=== PATIENT | male | born 1955 | race Caucasian/White ===

== ENCOUNTER 2020-07-29 17:15 | Outpatient (REF) | payer OTHER, SELFPAY | END 2020-07-29 17:16 | disposition home or self-care (01) | LOC: HO.LAB 17:15 | PROVIDERS: PCP Internal Medicine; Visit Provider Internal Medicine | DX: Z20.828 Contact with and (suspected) exposure to other viral communicable diseases (principal) | CPT/HCPCS: C9803; U0003 ==

== ENCOUNTER 2020-11-12 12:52 | Outpatient (REF) | payer OTHER, SELFPAY ==
[2020-11-12 14:09] LABS: Alanine Aminotransferase 12 U/L (0-40); Aspartate Amino Transferase 18 U/L (5-37); Cholesterol 175 mg/dL; HDL Cholesterol 42 mg/dL; LDL Cholesterol Calculated 106 mg/dl; Triglycerides 135 mg/dL
[2020-11-12 14:29] LABS: Free T4 (Free Thyroxine) 0.87 ng/dL (0.71-1.85)
== END 2020-11-12 12:53 | disposition home or self-care (01) ==
LOC: HO.HMGCLDS 12:52
PROVIDERS: PCP Internal Medicine; Visit Provider Internal Medicine
DX: E78.5 Hyperlipidemia, unspecified (principal); E03.9 Hypothyroidism, unspecified
CPT/HCPCS: 36415; 80061; 84439; 84450; 84460

== ENCOUNTER 2022-06-26 12:46 | Emergency (ER) | payer OTHER, SELFPAY ==
[2022-06-26] VITALS (8 sets, daily range): BP systolic 85–127; BP diastolic 45–72; PULSE 74–107; RESP 16–21; TEMP 36.1–36.9; O2SAT 97–100; BMI 22.3
--- NOTE | ~2022-06-26 | CT_ITS ---
EXAMINATION: CT ABDOMEN AND PELVIS WITHOUT CONTRAST CLINICAL INFORMATION: Hematuria, status post renal transplant. COMPARISON: None TECHNIQUE: Multidetector volumetric imaging was performed from the superior aspect of the liver through the pubic symphysis. Sagittal and coronal reformatted images were obtained on the technologist's workstation. This CT examination was performed using dose optimization techniques as appropriate, variously including the following: *Automated exposure control *Adjustment of mA and/or kV according to patient size (this includes techniques or standardized protocols for targeted exams where dose is matched to indication/reason for exam; i.e. extremities or head) *Use of iterative reconstruction technique DLP: 387 mGy-cm FINDINGS: LUNG BASES: There is low-attenuation lobulated 2.0 x 1.4 cm mass abating right-sided pleura, seen on image 4 series 8 LIVER, GALLBLADDER, AND BILIARY TREE: The liver is normal in size, shape, and attenuation. No focal hepatic lesion or biliary ductal dilatation is present. Gallbladder is over distended with the lumen measured 11.3 x 5.2 x 3.9 cm most likely gallbladder hydrops. CBD is not dilated. No evidence of cholelithiasis. PANCREAS: Unremarkable. SPLEEN: Unremarkable. ADRENAL GLANDS: Unremarkable. KIDNEYS AND URETERS: Negative. Kidneys are atrophic, with a small renal transplant in the right lower quadrant is unremarkable. BLADDER: Urinary bladder is circumferentially thickened with high attenuation material at the dependent portion of the bladder, most likely small stones.. GASTROINTESTINAL TRACT: There is small hiatal hernia. There is no diverticulitis, diverticulosis, colitis. Appendix is unremarkable. ABDOMINAL WALL: No significant hernia is appreciated. LYMPH NODES: Normal. VASCULAR: Unremarkable. PELVIC VISCERA: Prostate is heterogeneous and enlarged OSSEOUS STRUCTURES: There are degenerative changes at the level of L4-L5 with narrowing of the disc and marginal spurring. CT/CT abdomen pelvis wo IV con IMPRESSION: 1. Distended gallbladder, most likely gallbladder hydrops. Correlate with right upper quadrant ultrasound 2. Atrophic [place] kidneys with unremarkable transplanted kidney in the right lower quadrant. 3. Circumferentially thickened urinary bladder with small stones. 4. Prostatic hypertrophy. 5. Small hiatal hernia. 6. Right-sided pleural-based mass, correlate with CT scan of the chest. 7. Degenerative changes at the level of L4-L5. Fleischner guidelines were followed.
[2022-06-26 13:23] LABS: Appearance Urine Turbid; Color Urine RED; Glucose Urine UA Negative (Negative); Nitrite Urine Positive (Negative); PH 8.5 (5.0-9.0); UMIC TRIGGER UACC YES; Urine Blood Large (3+) (Negative); Urine Ketones 15 mg/dL (Negative); Urine Protein 300 (3+) mg/dL (Neg-Trace)
[2022-06-26 13:24] LABS: Leukocyte Esterase Urine Large (3+) (Negative)
[2022-06-26 13:34] LABS: Bacteria Urine 2+ (None Seen); Hyaline Casts Urine 0-2 /LPF (0-2); RBC Urine >20 /HPF (0-2); Squamous Epithelial Cell Urine 0-2 /HPF (0-2); UACC Culture Trigger YES
[2022-06-26 14:27] LABS: MANUAL DIFF FLAG NO
[2022-06-26 14:28] LABS: Basophils Absolute Auto 0.1 X10*3/uL (0.0-0.2); Basophils Percent Auto 0.7 % (0-2); Eosinophils Absolute Auto 0.3 X10*3/uL (0.0-0.4); Eosinophils Percent Auto 3.6 % (0-4); Hematocrit 36.3 % (42.0-52.0); Hemoglobin 11.4 g/dl (14.0-18.0); Imm Gran Abs Auto 0.11 X10*3/uL (0.00-0.03); Imm Gran Pct Auto 1.3 % (0.0-0.4); Lymphocytes Absolute Auto 1.1 X10*3/uL (1.2-4.9); Lymphocytes Percent Auto 12.6 % (20-40); Mean Corpuscular HGB Conc 31.4 g/dl (31.0-36.0); Mean Corpuscular Volume 89.2 fL (80.0-98.0); Mean Platelet Volume 9.4 fL (9.4-12.4); Monocytes Absolute Auto 0.6 X10*3/uL (0.1-1.2); Monocytes Percent Auto 7.2 % (2-11); Neutrophils Absolute Auto 6.4 x10*3/uL (2.0-8.3); Neutrophils Percent Auto 74.6 % (45-73); Platelet Count 207 X10*3/uL (160-400); Red Blood Count 4.07 X10*6/uL (4.60-5.80); Red Cell Distribution Width 15.9 % (11.0-16.0); White Blood Count 8.6 X10*3/uL (4.8-10.8)
[2022-06-26 14:33] LABS: Blood Urea Nitrogen 54 mg/dL (9-16); Calcium 9.4 mg/dL (8.4-10.2); Creatinine Clr Calc Pharmacy 13.5; Estimated Glomerular Filt Rate 15; Glucose Random 88 mg/dL (60-115)
[2022-06-26 14:41] LABS: Anion Gap 22 (12-20); Carbon Dioxide 13 mmol/L (22-29); Chloride 105 mmol/L (96-108); Potassium 5.5 mmol/L (3.3-5.1); Sodium 134 mmol/L (135-145)
--- NOTE | 2022-06-26 14:50 | PC.NURSE ---
pt's sister juanpablo lundberg ([phone]) [place] [facility] [place] on pt status
--- NOTE | 2022-06-26 15:11 | ED_ITS ---
HPI - Male Genitourinary General Chief complaint: Urogenital-Male Stated complaint: blood in urine Source: patient Mode of arrival: ambulatory Limitations: no limitations History of Present Illness HPI Narrative: 67-year-old male end-stage renal disease with a renal transplant came in with hematuria. No abdominal pain, no flank pain. Patient has been evaluated for BPH on Flomax. Patient declined any fever or chills, no nausea, no vomiting. Related Data Home Medications Medication Instructions Recorded Confirmed tamsulosin 0.4 mg capsule 0.4 mg PO BEDTIME 08/12/20 11/14/20 terazosin 2 mg capsule 2 mg PO DAILY 11/14/20 11/14/20 Previous Rx's Medication Instructions Recorded atomoxetine 80 mg capsule 80 mg PO QAM #30 caps 02/05/22 bupropion HCl 300 mg 24 hr tablet, 300 mg PO DAILY #30 tabs 02/05/22 extended release lamotrigine 200 mg tablet 200 mg PO DAILY #30 tabs 02/05/22 lisinopril 2.5 mg tablet 2.5 mg PO DAILY #90 tabs 04/14/22 allopurinol 100 mg tablet 100 mg PO DAILY #90 tabs 06/25/22 aspirin 81 mg tablet,delayed 81 mg PO DAILY #90 tabs 06/25/22 release cholecalciferol (vitamin D3) 50 50 mcg PO DAILY #90 caps 06/25/22 mcg (2,000 unit) capsule levothyroxine 75 mcg tablet 75 mcg PO QAM #90 tabs 06/25/22 omeprazole 20 mg capsule,delayed 20 mg PO DAILY #90 caps 06/25/22 release Allergies Allergy/AdvReac Type Severity Reaction Status Date / Time No Known Allergies Allergy Unverified 06/26/22 12:45 Review of Systems Review of Systems: All other systems are reviewed and are negative Constitutional: Reports as per HPI and Reports no additional constitutional complaints Eyes: Reports as per HPI and Reports no additional eye complaints Reports system reviewed and no additional complaints, except as documented Cardiovascular: Reports as per HPI and Reports no additional cardiovascular complaints Respiratory: Reports as per HPI and Reports no additional respiratory complaints Gastrointestinal: Reports as per HPI and Reports no additional gastrointestinal complaints Genitourinary: Reports no additional female genitourinary complaints Musculoskeletal: Reports no additional musculoskeletal complaints Skin/Breast: Reports system reviewed and no additional complaints, except as docu Psychiatric: Reports no additional psychiatric complaints Endocrine: Reports no additional endocrine complaints Hematologic/Lymphatic: Reports no additional hematologic/lymphatic complaints Allergic/Immunologic: Reports no additional allergic/immunologic complaints Reports system reviewed and no additional complaints, except as documented and Reports Abnormal speech present [facility] Past Medical History Medical History Acquired hypothyroidism Chronic kidney disease Dyslipidemia Essential hypertension Secondary hyperparathyroidism Surgical History History of arteriovenous shunt History of colonoscopy History of renal transplant Family History Family History Father Medical history non-contributory Mother Medical history non-contributory Sister No problems noted. Social History Social History Smoked in Last 30 Days: No Use of substances other than those prescribed or required for medical reasons: No Advance Directives: No Advance Directives Information Provided: Yes Physical Exam Vital Signs: Vital Signs: Last Vital Signs Temp 98.0 F 06/26/22 16:13 Pulse 90 06/26/22 16:13 Resp 16 06/26/22 16:13 BP 89/64 L 06/26/22 16:13 Pulse Ox 98 06/26/22 16:13 O2 Del Method 06/26/22 16:13 BMI result Body Mass Index 22.3 Vital signs have been reviewed as appeared to be correct. Blood pressure normal. Heart rate normal. Respiration rate normal. Temperature normal. Oxygen saturation normal. Appearance: Alert. Oriented X3. No acute distress. Head: Normal external exam. Normocephalic. Atraumatic. No Cap[place] signs noted. No raccoon eyes noted Eyes: PERRLA. EOMI. Conjunctiva and sclera normal. Eyelids normal. ENT: TM's Normal. Pharynx normal. Uvula midline. Moist mucous membranes. No trismus noted. No drooling noted. No muffled voice noted. Neck: Normal inspection. Neck supple. FROM. No adenopathy. Thyroid Normal. No meningeal signs. No neck mass noted. CVS: Normal heart rate and rhythm. Heart sound normal. No murmurs noted. Pulses normal throughout. Respiratory: No respiratory distress. Painless inspiration. Breath sounds normal. No wheezes/rales/rhonchi noted. Chest nontender. No accessory muscle usage noted or decreased air movement noted. Abdomen: Soft and nontender. Bowel sounds normal in all 4 quadrants. No distention noted. No organomegaly noted. No visible injury noted. Back: No CVA tenderness. Full range of motion noted. Skin: Skin warm and dry. Normal skin color. Normal skin turgor. No rashes/lesions/lacerations noted. Extremities: No lower extremity edema. Extremities exhibit normal range of motion. Extremities nontender. Neuro: Oriented X 3. Cranial nerve exam: II-XII are grossly intact No motor deficit. No sensory deficit. Reflexes normal. Course Course Course Narrative: 67-year-old male with end-stage renal disease and renal transplant came in with hematuria, CT of the abdomen pelvis is pending signed out to Dr. Sarah, patient should be transferred depending on the finding of the CT patient had the surgery done at [facility] should be discussed with the transplant surgeon. MDM - Male Genitourinary Lab Data Result diagrams: 06/26/22 14:22 06/26/22 14:02 Labs: Lab Results 06/26/22 06/26/22 06/26/22 Range/Units 13:12 14:02 14:22 WBC (4.8-10.8) X10*3/uL RBC (4.60-5.80) X10*6/uL Hgb (14.0-18.0) g/dl Hct (42.0-52.0) % MCV (80.0-98.0) fL MCH (27.0-33.0) pg MCHC (31.0-36.0) g/dl RDW (11.0-16.0) % Plt Count (160-400) X10*3/uL MPV (9.4-12.4) fL Immature Gran % (Auto) (0.0-0.4) % Neut % (Auto) (45-73) % Lymph % (Auto) (20-40) % Mclennan % (Auto) (2-11) % Eos % (Auto) (0-4) % Baso % (Auto) (0-2) % Lymph # (Auto) (1.2-4.9) X10*3/uL Mclennan # (Auto) (0.1-1.2) X10*3/uL Eos # (Auto) (0.0-0.4) X10*3/uL Baso # (Auto) (0.0-0.2) X10*3/uL Abs Immat Gran (auto) (0.00-0.03) X10*3/uL Absolute Neuts (auto) (2.0-8.3) x10*3/uL Absolute Nucleated RBC (0.0-0.012) X10*3/uL Nucleated RBC % (auto) (0.0-0.2) /100WBC PT 12.0 (10.0-13.1) SEC INR 1.0 (0.9-1.1) Sodium 134 L (135-145) mmol/L Potassium 5.5 H (3.3-5.1) mmol/L Chloride 105 (96-108) mmol/L Carbon Dioxide 13 L (22-29) mmol/L Anion Gap 22 H (12-20) BUN 54 H (9-16) mg/dL Creatinine 4.13 H* (0.5-1.4) mg/dL Estim Creat Clear Calc 13.5 Estimated GFR 15 Random Glucose 88 (60-115) mg/dL Calcium 9.4 (8.4-10.2) mg/dL Urine Color RED Urine Appearance Turbid Urine pH 8.5 (5.0-9.0) Ur Specific [place] 1.010 (1.005-1.025) Urine Protein 300 (3+) H (Neg-Trace) mg/dL Urine Glucose (UA) Negative (Negative) mg/dL Urine Ketones 15 (Negative) mg/dL Urine Blood Large (3+) H (Negative) Urine Nitrite Positive H (Negative) Ur Leukocyte Esterase Large (3+) H (Negative) Urine RBC >20 H (0-2) /HPF Urine WBC 6-10 H (0-5) /HPF Ur Squamous Epith Cells 0-2 (0-2) /HPF Urine Bacteria 2+ (None Seen) Hyaline Casts 0-2 (0-2) /LPF 06/26/ Range/Units 14:22 WBC 8.6 (4.8-10.8) X10*3/uL RBC 4.07 L (4.60-5.80) X10*6/uL Hgb 11.4 L (14.0-18.0) g/dl Hct 36.3 L (42.0-52.0) % MCV 89.2 (80.0-98.0) fL MCH 28.0 (27.0-33.0) pg MCHC 31.4 (31.0-36.0) g/dl RDW 15.9 (11.0-16.0) % Plt Count 207 (160-400) X10*3/uL MPV 9.4 (9.4-12.4) fL Immature Gran % (Auto) 1.3 H (0.0-0.4) % Neut % (Auto) 74.6 H (45-73) % Lymph % (Auto) 12.6 L (20-40) % Mclennan % (Auto) 7.2 (2-11) % Eos % (Auto) 3.6 (0-4) % Baso % (Auto) 0.7 (0-2) % Lymph # (Auto) 1.1 L (1.2-4.9) X10*3/uL Mclennan # (Auto) 0.6 (0.1-1.2) X10*3/uL Eos # (Auto) 0.3 (0.0-0.4) X10*3/uL Baso # (Auto) 0.1 (0.0-0.2) X10*3/uL Abs Immat Gran (auto) 0.11 H (0.00-0.03) X10*3/uL Absolute Neuts (auto) 6.4 (2.0-8.3) x10*3/uL Absolute Nucleated RBC 0.000 (0.0-0.012) X10*3/uL Nucleated RBC % (auto) 0.0 (0.0-0.2) /100WBC PT (10.0-13.1) SEC INR (0.9-1.1) Sodium (135-145) mmol/L Potassium (3.3-5.1) mmol/L Chloride (96-108) mmol/L Carbon Dioxide (22-29) mmol/L Anion Gap (12-20) BUN (9-16) mg/dL Creatinine (0.5-1.4) mg/dL Estim Creat Clear Calc Estimated GFR Random Glucose (60-115) mg/dL Calcium (8.4-10.2) mg/dL Urine Color Urine Appearance Urine pH (5.0-9.0) Ur Specific [place] (1.005-1.025) Urine Protein (Neg-Trace) mg/dL Urine Glucose (UA) (Negative) mg/dL Urine Ketones (Negative) mg/dL Urine Blood (Negative) Urine Nitrite (Negative) Ur Leukocyte Esterase (Negative) Urine RBC (0-2) /HPF Urine WBC (0-5) /HPF Ur Squamous Epith Cells (0-2) /HPF Urine Bacteria (None Seen) Hyaline Casts (0-2) /LPF Discharge Plan Discharge Clinical Impression: Painless hematuria Patient Disposition: Still a Patient Prescriptions: No Action atomoxetine 80 mg capsule 80 mg PO QAM Qty: 30 0RF Rx Instructions: No further refills will be given, patient will be seeing a new psychiatrist bupropion HCl 300 mg tablet extended release 24 hr 300 mg PO DAILY Qty: 30 0RF Rx Instructions: Refill on sent for 1 month supply, no for future refills will be sent, patient to be seen by new psychiatrist lamotrigine 200 mg tablet 200 mg PO DAILY Qty: 30 0RF Rx Instructions: Temporary prescription will be sent for 1 month, patient will be seeing a new psychiatrist lisinopril 2.5 mg tablet 2.5 mg PO DAILY Qty: 90 0RF allopurinol 100 mg tablet 100 mg PO DAILY Qty: 90 0RF aspirin 81 mg tablet,delayed release (DR/EC) 81 mg PO DAILY Qty: 90 0RF cholecalciferol (vitamin D3) 50 mcg (2,000 unit) capsule 50 mcg PO DAILY Qty: 90 0RF levothyroxine 75 mcg tablet 75 mcg PO QAM Qty: 90 0RF omeprazole 20 mg capsule,delayed release(DR/EC) 20 mg PO DAILY Qty: 90 0RF terazosin 2 mg capsule 2 mg PO DAILY tamsulosin 0.4 mg capsule 0.4 mg PO BEDTIME
--- NOTE | 2022-06-26 16:15 | PC.NURSE ---
THIS PCT ASSUMED CARE OF PT AT 1500 ,VS TAKEN ,PT IS RESTING ,CALL SCHNEIDER WITHIN REACH .
[2022-06-26] MEDS: 0.9 % Sodium Chloride 1,000 ML 500 ML IV (17:00)
--- NOTE | 2022-06-26 17:07 | PC.NURSE ---
Pts BP 89/64. MD aware and ordered fluids with BP improvement to 106/58. Pt aware of plan of care.
[2022-06-27] VITALS: BP 116/59; PULSE 99; RESP 20; TEMP 36.9; O2SAT 97
--- NOTE | 2022-06-27 00:07 | PC.NURSE ---
[facility]'s transfer center called at [phone] spoke with Iman gave patient demographics. Speaking with at this time.
[2022-06-27 00:55] LABS: COVID-19 Test Positive (Negative)
--- NOTE | 2022-06-27 01:26 | PC.NURSE ---
RN to RN report provided [place] PROSPER Keith [place] [facility] [place] [facility] [place] Pt aware of plan of care.
--- NOTE | 2022-06-27 01:28 | PC.NURSE ---
At 0101 accepted patient to [place] [phone]. At 0104 Karmen called for a stat Bls transfer per . ETA 20mins.
== END 2022-06-27 02:39 | disposition still patient (30) ==
PROVIDERS: Emergency Provider Emergency Medicine; PCP Internal Medicine
DX: U07.1 COVID-19 (principal); N17.9 Acute kidney failure, unspecified; I12.0 Hypertensive chronic kidney disease with stage 5 chronic kidney disease or end stage renal disease; R31.9 Hematuria, unspecified; N18.6 End stage renal disease; N39.0 Urinary tract infection, site not specified; B96.4 Proteus (mirabilis) (morganii) as the cause of diseases classified elsewhere; E78.5 Hyperlipidemia, unspecified; Z94.0 Kidney transplant status; Z79.82 Long term (current) use of aspirin; Z79.899 Other long term (current) drug therapy
CPT/HCPCS: 36415; 74176; 80048; 81001; 85025; 85610; 87086; 87088; 87186; 87635; 96360; 96361; 96366; 99285

== ENCOUNTER 2022-08-12 12:30 | Inpatient (IN) | payer OTHER, SELFPAY ==
[2022-08-12] VITALS (7 sets, daily range): BP systolic 110–150; BP diastolic 42–106; PULSE 83–117; RESP 17–32; TEMP 36.8–39.4; O2SAT 94–99; BMI 25.0
--- NOTE | ~2022-08-12 | CT_ITS ---
EXAMINATION: CT CHEST, ABDOMEN AND PELVIS WITHOUT IV CONTRAST. CLINICAL INFORMATION: Fever, SOB COMPARISON: Chest x-ray 08/12/2022. CT abdomen pelvis 06/26/2022 TECHNIQUE: 5 mm thin axial and reformatted 3 mm thick sagittal and coronal images of chest, abdomen and pelvis were obtained without contrast. DLP 664 FINDINGS: Chest: LUNGS: The lungs are well-expanded and with patchy groundglass attenuation in the in the lingula and dependent right basilar segment lower lobe suggestive of infiltrates. There is a round nodule in the right CP angle measuring 1.2 cm. there are no additional nodules seen Mediastinum: The heart size and great vessels are normal caliber. There is mild coronary artery calcifications. No pericardial effusion seen. No abnormal size mediastinal or hilar lymph nodes seen. Central trachea and the bronchi appears widely patent. Thyroid lobes are symmetrical and normal. Pleura: There is no pleural effusion, thickening or calcification. Axilla: Small shotty lymph nodes are seen axilla. The chest wall is unremarkable. Osseous structures: No aggressive lytic or sclerotic process seen. There are degenerative disc changes and ventral spondylosis mid and lower dorsal spine. Abdomen and pelvis: Liver, ducts and gallbladder. The liver is normal size, contour and density. No focal lesion or intrahepatic ductal dilatation seen. The gallbladder is distended with isodense bile to liver. Spleen: Unremarkable. Pancreas: Unremarkable. Adrenal glands: Unremarkable. Kidneys and ureters: Both kidneys are small and atrophic without radiopaque calculi or hydronephrosis. In right transplant kidney is visualized and pelvis and appears unremarkable. Lymphovascular structures: The abdominal aorta appears normal caliber. Noted lymph nodes or mass seen. GI tract: There is scattered moderate stool seen throughout the colon without distention. The small bowel loops are normal caliber. There is a left upper quadrant gastrostomy tube appendix is not seen. There is no free air or free fluid. Abdominal wall: No evidence of hernia. Pelvis: The urinary bladder is distended extending to the umbilicus. Mild posterior wall calcification or hyperdense gravel is suspected. There is moderate to significantly enlarged prostate gland with hyperdense central gland nodule. There is no free fluid. No abnormal pelvic or inguinal lymph nodes seen. Osseous structures: There is vacuum disc phenomena and degenerative disc changes L4-L5 disc level. No aggressive lytic or sclerotic process seen. CT/CT abdomen pelvis wo IV con IMPRESSION: Lingular and right lower lobe groundglass opacity suggestive of developing infiltrates. There is a 1.2 cm nodule right CP angle question inflammatory or infectious. Question of right lower lobe mass was raised on previous CT abdomen and pelvis exam 06/26/2022. Recommend follow-up in 6 weeks to 3 months or PET/CT follow-up after resolution of pneumonia. Atrophic bilateral kidneys with normal appearing renal transplant in the pelvis. Significantly enlarged bladder secondary to bladder outlet obstruction from an enlarged prostate gland. There is small posterior wall calcification or radiopaque gravel along the posterior bladder wall. Dependent small radiopaque stones were suspected on the previous CT as well. Distended gallbladder with isodense bowel to liver.
--- NOTE | ~2022-08-12 | XR_ITS ---
EXAMINATION: XR CHEST CLINICAL INFORMATION: Shortness of breath COMPARISON: Chest x-ray 12/18/2006 TECHNIQUE: Frontal view of the chest was obtained. FINDINGS: The lungs are hypoexpanded but clear. The heart size and pulmonary vascularity is normal. No gross bony abnormality seen. XR/XR chest 1V IMPRESSION: Hypoexpanded lungs without acute process.
--- NOTE | ~2022-08-12 | CT_ITS ---
EXAMINATION: CT HEAD WITHOUT CONTRAST CLINICAL INFORMATION: Acute mental status change COMPARISON: Head CT 12/29/2013. No more recent available studies TECHNIQUE: Imaging was performed from the skull base to vertex without intravenous administration of contrast. This CT examination was performed using dose optimization techniques as appropriate, variously including the following: *Automated exposure control *Adjustment of mA and/or kV according to patient size (this includes techniques or standardized protocols for targeted exams where dose is matched to indication/reason for exam; i.e. extremities or head) *Use of iterative reconstruction technique Total exam dose length product: 664 mGy-cm FINDINGS: Exam quality degraded by motion artifact. Mixed attenuation left lateral convexity subdural hematoma measuring up to 1.2 cm in thickness. Some small areas of hypodensity hemorrhage within the collection. Hyperdense acute smaller right frontal convexity subdural hematoma measuring approximately 4 mm in thickness. Mild 3-4 mm rightward midline shift. Partial sulcal effacement. Basal cisterns are patent. No additional intracranial hemorrhage or mass. No ventriculomegaly. No gross loss of dickens-white matter differentiation. No territorial encephalomalacia identified. No significant volume loss. There is no abnormal attenuation within the brain parenchyma. Right left lateral parietal ignacio holes. No calvarial fracture. The mastoid air cells and visualized portions of the paranasal sinuses appear normally aerated allowing for motion artifact.. CT/CT head/brain wo IV con IMPRESSION: 1. Mixed attenuation left lateral convexity subdural hematoma measuring up to 1.2 cm in thickness consistent with acute to subacute hemorrhage. 2. Small right frontal convexity subdural hematoma measuring 4 mm in thickness, high density suggesting more recent/acute hemorrhage. 3. Mild 3-4 mm rightward midline shift. This critical result was discussed with Dr. Steele at 5:41 PM on 08/12/2022 and it was ascertained that the content and urgency of the report was understood at the time of direct communication.
--- NOTE | 2022-08-12 12:53 | ECG_ITS ---
Test Reason : SOB Blood Pressure : / mmHG Vent. Rate : 114 BPM Atrial Rate : 114 BPM P-R Int : 152 ms QRS Dur : 074 ms QT Int : 314 ms P-R-T Axes : 000 132 -09 degrees QTc Int : 432 ms Poor data quality Suspect limb lead reversal, interpretation assumes no reversal Sinus tachycardia Right axis deviation Low voltage QRS ST & T wave abnormality, consider anterior ischemia Abnormal ECG When compared with ECG of 29-DEC-2013 16:10, Poor data quality in current ECG precludes serial comparison Referred By: Patricia Steele Electronically Signed By:MARIAH CHAVEZ MD
--- NOTE | 2022-08-12 13:12 | ED.GENADULT ---
HPI - General Adult General Chief complaint: General Medical Stated complaint: From SNF, hot to the touch per EMS Time Seen by Provider: 08/12/22 12:53 Source: EMS Mode of arrival: EMS History of Present Illness HPI narrative: 67-year-old male arrives via EMS from long-term care facility with baseline neurologic deficits but staff is saying that he is more tremulous than normal and ?is feels like he may have a fever?. They are also concerned that he may be having seizures. Related Data Home Medications Medication Instructions Recorded Confirmed tamsulosin 0.4 mg capsule 0.4 mg PO BEDTIME 08/12/20 11/14/20 terazosin 2 mg capsule 2 mg PO DAILY 11/14/20 11/14/20 Previous Rx's Medication Instructions Recorded atomoxetine 80 mg capsule 80 mg PO QAM #30 caps 02/05/22 bupropion HCl 300 mg 24 hr tablet, 300 mg PO DAILY #30 tabs 02/05/22 extended release lamotrigine 200 mg tablet 200 mg PO DAILY #30 tabs 02/05/22 lisinopril 2.5 mg tablet 2.5 mg PO DAILY #90 tabs 04/14/22 allopurinol 100 mg tablet 100 mg PO DAILY #90 tabs 06/25/22 aspirin 81 mg tablet,delayed 81 mg PO DAILY #90 tabs 06/25/22 release cholecalciferol (vitamin D3) 50 50 mcg PO DAILY #90 caps 06/25/22 mcg (2,000 unit) capsule levothyroxine 75 mcg tablet 75 mcg PO QAM #90 tabs 06/25/22 omeprazole 20 mg capsule,delayed 20 mg PO DAILY #90 caps 06/25/22 release Allergies Allergy/AdvReac Type Severity Reaction Status Date / Time No Known Allergies Allergy Unverified 06/26/22 12:45 Review of Systems Review of Systems: Yes Unobtainable due to mental condition PMFSH Past Medical History Source: nursing notes reviewed Medical History Acquired hypothyroidism Chronic kidney disease Dyslipidemia Essential hypertension Secondary hyperparathyroidism Surgical History History of arteriovenous shunt History of colonoscopy History of renal transplant Family History Family History Father Medical history non-contributory Mother Medical history non-contributory Sister No problems noted. Social History Social History Advance Directives: No Advance Directives Information Provided: Yes Physical Exam ED Vital Signs: Vital Signs - 24 hr 08/12/22 12:49 08/12/22 14:25 08/12/22 16:40 Temperature 103 F H 98.2 F Pulse Rate 117 H 102 H 83 Respiratory Rate 24 H 24 H 18 Blood Pressure 132/106 H 142/88 H 150/66 H Pulse Oximetry 99 95 Oxygen Delivery Method Room Air Room Air BMI result Body Mass Index 25.0 VITAL SIGNS: Reviewed. GENERAL: Chronically ill, in no acute distress. HEAD: Normocephalic/atraumatic EYES: PERRLA, EOMI, nystagmus EARS: Ext canals without abnormality OROPHARYNX: no oral lesions noted, posterior pharynx clear NECK: Supple, no adenopathy LUNGS: Normal breath sounds. No adventitious sounds or accessory muscle use. SpO2<99> CARDIOVASCULAR: Tachycardic rate and rhythm without noted murmurs, no JVD or lower extremity edema. ABDOMEN: Soft, non-tender, feeding tube in place, non-distended with bowel sounds. MUSCULOSKELETAL: No tenderness, deformities, or effusions noted on gross inspection. EXTREMITIES: No cyanosis, clubbing or edema. SKIN: Inspection of the skin reveals no rashes, tactile fever NEUROLOGIC: Alert strength and sensation to light touch were grossly intact x 4 but with dyskinetic movement but no seizure-like activity noted. Course Reevaluation(s) Reevaluation #1: Hypoglycemia will be treated with D50. The hyperkalemia is noted, however this appears to be chronically stable when prior labs here at [facility] are reviewed as well as discussion in the [facility] documentation. Time: 14:12 Reevaluation #2: Patient received another D50 with good response. Time: 15:27 Medications Administered Generic Name Dose Route Start Last Admin Trade Name Freq PRN Reason Stop Dose Admin Dextrose 25 gm 08/12/22 14:02 08/12/22 15:33 Dextrose 50 % 25 Gm/50 Ml Syringe IVPUSH 25 gm Q15M PRN Administration per Hypoglycemia Standing Ord. Discontinued Medications Generic Name Dose Route Start Last Admin Trade Name Freq PRN Reason Stop Dose Admin Acetaminophen 650 mg 12/29/22 13:56 08/12/22 14:15 Acetaminophen Supp 650 Mg Supp.Rect OH 08/12/22 13:57 650 mg ONCE ONE Administration Piperacillin Sod/Tazobactam 50 mls @ 100 mls/hr 08/12/22 12:53 08/12/22 15:12 Sod 3.375 gm/ Sodium Chloride IV 08/12/22 13:22 Infused ONCE ONE Infusion Sodium Chloride 1,000 mls @ 999 mls/hr 08/12/22 14:00 08/12/22 15:12 Ns IV 08/12/22 15:00 Infused .Q1H1M WHITNEY Infusion Midazolam HCl 1 mg 08/12/22 16:38 08/12/22 16:45 Midazolam Hcl/Pf 2 Mg/2 Ml Vial IVPUSH 08/12/22 16:39 1 mg ONCE ONE Administration Midazolam HCl 1 mg 08/12/22 16:59 08/12/22 17:02 Midazolam Hcl/Pf 2 Mg/2 Ml Vial IVPUSH 08/12/22 17:00 1 mg ONCE ONE Administration Medical Decision Making Medical Decision Making MDM Narrative: 67-year-old male who is a full code, multiple medical comorbidities with a recent extensive stay at [facility] for increased encephalopathy of unknown etiology, patient was treated for acute and chronic subdural hematomas at that time. Comes in febrile suspicious for likely underlying infection, labs/lactic acid/blood cultures/seizure medication levels/antibiotics as well as IV fluids were all ordered. Due to difficulty with further assessment we also ordered CT of the head/chest as well as abdomen pelvis. After patient received antibiotics, IV fluids, antipyretics he is had good response in heart rate, respiratory rate as well as temperature. There is no leukocytosis and anemia is chronically stable, patient has noted elevated potassium as well as sodium but feel that this is secondary to suspected underlying hypovolemia and possible malnutrition. In comparison to chemistry studies on 06/26 the creatinine is significantly improved and the potassium is only mildly worsened but again I feel that this is secondary to dehydration/malnutrition. Patient was also noted to be hypo glycemic and received a total of 2 amps of D50. He has not had any seizure-like activity here as he is difficult to understand but is responsive and tracks when you speak to him. Viral testing is negative. 1715: CT scans, urinalysis/urine toxicology are all pending. In addition, anti seizure medication levels are also pending. I signed out to Dr. Harris Differential Diagnosis Differential Diagnoses: The differential diagnosis associated with the presentation includes Infection, metabolic derangement, change in subdural hematoma status. Admission/Observation Consideration of admission/observation: Escalation of care including admission/observation considered Lab Data MDM Lab Attestation statement: I reviewed the patient's lab results. Please see discussion above Result Diagrams: 08/12/22 13:11 08/12/22 13:11 Labs: Lab Results 08/12/22 08/12/22 08/12/22 Range/Units 13:11 13:11 13:11 WBC 5.7 (4.8-10.8) X10*3/uL RBC 4.10 L (4.60-5.80) X10*6/uL Hgb 10.8 L (14.0-18.0) g/dl Hct 35.8 L (42.0-52.0) % MCV 87.3 (80.0-98.0) fL MCH 26.3 L (27.0-33.0) pg MCHC 30.2 L (31.0-36.0) g/dl RDW 17.8 H (11.0-16.0) % Plt Count 346 D (160-400) X10*3/uL MPV 9.5 (9.4-12.4) fL Immature Gran % (Auto) 0.4 (0.0-0.4) % Neut % (Auto) 60.0 (45-73) % Lymph % (Auto) 28.4 (20-40) % [place] % (Auto) 8.0 (2-11) % Eos % (Auto) 2.1 (0-4) % Baso % (Auto) 1.1 (0-2) % Lymph # (Auto) 1.6 (1.2-4.9) X10*3/uL [place] # (Auto) 0.5 (0.1-1.2) X10*3/uL Eos # (Auto) 0.1 (0.0-0.4) X10*3/uL Baso # (Auto) 0.1 (0.0-0.2) X10*3/uL Abs Immat Gran (auto) 0.02 (0.00-0.03) X10*3/uL Absolute Neuts (auto) 3.4 (2.0-8.3) x10*3/uL Absolute Nucleated RBC 0.000 (0.0-0.012) X10*3/uL Nucleated RBC % (auto) 0.0 (0.0-0.2) /100WBC PT 13.0 (10.0-13.1) SEC INR 1.1 (0.9-1.1) Sodium (135-145) mmol/L Potassium (3.3-5.1) mmol/L Chloride (96-108) mmol/L Carbon Dioxide (22-29) mmol/L Anion Gap (12-20) BUN (9-16) mg/dL Creatinine (0.5-1.4) mg/dL Estim Creat Clear Calc Estimated GFR POC Glucose (60-115) mg/dL Random Glucose (60-115) mg/dL Lactic Acid 2.9 H* (0.5-2.0) mmol/L Lactic Acid F/U @ 2Hr (0.5-2.0) mmol/L Calcium (8.4-10.2) mg/dL Magnesium (1.6-2.6) mg/dL Total Bilirubin (0.0-1.0) mg/dL AST (5-37) U/L ALT (0-40) U/L Alkaline Phosphatase (39-117) U/L Troponin I High Sens (<3.5-35.0) ng/L Total Protein (6.5-8.0) g/dL Albumin (3.5-5.0) g/dL COVID-19 (JOE) (Negative) COVID-19 Clin Com Influenza Type A (DODIE) (Negative) Influenza Type B (DODIE) (Negative) Influenza A & B Note 08/12/22 08/12/22 08/12/22 Range/Units 13:11 13:11 13:11 WBC (4.8-10.8) X10*3/uL RBC (4.60-5.80) X10*6/uL Hgb (14.0-18.0) g/dl Hct (42.0-52.0) % MCV (80.0-98.0) fL MCH (27.0-33.0) pg MCHC (31.0-36.0) g/dl RDW (11.0-16.0) % Plt Count (160-400) X10*3/uL MPV (9.4-12.4) fL Immature Gran % (Auto) (0.0-0.4) % Neut % (Auto) (45-73) % Lymph % (Auto) (20-40) % [place] % (Auto) (2-11) % Eos % (Auto) (0-4) % Baso % (Auto) (0-2) % Lymph # (Auto) (1.2-4.9) X10*3/uL [place] # (Auto) (0.1-1.2) X10*3/uL Eos # (Auto) (0.0-0.4) X10*3/uL Baso # (Auto) (0.0-0.2) X10*3/uL Abs Immat Gran (auto) (0.00-0.03) X10*3/uL Absolute Neuts (auto) (2.0-8.3) x10*3/uL Absolute Nucleated RBC (0.0-0.012) X10*3/uL Nucleated RBC % (auto) (0.0-0.2) /100WBC PT (10.0-13.1) SEC INR (0.9-1.1) Sodium 148 H (135-145) mmol/L Potassium 6.3 H* (3.3-5.1) mmol/L Chloride 113 H (96-108) mmol/L Carbon Dioxide 21 L (22-29) mmol/L Anion Gap 20 (12-20) BUN 59 H (9-16) mg/dL Creatinine 1.98 H (0.5-1.4) mg/dL Estim Creat Clear Calc 34.3 Estimated GFR 34 POC Glucose (60-115) mg/dL Random Glucose 55 L* (60-115) mg/dL Lactic Acid (0.5-2.0) mmol/L Lactic Acid F/U @ 2Hr (0.5-2.0) mmol/L Calcium 10.2 D (8.4-10.2) mg/dL Magnesium 2.1 (1.6-2.6) mg/dL Total Bilirubin 0.5 (0.0-1.0) mg/dL AST 32 (5-37) U/L ALT 21 (0-40) U/L Alkaline Phosphatase 189 H (39-117) U/L Troponin I High Sens 41.3 H (<3.5-35.0) ng/L Total Protein 8.0 (6.5-8.0) g/dL Albumin 4.5 (3.5-5.0) g/dL COVID-19 (JOE) (Negative) COVID-19 Clin Com Influenza Type A (DODIE) Negative (Negative) Influenza Type B (DODIE) Negative (Negative) Influenza A & B Note See Note 08/12/22 08/12/22 08/12/22 Range/Units 13:11 14:09 15:27 WBC (4.8-10.8) X10*3/uL RBC (4.60-5.80) X10*6/uL Hgb (14.0-18.0) g/dl Hct (42.0-52.0) % MCV (80.0-98.0) fL MCH (27.0-33.0) pg MCHC (31.0-36.0) g/dl RDW (11.0-16.0) % Plt Count (160-400) X10*3/uL MPV (9.4-12.4) fL Immature Gran % (Auto) (0.0-0.4) % Neut % (Auto) (45-73) % Lymph % (Auto) (20-40) % [place] % (Auto) (2-11) % Eos % (Auto) (0-4) % Baso % (Auto) (0-2) % Lymph # (Auto) (1.2-4.9) X10*3/uL [place] # (Auto) (0.1-1.2) X10*3/uL Eos # (Auto) (0.0-0.4) X10*3/uL Baso # (Auto) (0.0-0.2) X10*3/uL Abs Immat Gran (auto) (0.00-0.03) X10*3/uL Absolute Neuts (auto) (2.0-8.3) x10*3/uL Absolute Nucleated RBC (0.0-0.012) X10*3/uL Nucleated RBC % (auto) (0.0-0.2) /100WBC PT (10.0-13.1) SEC INR (0.9-1.1) Sodium Cancelled (135-145) mmol/L Potassium Cancelled (3.3-5.1) mmol/L Chloride Cancelled (96-108) mmol/L Carbon Dioxide Cancelled (22-29) mmol/L Anion Gap Cancelled (12-20) BUN Cancelled (9-16) mg/dL Creatinine Cancelled (0.5-1.4) mg/dL Estim Creat Clear Calc Cancelled Estimated GFR Cancelled POC Glucose 49 L* (60-115) mg/dL Random Glucose Cancelled (60-115) mg/dL Lactic Acid (0.5-2.0) mmol/L Lactic Acid F/U @ 2Hr (0.5-2.0) mmol/L Calcium Cancelled (8.4-10.2) mg/dL Magnesium Cancelled (1.6-2.6) mg/dL Total Bilirubin Cancelled (0.0-1.0) mg/dL AST Cancelled (5-37) U/L ALT Cancelled (0-40) U/L Alkaline Phosphatase Cancelled (39-117) U/L Troponin I High Sens (<3.5-35.0) ng/L Total Protein Cancelled (6.5-8.0) g/dL Albumin Cancelled (3.5-5.0) g/dL COVID-19 (JOE) Negative (Negative) COVID-19 Clin Com See Note Influenza Type A (DODIE) (Negative) Influenza Type B (DODIE) (Negative) Influenza A & B Note 08/12/22 08/12/22 Range/Units 15:36 16:04 WBC (4.8-10.8) X10*3/uL RBC (4.60-5.80) X10*6/uL Hgb (14.0-18.0) g/dl Hct (42.0-52.0) % MCV (80.0-98.0) fL MCH (27.0-33.0) pg MCHC (31.0-36.0) g/dl RDW (11.0-16.0) % Plt Count (160-400) X10*3/uL MPV (9.4-12.4) fL Immature Gran % (Auto) (0.0-0.4) % Neut % (Auto) (45-73) % Lymph % (Auto) (20-40) % [place] % (Auto) (2-11) % Eos % (Auto) (0-4) % Baso % (Auto) (0-2) % Lymph # (Auto) (1.2-4.9) X10*3/uL [place] # (Auto) (0.1-1.2) X10*3/uL Eos # (Auto) (0.0-0.4) X10*3/uL Baso # (Auto) (0.0-0.2) X10*3/uL Abs Immat Gran (auto) (0.00-0.03) X10*3/uL Absolute Neuts (auto) (2.0-8.3) x10*3/uL Absolute Nucleated RBC (0.0-0.012) X10*3/uL Nucleated RBC % (auto) (0.0-0.2) /100WBC PT (10.0-13.1) SEC INR (0.9-1.1) Sodium (135-145) mmol/L Potassium (3.3-5.1) mmol/L Chloride (96-108) mmol/L Carbon Dioxide (22-29) mmol/L Anion Gap (12-20) BUN (9-16) mg/dL Creatinine (0.5-1.4) mg/dL Estim Creat Clear Calc Estimated GFR POC Glucose 85 (60-115) mg/dL Random Glucose (60-115) mg/dL Lactic Acid (0.5-2.0) mmol/L Lactic Acid F/U @ 2Hr 0.7 (0.5-2.0) mmol/L Calcium (8.4-10.2) mg/dL Magnesium (1.6-2.6) mg/dL Total Bilirubin (0.0-1.0) mg/dL AST (5-37) U/L ALT (0-40) U/L Alkaline Phosphatase (39-117) U/L Troponin I High Sens (<3.5-35.0) ng/L Total Protein (6.5-8.0) g/dL Albumin (3.5-5.0) g/dL COVID-19 (JOE) (Negative) COVID-19 Clin Com Influenza Type A (DODIE) (Negative) Influenza Type B (DODIE) (Negative) Influenza A & B Note Independent Interpretation I performed an independent interpretation of an: EKG Interpretation: Sinus tachycardia, HR-114, no STEMI, ST T-wave abnormalities are consistent with prior EKG from 2013, OH/QRS/QTC is within normal limits. There is significant background artifact. Radiology Impression Radiologist Impression: My interpretation is in agreement with radiology's impression of imaging studies. External Record Review External record reviewed: Inpatient record, Outpatient record and Prior outpatient labs I reviewed collateral information obtained from [facility] discharge note with the following information: Patient was transferred on 07/15 for identification of encephalopathy and noted subacute/chronic subdural hematomas which required bur holes. In addition, patient was noted to have hyponatremia and at renal consultation they recommended an adjusted shows of Tacrolimus for known renal transplant. In addition neurosurgery was comfortable with discharge on 08/03 and patient had a follow-up appointment with them for 08/17/2022. Neurosurgery recommended at that time to continue tranexamic acid through the PEG tube as well as continuing Keppra. Patient was also noted to have rectal thickening which was evaluated by Gastroenterology with the flexible sigmoidoscopy on 07/28 which was negative for demonstrating a rectal mass. Patient's hyponatremia was further evaluated by Nephrology and felt to be secondary to ongoing intracranial process but had been annotated as improving. ( to be secondary to quetiapine, intracranial process, low solute intake) renal recommended to continue dose of Tacrolimus of 3 mg in the morning and 2 mg in the p.m. Critical Care Time Critical Care Time Critical Care Time: Yes Total Critical Care Time: 75 Attestation: I personally attest to this time spent taking care of the patient. Discharge Plan Discharge Clinical Impression: Mental status alteration, Hypoglycemia, Dehydration, Malnutrition Patient Disposition: Still a Patient Prescriptions: No Action atomoxetine 80 mg capsule 80 mg PO QAM Qty: 30 0RF Rx Instructions: No further refills will be given, patient will be seeing a new psychiatrist bupropion HCl 300 mg tablet extended release 24 hr 300 mg PO DAILY Qty: 30 0RF Rx Instructions: Refill on sent for 1 month supply, no for future refills will be sent, patient to be seen by new psychiatrist lamotrigine 200 mg tablet 200 mg PO DAILY Qty: 30 0RF Rx Instructions: Temporary prescription will be sent for 1 month, patient will be seeing a new psychiatrist lisinopril 2.5 mg tablet 2.5 mg PO DAILY Qty: 90 0RF allopurinol 100 mg tablet 100 mg PO DAILY Qty: 90 0RF aspirin 81 mg tablet,delayed release (DR/EC) 81 mg PO DAILY Qty: 90 0RF cholecalciferol (vitamin D3) 50 mcg (2,000 unit) capsule 50 mcg PO DAILY Qty: 90 0RF levothyroxine 75 mcg tablet 75 mcg PO QAM Qty: 90 0RF omeprazole 20 mg capsule,delayed release(DR/EC) 20 mg PO DAILY Qty: 90 0RF terazosin 2 mg capsule 2 mg PO DAILY tamsulosin 0.4 mg capsule 0.4 mg PO BEDTIME
[2022-08-12 13:16] LABS: MANUAL DIFF FLAG NO
[2022-08-12 13:23] LABS: Basophils Absolute Auto 0.1 X10*3/uL (0.0-0.2); Basophils Percent Auto 1.1 % (0-2); Eosinophils Absolute Auto 0.1 X10*3/uL (0.0-0.4); Eosinophils Percent Auto 2.1 % (0-4); Hematocrit 35.8 % (42.0-52.0); Hemoglobin 10.8 g/dl (14.0-18.0); Imm Gran Abs Auto 0.02 X10*3/uL (0.00-0.03); Imm Gran Pct Auto 0.4 % (0.0-0.4); Lymphocytes Absolute Auto 1.6 X10*3/uL (1.2-4.9); Lymphocytes Percent Auto 28.4 % (20-40); Mean Corpuscular HGB Conc 30.2 g/dl (31.0-36.0); Mean Corpuscular Hemoglobin 26.3 pg (27.0-33.0); Mean Corpuscular Volume 87.3 fL (80.0-98.0); Mean Platelet Volume 9.5 fL (9.4-12.4); Monocytes Absolute Auto 0.5 X10*3/uL (0.1-1.2); Neutrophils Absolute Auto 3.4 x10*3/uL (2.0-8.3); Platelet Count 346 X10*3/uL (160-400); Red Cell Distribution Width 17.8 % (11.0-16.0); White Blood Count 5.7 X10*3/uL (4.8-10.8)
[2022-08-12 13:32] LABS: INTERNATIONAL NORM RATIO 1.1 (0.9-1.1)
[2022-08-12 13:38] LABS: Lactic Acid 2.9 mmol/L (0.5-2.0)
[2022-08-12 13:40] LABS: COVID-19 Test Negative (Negative)
--- OUTSIDE RECORDS SUMMARY | 2022-08-12 13:42 | XMS_ITS | Continuity of Care Document ---
:1955 Author Organization [facility] Address [address] [place] [address]- Care Team Providers Name Role Phone Todd LAWS, Katja Zhang Primary Care Phys[place] [facility] [place]): [place] - 06/23/[address] [address] Attending Physician: Not on Staff, Attending MD Admitting Physician: Not on Staff, Admitting MD Referring Physician: Not on Staff, Referring MD Allergies, Adverse Reactions, Alerts No Known Allergies Immunizations Given and Recorded Vaccine Date Status Refusal Reason SARS-CoV-2 (COVID-19) Ad26 vaccine 07/02/21 Recorded SARS-CoV-2 (COVID-19) Ad26 vaccine 11/10/20 Recorded tetanus/diphtheria/pertussis, acel(Tdap)1 11/14/13 Record ed Not Given Vaccine Date Status Refusal Reason influenza virus vaccine, inactivated 05/22/22 Not Given Patient Refuses 1Location History: Katja Brooks MD office Medications allopurinol 100 mg oral tablet 100 mg, 1, tablet, By Mouth, 2 times a day, # 60 tablet, Refills 5, Tot. Refills 5, Maintenance, 07/12/17 7:57:23, Route to Pharmacy Electronically, NCPDP_ID- [id number], [facility] Start Date: 07/12/17 Stop Date: 01/08/18 Status: Orderedaspirin 81 mg oral delayed release tablet 81 mg, 1, tablet, By Mouth, Daily, # 30 tablet, Refills 0, Maintenance, 04/22/22 16:57:00 EDT, Partial fill upon patient request if the prescription is for a schedule II opioid drug. Start Date: 04/22/22 Status: Orderedatomoxetine 80 mg oral capsule 1 capsule = 80 mg, By Mouth, Daily in AM, # 30 capsule, 0 Refills, Maintenance, 04/22/22 16:56:00 EDT, Capsule, Partial fill upon patient request if the prescription is for a schedule II opioid drug. Start Date: 04/22/22 Status: OrderedbuPROPion 150 mg/24 hours (XL) oral tablet, extended release 1 tablet = 150 mg, By Mouth, Daily, # 30 tablet, 5 Refills, Maintenance, 07/12/17 7:58:21, ER Tablet, 1 tablet By Mouth Daily,x30 days Start Date: 07/12/17 Stop Date: 01/08/18 Status: Ordereddocusate-senna 50 mg-8.6 mg oral capsule 2 capsule, By Mouth, 2 times a day, PRN Constipation, # 30 capsule, 0 Refills, Acute 07/09/22 13:51:00 EST, 06/08/22 13:51:00 EDT, Capsule, Partial fill upon patient request if the prescription is for a schedule II opioid drug. Start Date: 06/08/22 Stop Date: 07/09/22 Status: OrderedEnvarsus XR 1 mg oral tablet, extended release 2 tablet = 2 mg, By Mouth, Daily in AM, # 60 tablet, 3 Refills, Maintenance, 05/24/22 12:41:00 EDT, [facility], Partial fill upon patient request if the prescription is for a schedule II opioid drug., 160, cm, 05/24/22 11:42:00 EDT, Heig... Start Date: 05/24/22 Stop Date: 09/21/22 Status: Orderedlamotrigine 200 mg oral tablet 1 tablet = 200 mg, By Mouth, 2 times a day, # 60 tablet, 0 Refills, Maintenance, 06/24/17 14:49:02, Tablet Start Date: 06/24/17 Status: Orderedlevothyroxine 0.112 mg oral tablet 1 tablet = 112 mcg, By Mouth, Daily, # 30 tablet, 0 Refills, Maintenance, 05/24/22 12:47:00 EDT, Tablet, [facility] 3, Partial fill upon patient request if the prescription is for a schedule II opioid drug., 160, cm, 05/24/22 11:42:00 EDT,... Start Date: 05/24/22 Status: Orderedloratadine 10 mg oral tablet 10 mg, 1, tablet, By Mouth, Daily, # 30 tablet, Refills 5, Tot. Refills 5, Maintenance, 07/12/17 7:58:44, Route to Pharmacy Electronically, NCPDP_ID- [id number], [facility] Start Date: 07/12/17 Stop Date: 01/08/18 Status: Orderedpantoprazole 20 mg oral delayed release tablet 20 mg, 1, tablet, By Mouth, Daily, # 30 tablet, Refills 5, Tot. Refills 5, Maintenance, 04/25/17 15:43:11, Route to Pharmacy Electronically, NCPDP_ID- [id number], [facility] Start Date: 04/25/17 Stop Date: 10/22/17 Status: Orderedtamsulosin 0.4 mg oral capsule 0.4 mg, 1, capsule, By Mouth, Daily, # 30 capsule, Refills 0, Maintenance, 06/05/22 0:47:00 EDT, Partial fill upon patient request if the prescription is for a schedule II opioid drug. Start Date: 06/05/22 Status: OrderedVitamin D3 2000 intl units oral capsule 1 capsule = 50 mcg, By Mouth, Daily, # 60 capsule, 0 Refills, Maintenance, 06/05/22 0:47:00 EDT, Capsule, Partial fill upon patient request if the prescription is for a schedule II opioid drug. Start Date: 06/05/22 Status: Ordered Problem List Condition Confirmation Course Effective Dates Status Health Stat us Informant ESRD - End stage Confirmed Active renal disease -donor Confirmed 03/26/17 Active kidney transplant1 Renal failure Confirmed Active 1campath induction Social History Social History Type Response Smoking Status Never smoker entered on: 09/05/15 Sex Patient Care team information Care Team PersonnelName: Joan Mendiola RN Position: S RN Member Role: Primary Care Nurse Name: Perla Lepe RN Position: S RN Member Role: Primary Care Nurse Name: Nia Ellison RN Position: S RN Member Role: Primary Care Nurse Name: Peter Stafford MD Position: [facility] Renal MD Member Role: Lifetime Consulting Physician Address: Address: [address] [place] [address], [facility] [address] [facility] [address] Name: Katja Brooks MD Position: Reference Physician Member Role: PCP Address: Address: [address] [place] [address]- [place] Name: Brittany Miles RN Position: [facility] RN Member Role: Primary Care Nurse Name: Aurelia Mena Position: [facility] RN Member Role: Primary Care Nurse Name: Yuriy Murphy RN Position: [facility] RN Member Role: Primary Care Nurse Name: Edilma Restrepo Position: [facility] RN Member Role: Primary Care Nurse Name: Omayra Riley Position: [facility] ED RN W/OE and Tasks Member Role: Primary Care Nurse Name: Karan Roberto RN Position: [facility] RN Member Role: Primary Care Nurse Name: Carlee Killian RN Position: [facility] RN Member Role: Primary Care Nurse Name: Viv Britton RN Position: [facility] RN Member Role: Primary Care Nurse Name: Irasema Velazquez RN Position: [facility] RN Member Role: Primary Care Nurse Name: Alek Corona MD Position: [facility] Renal MD Member Role: Lifetime Consulting Physician Address: Address: [address] [place] [address] [address] [facility] [place], [place] [address]- [place] Name: Iman Payne RN Position: [facility] RN Member Role: Primary Care Nurse Name: Tori Harris RN Position: [facility] RN Member Role: Primary Care Nurse Name: Franchesca Kelly RN Position: [facility] RN Member Role: Primary Care Nurse Name: Concha Nobles RN Position: [facility] RN Member Role: Primary Care Nurse Name: Reynaldo Agee MD Position: [facility] Renal MD Member Role: Lifetime Consulting Physician Address: Address: [address] [facility] [place] [address]- [place] Name: Genevieve Khan RN Position: [facility] RN Member Role: Primary Care Nurse Name: Franci Henry RN Position: [facility] Hospital Packaging Design Engineer Member Role: Primary Care Nurse Care Team Related PersonsName: LUIS EDUARDOLoraOWEN Name: ESAU HARRISON Address: [address] [address]
--- OUTSIDE RECORDS SUMMARY | 2022-08-12 13:42 | XMS_ITS | Continuity of Care Document ---
:1955 Author Organization [facility] Address [address] [place] [address]- Care Team Providers Name Role Phone Todd LAWS, Katja Zhang Primary Care Physician Encounter [facility] Date(s): 04/22/22 - 04/29/[address] [address] Encounter Diagnosis Back pain (Final) - 04/22/22 VIC (acute kidney injury) (Final) - 04/22/22 History of renal transplant (Final) - 04/22/22 Discharge Disposition: A-D/C Home Attending Physician: Jacob Lvoe MD Admitting Physician: Bela Bruno MD Referring Physician: Not on Staff, Referring MD Allergies, Adverse Reactions, Alerts No Known Allergies Immunizations Given and Recorded Vaccine Date Status Refusal Reason SARS-CoV-2 (COVID-19) Ad26 vaccine 07/02/21 Recorded SARS-CoV-2 (COVID-19) Ad26 vaccine 11/10/20 Recorded tetanus/diphtheria/pertussis, acel(Tdap)1 11/14/13 Record ed 1Location History: Katja Brooks MD office Medications allopurinol 100 mg oral tablet 100 mg, 1, tablet, By Mouth, 2 times a day, # 60 tablet, Refills 5, Tot. Refills 5, Maintenance, 07/12/17 7:57:23, Route to Pharmacy Electronically, NCPDP_ID- [id number], [facility] Start Date: 07/12/17 Stop [...] Start Date: 07/12/17 Stop Date: 01/08/18 Status: Orderedcheck INR in 2-3 days on 09/06/2017 check INR in 2-3 days on 09/06/2017, See Instructions, # 1 application, Refills 0, Tot. Refills 0, Maintenance, please check INR on 09/06/2017 and then daily until 09/10/2017 and send results to Dr Katja Brooks, PCP, 09/04/17 9:35:55, Compound Start Date: 09/04/17 Status: Ordereddocusate sodium 100 mg oral tablet 1 tablet = 100 mg, By Mouth, 2 times a day, PRN for constipation, # 14 tablet, 0 Refills, Maintenance, 03/29/17 11:53:59, Tablet Start Date: 03/29/17 Stop Date: 04/05/17 Status: Orderedlamotrigine 200 mg oral tablet 1 tablet = 200 mg, By Mouth, 2 times a day, # 60 tablet, 0 Refills, Maintenance, 06/24/17 14:49:02, Tablet Start Date: 06/24/17 Status: Orderedlevothyroxine 75 mcg (0.075 mg) oral capsule 1 capsule = 75 mcg, By Mouth, Daily, # 30 capsule, 0 Refills, Maintenance, 04/22/22 16:56:00 EDT, Capsule, Partial fill upon patient request if the prescription is for a schedule II opioid drug. Start Date: 04/22/22 Status: Orderedloratadine 10 mg oral tablet 10 mg, 1, tablet, By Mouth, Daily, # 30 tablet, Refills 5, Tot. Refills 5, Maintenance, 07/12/17 7:58:44, Route to Pharmacy Electronically, NCPDP_ID- [id number], [facility] Start Date: 07/12/17 Stop Date: 01/08/18 Status: Orderedpantoprazole 20 mg oral delayed release tablet 20 mg, 1, tablet, By Mouth, Daily, # 30 tablet, Refills 5, Tot. Refills 5, Maintenance, 04/25/17 15:43:11, Route to Pharmacy Electronically, NCPDP_ID- [id number], [facility] Start Date: 04/25/17 Stop Date: 10/22/17 Status: Orderedtacrolimus 1 mg oral capsule = 3 mg, By Mouth, Daily at supper, # 30 tablet, 0 Refills, Maintenance, 09/05/17 16:01:18 EST, Capsule Start Date: 09/05/17 Status: Orderedtamsulosin 0.4 mg oral capsule 0.4 mg, 1, capsule, By Mouth, Daily, # 30 capsule, Refills 0, Maintenance, 04/22/22 16:56:00 EDT, Partial fill upon patient request if the prescription is for a schedule II opioid drug. Start Date: 04/22/22 Status: Ordered Problem List Condition Effective Dates Status Health Status Informant ESRD - End stage renal Active disease(Confirmed) -donor kidney 03/26/17 Active transplant(Confirmed)1 Renal failure(Confirmed) Active 1campath induction Results Radiology Reports Exam Date Time Procedure Performing Provider Status 04/22/22 11:34 AM Chest 2 Views Frontal and Lat Eddi Mcdonald; Auth (Verified) Notes:(Chest 2 Views Frontal and Lat) Reason For Exam: back pain, ?PNA on CT;Other:RESULT: Chest 2 Views Frontal and Lat Chest 2 Views Frontal and Lat HX OF PRESENT ILLNESS: Left sided flank pain; Reason: back pain, ?PNA on CT; Clinical Question(s): Pneumonia / Pneumonia COMPARISON: 05/03/2017. CT abdomen, pelvis, thoracic spine, and lumbar spine from 04/22/2022. FINDINGS: LINES AND TUBES: None. LUNGS AND PLEURA: Lung volumes with bibasilar atelectasis. Patchy opacity in the left midlung better seen on prior CT. No pleural effusion. No pneumothorax, although lung apices partially obscured by patient's chin. HEART, MEDIASTINUM AND JORDAN: Heart is normal in size. Normal mediastinal and hilar contour. BONES AND SOFT TISSUES: No acute abnormality. IMPRESSION: Patchy opacity in the left lung better seen on prior CT. WSN: [id number] Ordering Physician: Concha Carrasquillo Dictated By: Emanuel Treviño MD Dictated Date/Time: 04/22/22 11:41 a Reviewed By: Emanuel Treviño MD Signed By: Emanuel Treviño MD Signed Date/Time: 04/22/22 11:41 am Transcribed By: JOE Transcribed Date/Time: 04/22/22 11:40 am Vital Signs Most recent to oldest 1 2 3 [Reference Range]: Height 158 cm 158 cm (04/29/22 12:50 PM) (04/23/22 6:47 AM) Weight 72.2 kg 69.4 kg (04/25/22 10:00 PM) (04/23/22 6:47 AM) Oxygen Saturation [94-100 %] 99 % 99 % 100 % (04/29/22 12:50 PM) (04/29/22 6:00 AM) (04/28/22 7: 00 PM) Pulse Rate [55-90 bpm] 75 bpm 77 bpm 75 bpm (04/29/22 12:50 PM) (04/29/22 6:00 AM) (04/28/22 7: 00 PM) Body Mass Index [18.5-24.99] 27.8 *H* (04/23/22 6:47 AM) Blood Pressure [90-138/55-84 108/63 mm Hg 114/66 mm Hg 104 /63 mm Hg mm Hg] (04/29/22 12:50 PM) (04/29/22 6:00 AM) (04/28/22 7: 00 PM) Respiratory Rate [16-30 18 br/min 18 br/min 18 br/mi n br/min] (04/29/22 12:50 PM) (04/29/22 6:00 AM) (04/28/22 7: 00 PM) Temperature [96.8-100.4 DegF] 98.6 DegF 98.7 DegF 98 .0 DegF (04/29/22 12:50 PM) (04/29/22 6:00 AM) (04/28/22 7: 00 PM) Mode of Delivery (Oxygen) Room air Room air Room a ir (04/29/22 12:50 PM) (04/29/22 6:00 AM) (04/28/22 7: 00 PM) Blood pressure sites Arm, right Arm, right Arm, right (04/28/22 7:00 PM) (04/28/22 3:00 PM) (04/28/22 7:0 0 AM) Temperature Route Oral Axillary Axillary (04/29/22 12:50 PM) (04/29/22 6:00 AM) (04/28/22 7: 00 PM) Dry Weight 69.4 kg (04/23/22 6:47 AM) Weight Obtained Via Bed scale (04/23/22 6:47 AM) Social History Social History Type Response Smoking Status Never smoker entered on: 09/05/15 Sex Note BHSPowerscribe , CIS S: TRANSCRIBE Emanuel Treviño MD: VERIFY Event Display: Result: Authored Date: Chest 2 Views Frontal and Lat HX OF PRESENT ILLNESS: Left sided flank pain; Reason: back pain, ?PNA on CT; Clinical Question(s): Pneumonia / Pneumonia COMPARISON: 05/03/2017. CT abdomen, pelvis, thoracic spine, and lumbar spine from 04/22/2022. FINDINGS: LINES AND TUBES: None. LUNGS AND PLEURA: Lung volumes with bibasilar atelectasis. Patchy opacity in the left midlung better seen on prior CT. No pleural effusion. No pneumothorax, although lung apices partially obscured by patient's chin. HEART, MEDIASTINUM AND JORDAN: Heart is normal in size. Normal mediastinal and hilar contour. BONES AND SOFT TISSUES: No acute abnormality. IMPRESSION: Patchy opacity in the left lung better seen on prior CT. WSN: [id number] Ordering Physician: Concha Carrasquillo Dictated By: Emanuel Treviño MD Dictated Date/Time: 04/22/22 11:41 a Reviewed By: Emanuel Treviño MD Signed By: Emanuel Treviño MD Signed Date/Time: 04/22/22 11:41 am Transcribed By: JOE Transcribed Date/Time: 04/22/22 11:40 am Care Team PersonnelName: Todd LAWS , Katja Zhang Address: [facility] [address]-
--- OUTSIDE RECORDS SUMMARY | 2022-08-12 13:42 | XMS_ITS | Continuity of Care Document ---
:1955 Author Organization [facility] Address [address] [place] [address]- Care Team Providers Name Role Phone Todd LAWS, Katja Zhang Primary Care Physician Encounter [facility] Date(s): 05/14/20 - 06/13/20 [facility] [address] [place] [address]- [facility] Attending Physician: Ema Plascencia Admitting Physician: AdmtrEma Referring Physician: Admtr, Ar8 Allergies, Adverse Reactions, Alerts Substance Reaction Severity Status NKA Active Immunizations Given and Recorded Vaccine Date Status Refusal Reason tetanus/diphtheria/pertussis, acel(Tdap)1 11/14/13 Record ed 1Location History: Katja Brooks MD office Medications allopurinol 100 mg oral tablet 100 mg, 1, tablet, By Mouth, 2 times a day, # 60 tablet, Refills 5, Tot. Refills 5, Maintenance, 07/12/17 7:57:23, Route to Pharmacy Electronically, NCPDP_ID- [id number], [facility] Start Date: 07/12/17 Stop Date: 01/08/18 Status: OrderedbuPROPion 150 mg/24 hours (XL) oral [...] 06/24/17 14:49:02, Tablet Start Date: 06/24/17 Status: Orderedloratadine 10 mg oral tablet 10 mg, 1, tablet, By Mouth, Daily, # 30 tablet, Refills 5, Tot. Refills 5, Maintenance, 07/12/17 7:58:44, Route to Pharmacy Electronically, NCPDP_ID- [id number], [facility] Start Date: 07/12/17 Stop Date: 01/08/18 Status: Orderedpantoprazole 20 mg oral delayed release tablet 20 mg, 1, tablet, By Mouth, Daily, # 30 tablet, Refills 5, Tot. Refills 5, Maintenance, 04/25/17 15:43:11, Route to Pharmacy Electronically, NCPDP_ID- [id number], [facility] Start Date: 04/25/17 Stop Date: 10/22/17 Status: Orderedtacrolimus 1 mg oral capsule = 2 mg, By Mouth, Daily, # 30 tablet, 0 Refills, Maintenance, 09/05/17 16:01:05, Capsule Start Date: 09/05/17 Status: Orderedtacrolimus 1 mg oral capsule = 2 mg, By Mouth, Daily at supper, # 30 tablet, 0 Refills, Maintenance, 09/05/17 16:01:18, Capsule Start Date: 09/05/17 Status: Ordered Problem List Condition Effective Dates Status Health Status Informant ESRD - End stage renal Active disease(Confirmed) -donor kidney 03/26/17 Active transplant(Confirmed)1 Renal failure(Confirmed) Active 1campath induction Vital Signs Most recent to oldest [Reference Range]: 1 2 Height 158.80 cm 158.80 cm (1/13/14 3:30 PM) (12/07/11 10:00 AM) Weight 68.5 kg 82.100 kg (08/27/13 3:30 PM) (12/07/11 10:00 AM) Body Mass Index [18.50-24.99] 27.16 32.56 *H* *>HHI* (08/27/13 3:30 PM) (12/07/11 10:00 AM) Sensory deficits None None (08/27/13 3:30 PM) (12/07/11 10:00 AM) Social History Social History Type Response Smoking Status Never smoker entered on: 09/05/15 Sex
--- OUTSIDE RECORDS SUMMARY | 2022-08-12 13:42 | XMS_ITS | Continuity of Care Document ---
:1955 Author Organization [facility] Address [address], [address], [address] [place] [id number]- Care Team Providers Name Role Phone Todd LAWS, Katja Zhang Primary Care Physician Encounter [facility] Date(s): 05/11/22 - 06/10/22 [facility] [address], [address], [address] [place] [id number] Allergies, Adverse Reactions, Alerts No Known Allergies [...] 07/12/17 7:57:23, Route to Pharmacy Electronically, NCPDP_ID- [id number], [facility] Start Date: 07/12/17 Stop [...] tablet, 3 Refills, Maintenance, 05/24/22 12:41:00 EDT, [facility], Partial fill upon patient request if [...] 0 Refills, Maintenance, 05/24/22 12:47:00 EDT, Tablet, [facility], Partial fill upon patient request if the prescription is for a schedule II opioid drug., 160, cm, 05/24/22 11:42:00 EDT,... Start Date: 05/24/22 Status: Orderedloratadine 10 mg oral tablet 10 mg, 1, tablet, By Mouth, Daily, # 30 tablet, Refills 5, Tot. Refills 5, Maintenance, 07/12/17 7:58:44, Route to Pharmacy Electronically, NCPDP_ID- [id number], [facility] Start Date: 07/12/17 Stop Date: 01/08/18 Status: Orderedpantoprazole 20 mg oral delayed release tablet 20 mg, 1, tablet, By Mouth, Daily, # 30 tablet, Refills 5, Tot. Refills 5, Maintenance, 04/25/17 15:43:11, Route to Pharmacy Electronically, NCPDP_ID- [id number], [facility] Start Date: 04/25/17 Stop [...] on: 09/05/15 Sex Patient Care team information PersonnelName: Todd LAWS , Katja Zhang Address: Address: [address] [place] [address]
--- OUTSIDE RECORDS SUMMARY | 2022-08-12 13:42 | XMS_ITS | Continuity of Care Document ---
:1955 Author Organization [facility] Address [address] [place] [address]- Care Team Providers Name Role Phone Todd LAWS, Katja Zhang Primary Care Physician [phone] [place] [facility] [place](s): 06/27/22 - 08/03/[address] [address] Discharge Disposition: A-Transfer SNF Attending Physician: David Johnston MD Admitting Physician: Thomas Laird MD Referring Physician: Thomas Laird MD Allergies, Adverse Reactions, Alerts No Known Allergies Immunizations Given and Recorded Vaccine Date Status Refusal Reason influenza virus vaccine, inactivated 09/21/21 Recorded influenza virus vaccine, inactivated 05/24/19 Recorded SARS-CoV-2 (COVID-19) Ad26 vaccine 07/02/21 Recorded SARS-CoV-2 (COVID-19) Ad26 vaccine 11/10/20 Recorded tetanus/diphtheria/pertussis, acel(Tdap)1 11/14/13 Record ed Not Given Vaccine Date Status Refusal Reason influenza virus vaccine, inactivated 05/22/22 Not Given Patient Refuses 1Location History: Katja Brooks MD office Medications allopurinol 100 mg oral tablet 100 mg, 1, tablet, By Mouth, Daily, # 30 tablet, Refills 0, Maintenance, 06/28/22 17:02:00 EST, Partial fill upon patient request if the prescription is for a schedule II opioid drug. Start Date: 06/28/22 Status: Orderedamantadine 50 mg/5 mL oral syrup 10 mL = 100 mg, By Mouth, 2 times a day, 0 Refills, Maintenance, 08/03/22 11:58:00 EST, Syrup, Partial fill upon patient request if the prescription is for a schedule II opioid drug. Start Date: 08/03/22 Status: Orderedatomoxetine 100 mg oral capsule 1 capsule = 100 mg, By Mouth, Daily in AM, # 30 capsule, 0 Refills, Maintenance, 06/28/22 17:02:00 EST, Capsule, Partial fill upon patient request if the prescription is for a schedule II opioid drug. Start Date: 06/28/22 Status: OrderedBuPROPion IR 75 mg oral tablet 1 tablet = 75 mg, By Mouth, Daily, 0 Refills, Maintenance, 08/03/22 11:56:00 EST, Tablet, Partial fill upon patient request if the prescription is for a schedule II opioid drug. Start Date: 08/03/22 Stop Date: 09/02/22 Status: OrderedBuPROPion IR 75 mg oral tablet 0.5 tablet = 37.5 mg, By Mouth, Daily at bedtime, 0 Refills, Maintenance, 08/03/22 11:57:00 EST, Tablet, Partial fill upon patient request if the prescription is for a schedule II opioid drug. Start Date: 08/03/22 Status: Orderedcyanocobalamin 1000 mcg oral tablet 1,000 mcg, 1, tablet, Nasogastric Tube, Daily, Refills 0, Maintenance, 08/03/22 11:58:00 EST, Partial fill upon patient request if the prescription is for a schedule II opioid drug. Start Date: 08/03/22 Status: OrderedKeppra 500 mg oral tablet 1 tablet = 500 mg, By Mouth, 2 times a day, 0 Refills, Maintenance, 08/03/22 11:59:00 EST, Tablet, Partial fill upon patient request if the prescription is for a schedule II opioid drug. Start Date: 08/03/22 Status: Orderedlamotrigine 100 mg oral tablet 200 mg, 2, tablet, By Mouth, 2 times a day, Refills 0, Maintenance, 08/03/22 11:57:00 EST, Partial fill upon patient request if the prescription is for a schedule II opioid drug. Start Date: 08/03/22 Status: Orderedlansoprazole 15 mg oral tablet, disintegrating = 15 mg, By Mouth, Daily, 0 Refills, Maintenance, 08/03/22 11:58:00 EST, DIS Tablet, Partial fill upon patient request if the prescription is for a schedule II opioid drug. Start Date: 08/03/22 Status: Orderedlevothyroxine 75 mcg (0.075 mg) oral tablet 1 tablet = 75 mcg, By Mouth, Daily, # 30 tablet, 0 Refills, Maintenance, 06/28/22 17:02:00 EST, Tablet, Partial fill upon patient request if the prescription is for a schedule II opioid drug. Start Date: 06/28/22 Status: Orderedloratadine 10 mg oral tablet 10 mg, 1, tablet, By Mouth, Daily, # 30 tablet, Refills 5, Tot. Refills 5, Maintenance, 07/12/17 7:58:44, Route to Pharmacy Electronically, NCPDP_ID- [id number], [facility] Start Date: 07/12/17 Stop Date: 01/08/18 Status: Orderedtacrolimus 1 mg oral capsule 2 capsule = 2 mg, By Mouth, Daily at bedtime, 0 Refills, Maintenance, 08/03/22 11:58:00 EST, Capsule, Partial fill upon patient request if the prescription is for a schedule II opioid drug. Start Date: 08/03/22 Status: Orderedtacrolimus 1 mg oral capsule 3 capsule = 3 mg, By Mouth, Daily, 0 Refills, Maintenance, 08/03/22 11:58:00 EST, Capsule, Partial fill upon patient request if the prescription is for a schedule II opioid drug. Start Date: 08/03/22 Status: Orderedtamsulosin 0.4 mg oral capsule 0.4 mg, 1, capsule, By Mouth, Daily, # 30 capsule, Refills 0, Maintenance, 06/05/22 0:47:00 EDT, Partial fill upon patient request if the prescription is for a schedule II opioid drug. Start Date: 06/05/22 Status: Orderedtranexamic acid 650 mg oral tablet 1 tablet = 650 mg, By Mouth, Daily, 0 Refills, Maintenance, 08/03/22 11:58:00 EST, Tablet, Partial fill upon patient request if the prescription is for a schedule II opioid drug. Start Date: 08/03/22 Status: OrderedtraZODone 50 mg oral tablet 50 mg, 1, tablet, By Mouth, Daily at bedtime, Refills 0, Maintenance, 08/03/22 11:58:00 EST, Partialfill upon patient request if the prescription is for a schedule II opioid drug. Start Date: 08/03/22 Status: OrderedTylenol 160 mg / 5 mL Liquid 480 mg, Suspension, G Tube, 08/03/22 10:00:00 EST Start Date: 08/03/22 Stop Date: 08/03/22 Status: CompletedVitamin D3 2000 intl units oral capsule 1 [...] transplant1 Renal failure Confirmed Active 1campath induction Procedures Procedure Date Related Diagnosis Body Site Status Sigmoidoscopy, flexible; diagnostic, 07/28/22 Completed including collection of specimen(s) by brushing or washing, when performed (separate procedure) Esophagogastroduodenoscopy C ompleted Percutaneous endoscopic insertion of Completed gastrostomy tube Results Orders for Microbiology Reports Name Date Blood Culture 07/12/22 Blood Culture #2 07/12/22 Urine Culture (URINE CULTURE) 07/08/22 Microbiology Reports TEST:Blood Culture STATUS:Auth (Verified) BODY SITE: SOURCE:Blood COLLECTED DATE/TIME:07/12/22 5:43 PMBlood Culture SPECIMEN DESCRIPTION : BLOOD NO SITE SPECIAL REQUESTS : NONE CULTURE : NO GROWTH 5 DAYS. REPORT STATUS : FINAL 07/17/2022TEST:Blood Culture, Second Order STATUS:Auth (Verified) BODY SITE: SOURCE:Blood COLLECTED DATE/TIME:07/12/22 5:43 PMBlood Culture, Second Order SPECIMEN DESCRIPTION : BLOOD NO SITE SPECIAL REQUESTS : NONE CULTURE : NO GROWTH 5 DAYS. REPORT STATUS : FINAL 07/17/2022TEST:Urine Culture STATUS:Auth (Verified) BODY SITE: SOURCE:URINE COLLECTED DATE/TIME:07/08/22 8:15 AMUrine Culture SPECIMEN DESCRIPTION : URINE SPECIAL REQUESTS : NONE CULTURE : NO GROWTH REPORT STATUS : FINAL 2Radiology Reports (Most Recent Ten) Exam Date Time Procedure Performing Provider Status 08/02/22 10:[address] Head/Brain W/O Contrast Zoila Higuera; Auth (Verified) Notes:(CT Head/Brain W/O Contrast) Reason For Exam: TIARESULT: CT Head/Brain W/O Contrast Examination: Noncontrast head CT performed on 08/02/2022. History: TIA. Hematoma. Technique and findings: Contiguous 5 mm axial images were obtained from the skull base to the vertex without intravenous contrast. A dose modulated weight-based protocol was used. Comparison is made to a prior study dated 07/17/2022. The current study is limited due to motion artifact. The visualized sinuses are free from disease. There is diffuse prominence of the ventricular system and subarachnoid spaces, consistent with age-appropriate volume loss. The previously demonstrated postsurgical extra-axial air bilaterally has largely resolved. However, there is a residual left subdural fluid collection which is mixed attenuation with hypodense and hyperdense areas. In largest dimension, this measures 1.2 cm (image 21 series 301). Additionally, there is a thin hyperdense right subdural hemorrhage now measuring 0.3 cm (image 19), likely acute. No midline shift is seen. Bilateral dariusz holes are noted. IMPRESSION: Limited examination. Interval near complete resolution of the pneumocephalus. Persistent left subdural hemorrhage which is mixed attenuation with hyperdense areas suggesting areas of rebleeding. Tiny right subdural hemorrhage which is hyperdense and likely acute. WSN: [id number] Ordering Physician: David Johnston Dictated By: Sofi Apple MD Dictated Date/Time: 08/02/22 10:18 a Reviewed By: Sofi Apple MD Signed By: Sofi Apple MD Signed Date/Time: 08/02/22 10:18 am Transcribed By: JOE Transcribed Date/Time: 08/02/22 10:15 am Exam Date Time Procedure Performing Provider Status 07/17/22 6:[address] Head/Brain W/O Contrast Stupak , Micheal; Auth (Verified) Notes:(CT Head/Brain W/O Contrast) Reason For Exam: Subdural hematoma;Other: RESULT: CT Head/Brain W/O Contrast CT Head/Brain W/O Contrast Reason: Other:; Subdural hematoma; Clinical Question(s): Hematoma. TECHNIQUE: Noncontrast head CT using axial technique and reconstructed in axial and coronal planes. Weight-based protocol using automatic tube modulation was used to optimize exposure parameters. CTDIvol Head: 48.30 mGy, DLP Head: 773 mGy*cm. COMPARISON: CT head 06/04/2022, 07/02/2022, 07/03/2022, 07/14/2022, 07/15/2022,07/16/2022 MRI 07/06/2022 FINDINGS: BRAIN and EXTRA-AXIAL SPACES: Interval removal of bilateral subdural drains Bilateral hemispheric subdural hematomas with intermediate density are not significantly changed measuring up to 10 mm on the left (previously 10 mm) and 9 mm on the right (previously 9 mm). () Mild sulcal effacement of the anterior aspect of the frontal lobes bilaterally is not significantly changed. Moderate-large volume pneumocephalus within bifrontal subdural spaces again noted, not significantlychanged from 07/16/2022. Pneumocephalus in the right occipital region has resolved. A 6 mm right parafalcine subdural hematoma is again noted near the vertex, not significantly changedfrom prior. No midline shift on the axial images adjusted for obliquity. No hydrocephalus or intraventricular blood products. The basilar cisterns are preserved. No subarachnoid or intraparenchymal hemorrhage. Mendoza-white matter differentiation is well preserved. No acute infarct. Atherosclerotic vascular calcification of the carotid arteries but negative hyperdense vessel sign. No white matter lesions. CALVARIUM, SKULL BASE AND SOFT TISSUES: Bilateral dariusz holes are again noted. The paranasal sinuses and mastoid air cells are clear. Visualized orbits and globes are intact. Postsurgical changes of the scalp bilaterally with overlying skin buck is unchanged. IMPRESSION: 1. Interval removal of bilateral subdural drains. Otherwise no significant interval change from 07/16/2022. 2. Similar right hemispheric subdural hematoma measuring 9 mm. 3. Similar left hemispheric subdural hematoma measuring 10 mm. 4. Parafalcine 5 mm subdural hematoma is unchanged. 5. Similar volume of pneumocephalus. WSN: [id number] Ordering Physician: Carlos A Santana Dictated By: Rivera Leung MD Dictated Date/Time: 07/17/22 11:08 a Reviewed By: Rivera Leung MD Signed By: Rivera Leung MD Signed Date/Time: 07/17/22 11:08 am Transcribed By: CSB Transcribed Date/Time: 07/17/22 10:53 am Exam Date Time Procedure Performing Provider Status 07/16/22 8:[address] Head/Brain W/O Contrast Jacqueline Ashford; Aranza (Verified) Notes:(CT Head/Brain W/O Contrast) Reason For Exam: Subdural hematomaRESULT: CT Head/Brain W/O Contrast CT Head/Brain W/O Contrast Reason: Other:; Subdural hematoma; Order Comment:. TECHNIQUE: Noncontrast head CT using axial technique and reconstructed in axial and coronal planes. Weight-based protocol using automatic tube modulation was used to optimize exposure parameters. CTDIvol Head: 45.90 mGy, DLP Head: 772 mGy*cm. COMPARISON: CT head 06/04/2022, 07/02/2022, 07/03/2022, 07/14/2022, 07/15/2022, MRI 07/06/2022 FINDINGS: BRAIN and EXTRA-AXIAL SPACES: Bilateral subdural drains terminating at the vertex adjacent to the falx. Bilateral hemispheric subdural hematomas with intermediate density are again noted (coronal 20), measuring up to 10 mm on the left (previously 12 mm) and 9 mm on the right (previously 4 mm). Sulcal effacement in the left cerebral hemisphere has improved. Large pneumocephalus within bifrontal subdural spaces again noted, slightly improved from prior. Pneumocephalus in the right occipital region has decreased. A 5 mm right parafalcine subdural hematoma is again noted near the vertex, not significantly changedfrom prior. No midline shift on the axial images adjusted for obliquity. Mass effect on the lateral ventricles has improved. No hydrocephalus or intraventricular blood products. The basilar cisterns are preserved. No subarachnoid or intraparenchymal hemorrhage. Mendoza-white matter differentiation is well preserved. No acute infarct. Atherosclerotic vascular calcification of the carotid arteries but negative hyperdense vessel sign. No white matter lesions. CALVARIUM, SKULL BASE AND SOFT TISSUES: Bilateral dariusz holes are again noted. The paranasal sinuses and mastoid air cells are clear. Visualized orbits and globes are intact. Postsurgical changes of the scalp bilaterally with overlying skin buck is unchanged. IMPRESSION: 1. Right hemispheric subdural hematoma measuring 9 mm has slightly increased in size. 2. Left hemispheric subdural hematoma measuring 11 mm has decreased in size. 3. Parafalcine 5 mm subdural hematoma is stable. 4. Overall mass effect and midline shift have improved with decreased volume of pneumocephalus. I have personally reviewed the images and I agree with this report. WSN: [id number] Ordering Physician: Carlos A Santana Dictated By: Arnulfo Barry MD Dictated Date/Time: 07/16/22 10:16 a Reviewed By: Rivera Leung MD Signed By: Rivera Leung MD Signed Date/Time: 07/16/22 10:21 am Transcribed By: JOE Transcribed Date/Time: 07/16/22 9:36 am Exam Date Time Procedure Performing Provider Status 07/15/22 11:13 PM Chest Portable Concha Jules; Auth (Verified) Notes:(Chest Portable) Reason For Exam: Tube PlacementRESULT: Chest Portable Chest Portable Reason: Tube Placement COMPARISON: 06/04/2022. FINDINGS: LINES AND TUBES: Enteric tube terminates in the left upper quadrant, likely in the stomach. The sidehole is just above the level of the GE junction. LUNGS AND PLEURA: Patient is slightly rotated to the right. No confluent airspace opacity or evidence of pulmonary edema. No pleural effusion. No pneumothorax. HEART, MEDIASTINUM AND MELVIN: Heart is normal in size. Limited evaluation of the hilar regions due to patient rotation. BONES AND SOFT TISSUES: No acute abnormality. IMPRESSION: Endotracheal tube should be advanced by at least 5 cm for proper positioning. A critical result message (Panacea) has been communicated via the [employer] system on 07/15/2022 11:29 PM, Message ID [id number]. WSN: [id number] Ordering Physician: Susan Macias Dictated By: Trinity Garcia MD Dictated Date/Time: 07/15/22 11:29 p Reviewed By: Trinity Garcia MD Signed By: Trinity Garcia MD Signed Date/Time: 07/15/22 11:29 pm Transcribed By: JOE Transcribed Date/Time: 07/15/22 11:28 pm Exam Date Time Procedure Performing Provider Status 07/15/22 6:[address] Head/Brain W/O Contrast Colon , Tati; Auth (Verified) Notes:(CT Head/Brain W/O Contrast) Reason For Exam: Subdural hematoma;Other: RESULT: CT Head/Brain W/O Contrast CT Head/Brain W/O Contrast INDICATION: Reason: Other:; Subdural hematoma; Clinical Question(s): Hematoma; Special Instructions:to be performed before 1900 on 07 15 per neurosurgery; Order Comment: TECHNIQUE: Noncontrast head CT using axial technique and reconstructed in axial and coronal planes. Iterative reconstruction techniques are used to optimize dose and image quality. CTDIvol Head: 46.80 mGy, DLP Head: 774 mGy*cm. COMPARISON: 07/14/2022. FINDINGS: Boat Canvas Installer view findings, lines and tubes: Bilateral subdural drainage catheters in place. BRAIN AND EXTRA-AXIAL SPACES: Status post evacuation of bilateral subdural hematomas with expected pneumocephalus. There is residual low density collection on both sides and trace amount of layering hyperdense collection. The thickness of pneumocephalus on the left measures up to 2.1 cm and on the right measures 1.7 cm with significant mass effect on the adjacent sulci. There is also trace amount of pneumocephalus along the anterior falx and right posterior parietal region. There has been minimal interval increase in size of hyperdense subdural hematoma along the posterior falx with thickness measuring 5 mm, previously 4 mm. There is new rightward midline shift measuring 5 mm. No parenchymal hemorrhage. Mendoza-white matter differentiation is well preserved. No acute infarct. No white matter lesions. CALVARIUM, SKULL BASE, AND SOFT TISSUES: Status post bifrontal dariusz holes. The paranasal sinuses and mastoid air cells are clear. Visualized orbits and globes are intact. IMPRESSION: 1. Status post evacuation of bilateral subdural hematomas with drainage catheters in place. There issmall amount of residual hyperdense collection layering posteriorly. 2. Pneumocephalus measuring 2.1 cm on the left and 1.7 cm on the right with significant mass effect on the adjacent sulci and new rightward midline shift measuring 5 mm. 3. Minimal interval increase in thickness of the parafalcine subdural hematoma, now measuring 5 mm versus previously 4 mm. A critical result message (Panacea) has been communicated via the [employer] system on 07/15/2022 7:41 PM, Message ID [id number]. WSN: [id number] Ordering Physician: Carlos A Santana Dictated By: Trinity Garcia MD Dictated Date/Time: 07/15/22 7:41 pm Reviewed By: Trinity Garcia MD Signed By: Trinity Garcia MD Signed Date/Time: 07/15/22 7:41 pm Transcribed By: JOE Transcribed Date/Time: 07/15/22 7:34 pm Exam Date Time Procedure Performing Provider Status 07/14/22 9:[address] Head/Brain W/O Contrast [facility] (Verified) Notes:(CT Head/Brain W/O Contrast) Reason For Exam: Other:RESULT: CT Head/Brain W/O Contrast CT Head/Brain W/O Contrast INDICATION: Reason: Other:; Clinical Question(s): Hematoma; Order Comment: TECHNIQUE: Noncontrast head CT using axial technique and reconstructed in axial and coronal planes. Iterative reconstruction techniques are used to optimize dose and image quality. COMPARISON: None. FINDINGS: Boat Canvas Installer view findings, lines and tubes: None. BRAIN AND EXTRA-AXIAL SPACES: There is been significant progression of the bilateral subdural hematomas within I measure at 15 mm on the right compared to 9 mm on previous exam and 13 mm on the left compared to 10 mm on the previous examination. The lateral ventricles appear small in size consistent with significant mass effect. Ibelieve there is some mild effacement of the suprasellar cistern. No significant mass effect noted in the posterior fossa. Posterior fossa extra-axial collection referred to on previous MRI scan not well seen. CALVARIUM, SKULL BASE, AND SOFT TISSUES: No fractures or suspicious bony lesions. The paranasal sinuses and mastoid air cells are clear. Visualized orbits and globes are intact. The extracranial soft tissues are unremarkable. IMPRESSION: Significant increase in bilateral subdural hematomas compared to previous studies with increased mass effect on the lateral ventricles. Likely mild effacement of the suprasellar cistern. No significant mass effect identified within the posterior fossa. A critical result message (Red) has been communicated via the [employer] system on 07/14/2022 10:34 PM, Message ID [id number]. WSN: [id number] Ordering Physician: Carlos A Escobar Dictated By: Barber Cooper MD Dictated Date/Time: 07/14/22 10:34 p Reviewed By: Barber Cooper MD Signed By: Barber Cooper MD Signed Date/Time: 07/14/22 10:34 pm Transcribed By: JOE Transcribed Date/Time: 07/14/22 10:29 pm Exam Date Time Procedure Performing Provider Status 07/07/22 12:28 AM MRI Brain W/O Contrast Jigna Keene; Auth (V erified) Notes:(MRI Brain W/O Contrast) Reason For Exam: Seizure DisorderRESULT: MRI Brain W/O Contrast MRI Brain W/O Contrast INDICATION: Reason: Seizure Disorder; Clinical Question(s): Tumor Primary; Order Comment: Please seeReference Text for complete list of contraindications Tumor Primary TECHNIQUE: MRI of the brain was performed without contrast utilizing sagittal T1, axial T1, axial T2, coronal T2, coronal FLAIR, axial SWAN, and axial DWI sequences. The tomography technologist reported that the patient was confused and disoriented and moving too much during the study. Postcontrast T1 and axial FLAIR images were not obtained. COMPARISON: CT scan of the head 07/03/2022 FINDINGS: Multiple images are degraded by patient motion which diminishes detail, and interpretationwas made in light of this technical confine. BRAIN and EXTRA-AXIAL SPACES: The axial DWI sequences degraded by motion, but no confluent region ofrestricted diffusion is noted. The axial SWI sequence is nondiagnostic. Bilateral subdural collections overlying the cerebral convexities are again noted. These are relatively hyperintense to CSF on the T1-weighted images. Intermixed regions of T1 bright signal are compatible with subacute blood products. Subacute subdural hemorrhage is also noted along the lateral margins of the posterior cranial fossa bilaterally. Subacute subdural hemorrhage is also noted over the left posterior occipital lobe. Mass effect on the cerebral convexities is similar to the prior CT study. The ventricles are normal in size. EXTRACRANIAL SOFT TISSUES: Degraded by motion. BONES: Degraded by motion. IMPRESSION: Motion degraded MRI examination of the brain. 1. Bilateral subdural hematomas are present over the cerebral convexities with flattening of the underlying cerebral hemispheres. These may represent subacute on chronic or late subacute/early chronic subdural hematomas. 2. Subacute subdural hemorrhage along the lateral margins of the posterior cranial fossa bilaterallyand adjacent to the left occipital lobe. WSN: [id number] Ordering Physician: David Johnston Dictated By: Иван Boothe MD Dictated Date/Time: 07/07/22 8:08 am Reviewed By: Иван Boothe MD Signed By: Иван Boothe MD Signed Date/Time: 07/07/22 8:08 am Transcribed By: JOE Transcribed Date/Time: 07/07/22 7:55 am Exam Date Time Procedure Performing Provider Status 07/04/22 12:55 PM US Duplex [employer] Josette Moreno (Verified) Notes:(US Duplex [employer]) Reason For Exam: Other:RESULT: US Duplex [employer] [employer] US Duplex [employer] [facility]C [employer] REASON: IVC, question filling defect on CT. COMPARISON: MRI abdomen with and without contrast dated 06/30/2022. FINDINGS: The examination had to be terminated prematurely secondary to patient cooperation, limiting evaluation of the IVC. No definite filling defects seen within the visualized IVC corresponding to the findings seen on therecent MRI. Please note, the entire IVC could not be assessed. IMPRESSION: The examination had to be terminated prematurely secondary to patient cooperation, limiting evaluation of the IVC. No definite filling defects seen within the visualized segments of the IVC. Repeat examination may be obtained as clinically warranted. WSN: [id number] Ordering Physician: David Johnston Dictated By: Telma Andrew MD Dictated Date/Time: 07/04/22 1:58 pm Reviewed By: Telma Andrew MD Signed By: Telma Andrew MD Signed Date/Time: 07/04/22 1:58 pm Transcribed By: JOE Transcribed Date/Time: 07/04/22 1:40 pm Exam Date Time Procedure Performing Provider Status 07/03/22 9:[address] Head/Brain W/O Contrast [facility] (Verified) Notes:(CT Head/Brain W/O Contrast) Reason For Exam: Mental status change, slurred speech, word finding difficulty;Other:RESULT: CT Head/Brain W/O Contrast CT Head/Brain W/O Contrast INDICATION: Reason: Other:; Mental status change, slurred speech, word finding difficulty; Clinical Question(s): Other:; worsening head bleed; Order Comment: TECHNIQUE: Noncontrast head CT using axial technique and reconstructed in axial and coronal planes. Iterative reconstruction techniques are used to optimize dose and image quality. CTDIvol Head: 42.48 mGy, DLP Head: 680 mGy*cm. COMPARISON: None. FINDINGS: Boat Canvas Installer view findings, lines and tubes: None. BRAIN AND EXTRA-AXIAL SPACES: Redemonstration of small bilateral frontal subdural hematomas. Right frontal subdural measures up to 0.9 cm in thickness. Left frontal subdural measures up to 1.2 cm in thickness. The right frontal subdural is slightly denser than the left likely indicating it is more recent in age. This is unchanged. No change in size compared to yesterday. Both subdural hematomas demonstrate heterogeneous intermediate density indicating subacute status. There is also a trace left superior tentorial subdural hematoma which currently measures between 0.2and 0.3 cm in thickness on coronal image 43, unchanged. No new focus of intracranial blood. Mild offsetting mass effect without midline shift. Mendoza-white matter differentiation is well preserved. No acute infarct. Negative insular ribbon and hyperdense vessel signs. Ventricles, sulci, and basilar cisterns are normal. No white matter lesions. No subarachnoid hemorrhage. No subdural or epidural collection. CALVARIUM, SKULL BASE, AND SOFT TISSUES: No fractures or suspicious bony lesions. The paranasal sinuses and mastoid air cells are clear. Visualized orbits and globes are intact. The extracranial soft tissues are unremarkable. IMPRESSION: Stable bifrontal subdural hematomas. Stable trace left superior tentorial subdural hematoma. No new focus of intracranial blood. No significant mass effect, midline shift or herniation. Left frontal subdural collection was previously reported as a hygroma however the density of this collection is greater than that of CSF and it is more consistent with a late subacute or chronic subdural hematoma rather than a hygroma. WSN: [id number] Ordering Physician: Johana Nettles Dictated By: Emanuel Larson MD Dictated Date/Time: 07/03/22 10:53 p Reviewed By: Emanuel Larson MD Signed By: Emanuel Larson MD Signed Date/Time: 07/03/22 10:53 pm Transcribed By: JOE Transcribed Date/Time: 07/03/22 10:41 pm Exam Date Time Procedure Performing Provider Status 07/02/22 5:[address] Head/Brain W/O Contrast Susanne Wood; Auth (Verified) Notes:(CT Head/Brain W/O Contrast) Reason For Exam: DementiaRESULT: CT Head/Brain W/O Contrast PROCEDURE: CT Head/Brain W/O Contrast CLINICAL INDICATION: 67 years old Male with Reason: Dementia; Clinical Question(s): Infarction; Order Comment:. COMPARISON: Unenhanced head CT exams of April 28, 2022, 05/18/2022 and 06/04/2022. TECHNIQUE: Unenhanced head CT performed with 5 mm contiguous axial images. Coronal reformations alsoperformed. 1.2 mm axial reconstructions using bone algorithm are also provided. Age-based protocol was used to optimize exposure parameters. CTDIvol Head: 48.30 mGy, DLP Head: 773 mGy*cm. FINDINGS: Brain:No areas of abnormal parenchymal attenuation or space occupying lesions. Extraaxial spaces: Mild cortical cerebral and cerebellar atrophy. No evidence of hydrocephalus. Interval increase in the volume of CSF around the subdural spaces in the frontal regions anterolaterally bilaterally, on the LEFT with CSF attenuation, measuring 1 cm probably unchanged since June 04, 2022 but new since May 18, 2022, on the RIGHT the attenuation at 24 Hounsfield units consistent witha small hemorrhagic component measuring up to 0.7 cm increased since June 04, 2022 and new since May 18, 2022, and now also extending lateral to the RIGHT parietal lobe. No associated midline shift. In addition, there is minimal thin subdural hematoma posteriorly in the falx cerebri extending into the posterior aspect of the LEFT cerebellar tentorium measuring at the most 0.3 cm. Mild degree ofif intracranial arterial calcifications. Visualized orbits: Unremarkable. Paranasal sinuses and mastoids: Paranasal sinuses are clear as visualized except for new fluid with an air-fluid level in the LEFT frontal sinus.. Mastoid air cells are clear bilaterally. Calvarium: No evidence of fracture. IMPRESSION: 1. New very faint posterior left-sided subdural hematoma extending into the LEFT cerebellar tentorium, measuring 0.3 cm. 2. Symmetric anterolateral frontal subdural collections bilaterally, on the RIGHT hemorrhagic and extending into the lateral RIGHT parietal region, probably increased since June 04, 2022, on the LEFT only a hygroma, new since June 04, 2022. No significant brain effacement or midline shift. 3. Mild cortical cerebral and cerebellar atrophy. 4. New acute LEFT maxillary sinusitis. Thank you for allowing me to participate in the care of this patient. A critical result message (Document Only) has been communicated via the [employer] system on 07/02/2022 5:40 PM, Message ID [id number]. WSN: [id number] Ordering Physician: David Johnston Dictated By: Macario Adame MD Dictated Date/Time: 07/02/22 5:40 pm Reviewed By: Macario Adame MD Signed By: Macario Adame MD Signed Date/Time: 07/02/22 5:40 pm Transcribed By: JOE Transcribed Date/Time: 07/02/22 5:25 pm Vital Signs Most recent to oldest 1 2 3 [Reference Range]: Height 157 cm 157 cm 157 cm (08/03/22 2:25 PM) (08/01/22 7:26 PM) (08/01/22 7:48 AM) Weight 53.2 kg 53.2 kg 57.2 kg (08/03/22 10:56 AM) (08/03/22 10:55 AM) ( 2 6:37 PM) Oxygen Saturation [94-100 100 % 100 % 91 % %] (08/03/22 2:25 PM) (08/03/22 7:00 AM) *L* (08/02/22 8:00 P M) Pulse Rate [55-90 bpm] 61 bpm 64 bpm 55 bpm (08/03/22 2:25 PM) (08/03/22 7:00 AM) (08/02/22 8:00 PM) Body Mass Index 24.02 kg/m2 22.39 kg/m2 22.39 kg/m2 [18.5-24.99 kg/m2] (07/28/22 11:04 AM) (07/15/22 12:44 PM) (06/27 2:29 AM) Blood Pressure 111/52 mm Hg 97/59 mm Hg 113/83 mm Hg [90-138/55-84 mm Hg] (08/03/22 2:25 PM) (08/03/22 7:00 AM) (07/15 05/06 8:00 PM) Respiratory Rate [16-30 19 br/min 16 br/min 18 br/mi n br/min] (08/03/22 2:25 PM) (08/03/22 10:35 AM) (08/03/22 7:00 AM) Temperature [96.8-100.4 97.3 DegF 98.6 DegF 97.9 Deg F DegF] (08/03/22 7:00 AM) (08/02/22 8:00 PM) (08/02/22 7:00 AM) Liters per Minute 3 L/min 3 L/min 15 L/min (07/20/22 4:32 PM) (07/20/22 4:31 PM) (07/18/22 3:0 0 PM) Mode of Delivery (Oxygen) Room air Room air Room a ir (08/03/22 2:25 PM) (08/03/22 7:00 AM) (08/02/22 8:00 PM) Blood pressure sites Arm, right Leg, right Arm, right (08/03/22 2:25 PM) (08/03/22 7:00 AM) (08/02/22 8:00 PM) Temperature Route Oral Oral Oral (08/03/22 7:00 AM) (08/02/22 8:00 PM) (08/02/22 7:00 AM) Dry Weight 55.2 kg 55.2 kg (07/15/22 12:44 PM) (06/27/22 2:29 AM) Weight Obtained Via Bed scale Bed scale Bed scale (08/03/22 10:56 AM) (08/03/22 10:55 AM) ( 2 6:37 PM) Dry Weight Obtained Via Bed scale (06/27/22 2:29 AM) Social History Social History Type Response Smoking Status Never smoker entered on: 09/05/15 Sex Flexible sigmoidoscopy study Event Display: GG Sigmoidoscopy Please click on pdf link to open report Admission evaluation note Carlos A Santana DO: MODIFY, MODIFY, SIGN, VERIFY, PERFORM Carlos A Santana DO: PERFORM Herminia Hale MD: SIGN, MODIFY Herminia Hale MD: MODIFY Event Display: Admission Note Authored Date: Patient: BLAINE HARRISON Age: 67 years Sex: Male : 1955 Associated Diagnoses: None Author: Carlos A Santana DO History of Present Illness: Blaine is a 67-year-old male with history of end-stage renal disease status post renal transplant, HTN, IgA nephropathy, hypothyroidism, dyslipidemia who was seen by neurosurgery 07/04 for bilateral subacute SDH. He was GCS 14 at that time and management included repeat CT head which was stable and planned for follow up on 08/17. In the interim, patient reportedly had a slow decline in mental status. Per chart review, patient seemed to wax and wane somewhat but today was difficult to wake, not following commands. Repeat CT with worsening bilateral SDH. Unable to obtain ROS or further history due to AMS. He is now POD #0 from b/l dariusz holes and SDH evacuations with Dr. Peacock. Intraoperatively, patient became hypotensive after induction of anesthesia with 100 mcg of fentanyl and 50 mg of propofol. Patient recovered with vasopressors and remained normotensive for the duration of the operation, but remained on a pheynlephrine gtt between 0.6 and 1.0. Patient was extubated in the OR without incidentand brought to the STICU on 0.6 mcg/kg/min of phenylephrine. He received 1300 cc of LR during the case. Per neurosurgery patient will have q1h neuro checks and will have CT head without contrast this evening before [address] tomorrow morning (07/16). Past Medical History: hypothyroidism end-stage renal disease status post renal transplant 5 years ago on tacrolimus IgA Nephropathy hyperlipidemia hypertension Past Surgical History: Renal transplant Allergies: NKDA Family History: Significant for HTN Social History: No EtOH or tobacco use Review of systems: Unable to assess as patient is intubated Health Status Problem list All Problems Hypertensive Nephrosclerosis / Confirmed Gout / Confirmed Psoriatic Arthropathy / Confirmed Vasectomy / Confirmed Depression / Confirmed -donor kidney transplant / SNOMED CT 4659367479 / Confirmed campath induction ESRD - End stage renal disease / SNOMED CT 6449122494 / Confirmed Renal failure / ICD-9-CM 586 / Confirmed Current medications (Selected) Inpatient Medications Ordered 0.9% NaCL 1,000 mL: 1,000 mL, Infusion, IV Infusion, 1,000 mL, 75 mL/hr, Infuse over 13.3 hr, Continue until D/C'd Unless duration specified, Routine, 07/15/22 8:26:00 EST, 1.54, m2 Acetaminophen Tablet: 650 mg, Tablet, By Mouth, Every 4 hours, PRN for Pain , Mild, Temperature Greater than 100.5, Routine, 06/27/22 3:33:00 EST BuPROpion SR Tablet: 100 mg, SR Tablet, By Mouth, Daily, Routine, 07/06/22 9:00:00 EST Dextrose 50% Inj Syringe (25Gm): 12.5 Gm, Injection, IV Push Slowly, Every 20 minutes, PRN for BloodGlucose, 50 to 70 and patient is NOT AWAKE or NPO; Repeat Glucose POC in 20 minutes, Routine, 07/01/22 14:01:00 EST Dextrose 50% Inj Syringe (25Gm): 25 Gm, Injection, IV Push Slowly, Every 15 minutes, PRN for Blood Glucose, LESS than 50 and patient is NOT AWAKE or NPO - call MD if episode NOT resolved within 20 minutes, Routine, 07/01/22 14:01:00 EST Docusate/Senna Tablet: 1 tablet, Tablet, By Mouth, 2 times a day, Routine, 07/07/22 21:00:00 EST Glucagon Inj: 1 mg, Injection, Intramuscular, Once, For severe hypoglycemic event and patient is tooaltered to take glucose by mouth and does not have IV access., PRN for Other, Routine, 07/01/22 14:01:00 EST Glucose Gel: 15 Gm, Gel, By Mouth, Every 20 minutes, PRN for Blood Glucose, 50 to 70 and patient ALERT, Routine, 07/01/22 14:01:00 EST Glucose Gel: 30 Gm, Gel, By Mouth, Every 20 minutes, PRN for Blood Glucose, LESS THAN 50 and patientALERT, Routine, 07/01/22 14:01:00 EST Lidocaine 5% Patch: 1 each, Patch, Topically, Apply to Back, Every 24 hours, Apply to affected area.Remove after 12 hours., PRN for Pain , Moderate, Routine, 06/29/22 4:44:00 EST Melatonin Tablet: 6 mg, Tablet, By Mouth, Daily at bedtime, Routine, 07/04/22 21:00:00 EST MiraLax Powder: 17 Gm, Powder, By Mouth, Daily for 14 days, Dissolve in 8 ounces of water., PRN for Constipation, Routine, 07/07/22 15:33:00 EST, Stop date 07/21/22 15:32:00 EST Multivit Therapeutic/Minerals Tablet: 1 tablet, Tablet, By Mouth, Daily, Routine, 07/13/22 9:00:00 EST NaCL 0.9% Flush: 3 mL, Injection, IV Push, Every 8 hours, PRN for Line/Tube Patency, Routine, 06/27/22 3:33:00 EST NaCL 0.9% Flush: 3 mL, Injection, IV Push, Every 8 hours, Routine, 06/27/22 4:00:00 EST Remove Lidocaine Patch: 1 each, Patch, Topically, Apply to Back, Every 24 hours, Remove all Licodaine 5% patches 12 hours after application., PRN for Pain , Moderate, Routine, 06/29/22 4:44:00 EST Robitussin DM Liquid: 10 mL, Syrup, By Mouth, Every 4 hours, PRN for Cough, Routine, 06/27/22 3:33:00 EST SEROquel 25 mg oral tablet: 12.5 mg, Tablet, By Mouth, 2 times a day, Routine, 07/05/22 21:00:00 EST SEROquel 25 mg oral tablet: 25 mg, Tablet, By Mouth, 2 times a day, PRN for Agitation, Routine, 07/05/22 15:52:00 EST Simethicone Tablet: 80 mg, Chew Tablet, Chew, 3 times a day, PRN for Gas, Routine, 06/27/22 3:33:00 EST Thiamine IVPB: 500 mg, IVPB, Injection, Daily for 3 days, Routine, 07/13/22 13:00:00 EST, Stop date 07/16/22 12:59:00 EST Thiamine Inj: 250 mg, IV Push, Injection, Daily for 3 days, Routine, 07/17/22 9:00:00 EST, Stop date07/20/22 8:59:00 EST Tranexamic Acid Inj: 1 Gm, Injection, IVPB, Daily, in 100 mL NaCL, infuse over 10 min, Routine, 07/15/22 1:15:00 EST allopurinol 100 mg oral tablet: 100 mg, Tablet, By Mouth, 2 times a day, Routine, 06/27/22 9:00:00 EST cyanocobalamin 1000 mcg oral tablet: 1,000 mcg, Tablet, By Mouth, Daily, Routine, 07/13/22 13:00:00 EST lamotrigine 100 mg oral tablet: 200 mg, Tablet, By Mouth, 2 times a day, Routine, 06/27/22 9:00:00 EST levothyroxine 0.112 mg oral tablet: 112 mcg, Tablet, By Mouth, Daily, Routine, 06/28/22 7:00:00 EST loratadine 10 mg oral tablet: 10 mg, Tablet, By Mouth, Daily, Routine, 06/27/22 9:00:00 EST pantoprazole 20 mg oral delayed release tablet: 20 mg, EC Tablet, By Mouth, Daily, Indicated for: Continuation from Home, Routine, 06/27/22 9:00:00 EST tacrolimus 1 mg oral tablet, extended release: 1 mg, XR Tablet, By Mouth, Daily in AM, Order for Envarsus XR (Tacrolimus) Tablet, do not confuse with Astrograf (Tacrolimus) ER Capsule, Routine, 06/30/22 7:00:00 EST tamsulosin 0.4 mg oral capsule: 0.4 mg, Capsule, By Mouth, Daily, Routine, 06/27/22 9:00:00 EST Prescriptions Prescribed Envarsus XR 1 mg oral tablet, extended release: 2 tablet = 2 mg, By Mouth, Daily in AM, # 60 tablet,3 Refills, Maintenance, 05/24/22 12:41:00 EDT, [facility], Partial fill upon patient request if the prescription is for a schedule II opioid drug., 160, cm, 05/24/22 11:42:00 EDT, .. loratadine 10 mg oral tablet: 10 mg, 1, tablet, By Mouth, Daily, # 30 tablet, Refills 5, Tot. Refills 5, Maintenance, 07/12/17 7:58:44, Route to Pharmacy Electronically, [id number]_[id number], [facility] pantoprazole 20 mg oral delayed release tablet: 20 mg, 1, tablet, By Mouth, Daily, # 30 tablet, Refills 5, Tot. Refills 5, Maintenance, 04/25/17 15:43:11, Route to Pharmacy Electronically, NCPDP_[id number], [facility] Documented Medications Documented Vitamin D3 2000 intl units oral capsule: 1 capsule = 50 mcg, By Mouth, Daily, # 60 capsule, 0 Refills, Maintenance, 06/05/22 0:47:00 EDT, Capsule, Partial fill upon patient request if the prescription is for a schedule II opioid drug. allopurinol 100 mg oral tablet: 100 mg, 1, tablet, By Mouth, Daily, # 30 tablet, Refills 0, Maintenance, 06/28/22 17:02:00 EST, Partial fill upon patient request if the prescription is for a schedule II opioid drug. aspirin 81 mg oral delayed release tablet: 81 mg, 1, tablet, By Mouth, Daily, # 30 tablet, Refills 0, Maintenance, 04/22/22 16:57:00 EDT, Partial fill upon patient request if the prescription is for a schedule II opioid drug. atomoxetine 100 mg oral capsule: 1 capsule = 100 mg, By Mouth, Daily in AM, # 30 capsule, 0 Refills,Maintenance, 06/28/22 17:02:00 EST, Capsule, Partial fill upon patient request if the prescription is for a schedule II opioid drug. buPROPion 100 mg/12 hours (SR) oral tablet, extended release: 1 tablet = 100 mg, By Mouth, Daily, 0 Refills, Maintenance, 06/28/22 17:02:00 EST, Partial fill upon patient request if the prescription isfor a schedule II opioid drug. buPROPion 300 mg/24 hours (XL) oral tablet, extended release: 1 tablet = 300 mg, By Mouth, Daily, with 100 mg to equal 400 mg, 0 Refills, Maintenance, 06/28/22 17:02:00 EST, Partial fill upon patient request if the prescription is for a schedule II opioid drug. lamotrigine 200 mg oral tablet: 1 tablet = 200 mg, By Mouth, Daily, 0 Refills, Maintenance, 06/28/2217:02:00 EST, Partial fill upon patient request if the prescription is for a schedule II opioid drug. levothyroxine 75 mcg (0.075 mg) oral tablet: 1 tablet = 75 mcg, By Mouth, Daily, # 30 tablet, 0 Refills, Maintenance, 06/28/22 17:02:00 EST, Tablet, Partial fill upon patient request if the prescription is for a schedule II opioid drug. tamsulosin 0.4 mg oral capsule: 0.4 mg, 1, capsule, By Mouth, Daily, # 30 capsule, Refills 0, Maintenance, 06/05/22 0:47:00 EDT, Partial fill upon patient request if the prescription is for a schedule II opioid drug. Results Review Recent Labs: BLOOD BANK Blood Type A Positive () 07/15/2022 08:16 Antibody Screen Negative () 07/15/2022 08:16 BLOOD COUNT & DIFF WBC 7.4 k/mm3 () 07/15/2022 09:12 RBC 3.82 m/mm3 (Low) 07/15/2022 09:12 Hgb 10.3 Gm/dL (Low) 07/15/2022 09:12 Hct 32.5 % (Low) 07/15/2022 09:12 MCV 85.1 femtoliters () 07/15/2022 09:12 MCH 27.0 pg () 07/15/2022 09:12 MCHC 31.7 g/dL (Low) 07/15/2022 09:12 Platelet Count 212 k/mm3 () 07/15/2022 09:12 RDW-SD 49.5 femtoliters (High) 07/15/2022 09:12 MPV 9.0 femtoliters (Low) 07/15/2022 09:12 Nucleated RBC (Automated) 0.0 #/100 WBC'S () 07/15/2022 09:12 Abs. NRBC 0.0 k/mm3 () 07/15/2022 09:12 Abs. Neut 5.6 k/mm3 () 07/15/2022 09:12 Abs. Lymph 0.8 k/mm3 () 07/15/2022 09:12 Abs. [place] 0.5 k/mm3 () 07/15/2022 09:12 Abs. Eo 0.4 k/mm3 () 07/15/2022 09:12 Abs. Baso 0.1 k/mm3 () 07/15/2022 09:12 Neut % 75.1 % () 07/15/2022 09:12 Lymph % 11.2 % (Low) 07/15/2022 09:12 [place] % 6.6 % () 07/15/2022 09:12 Eos % 5.5 % () 07/15/2022 09:12 Baso % 0.7 % () 07/15/2022 09:12 Imm Gran 0.9 % () 07/15/2022 09:12 Abs. Imm Gran 0.1 k/mm3 () 07/15/2022 09:12 CHEM GENERAL Sodium 128 mmol/L (Low) 07/15/2022 09:12 Potassium 4.9 mmol/L () 07/15/2022 09:12 Chloride 93 mmol/L (Low) 07/15/2022 09:12 Bicarbonate Level 23 mmol/L () 07/15/2022 09:12 Anion Gap 12 () 07/15/2022 09:12 Glucose Level 97 mg/dL () 07/14/2022 00:25 Glucose, POC 89 mg/dL () 07/15/2022 11:52 BUN 20 mg/dL () 07/15/2022 09:12 Creatinine-Blood 1.8 mg/dL (High) 07/15/2022 09:12 Estimated GFR Creatinine 41 ML/MIN/1.73 M2 () 07/15/2022 09:12 Calcium 8.9 mg/dL () 07/14/2022 00:25 Magnesium 1.8 mg/dL () 07/14/2022 00:25 Protein, Total 6.1 Gm/dL (Low) 07/14/2022 00:25 Albumin 3.6 Gm/dL () 07/14/2022 00:25 AG Ratio 1.4 () 07/14/2022 00:25 Alkaline Phosphatase 142 units/L (High) 07/14/2022 00:25 AST (SGOT) 19 units/L () 07/14/2022 00:25 ALT (SGPT) 7 units/L () 07/14/2022 00:25 Bilirubin, Total 0.2 mg/dL () 07/14/2022 00:25 Vitamin B12 Level 942 pg/mL () 07/14/2022 00:25 Folic Acid Level 6.2 ng/mL () 07/14/2022 00:25 COAG INR 1.0 () 07/15/2022 09:12 Protime (PT) 10.4 seconds () 07/15/2022 09:12 APTT 29.2 seconds () 07/15/2022 09:12 HEME OTHER Hold Lavender Top SPECIMEN DISCARDED AFTER 24 HOURS. () 07/14/2022 06:20 SEROLOGY INF DISEASE Syphilis Interpretation Indicative of the absence of infection with Treponemal pallidum. Test () 07/14/2022 00:25 Syphilis Screen by LIBRADO NEGATIVE (N) 07/14/2022 00:25 RPR Titer Result NOT INDICATED () 07/14/2022 00:25 TP-PA Result NOT INDICATED () 07/14/2022 00:25 TOXICOLOGY/TDM Tacrolimus Level 4.2 ng/mL (Low) 07/15/2022 05:24 VIROLOGY COVID-19 by RT-PCR NEGATIVE () 07/15/2022 09:55 Vital Signs Weight 07/15/2022 12:44 EST Weight 55.2 kg Temperature 07/15/2022 12:44 EST Temperature 97 DegF 07/15/2022 11:00 EST Temperature 98.5 DegF 07/15/2022 7:00 EST Temperature 98.5 DegF 07/15/2022 5:00 EST Temperature 97.7 DegF 07/15/2022 0:00 EST Temperature 97.9 DegF 07/14/2022 20:22 EST Temperature 98.0 DegF Labs WBC 07/15/2022 9:12 EST WBC 7.4 k/mm3 07/15/2022 5:24 EST WBC 6.6 k/mm3 Hct 07/15/2022 9:12 EST Hct 32.5 % L 07/15/2022 5:24 EST Hct 30.8 % L Platelet Count 07/15/2022 9:12 EST Platelet Count 212 k/mm3 07/15/2022 5:24 EST Platelet Count 213 k/mm3 Sodium 07/15/2022 9:12 EST Sodium 128 mmol/L L 07/15/2022 5:24 EST Sodium 129 mmol/L L Potassium 07/15/2022 9:12 EST Potassium 4.9 mmol/L 07/15/2022 5:24 EST Potassium 4.9 mmol/L Chloride 07/15/2022 9:12 EST Chloride 93 mmol/L L 07/15/2022 5:24 EST Chloride 94 mmol/L L Bicarbonate Level 07/15/2022 9:12 EST Bicarbonate Level 23 mmol/L 07/15/2022 5:24 EST Bicarbonate Level 23 mmol/L BUN 07/15/2022 9:12 EST BUN 20 mg/dL 07/15/2022 5:24 EST BUN 20 mg/dL Creatinine-Blood 07/15/2022 9:12 EST Creatinine-Blood 1.8 mg/dL H 07/15/2022 5:24 EST Creatinine-Blood 1.8 mg/dL H Glucose level 07/14/2022 0:25 EST Glucose Level 97 mg/dL New Results 07/14/2022 0:25 EST Calcium 8.9 mg/dL 07/11/2022 10:38 EST Calcium 9.1 mg/dL 07/07/2022 2:58 EST Calcium 9.1 mg/dL 07/06/2022 0:31 EST Calcium 8.8 mg/dL 07/04/2022 1:26 EST Calcium 8.7 mg/dL 07/03/2022 1:18 EST Calcium 8.5 mg/dL L 07/02/2022 4:21 EST Calcium 8.5 mg/dL L 07/01/2022 7:14 EST Calcium 8.5 mg/dL L 06/28/2022 5:04 EST Calcium 8.8 mg/dL 06/08/2022 9:19 EDT Calcium 7.3 mg/dL L 06/07/2022 1:14 EDT Calcium 8.6 mg/dL 06/06/2022 8:46 EDT Calcium 8.9 mg/dL 06/04/2022 15:25 EDT Calcium 9.8 mg/dL 05/19/2022 3:28 EDT Calcium 9.4 mg/dL 05/18/2022 18:45 EDT Calcium 10.1 mg/dL 05/11/2022 19:08 EDT Calcium 9.2 mg/dL 04/29/2022 5:38 EDT Calcium 8.4 mg/dL L 04/28/2022 8:29 EDT Calcium 8.1 mg/dL L 04/27/2022 5:55 EDT Calcium 7.7 mg/dL L 04/26/2022 5:43 EDT Calcium 8.7 mg/dL 04/24/2022 6:00 EDT Calcium 9.0 mg/dL 04/23/2022 7:17 EDT Calcium 9.5 mg/dL 04/22/2022 1:22 EDT Calcium 10.8 mg/dL H Magnesium 07/14/2022 0:25 EST Magnesium 1.8 mg/dL Lactate 06/04/2022 17:02 EDT Lactate 1.3 mmol/L 06/04/2022 15:25 EDT Lactate 1.2 mmol/L Physical Examination Vitals: Temperature 97 (12:58) Systolic Blood Pressure 124 (12:58) Diastolic Blood Pressure 52 (12:58) Pulse 105 (12:58) SpO2 100 (12:58) Respiratory Rate 30 (12:58) Drips- Vasopressin Phenylephrine at 0.6 mcg/kg/min normal saline @ 75 ml/hr Tubes, Lines, & Drains- Drains: 2 LRARY drains from dariusz holes in the skull draining serosang output 2 PIV's on left wrist/arm Right arm AV fistula with positive thrill/bruit Right radial arterial line Physical Examination- Constitutional: patient lying supine in bed, is not oriented at this time, not speaking or answeringquestions Neuro: GCS 10 (E4V2M4), unable to answer questions but is moving spontaneously HEENT: Head normocephalic, pinpoint pupils b/l. dressings CDI CV: S1&S2. No murmurs, rubs, or gallups. Regular rate & rhythm. +2 pulses all extremities. Pulm: Lung sounds CTA bilaterally. GI: Abdomen soft, non-tender, non-distended, bowel sounds x4 quadrants : no harrington in place, WNL's Integ/MSK: b/l dariusz holes on skulls with LARRY drains b/l. Right arm with AV fistula, positive thrill/bruit Intake and Output Results This visit (24 hour periods starting at 07:00 EST) 07/15/22 * 07/14/22 07/13/22 Total Summary Intake mL 120 1,010 1,662.5 Output mL 130 -- -- Fluid Balance -10 1,010 1,662.5 Intake (6) Dextrose 5% in Water, Acyclovir mL -- 500 500 Lactated Ringers Injection 1,000 mL mL -- -- 432.5 Oral Fluids mL 120 320 460 Oral Nutritional Supplements mL -- 80 170 Sodium Chloride 0.9%, Thiamine mL -- 100 100 Tranexamic Acid mL -- 10 -- Total 120 1,010 1,662.5 Output (1) Urine Voided mL 130 -- -- Total 130 -- -- Counts (5) Diaper Count -- 4 5 Oral Fluids mL 120 320 460 Oral Nutritional Supplements mL -- 80 170 Urine Count 1 4 5 Urine Voided mL 130 -- -- * This column has not completed the indicated time period. Impression and Plan Blaine is a 67-year-old male with history of end-stage renal disease status post renal transplant, HTN, IgA nephropathy, hypothyroidism, dyslipidemia who was seen by neurosurgery 07/04 for bilateral subacute SDH. He was GCS 14 at that time and management included repeat CT head which was stable and planned for follow up on 08/17. In the interim, patient reportedly had a slow decline in mental status. Per chart review, patient seemed to wax and wane somewhat but today was difficult to wake, not following commands. Repeat CT with worsening bilateral SDH. Unable to obtain ROS or further history due to AMS. He is now POD #0 from b/l dariusz holes and SDH evacuations with Dr. Peacock. Intraoperatively, patient became hypotensive after induction of anesthesia with 100 mcg of fentanyl and 50 mg of propofol. Patient recovered with vasopressors and remained normotensive for the duration of the operation, but remained on a pheynlephrine gtt between 0.6 and 1.0. Patient was extubated in the OR without incident and brought to the STICU on 0.6 mcg/kg/min of phenylephrine. He received 1300 cc of LR during the case. Per neurosurgery patient will have q1h neuro checks and will have CT head without contrast this evening before [address] tomorrow morning (07/16). Neuro s/p dariusz holes b/l for SDH's LARRY drains b/l Plan - Pain regimen: PO tylenol 650 PRN, Dilaudid 0.2 mg q4hrs - Keppra 500 bid x7d - Continue lamotrigine, Seroquel, melatonin, bupropion - HOB >30 degrees - q1h neuro checks -CT head WO contrast scheduled for tonight and tomorrow AM CV Hx of HTN. HLD Baseline BP in 110's Plan - Continuous cardiac monitoring with arterial line - Goal MAP > 65. - Fluid boluses as needed - Monitor BP/HR Pulm No pulmonary hx Extubated without issue in OR, currently on 3L O2 via face mask Plan - ABG PRN for respiratory distress - Wean O2 as tolerated - Daily chest x-rays - CPT as needed - Incentive spirometry, acapella FEN/GI Currently NPO post-op Progress diet as tolerated Plan - Diet: _ - NG tube to low wall suction - Monitor drain outputs and characteristics - Continue TPN & lipids - Monitor and record bowel movements - Bowel regimen: docusate, senna, milk of mag PRN - PPI: Pantoprazole 20 m qd - Monitor daily Ins/Outs - Replete lytes per ICU Ca/Phos/Potassium protocol Renal Hx of kidney transplant and ESRD, CKD III on tacrolimus for IgA nephropathy/transplant Currently no harrington in place Baseline Cr: 1.6-1.8 Currently hyponatremic at 128 Plan - Continue NS at 75 cc/hr - Daily renal labs - Monitor urine output - monitor daily tacrolimus level - maintain accurate I/O's MSK/Integ 2 dariusz holes in skulls b/l Drains: 2 LARRY's from dariusz holes - Monitor drains, record output and character - Notify provider if sudden increase in output Heme H/H stable, will obtain post op labs Plan - Will obtain STAT CBC and transfuse for Hgb < 7.0 per ICU protocol - Daily CBC - Monitor H/H trends Endocrine Hypothyroidism - continue levothyroxine Glucose POC's WNL's - ICU insulin protocol not requiring insulin drip vs insulin sliding scale. ID Ancef 1 gram q8hrs x 3 doses for surgical prophylaxis - Monitor fever curve - Trend WBC's Social HCP: ESAU HARRISON Relation to Pt: Spouse Cell Prophylaxis HOB > 30 degrees GI: Pantoprazole 20 m qd DVT: Holding chemical DVT prophylaxis per neurosurgery, SCD's b/l in place Code Status: Full Primary Team: Neurosurgery Consultants: Disposition: Continue SICU Critical Care due to every hour neuro checks Please page [phone] or call [phone] SICU Team with any questions Patient seen and plan of care discussed with attending, Dr. Dalila LAWS, Herminia Calderon: PERFORM Event Display: Admission Note Authored Date: I have seen and evaluated this patient. I have discussed the case with the SICU team on the date of service documented above. The clinical course, labs, and radiological studies were reviewed by me andthe findings on exam confirmed. I agree with the findings as well as the assessment and plan as delineated above with the following clarifications, modifications and additions: System Diagnoses and Plans: Neuro - Pain control: PO tylenol 650 PRN, Dilaudid 0.2 mg q4hrs - Sedation: Continue lamotrigine, Seroquel, melatonin, bupropion - s/p dariusz hole for SDH, CT head WO contrast scheduled for tonight and tomorrow AM. Keppra 500 BID x7d Cardiovascular - Continuous cardiac monitoring with arterial line, MAP >65 Pulmonary - Pulmonary toilet, maintain sat >92% FEN/ GI - NPO, speech eval pending - TPN for nutrition Renal - harrington catheter for strict I/O, replace electrolytes as needed - Continue tacrolimus, hx KTX - NS @75cc/h ID - Ancef 1 gram q8hrs x 3 doses for surgical prophylaxis Heme - hemodynamically stable, continue to monitor - DVT ppx: holding chemical dvt ppx per neurosurgery. SCDs Endo - BGL goal 140-180 MSK - LARRY drains per Neurosurgery Dispo- Continue ICU level of care At the time of service, this patient is critically ill due to the acute impairment of 1 or more vital organ systems such that there is a high probability of imminent or life-threatening deterioration in the patient???s condition. Critical Care Time: 45 min (This represents the total time I personally spent evaluating, managing and providing care exclusiveof time spent for separately billable procedures.) --- Herminia Hale MD Division of Trauma, Acute Care Surgery, and Surgical Critical CareAli , Nimisha: PERFORM Event Display: Admission Note Authored Date: Patient: ??BLAINE HARRISON ? Age:??67 Years?Sex:??Male?:??1955?? History of Present Illness Patient is a 67-year-old male with past medical history of hypothyroidism, ESRD status post kidney transplantation 5 years ago, dyslipidemia, hypertension came to [facility] as a direct admission from [facility] after he went there with complaints of hematuria. Patient was seen and examined at bedside, patient stated that he started noticing hematuria for 3 days at first it was a little so he did not be any bleeding but then it increased in amount and his urine was dark red in color so he went to [facility], I reviewed the records sent by [facility] which are in the physical chart of the patient, they did basic lab work which showedH&H of 11.4/38.7, it showed normal sodium but potassium of 5.5 and BUN/creatinine of 54/4.13 which is increased from patient's baseline which was normal 2 weeks ago as per the documentation. Patient's UA came back positive for RBC, 6-10 WBC but nitrite and leukocyte esterase were positive so patient was labeled as being having urinary tract infection. Patient's COVID test was also positive but upon inquiring he told me that he recently had COVID 2 weeks ago and for that he went to [facility] and was admitted for a few days and from there he was sent to rehab, he stated that he just went home from rehab 3 to 4 days ago when he started having hematuria. As we do not have the COVID result test from before we will keep patient on precautions for now as per protocol. There was some documentation about patient having EKG changes due to hyperkalemia but it was not obvious to me in that telemetry strips, will repeat EKG also patient's potassium was not excessively high. ?? Patient had blood pressure of 89/64 in [facility].?? It was treated with fluid challenge of 1 L and patient responded well, patient's vital signs were very stable on transfer to [facility]. ?? Patient also had a CT abdomen pelvis done , Images are sent by [facility] which are in patient's chart. Impression included: Right-sided pleural-based mass which should be further evaluated by CT chest L4-L5 degenerative changes Thickened urinary bladder with stones Distended gallbladder most likely gallbladder hydrops, needs to be evaluated by ultrasound abdomen. ?? Patient stated that he is feeling much better and does not have any issues at the moment, no abdominal pain, no burning on micturition, he is concerned about hematuria. ?? Review of Systems All systems were reviewed and found to be negative except for those mentioned in HPI. Objective Vital Signs?? Temperature: 97.3 DegF (06/27/22 09:04:00) Temperature Route: Oral (06/27/22 09:04:00) Pulse Rate: 88 bpm (06/27/22 09:04:00) Respiratory Rate: 18 br/min (06/27/22 09:04:00) Systolic Blood Pressure: 120 mm Hg (06/27/22 09:04:00) Diastolic Blood Pressure: 63 mm Hg (06/27/22 09:04:00) Blood pressure sites: Arm, right (06/27/22 09:04:00) Mean Arterial Pressure: 82 mm Hg (06/27/22 09:04:00) Pulse Pressure: 57 mm Hg (06/27/22 09:04:00) Oxygen Saturation: 100 % (06/27/22 09:04:00) Mode of Delivery (Oxygen): Room air (06/27/22 09:04:00) Early Warning Score: 3 (06/27/22 09:05:53) ? Intake/Output? 06/27 02:16 06/27 07:00 06/26 07:00 06/25 07:00 06/24 07:00 ?? 06/27 10:07 06/27 10:07 06/27 06:59 06/26 06:59 06/25 06:59 Intake ? 90 ?0 ? 90 ?0 ?0 Output ?250 ?0 ?250 ?0 ?0 Net Total ? -160 ?0 ? -160 ?0 ?0 ? Physical Exam General: Lying comfortably in bed, no evident distress HEENT: Normocephalic, atraumatic Eyes: Not icteric, EOMI, PERRLA Cardiac: S1 + S2 + 0, no murmurs heard Respiratory: CTA, No wheezes, Rales or crackles heard Abdomen: soft, nondistended, nontender Extremities: No edema or cyanosis present Musculoskeletal: No swelling or deformity noted Neurological: AO X 3 , cranial nerves grossly normal?? Psychiatric: Mood and affect normal, speech normal ?? Assessment/Plan Diagnoses Hematuria ??(R31.9) ?? Patient is a 67-year-old male with past medical history of hypothyroidism, ESRD status post kidney transplantation 5 years ago, dyslipidemia, hypertension came to [facility] as a direct admission from [facility] after he went there with complaints of hematuria. ?? Hematuria: Urinary tract infection: Records from [place] shows patient has a urinary tract infection Aspirin stopped due to hematuria Will continue ceftriaxone Urine culture was pending were there We will get UA and urine culture here as well Renal consult in ?? Kidney transplant recipient: Acute kidney injury BUN over creatinine is 54/4.1 We will repeat labs here Renal consult requested We will continue tacrolimus, level pending Continue allopurinol ?? Hypothyroidism: Continue levothyroxine 1 1 2 mcg daily ?? History of allergies: Continue loratadine daily ?? GERD: Continue 20 mg of PPI daily ?? BPH: Continue tamsulosin ?? Depression/anxiety: Patient takes 400 mg of bupropion daily as per patient Will continue Was taking atomoxetine 80 mg, was a stopped, will see psychiatrist after discharge ?? Vitamin D deficiency Continue cholecalciferol as outpatient ?? DVT prophylaxis: No chemical prophylaxis due to hematuria Continue pneumatic compression boots ?? Full code ?? Diet: Renal ?? Disposition: To be decided ?Order Date/Time ??Order Action ??Order Name ??Order Detail ??06/27/2022 09:41 ??Order ??Heparin 5000 units/mL Inj (1 mL) ??5,000 units, 1 mL, Subcutaneous Injection, 3 times a day ??06/27/2022 09:40 ??Order ??Full Resuscitation ??Full Resuscitation, 06/27/22 9:40:00 EST ??06/27/2022 09:26 ??Order ??BuPROPion 100 mg SR Tablet ??100 mg, By Mouth, Daily ??06/27/2022 09:24 ??Cancel ??BuPROpion ??100 mg, By Mouth, Daily ??06/27/2022 09:08 ??Order ??Tacrolimus XR 1 mg Tab ??2 mg, By Mouth, Daily in AM ??06/27/2022 09:08 ??Cancel ??Tacrolimus 1 mg Capsule ??2 mg, By Mouth, Daily in AM ??06/27/2022 09:08 ??Order ??BuPROpion ??100 mg, By Mouth, Daily ??06/27/2022 09:07 ??Order ??BuPROPion XL 300 mg Tablet ??300 mg, By Mouth, Daily ??06/27/2022 09:07 ??Discontinue ??BuPROpion ??400 mg, By Mouth, Daily ??06/27/2022 08:39 ??Order ??COVID-19 (Novel Coronavirus), Rapid PCR ??Stat, Collected, 06/27/22 7:55:00 EST ??06/27/2022 08:01 ??Order ??ECG 12 Lead ??ORA, Reason: Electrolyte Imbalance E87.8, 06/27/22 8:01:00 EST ??06/27/2022 07:42 ??Order ??Tacrolimus Level ??Stat, 06/27/22 7:42:00 EST ??06/27/2022 07:42 ??Order ??Urinalysis w/hold for Urine Culture ??Stat, Urine Clean Catch, 06/27/22 7:42:00 EST ??06/27/2022 07:41 ??Order ??Tacrolimus 1 mg Capsule ??2 mg, By Mouth, Daily in AM ??06/27/2022 07:41 ??Order ??Tamsulosin 0.4 mg Capsule ??0.4 mg, capsule, By Mouth, Daily ??06/27/2022 07:41 ??Order ??Pantoprazole 20 mg EC Tablet ??20 mg, tablet, By Mouth, Daily ??06/27/2022 07:40 ??Order ??Loratadine 10 mg Tablet ??10 mg, tablet, By Mouth, Daily ??06/27/2022 07:40 ??Order ??Levothyroxine 112 mcg Tablet ??112 mcg, tablet, By Mouth, Daily ??06/27/2022 07:40 ??Order ??LamoTRIGINE 100 mg Tablet ??200 mg, tablet, By Mouth, 2 times a day ??06/27/2022 07:40 ??Order ??BuPROpion ??400 mg, By Mouth, Daily ??06/27/2022 07:39 ??Order ??Allopurinol 100 mg Tablet ??100 mg, tablet, By Mouth, 2 times a day ??06/27/2022 07:39 ??Order ??Consult Renal (RTANE) ??Consult for: Acute Consultation, Reason: transplant patieny with uti/ hematuria, 06/27/22 7:39:00 EST ??06/27/2022 07:37 ??Order ??Attending MD ??Lali LAWS, [facility], 06/27/22 7:37:00 EST ? Histories Past medical history: ESRD status post transplantation Hypertension IgA nephropathy Hypothyroidism Dyslipidemia Hypertension ?? Surgical history: transplant recipient ?? Family history: No family history of CAD ?? Social history: Unremarkable ?? Allergies: NKDA Medications Allopurinol: 100 mg = 1 tablet, By Mouth, 2 times a day Aspirin: 81 mg = 1 tablet, By Mouth, Daily Atomoxetine: 80 mg = 1 capsule, By Mouth, Daily in AM BuPROpion: 150 mg = 1 tablet, By Mouth, Daily Cholecalciferol: 50 mcg = 1 capsule, By Mouth, Daily Docusate-Senna: 2 capsule, By Mouth, 2 times a day, PRN (Constipation) Lamotrigine: 200 mg = 1 tablet, By Mouth, 2 times a day Levothyroxine: 112 mcg = 1 tablet, By Mouth, Daily Loratadine: 10 mg = 1 tablet, By Mouth, Daily Pantoprazole: 20 mg = 1 tablet, By Mouth, Daily Tacrolimus: 2 mg = 2 tablet, By Mouth, Daily in AM Tamsulosin: 0.4 mg = 1 capsule, By Mouth, Daily Results Recent Labs CHEM GENERAL Sodium 135 mmol/L ()?? 06/27/2022 05:58 Potassium 5.4 mmol/L (High)?? 06/27/2022 05:58 Chloride 104 mmol/L ()?? 06/27/2022 05:58 Bicarbonate Level 19 mmol/L (Low)?? 06/27/2022 05:58 Anion Gap 12 ()?? 06/27/2022 05:58 Magnesium 2.2 mg/dL ()?? 06/27/2022 05:58 ?? VIROLOGY COVID-19 by RT-PCR POSITIVE (Abnormal)?? 06/27/2022 07:55 ? Nimisha Escalera MD: PERFORM Event Display: Admission Note Authored Date: Patient CT scan report from [facility] shows gallbladder hydrops, will get ultrasound of rightupper quadrant to evaluate that CT chest to evaluate pleural mass ? Also MRI of abdomen and pelvis to evaluate the renal mass. EKG study Event Display: EKG Authored Date: Event Display: ECG 12-Lead Authored Date: Please click on pdf link to open report Event Display: ECG 12-Lead Authored Date: Ventricular Rate: 88 BPM Atrial Rate: 88 BPM P-R Interval: 156 ms QRS Duration: 92 ms Q-T Interval: 358 ms QTC Calculation(Bazett): 433 ms P Manchester: 75 degrees R Manchester: 14 degrees T Manchester: 43 degrees Normal sinus rhythm Normal ECG When compared with ECG of 04-JUN-2022 15:25, T wave inversion no longer evident in Lateral leads QT has shortened Confirmed by CRISTI LANDEROS MD ([id number]) on 07/06/2022 6:27:18 PM [place]: CRISTI LANDEROS MD Note Lorena Mejia RN: PERFORM Event Display: Discharge/Transfer Note Hospital Authored Date: [id number] Nursing Discharge Note Entered On: 08/03/2022 16:25 EST Performed On: 08/03/2022 16:24 EST by Lorena Mejia RN Nursing Discharge Note 2 Discharge Time : 08/03/2022 16:05 EST Discharge Level of Care at Discharge : intermediate facility Discharge Nursing Homes/Rehab Facilities : [facility] Patient Left Unit Via : Ambulance Patient Accompanied Off Unit with : Ambulance/Chair Van Personnel Handover Given to Transport Personnel : Yes DC Instructions Provided & Signed by Pt : Yes Patient Understands D/C Instructions : Yes Patient Instructions Discharge Signed : Yes Did Pt have Specialty Bed or Wound Vac : No Lorena Mejia RN - 08/03/2022 16:24 David Almonte MD: PERFORM, MODIFY, MODIFY Event Display: Discharge/Transfer Note Hospital Authored Date: Patient: ??BLAINE HARRISON ? Age:??67 Years?Sex:??Male?:??1955?? Patient Information Discharge Location: A Primary Care Physician: Katja Brooks MD Admit Date/Time: 06/27/22 02:16 Discharge Disposition Discharge Disposition: Halfway Facility/Rehab Discharge Diagnosis Subdural hematoma COVID-19 (U07.1) Cognitive impairment (R41.89) Failure to thrive in adult (R62.7) Hematuria (R31.9) Impaired mobility and ADLs (Z74.09) Oropharyngeal dysphagia (R13.12) Other specified health status (Z78.9) Swallowing difficulty (R13.10) ?? _ Discharge Medications Allopurinol (allopurinol 100 mg oral tablet)?100?Milligram?1?tablet?By Mouth?Daily Amantadine (amantadine 50 mg/5 mL oral syrup)?10?Milliliter?100?Milligram?By Mouth?2 times a day Atomoxetine (atomoxetine 100 mg oral capsule)?1?capsule?100?Milligram?By Mouth?Daily in AM BuPROpion (BuPROPion IR 75 mg oral tablet)?1?tab(s)?75?Milligram?By Mouth?Daily?for 30?Days BuPROpion (BuPROPion IR 75 mg oral tablet)?0.5?tab(s)?37.5?Milligram?By Mouth?Daily at bedtime Cholecalciferol (Vitamin D3 2000 intl units oral capsule)?1?capsule?50?Microgram?By Mouth?Daily Cyanocobalamin (cyanocobalamin 1000 mcg oral tablet)?1,000?Microgram?1?tablet?Nasogastric Tube?Daily Lamotrigine (lamotrigine 100 mg oral tablet)?200?Milligram?2?tablet?By Mouth?2 times a day Lansoprazole (lansoprazole 15 mg oral tablet, disintegrating)?15?Milligram?By Mouth?Daily levETIRAcetam (Keppra 500 mg oral tablet)?1?tab(s)?500?Milligram?By Mouth?2 times a day Levothyroxine (levothyroxine 75 mcg (0.075 mg) oral tablet)?1?tab(s)?75?Microgram?By Mouth?Daily Loratadine (loratadine 10 mg oral tablet)?10?Milligram?1?tablet?By Mouth?Daily?for 30?Days Tacrolimus (tacrolimus 1 mg oral capsule)?2?capsule?2?Milligram?By Mouth?Daily at bedtime Tacrolimus (tacrolimus 1 mg oral capsule)?3?capsule?3?Milligram?By Mouth?Daily Tamsulosin (tamsulosin 0.4 mg oral capsule)?0.4?Milligram?1?capsule?By Mouth?Daily Tranexamic Acid (tranexamic acid 650 mg oral tablet)?1?tab(s)?650?Milligram?By Mouth?Daily Trazodone (traZODone 50 mg oral tablet)?50?Milligram?1?tablet?By Mouth?Daily at bedtime ? Medications Started Tranexamic acid, keppra, amantidine Medications Discontinued aspirin, lisinopril on hold Doses Changed decreased the dose of the buporpion, changed tacrolimus dose to 3 mg in am and 2 mg in pm Future Appointments Tuesday 9:30 AM EST ?? Where: [facility] [address] [place] [address]- Tuesday 10:30 AM EST ?? Where: [facility] [address] [place] [address] Drive [address] [place] [address]- Hospital Course ?? Blaine is a 67-year-old gentleman with a past medical history of hypothyroidism, end-stage renal disease status post renal transplant 5 years ago on tacrolimus, hyperlipidemia and hypertension who presented as a admission from [facility] after presenting there with hematuria.?? Patient reportedly has had multiple falls in the recent months and lost 15 kg and has had multiple trips back and forth to the hospital and 2 rehabs.?? Over the course of this hospitalization however he has had worsening encephalopathy of unknown origin and was additionally identified to have subacute/chronic subdural hematomas, had bilateral parietal dariusz holes for evacuation of subdural hematomas on 07/15 and was admitted to SICU, transferred to back to medicine service on 07/23/2022. ?? Patient was also found to have hyponatremia. ??Renal??has been closely following the patient.?? And adjusted the tacrolimus dose.?? Sodium level continue to improve. ?? Physical therapy consulted who recommended rehab. ??Case management following for discharge plan. ?? Discussed with neurosurgery??as well as??renal on the day of discharge on 08/03/2022.?? Okay to be discharged??from??neurosurgery as well as renal standpoint. ?? On the day of discharge:??I called the patient's /healthcare proxy Ms. Ayers??and discussed about??his current condition??and discharge and follow-up plan who agreed. ?? He was treated for: ? Bilateral subacute/chronic subdural hematomas s/p drainage:??Stable. Acute postoperative pain: improved Pneumocephalus (improved) Continue home Lamotrigine 200mg BID, Seroquel 12.5mg BID, Melatonin, and Bupropion 100mg daily. NSG Consult, appreciate recommendations ?? SBP Goal 100-140 ?? Wound Care: Cranial dressing removed on 07/18, after which patient is able to shower. Incisions jeremi patted dry and left open to air. Do not soak incisions underneath water for?? 4 weeks. Avoid prolonged??hat use and they can trap in moisture and increase risk of infection. PM&R following. ??Changed??Seroquel to trazodone as per PMR recommendation. ??PT OT consulted. ??Recommended rehab. ??Case management consulted for discharge plan. ?? Neurosurgery follow-up on??. ??Removed??buck, Incisions well healing. no surrounding erythema, edema, drainage.? Noncontrast head CT was repeated on date 08/02/2022.?? Neurosurgery followed up the patient and reviewed??head CT: No focal deficits. ??Subdural hematoma noncompressive.?? Neurosurgery??recommended continue to??tranexemic acid and Keppra until follow-up with??neurosurgery on date 08/17/2021. ??Neurosurgery outpatient follow-up and repeat head CT.?? outpatient neurosurgery Follow up 08/17/22??. ?? The CT is scheduled for 08/17/22 at 9:30 at the [facility] entrance and then the follow up at the [facility] for 10:30 ??Keep follow-up with outpatient neurosurgical office for 08/17/2022 at 10:[address] head ([facility] radiology CT) at 9:30 same day. ?? He does have??waxing and waning mental status.?? However currently appears??he is very alert.?? Neuro exam is stable. ??Discussed with neurosurgery on date 08/03/2022??okay to be discharged from the standpoint and follow-up as an outpatient. ?? He was started on amantidine??by surgery. ? Physical therapy consulted who recommended rehab. ??Case management following for discharge plan. ? Dysphagia Failure to thrive Rectal Thickening on CT abdomen - PEG tube placed 07/20, patient currently G-tube feeding.?? Patient was cleared for dysphagia 2 dietwith nectar thick liquids by PM&R, will plan to keep PEG in for a while as it is suspected that patient will be eating for comfort and will need tube feeds??for nutrition.?Patient continued to have good p.o. intake??then??may stop G-tube feeding??in daytime??and then increase p.o. intake. ??If continues to have a good p.o. intake??then may??hold further G tube feeding Bowel regimen: Colace, Senna, Milk of Mag PRN.?? GI on board-> flexible sigmoidoscopy on 07/28 showed no rectal mass Nutrition Consult, appreciate recommendations nutirion follow up at rehab ? 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 - Plan: Renal following.?? Sodium level is??stable. ??Discussed with renal okay to be discharged from the standpoint. Sodium level improving now. Renal recommended no further urea. ??Recommended to continue with current fluid ordered. ??He is getting free water through G-tube 15 mL/h. Continue tacrolimus??3 mg p.o.??+2??twice daily currently tacrolimus at goal. ?Renal??has been closely following the patient.?? And adjusted the tacrolimus dose.?? Sodium level continue to improve. ?? Discussed with renal on the day of discharge: Suggested continue with current dose of the tacrolimus??which is??3 mg in a.m. and 2 mg in p.m.? monitor sodium level at rehab , repeat in 3-5 days. ? Hypothyroidism: On levothyroxine 112 mcg daily ?? Hypertension: Home lisinopril on hold. ?? Miscellaneous Code: Full Diet: Dysphagia level 3, tube feeds Objective Assessment and Plan ? Measurements?? Height: 157 cm (08/01/22) Weight: 53.2 kg (08/03/22) Dry Weight: 55.2 kg (07/15/22) Body Mass Index: 24.02 kg/m2 (07/28/22) ? Vital Signs?? Temperature: 97.3 DegF (08/03/22 07:00:00) Temperature Route: Oral (08/03/22 07:00:00) Pulse Rate: 64 bpm (08/03/22 07:00:00) Respiratory Rate: 16 br/min (08/03/22 10:35:00) Systolic Blood Pressure: 97 mm Hg (08/03/22 07:00:00) Diastolic Blood Pressure: 59 mm Hg (08/03/22 07:00:00) Blood pressure sites: Leg, right (08/03/22 07:00:00) Pulse Pressure: 38 mm Hg (08/03/22 07:00:00) Oxygen Saturation: 100 % (08/03/22 07:00:00) Mode of Delivery (Oxygen): Room air (08/03/22 07:00:00) Early Warning Score: 3 (08/03/22 11:38:06) ? . Physical Exam Constitutional: Alert, in no distress. Mental Status: Oriented to person, place Head: Normocephalic. Neck: Supple, Full range of motion. Respiratory: Clear to auscultation. No wheezing, rales or rhonchi. Cardiovascular: S1 S2 regular. No murmurs, rubs or gallops. Gastrointestinal: Abdomen soft, non-tender, non-distended. Normal bowel sounds. Neurologic: Alert and awake, speech clear, power??5/5 in all extremities?? Psychiatric: Normal mood and affect Surgical Procedures Dariusz Hole for Hematoma 07/15/2022 14:47 Sigmoidoscopy Flexible 07/28/2022 11:31 Consultants Neurosurgery:Dr. Peacock ? Neurology:Dr. New Renal: Rivera LAWS, Peter Cortes PM&R: Rao LAWS, Gutierrez Pending Results Add On Lab Order ordered on 07/26/2022 Add On Lab Order ordered on 07/27/2022 Add On Lab Order ordered on 07/30/2022 COVID-19 (2019 Novel Coronavirus) PCR ordered on 07/22/2022 COVID-19 (2019 Novel Coronavirus) PCR ordered on 07/26/2022 COVID-19 (2019 Novel Coronavirus) PCR ordered on 07/29/2022 Tacrolimus Level ordered on 07/25/2022 Follow-Up Appointments Added Follow Up ?Time Frame ?Comments Katja Brooks MD?1 to 2 weeks Cuauhtemoc Madonna?1 to 2 weeks?Call the office to obtain your appointment date and time Post Discharge Care Discharge ?08/03/22 12:02:00 EST Home Health Face to Face ^HomeHealthFTF 35_ minutes spent on discharge Patricia Kilgore RN: PERFORM, SIGN, VERIFY Event Display: Case Management Discharge Plan Authored Date: Patient: BLAINE HARRISON Age: 67 years Sex: Male : 1955 Associated Diagnoses: None Author: Patricia Kilgore RN Discharge Plan Case Management Discharge Plan : Case Management Discharge Plan Data 08/03/2022 11:34 EST Discharge Level of Care at Discharge intermediate facility (Modified) Discharge Nursing Homes/Rehab Facilities [facility] Discharge Transportation Arranged [facility] [phone] (Modified) Discharge Arranged Transport Date/Time 08/03/2022 15:30 (Modified) Mode of Transportation Arranged Ambulance Name of Agency #1 [facility] Agency Sustainable Design Consultant #1 intake via Allsripts Service Categories #1 Occupational Therapy, Physical Therapy, Halfway Service Comments #1 You will be transferred to [facility].Patricia Kilgore RN: PERFORM, SIGN, VERIFY Event Display: Case Management Discharge Plan Authored Date: [id number] Patient: BLAINE HARRISON Age: 67 years Sex: Male : 1955 Associated Diagnoses: None Author: Patricia Kilgore RN Discharge Plan Case Management Discharge Plan : Case Management Discharge Plan Data 08/03/2022 11:34 EST Discharge Level of Care at Discharge intermediate facility (Modified) Discharge Nursing Homes/Rehab Facilities [facility] Discharge Transportation Arranged [facility] [address] [place] [address] [phone] (Modified) Discharge Arranged Transport Date/Time 08/03/2022 14:00 Mode of Transportation Arranged Ambulance Name of Agency #1 [facility] Agency [employer]ustainable [employer] Consultant #1 intake via Allipts Service Categories #1 Occupational Therapy, Physical Therapy, Halfway Service Comments #1 You will be transferred to [facility].Patricia Kilgore RN: PERFORM, SIGN, VERIFY Event Display: Case Management Discharge Plan Authored Date: [id number] Patient: BLAINE HARRISON Age: 67 years Sex: Male : 1955 Associated Diagnoses: None Author: Patricia Kilgore RN Discharge Plan Case Management Discharge Plan : Case Management Discharge Plan Data 08/03/2022 11:34 EST Discharge Level of Care at Discharge intermediate facility (Modified) Discharge Nursing Homes/Rehab Facilities [facility] Discharge Transportation Arranged --[address] [id number] Discharge Arranged Transport Date/Time 08/03/2022 14:00 Mode of Transportation Arranged Ambulance Name of Agency #1 [facility] Agency [employer]ustainable [employer] Consultant #1 intake via Allsripts Service Categories #1 Occupational Therapy, Physical Therapy, Halfway Service Comments #1 You will be transferred to [facility].Lorena Mejia RN: PERFORM Event Display: Patient Education/Instruction Authored Date: [id number] Inpatient Adult Discharge Instructions [address] [id number] Name: BLAINE HARRISON : 1955 Visit: 06/27/2022 02:16:00 Current Date: 08/03/2022 15:22 Account: [id number] Inpatient Adult Discharge Instructions We would like to thank you for allowing us to assist you with your healthcare needs. The following includes patient education materials and information regarding your injury/illness. Our entire staff strives to provide an excellent experience for our patients and their families. PLEASE ENSURE YOU FOLLOW-UP PER THE INSTRUCTIONS BELOW! ?? YOUR OPINION IS IMPORTANT TO US! Please complete the survey you may receive by mail or email. Your feedback will be used to make improvements to the healthcare experiences of our patients and their families. Surveys are administered by [employer]. ?? If further treatment with your primary care physician or another doctor is recommended, it is important for you to keep the appointment. Call your primary care physician or return to the Emergency Department immediately if your condition worsens, fails to improve, or new symptoms develop. If you need to find a doctor, you can call [facility] for a referral at [phone] or toll free at [phone] ([phone]) or log in to [email or web address] ?? You can view and manage your care through the patient portal or by using a health care ella of your choosing. [employer] is a website that allows you to securely view your medical information including your hospital discharge summary, office visit summaries, medications and follow-up visits. You can also request appointments, renew medications, and request access to your medical information using a health care ella of your choosing, or just ask a question. You can enroll at [email or web address] or register during your next office visit. You have been discharged from [facility], Patient Care Unit: S3. If you have any questions regarding these instructions after you leave, please call us and we will be happy to assist you. [facility] Your Care Team Attending Physician Preston LAWS, David Consulting Providers Lilia LAWS, Kamran; Lucia LAWS, Kenny Ryan; Ant LAWS, Zachary; Salma LAWS, Pedro Yeh MD, Gutierrez; Erasmo LAWS, Eddi Dewey MD, Giovanni Toledo MD, Yanci Vidales MD, Srikanth Sims MD, Josselyn Steinberg; Diego LAWS, Reynaldo Lowe Discharging Providers Preston LAWS, David Reason for Admission HEMATURIA UTI VIC Your Diagnosis Hematuria COVID-19 Failure to thrive in adult Swallowing difficulty Oropharyngeal dysphagia Cognitive impairment Impaired mobility and ADLs Other specified health status Tests Performed Below is a partial list of the tests performed during your hospitalization. You may have had other tests and procedures not included in this list. Please discuss all test results with your provider. Ammonia Venous Basic Metabolic Panel BUN Calcium Level CBC CBC w/ Differential Chloride Urine Complete Urinalysis Comprehensive Metabolic Panel CORTISOL COVID-19 (2019 Novel Coronavirus) PCR COVID-19 (NOVEL CORONAVIRUS), PCR COVID-19 Antigen POC Creatinine CRP Electrolytes ESR Ferritin FOLIC ACID FREE T4 Glucose Level GLUCOSE POC HOLD GEL TUBE HOLD LAVENDER TUBE INR Ionized Calcium Iron + Iron Binding Capacity Lytes Magnesium Level Mg Level Microalbumin Urine Phosphorus Level Potassium Level Protein/Creatinine Ratio Urine PSA PTT Sodium Urine SYPHILIS TESTING Tacrolimus Level Thiamine Level TSH with T4 Reflex (Adults Only) Type and Screen UA UREA NITROGEN, URINE MG/DL URIC ACID Uric Acid Urine Urinalysis w/hold for Urine Culture Urine Creatinine Urine Osmolality Urine Potassium Urine Protein/Creatinine Ratio VITAMIN B12 VITAMIN B6 Chest CT W/O Contrast CT Head/Brain W/O Contrast CXR Portable Head/Brain CT W/O Contrast MRI Abdomen W+W/O Contrast MRI Brain W/O Contrast US Abdomen Ltd US Duplex Aorto IVC Ltd Primary Care Provider Todd LAWS , Katja Zhang Advance Directive Health Care Proxy on File Yes - Health Care Proxy No qualifying data available. Discharge Vitals Temperature: 97.3 DegF Height: 157 cm Pulse Rate: 61 bpm Weight: 53.2 kg Respiratory Rate: 19 br/min Body Mass Index: 24.02 kg/m2 Systolic Blood Pressure: 111 mm Hg Body surface area: 1.61 Diastolic Blood Pressure:??52 mm Hg??Low ?? Oxygen Saturation: 100 % ?? Studies Pending All tests and labs ordered during this hospital stay have been completed unless listed below. Pleasediscuss all pending results with your provider listed above in these instructions. ?? Add On Lab Order COVID-19 (2019 Novel Coronavirus) PCR Tacrolimus Level What to do next Instructions From Your Doctor Discharge Orders Scheduled Follow-Up Appointments Tuesday 9:30 AM EST ?? Where: [facility] [address] [place] [address]- Tuesday 10:30 AM EST ?? Where: [facility] [address] [place] [address] Drive [address] [place] [address]- You Need to Schedule the Following Appointments Follow Up with??Katja Brooks MD When??Within 1 to 2 weeks Where: [address] [place] [address]- Business (1) Follow Up with??Cuauhtemoc Peacock When??Within 1 to 2 weeks Why: Call the office to obtain your appointment date and time Where: [address] [place] [phone]- Business (1) Discharge Medications BLAINE HARRISON :1955 Visit Date:06/27/2022 Medications: Please continue your medications until treatment is completed or stopped by your provider. Medications not listed below should be discontinued. Discuss any questions related to medications with your provider. What How Much When Instructions Next Dose New Amantadine (amantadine 50 mg/ 5 mL oral syrup) 10 Milliliter Oral Twice a day 08/03 PM New Cyanocobalamin (cyanocobalamin 1000 mcg oral tablet) 1 tab(s) Nasogastric tube Daily 08/04 AM New Lansoprazole (lansoprazole 15 mg oral tablet, disintegrating) 15 Milligram Oral Daily 08/04 AM New levETIRAcetam (Keppra 500 mg oral tablet) 1 tab(s) Oral Twice a day 08/03 PM New Tranexamic Acid (tranexamic acid 650 mg oral tablet) 1 tab(s) Oral Daily 08/04 AM New Trazodone (traZODone 50 mg oral tablet) 1 tab(s) Oral Daily at Bedtime 08/03 bedtime Changed Allopurinol (allopurinol 100 mg oral tablet) 1 tab(s) Oral Daily 08/04 AM Changed Atomoxetine (atomoxetine 100 mg oral capsule) 1 capsule Oral Daily in the morning 08/04 AM Changed BuPROpion (BuPROPion IR 75 mg oral tablet) 0.5 tab(s) Oral Daily at Bedtime 08/03 bedtime Changed BuPROpion (BuPROPion IR 75 mg oral tablet) 1 tab(s) Oral Daily Duration: 30 Days 08/04 AM Changed Lamotrigine (lamotrigine 100 mg oral tablet) 2 tab(s) Oral Twice a day 08/03 PM Changed Levothyroxine (levothyroxine 75 mcg (0.075 mg) oral tablet) 1 tab(s) Oral Daily 08/04 AM Changed Tacrolimus (tacrolimus 1 mg oral capsule) 3 capsule Oral Daily 08/04 AM Changed Tacrolimus (tacrolimus 1 mg oral capsule) 2 capsule Oral Daily at Bedtime 08/03 bedtime Unchanged Cholecalciferol (Vitamin D3 2000 intl units oral capsule) 1 capsule Oral Daily 08/04 AM Unchanged Loratadine (loratadine 10 mg oral tablet) 1 tab(s) Oral Daily Duration: 30 Days 08/04 AM Unchanged Tamsulosin (tamsulosin 0.4 mg oral capsule) 1 capsule Oral Daily 08/04 AM ?? What How Much When Comments Stop Taking Aspirin (aspirin 81 mg oral delayed release tablet) 1 tab(s) Oral Daily Stop Taking Pantoprazole (pantoprazole 20 mg oral delayed release tablet) 1 tab(s) Oral Daily Duration: 30 Days Test Results Below is a partial list of the most recent Laboratory test results done prior to this discharge. You may have had other tests and procedures not included in this list. Please discuss all test results with your provider. Ammonia Venous (07/05/2022) ? ?Ammonia, Venous - <10 ??mole/L Basic Metabolic Panel (07/29/2022) ???Sodium - 127 mmol/L???Potassium - 5.1 mmol/L???Chloride - 95 mmol/L???Bicarbonate Level - 18 mmol/L???Anion Gap - 14???Glucose Level - 89 mg/dL???BUN - 36 mg/dL???Creatinine-Blood - 1.4 mg/dL???Estimated GFR Creatinine - 57 ML/MIN/1.73 M2???Calcium - 8.6 mg/dL BUN (07/31/2022) ???BUN - 36 mg/dL Calcium Level (07/31/2022) ???Calcium - 8.6 mg/dL CBC (08/03/2022) ???WBC - 5.5 k/mm3???RBC - 3.63 m/mm3???Hgb - 9.7 Gm/dL???Hct - 31.5 %???MCV - 86.8 femtoliters???MCH - 26.7 pg???MCHC - 30.8 g/dL???Platelet Count - 270 k/mm3???RDW-SD - 54.4 femtoliters???MPV - 9.1 femtoliters???Nucleated RBC (Automated) - 0.0 #/100 WBC'S???Abs. NRBC - 0.0 k/mm3 CBC w/ Differential (07/17/2022) ???WBC - 7.3 k/mm3???RBC - 3.46 m/mm3???Hgb - 9.3 Gm/dL???Hct - 30.6 %???MCV - 88.4 femtoliters???MCH - 26.9 pg???MCHC - 30.4 g/dL???Platelet Count - 221 k/mm3???RDW-SD - 52.1 femtoliters???MPV - 8.8 femtoliters???Nucleated RBC (Automated) - 0.0 #/100 WBC'S???Abs. NRBC - 0.0 k/mm3???Abs. Neut - 5.5 k/m m3???Abs. Lymph - 0.7 k/mm3???Abs. [place] - 0.6 k/mm3???Abs. Eo - 0.4 k/mm3???Abs. Baso - 0.1 k/mm3???Neut % - 75.3 %???Lymph % - 9.6 %???[place] % - 8.3 %???Eos % - 5.5 %???Baso % - 0.7 %???Imm Gran - 0.6 %???Abs. Imm Gran - 0.0 k/mm3 Chloride Urine (07/30/2022) ???Chloride, Urine Random - 39 mmol/L Complete Urinalysis (07/30/2022) ???Appear/Color, Urine - YELLOW???Specific Page, Urine - 1.024???pH, Urine - 6.5???Albumin, Urine- TRACE???Glucose, Urine - NEGATIVE???Ketones, Urine - NEGATIVE???Bilirubin, Urine - NEGATIVE???Hemoglobin, Urine - NEGATIVE???Nitrite, Urine - NEGATIVE???Leukocyte, Urine - NEGATIVE???Urobilinogen - NORMAL? ?WBC's, Urine - 1 /HPF? ?RBC's, Urine - 1 /HPF? ?Bacteria - SLIGHT? ?Squamous Epith - <1 /HPF Comprehensive Metabolic Panel (08/03/2022) ???Sodium - 130 mmol/L???Potassium - 4.9 mmol/L???Chloride - 98 mmol/L???Bicarbonate Level - 20 mmol/L???Anion Gap - 12???Glucose Level - 73 mg/dL???BUN - 30 mg/dL???Creatinine-Blood - 1.3 mg/dL???Estimated GFR Creatinine - 61 ML/MIN/1.73 M2???Calcium - 9.1 mg/dL???Protein, Total - 6.5 Gm/dL???Albumin - 3.8 Gm/dL???AG Ratio - 1.4???Alkaline Phosphatase - 188 units/L???AST (SGOT) - 25 units/L???ALT (SGPT) - 37 units/L???Bilirubin, Total - 0.2 mg/dL CORTISOL (07/27/2022) ???Cortisol Level - 8.5 ??g/dL COVID-19 (2019 Novel Coronavirus) PCR (08/02/2022) ???COVID-19 PCR Specimen Source - NASAL???COVID-19 PCR Result - NEGATIVE COVID-19 (NOVEL CORONAVIRUS), PCR (07/15/2022) ???COVID-19 by RT-PCR - NEGATIVE COVID-19 Antigen POC (07/27/2022) ???COVID-19 Antigen POC Result - NEGATIVE Creatinine (07/31/2022) ???Creatinine-Blood - 1.4 mg/dL???Estimated GFR Creatinine - 55 ML/MIN/1.73 M2 CRP (07/12/2022) ???C-Reactive Protein - 2.1 mg/dL Electrolytes (07/31/2022) ???Sodium - 131 mmol/L???Potassium - 5.1 mmol/L???Chloride - 97 mmol/L???Bicarbonate Level - 21 mmol/L???Anion Gap - 13 ESR (07/12/2022) ???Sed Rate - 116 mm/hr Ferritin (08/03/2022) ???Ferritin Level - 1247 ng/mL FOLIC ACID (07/26/2022) ???Folic Acid Level - 10.9 ng/mL FREE T4 (07/05/2022) ???Free T4 - 1.55 ng/dL Glucose Level (07/31/2022) ???Glucose Level - 77 mg/dL GLUCOSE POC (08/03/2022) ???Glucose, POC - 80 mg/dL HOLD GEL TUBE (07/28/2022) ???Hold Gel Top - SPECIMEN DISCARDED AFTER 1 WEEK HOLD LAVENDER TUBE (07/14/2022) ???Hold Lavender Top - SPECIMEN DISCARDED AFTER 24 HOURS. INR (07/15/2022) ???INR - 1.0???Protime (PT) - 10.4 seconds Ionized Calcium (07/22/2022) ???Calcium, Ionized pH Corrected - 1.20 mmol/L Iron + Iron Binding Capacity (08/03/2022) ???Iron Level - 32 mcg/dL???Iron Binding Capacity, Unsaturated - 225 mcg/dL???Iron Binding Capacity,Estimated Total - 257 mcg/dL???% Iron Saturation - 12 % Lytes (06/27/2022) ???Sodium - 135 mmol/L???Potassium - 5.4 mmol/L???Chloride - 104 mmol/L???Bicarbonate Level - 19 mmol/L???Anion Gap - 12 Magnesium Level (08/03/2022) ???Magnesium - 1.9 mg/dL Mg Level (07/16/2022) ???Magnesium - 1.6 mg/dL Microalbumin Urine (07/26/2022) ???Malb/Creat Ratio - Unable to calculate???Urine Creat For Micro Alb - 59.0 mg/dL???Micro-Albumin -<12.0 mg/L Phosphorus Level (08/03/2022) ???Phosphorus - 4.4 mg/dL Potassium Level (07/16/2022) ???Potassium - 4.7 mmol/L Protein/Creatinine Ratio Urine (06/28/2022) ???Protein, Total Urine Random - 173 mg/dL???TP/Cr Ratio - 1.27???Creatinine, Urine - 136.4 mg/dL PSA (06/30/2022) ???PSA - 2.9 ng/mL PTT (07/15/2022) ???APTT - 29.2 seconds Sodium Urine (07/30/2022) ???Sodium, Urine Random - 54 mmol/L SYPHILIS TESTING (07/14/2022) ???Syphilis Interpretation - Indicative of the absence of infection with Treponemal pallidum. Test???Syphilis Screen by LIBRADO - NEGATIVE???RPR Titer Result - NOT INDICATED???TP-PA Result - NOT INDICATED Tacrolimus Level (08/03/2022) ???Tacrolimus Level - 5.1 ng/mL Thiamine Level (07/14/2022) ???Thiamine Level - 255.6 TSH with T4 Reflex (Adults Only) (07/05/2022) ???TSH - 5.59 uIU/mL Type and Screen (07/15/2022) ???Blood Type - A Positive???Antibody Screen - Negative UA (06/28/2022) ???Appear/Color, Urine - ORANGE???Specific Page, Urine - 1.019???pH, Urine - 8.0???Albumin, Urine- 2+???Glucose, Urine - NEGATIVE???Ketones, Urine - NEGATIVE???Bilirubin, Urine - NEGATIVE???Hemoglobin, Urine - 3+???Nitrite, Urine - NEGATIVE???Leukocyte, Urine - 3+???Urobilinogen - NORMAL???WBC's, Urine - >182 /HPF? ?RBC's, Urine - 41 /HPF? ?Bacteria - SLIGHT? ?Amorphous Crystals - SLIGHT? ?Calcium Oxal - SLIGHT???Mucus - SLIGHT UREA NITROGEN, URINE MG/DL (07/30/2022) ???Urea Nitrogen, Urine Random - 1131.7 mg/dL URIC ACID (07/30/2022) ???Uric Acid - 3.0 mg/dL Uric Acid Urine (07/30/2022) ???Uric Acid, Urine Random - 18.6 mg/dL Urinalysis w/hold for Urine Culture (07/08/2022) ???Appear/Color, Urine - YELLOW???Specific Page, Urine - 1.023???pH, Urine - 5.5???Albumin, Urine- 1+???Glucose, Urine - NEGATIVE???Ketones, Urine - NEGATIVE???Bilirubin, Urine - NEGATIVE???Hemoglobin, Urine - 3+???Nitrite, Urine - NEGATIVE???Leukocyte, Urine - 3+???Urobilinogen - NORMAL???WBC's, Urine - >182 /HPF? ?RBC's, Urine - 26 /HPF? ?Bacteria - HEAVY? ?Squamous Epith - <1 /HPF? ?HoldUrine Culture - Testing available 48 hours from time of collection. Urine Creatinine (07/30/2022) ???Creatinine, Urine Random - 81.6 mg/dL Urine Osmolality (07/30/2022) ???Osmolality, Urine Random - 661 mOsm/kg Urine Potassium (07/30/2022) ???Potassium, Urine Random - 66.1 mmol/L Urine Protein/Creatinine Ratio (07/26/2022) ???Protein, Total Urine Random - 6 mg/dL???TP/Cr Ratio - 0.09???Creatinine, Urine - 59.0 mg/dL VITAMIN B12 (07/26/2022) ???Vitamin B12 Level - 1591 pg/mL VITAMIN B6 (07/14/2022) ???Vitamin B6 Level - 15.8 Allergies (NKA means No Known Allergies) NKA Problems Active Problems??(8) -donor kidney transplant?? Depression?? ESRD - End stage renal disease?? Gout?? Hypertensive Nephrosclerosis?? Psoriatic Arthropathy?? Renal failure?? Vasectomy?? Education Materials Below is the list of Educational Leaflet Providered with your Discharge Instructions. Valuables and Belongings I fully understand and agree that [facility] accepts no responsibility for all my personal property including clothing, toilet articles, radios, jewelry, dentures, hearing aids, rings, money, or any other property that is in my possession or is brought to me after admission. I understand certain valuables may be placed in a hospital safe for a short period of time. I understand that the hospital is not liable for loss or damage due to accident, fire, or other natural occurrence while said property is in the safe. I accept full responsibility for any personal property that I keep with me, and will not hold the hospital responsible in case of loss or disappearance. I acknowledge that i have been encouraged to send valuables and belongings home. ?? Review of Valuable and Belonging List: With patient Disposition of Belongings: Other: no belongings here in pre-op endo Possessions released to: none present, wedding band removed and given to pt Esau Date for Pt to Sign Valuables/Belongings: 08/03/22 14:25:00 ?? Other Discharge Information ?? Wound Assessment?? Wound Assessment?? Wound Location I: Head Wound Type I: Surgical Wound I, Present on Admission: No Wound Location II: Arm, Right Upper Wound Type II: Other: SCRATCHES ?? Case Management Discharge Plan?? Discharge Plan?? Discharge Agency Information?? Discharge Level of Care at Discharge: intermediate facility Name of Agency #1: [facility] Discharge Transportation Arranged: [facility] [address] [facility] [address] [phone] Agency Sustainable Design Consultant #1: intake via Allsripts Mode of Transportation Arranged: Ambulance Service Categories #1: Occupational Therapy, Physical Therapy, Halfway Discharge Arranged Transport Date/Time: 08/03/22 15:30:00 Service Comments #1: You will be transferred to [facility] Halfway Facility. Discharge Nursing Homes/Rehab Facilities: [facility] ? Pulmonary Rehab Status?? Pulmonary Rehab Discharge Status?? Respiratory Rate: 19 br/min ? Common Emergency Awareness Tips IS IT A STROKE? Act FAST and Check for these signs: FACE Does the face look uneven? ARM Does one arm drift down? SPEECH Does their speech sound strange? TIME Call at any sign of stroke ?? Heart Attack Signs Chest discomfort: Most heart attacks involve discomfort in the center of the chest and lasts more than a few minutes, or goes away and comes back. It can feel like uncomfortable pressure, squeezing, fullness or pain. Discomfort in upper body: Symptoms can include pain or discomfort in one or both arms, back, neck, jaw or stomach. Shortness of breath: With or without discomfort. Other signs: Breaking out in a cold sweat, nausea, or lightheaded. Remember, MINUTES DO MATTER. If you experience any of these heart attack warning signs, call to get immediate medical attention! ?? Smoking can increase your chances of developing chronic health problems and can cause harmful effects to other family members in your house. If you smoke, you are strongly encouraged to quit. Please call [facility] [facility] at [phone] or [phone] ([phone]) or log in to [email or web address] for referrals to smoking cessation programs. ?? The National Suicide Prevention Hotline is available 07/03 if you or someone you know needs to find areason to keep living. By calling 4-669-778-Algolux (9775) you'll be connected to a skilled, trained counselor at a crisis center in your area. INPATIENT DISCHARGE INSTRUCTIONS SIGNATURE MAO BLAINE HARRISON Location:[facility] Registration Date and Time:06/27/2022 02:16 [facility] Primary Care Physician: Todd LAWS , Katja Zhang, I BLAINE HARRISON, have received the above patient education materials/instructions and have verbalized understanding. If ambulance or transport services are being used I further acknowledge being givena choice of service. ?? If you need to contact me, please call me at this number: . Patient/Patient Care Name: Patient/Patient Care Signature: Relationship to Patient: Witness Name/Signature: Date: Event Display: Cardiac Rhythm Strips Authored Date: Event Display: Provider Clarification Note Please click on pdf link to open report Event Display: Cardiac Rhythm Strips Authored Date: Briseyda Bravo R: PERFORM, SIGN, VERIFY Event Display: Patient Education Handout Authored Date: MARGO Monk S: TRANSCRIBE Telma Andrew MD: VERIFY Event Display: Result: Authored Date: US Duplex Aort[employer] REASON: IVC, question filling defect on CT. COMPARISON: MRI abdomen with and without contrast dated 06/30/2022. FINDINGS: The examination had to be terminated prematurely secondary to patient cooperation, limiting evaluation of the IVC. No definite filling defects seen within the visualized IVC corresponding to the findings seen on therecent MRI. Please note, the entire IVC could not be assessed. IMPRESSION: The examination had to be terminated prematurely secondary to patient cooperation, limiting evaluation of the IVC. No definite filling defects seen within the visualized segments of the IVC. Repeat examination may be obtained as clinically warranted. WSN: [id number] Ordering Physician: David Johnston Dictated By: Telma Andrew MD Dictated Date/Time: 07/04/22 1:58 pm Reviewed By: Telma Andrew MD Signed By: Telma Andrew MD Signed Date/Time: 07/04/22 1:58 pm Transcribed By: JOE Transcribed Date/Time: 07/04/22 1:40 pm Hospital Progress note Jose F LAWS, Mavis: PERFORM Event Display: Progress Note Hospital Authored Date: [id number] Patient: ??BLAINE HARRISON ? Age:??67 Years?Sex:??Male?:??1955?? Attending:??David Johnston MD Admission Date: 06/27/2022 ?? Subjective ?? NATALY Remained AVSS. This morning??no??complaint ? Objective Vital Signs (last 24 hrs) ?Last Charted Heart Rate Peripheral?64 bpm ??(DEC 20 07:00) Resp Rate?16 br/min ??(DEC 20 10:35) SBP?97 mm Hg ??(DEC 20 07:00) DBP?59 mm Hg ??(DEC 20 07:00) SpO2?100 % ??(DEC 20 07:00) Weight?53.2 kg ??(DEC 20 10:56) Output?? Urine Voided: 300 mL (05:00) Urine Count: 1 (17:00) Stool Frequency: 1 (09:00) ? Intake/Output? 06/27 02:16 08/03 07:00 08/02 07:00 08/01 07:00 07/31 07:00 ?? 08/03 13:20 08/03 13:20 08/03 06:59 08/02 06:59 08/01 06:59 Intake ?42321.8 ?0 ?0 ? 1706 ? 1338 Output ?81042 ?0 ?300 ?325 ?725 Net Total ?10374.8 ?0 ? -300 ? 1381 ?613 ? Urine Count ? 54 ?0 ?2 ?4 ?1 Diaper Count ? 44 ?0 ?0 ?5 ?2 Emesis Count ?1 ?0 ?0 ?0 ?0 ? Physical Exam General: NAD, HEENT: NCAT, MMM Neck: no JVD, neck supple Cardio: S1 snd S2 Resp: CTAB Abdo:??NT, ND Extremities: No peripheral edema Skin: No rashes or other abnormalities ?? BLOOD COUNT & DIFF WBC 5.5 k/mm3 ()?? 08/03/2022 07:45 RBC 3.63 m/mm3 (Low)?? 08/03/2022 07:45 Hgb 9.7 Gm/dL (Low)?? 08/03/2022 07:45 Hct 31.5 % (Low)?? 08/03/2022 07:45 MCV 86.8 femtoliters ()?? 08/03/2022 07:45 MCH 26.7 pg (Low)?? 08/03/2022 07:45 MCHC 30.8 g/dL (Low)?? 08/03/2022 07:45 Platelet Count 270 k/mm3 ()?? 08/03/2022 07:45 RDW-SD 54.4 femtoliters (High)?? 08/03/2022 07:45 MPV 9.1 femtoliters (Low)?? 08/03/2022 07:45 Nucleated RBC (Automated) 0.0 #/100 WBC'S ()?? 08/03/2022 07:45 Abs. NRBC 0.0 k/mm3 ()?? 08/03/2022 07:45 ?? CHEM GENERAL Sodium 130 mmol/L (Low)?? 08/03/2022 07:45 Potassium 4.9 mmol/L ()?? 08/03/2022 07:45 Chloride 98 mmol/L ()?? 08/03/2022 07:45 Bicarbonate Level 20 mmol/L (Low)?? 08/03/2022 07:45 Anion Gap 12 ()?? 08/03/2022 07:45 Glucose Level 73 mg/dL ()?? 08/03/2022 07:45 Glucose, POC 80 mg/dL ()?? 08/03/2022 11:28 BUN 30 mg/dL (High)?? 08/03/2022 07:45 Creatinine-Blood 1.3 mg/dL (High)?? 08/03/2022 07:45 Estimated GFR Creatinine 61 ML/MIN/1.73 M2 ()?? 08/03/2022 07:45 Calcium 9.1 mg/dL ()?? 08/03/2022 07:45 Phosphorus 4.4 mg/dL ()?? 08/03/2022 07:45 Magnesium 1.9 mg/dL ()?? 08/03/2022 07:45 Protein, Total 6.5 Gm/dL ()?? 08/03/2022 07:45 Albumin 3.8 Gm/dL ()?? 08/03/2022 07:45 AG Ratio 1.4 ()?? 08/03/2022 07:45 Alkaline Phosphatase 188 units/L (High)?? 08/03/2022 07:45 AST (SGOT) 25 units/L ()?? 08/03/2022 07:45 ALT (SGPT) 37 units/L ()?? 08/03/2022 07:45 Bilirubin, Total 0.2 mg/dL ()?? 08/03/2022 07:45 Iron Level 32 mcg/dL (Low)?? 08/03/2022 07:45 Iron Binding Capacity, Unsaturated 225 mcg/dL ()?? 08/03/2022 07:45 Iron Binding Capacity, Estimated Total 257 mcg/dL ()?? 08/03/2022 07:45 % Iron Saturation 12 % (Low)?? 08/03/2022 07:45 Ferritin Level 1247 ng/mL (High)?? 08/03/2022 07:45 ?? TOXICOLOGY/TDM Tacrolimus Level 5.1 ng/mL ()?? 08/03/2022 05:38 ?? VIROLOGY COVID-19 PCR Specimen Source NASAL ()?? 08/02/2022 05:44 COVID-19 PCR Result NEGATIVE ()?? 08/02/2022 05:44 ?? No qualifying data available ? Assessment/Plan 67 yo??M wit hESRD 2/2 HTN nephrosclerosis s/p DDKT on 03/26/2017, on Tacrolimus Envarsus??monotherapy, baseline Cr of 2.0, follows with Dr. Guerrero. Recent hospitalization and VIC 2/2 Tacro toxicity He also has hx of BPH, hyperparathyroidism, hypothyroidism, HLD, HTN, gout, psoriasis, hx of PE post-transplant in 2017, stopped Coumadin later. ?? Was admitted for VIC and his course was c/b?? expanding bilateral subdural hematomas without??herniation/midline??shift now s/p??evacuation??and stable. ? 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 His hyponatremia is multifactorial with low solute intake, hypothyroidism??as well as??SIADH driven with??Quetiapine & intra cranial process. Unusual to see his persistent sub therapeutic tacrolimus levels despite being of 3x dose from baseline. Possibly some interaction of keppra / Amantadine, will review with pharmacy ?? Recommendations ?? -Sodium 130-131- stable -no further urea -Creatinine??1.3- 1.4 - stable - will monitor for now - maybe new baseline -Euvolemic and has high urine sodium Restrict fluid - free water -no concern for adrenal insufficiency -CW Tacrolimus 3mg + 2 twice daily ,( goal ~4- 6),- at goal now -Avoid NSAIDs, contrast -Management of persistent subdural hematoma as per neurosurgery ? LIBERTAD Pablo??Rivera ?? Thanks for involving us in patient's care. Please contact if any question rises. ?? Mavis Kohler MD Renal Fellow - PGY5 Available via [employer] Pager:??[phone] Zachary Shine RN: VERIFY, PERFORM, SIGN Event Display: Progress Note Hospital Authored Date: Patient: BLAINE HARRISON Age: 67 years Sex: Male : 1955 Associated Diagnoses: None Author: Zachary Shine RN Findings Narrative/Incidental Pt a/ox2, pt's orientation seems to wax and wane. Able to say the month year and day and who he is, but at times forgets where he is and why he is here. No slurred speech or new neuro defecits noted. VSS and pt is on RA. PEG tube in place and patent. Bed alarm on and locked in lowest position. WCTM. Discharge Information Rehabilitation Discharge : Rehab Discharge Index 07/31/2022 13:11 EST Walker: distance < 10 07/29/2022 10:51 EST Walker: distance < 10David Johnston MD: PERFORM Event Display: Progress Note Hospital Authored Date: [id number] Patient: ??BLAINE HARRISON ? Age:??67 Years?Sex:??Male?:??1955?? Subjective Patient seen and examined the bedside today morning clinical events reviewed Patient has oxygen and wanting mental status. ??During the morning on, patient was alert and awake.?He is answering questions but appears confused. Moving all extremities. ??Head CT was repeated. ??Neurosurgery follow-up no further intervention recommended. Review of Systems Constitutional:??No fever, chills Respiratory:??No shortness of breath, cough or sputum production. Cardiovascular:??No chest pain, chest pressure or chest discomfort. No palpitations or pedal edema. Gastrointestinal:??No vomiting or diarrhea. No abdominal pain or blood in stool. Neurologic:??No headache, dizziness, syncope Musculoskeletal:??No muscle pain, back pain, Hematologic/Lymphatics:??No bleeding or bruising. Objective Measurements?? Height: 157 cm (08/01/22) Weight: 57.4 kg (08/01/22) Dry Weight: 55.2 kg (07/15/22) Body Mass Index: 24.02 kg/m2 (07/28/22) ? Vital Signs?? Temperature: 97.9 DegF (08/02/22 07:00:00) Temperature Route: Oral (08/02/22 07:00:00) Pulse Rate: 60 bpm (08/02/22 07:00:00) Respiratory Rate: 18 br/min (08/02/22 07:00:00) Systolic Blood Pressure:??141 mm Hg??High (08/02/22 07:00:00) Diastolic Blood Pressure:??85 mm Hg??High (08/02/22 07:00:00) Blood pressure sites: Arm, right (08/02/22 07:00:00) Mean Arterial Pressure: 84 mm Hg (08/01/22::00) Pulse Pressure: 28 mm Hg (08/01/22::00) Oxygen Saturation: 100 % (08/02/22 07:00:00) Mode of Delivery (Oxygen): Room air (08/02/22 07:00:00) Early Warning Score: 2 (08/02/22 10:33:05) ? Physical Exam Physical Exam Constitutional: Alert, in no distress. Mental Status: Oriented to person, place Head: Normocephalic. Neck: Supple, Full range of motion. Respiratory: Clear to auscultation. No wheezing, rales or rhonchi. Cardiovascular: S1 S2 regular. No murmurs, rubs or gallops. Gastrointestinal: Abdomen soft, non-tender, non-distended. Normal bowel sounds. Neurologic: Alert and awake, moving extremities Psychiatric: Normal mood and affect Results Recent Labs CHEM GENERAL Glucose, POC 79 mg/dL ()?? 08/02/2022 10:31 ?? TOXICOLOGY/TDM Tacrolimus Level 8.4 ng/mL ()?? 08/02/2022 05:07 ?? VIROLOGY COVID-19 PCR Specimen Source NASAL ()?? 08/02/2022 05:44 COVID-19 PCR Result NEGATIVE ()?? 08/02/2022 05:44 ? Assessment/Plan ? Blaine is a 67-year-old gentleman with a past medical history of hypothyroidism, end-stage renal disease status post renal transplant 5 years ago on tacrolimus, hyperlipidemia and hypertension who presented as a admission from [facility] after presenting there with hematuria.?? Patient reportedly has had multiple falls in the recent months and lost 15 kg and has had multiple trips back and forth to the hospital and 2 rehabs.?? Over the course of this hospitalization however he has had worsening encephalopathy of unknown origin and was additionally identified to have subacute/chronic subdural hematomas, had bilateral parietal dariusz holes for evacuation of subdural hematomas on 07/15 and was admitted to SICU, transferred to back to medicine service on 07/23/2022. ?? Patient was also found to have hyponatremia. ??Renal??has been closely following the patient.?? And adjusted the tacrolimus dose.?? Sodium level continue to improve. ?? Physical therapy consulted who recommended rehab. ??Case management following for discharge plan. ? Bilateral subacute/chronic subdural hematomas s/p drainage: Acute postoperative pain: improved Pneumocephalus (improving) Pain regimen: Tylenol 480 mg via q4 hours, oxycodone 5 mg liquid solutio n q4h PRN Continue home Lamotrigine 200mg BID, Seroquel 12.5mg BID, Melatonin, and Bupropion 100mg daily. NSG Consult, appreciate recommendations ?? SBP Goal 100-140 ?? Wound Care: Cranial dressing removed on 07/18, after which patient is able to shower. Incisions jeremi patted dry and left open to air. Do not soak incisions underneath water for?? 4 weeks. Avoid prolonged??hat use and they can trap in moisture and increase risk of infection. ?? STAT CT Head for decline in neuro exam ?? PM&R following. ??Changed??Seroquel to trazodone as per PMR recommendation. ??PT OT consulted. ??Recommended rehab. ??Case management consulted for discharge plan. ?? Neurosurgery follow-up on??. ??Removed??buck, Incisions well healing. no surrounding erythema, edema, drainage.? Noncontrast head CT was repeated on date 08/02/2022.?? Neurosurgery followed up the patient and reviewed??head CT: No focal deficits. ??Subdural hematoma noncompressive.?? Neurosurgery??recommended continue to??tranexemic acid and Keppra until follow-up with??neurosurgery on date 08/17/2021. ??Neurosurgery outpatient follow-up and repeat head CT.?? outpatient neurosurgery Follow up 08/17/22??. ?? The CT is scheduled for 08/17/22 at 9:30 at the [facility] entrance and then the follow up at the [facility] for 10:30 ? Patient was also found to have hyponatremia. ??Renal??has been closely following the patient.?? And adjusted the tacrolimus dose.?? Sodium level continue to improve. ?? Physical therapy consulted who recommended rehab. ??Case management following for discharge plan. ? Dysphagia Failure to thrive Rectal Thickening on CT abdomen - PEG tube placed 07/20, patient currently G-tube feeding.?? Patient was cleared for dysphagia 2 dietwith nectar thick liquids by PM&R, will plan to keep PEG in for a while as it is suspected that patient will be eating for comfort and will need tube feeds??for nutrition.?? May stop G-tube feeding??in daytime??and then increase p.o. intake. ??If continues to have a good p.o. intake??then may??hold further G tube feeding Bowel regimen: Colace, Senna, Milk of Mag PRN.?? GI on board-> flexible sigmoidoscopy on 07/28 showed no rectal mass Nutrition Consult, appreciate recommendations ? 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 Unusual to see his persistent sub therapeutic tacrolimus levels despite being of 3x dose from baseline. Possibly some interaction of keppra / Amantadine - Plan: Renal is following.?? Sodium level is??stable. ??[facility] S[facility] level 131 now. Renal recommended no further urea. ??Recommended to continue with current fluid ordered. ??He is getting free water through G-tube. Continue tacrolimus??3 mg p.o.??+2??twice daily currently tacrolimus at goal. ? Hypothyroidism: On levothyroxine 112 mcg daily ?? Hypertension: Home lisinopril on hold. ?? Miscellaneous Code: Full Diet: Dysphagia level 3, tube feeds DVT Px: SQ Lovenox. ok to continue as per neurosurgery. ?? Discharge plan: Needs rehab placement. ??Case management following. CT Head WO contrast BHSPowerscribe , CIS S: TRANSCRIBE Ambika LAWS , Sofi Hooper: VERIFY Event Display: Result: Authored Date: Examination: Noncontrast head CT performed on 08/02/2022. History: TIA. Hematoma. Technique and findings: Contiguous 5 mm axial images were obtained from the skull base to the vertex without intravenous contrast. A dose modulated weight-based protocol was used. Comparison is made to a prior study dated 07/17/2022. The current study is limited due to motion artifact. The visualized sinuses are free from disease. There is diffuse prominence of the ventricular system and subarachnoid spaces, consistent with age-appropriate volume loss. The previously demonstrated postsurgical extra-axial air bilaterally has largely resolved. However, there is a residual left subdural fluid collection which is mixed attenuation with hypodense and hyperdense areas. In largest dimension, this measures 1.2 cm (image 21 series 301). Additionally, there is a thin hyperdense right subdural hemorrhage now measuring 0.3 cm (image 19), likely acute. No midline shift is seen. Bilateral dariusz holes are noted. IMPRESSION: Limited examination. Interval near complete resolution of the pneumocephalus. Persistent left subdural hemorrhage which is mixed attenuation with hyperdense areas suggesting areas of rebleeding. Tiny right subdural hemorrhage which is hyperdense and likely acute. WSN: [id number] Ordering Physician: David Johnston Dictated By: Sofi Apple MD Dictated Date/Time: 08/02/22 10:18 a Reviewed By: Sofi Apple MD Signed By: Sofi Apple MD Signed Date/Time: 08/02/22 10:18 am Transcribed By: JOE Transcribed Date/Time: 08/02/22 10:15 Fifi , CIS S: Rivera Michel MD: VERIFY Event Display: Result: Authored Date: [id number] CT Head/Brain W/O Contrast Reason: Other:; Subdural hematoma; Clinical Question(s): Hematoma. TECHNIQUE: Noncontrast head CT using axial technique and reconstructed in axial and coronal planes. Weight-based protocol using automatic tube modulation was used to optimize exposure parameters. CTDIvol Head: 48.30 mGy, DLP Head: 773 mGy*cm. COMPARISON: CT head 06/04/2022, 07/02/2022, 07/03/2022, 07/14/2022, 07/15/2022,07/16/2022 MRI 07/06/2022 FINDINGS: BRAIN and EXTRA-AXIAL SPACES: Interval removal of bilateral subdural drains Bilateral hemispheric subdural hematomas with intermediate density are not significantly changed measuring up to 10 mm on the left (previously 10 mm) and 9 mm on the right (previously 9 mm). () Mild sulcal effacement of the anterior aspect of the frontal lobes bilaterally is not significantly changed. Moderate-large volume pneumocephalus within bifrontal subdural spaces again noted, not significantlychanged from 07/16/2022. Pneumocephalus in the right occipital region has resolved. A 6 mm right parafalcine subdural hematoma is again noted near the vertex, not significantly changedfrom prior. No midline shift on the axial images adjusted for obliquity. No hydrocephalus or intraventricular blood products. The basilar cisterns are preserved. No subarachnoid or intraparenchymal hemorrhage. Mendoza-white matter differentiation is well preserved. No acute infarct. Atherosclerotic vascular calcification of the carotid arteries but negative hyperdense vessel sign. No white matter lesions. CALVARIUM, SKULL BASE AND SOFT TISSUES: Bilateral dariusz holes are again noted. The paranasal sinuses and mastoid air cells are clear. Visualized orbits and globes are intact. Postsurgical changes of the scalp bilaterally with overlying skin buck is unchanged. IMPRESSION: 1. Interval removal of bilateral subdural drains. Otherwise no significant interval change from 07/16/2022. 2. Similar right hemispheric subdural hematoma measuring 9 mm. 3. Similar left hemispheric subdural hematoma measuring 10 mm. 4. Parafalcine 5 mm subdural hematoma is unchanged. 5. Similar volume of pneumocephalus. WSN: [id number] Ordering Physician: Carlos A Santana Dictated By: Rivera Leung MD Dictated Date/Time: 07/17/22 11:08 a Reviewed By: Rivera Leung MD Signed By: Rivera Leung MD Signed Date/Time: 07/17/22 11:08 am Transcribed By: JOE Transcribed Date/Time: 07/17/22 10:53 amBPowerscribe , CIS S: TRANSCRIBE Rivera Leung MD: VERIFY Arnulfo Barry MD A: SIGN Event Display: Result: Authored Date: [id number] CT Head/Brain W/O Contrast Reason: Other:; Subdural hematoma; Order Comment:. TECHNIQUE: Noncontrast head CT using axial technique and reconstructed in axial and coronal planes. Weight-based protocol using automatic tube modulation was used to optimize exposure parameters. CTDIvol Head: 45.90 mGy, DLP Head: 772 mGy*cm. COMPARISON: CT head 06/04/2022, 07/02/2022, 07/03/2022, 07/14/2022, 07/15/2022, MRI 07/06/2022 FINDINGS: BRAIN and EXTRA-AXIAL SPACES: Bilateral subdural drains terminating at the vertex adjacent to the falx. Bilateral hemispheric subdural hematomas with intermediate density are again noted (coronal 20), measuring up to 10 mm on the left (previously 12 mm) and 9 mm on the right (previously 4 mm). Sulcal effacement in the left cerebral hemisphere has improved. Large pneumocephalus within bifrontal subdural spaces again noted, slightly improved from prior. Pneumocephalus in the right occipital region has decreased. A 5 mm right parafalcine subdural hematoma is again noted near the vertex, not significantly changedfrom prior. No midline shift on the axial images adjusted for obliquity. Mass effect on the lateral ventricles has improved. No hydrocephalus or intraventricular blood products. The basilar cisterns are preserved. No subarachnoid or intraparenchymal hemorrhage. Mendoza-white matter differentiation is well preserved. No acute infarct. Atherosclerotic vascular calcification of the carotid arteries but negative hyperdense vessel sign. No white matter lesions. CALVARIUM, SKULL BASE AND SOFT TISSUES: Bilateral dariusz holes are again noted. The paranasal sinuses and mastoid air cells are clear. Visualized orbits and globes are intact. Postsurgical changes of the scalp bilaterally with overlying skin buck is unchanged. IMPRESSION: 1. Right hemispheric subdural hematoma measuring 9 mm has slightly increased in size. 2. Left hemispheric subdural hematoma measuring 11 mm has decreased in size. 3. Parafalcine 5 mm subdural hematoma is stable. 4. Overall mass effect and midline shift have improved with decreased volume of pneumocephalus. I have personally reviewed the images and I agree with this report. WSN: [id number] Ordering Physician: Carlos A Santana By: Arnulfo Barry MD Dictated Date/Time: 07/16/22 10:16 a Reviewed By: Rivera Leung MD Signed By: Rivera Leung MD Signed Date/Time: 07/16/22 10:21 am Transcribed By: JOE Transcribed Date/Time: 07/16/22 9:36 amBHSPowerscribe , CIS S: TRANSCRIBE Radha LAWS, Devrim: VERIFY Event Display: Result: Authored Date: CT Head/Brain W/O Contrast INDICATION: Reason: Other:; Subdural hematoma; Clinical Question(s): Hematoma; Special Instructions:to be performed before 1900 on 07 15 per neurosurgery; Order Comment: TECHNIQUE: Noncontrast head CT using axial technique and reconstructed in axial and coronal planes. Iterative reconstruction techniques are used to optimize dose and image quality. CTDIvol Head: 46.80 mGy, DLP Head: 774 mGy*cm. COMPARISON: 07/14/2022. FINDINGS: Boat Canvas Installer view findings, lines and tubes: Bilateral subdural drainage catheters in place. BRAIN AND EXTRA-AXIAL SPACES: Status post evacuation of bilateral subdural hematomas with expected pneumocephalus. There is residual low density collection on both sides and trace amount of layering hyperdense collection. The thickness of pneumocephalus on the left measures up to 2.1 cm and on the right measures 1.7 cm with significant mass effect on the adjacent sulci. There is also trace amount of pneumocephalus along the anterior falx and right posterior parietal region. There has been minimal interval increase in size of hyperdense subdural hematoma along the posterior falx with thickness measuring 5 mm, previously 4 mm. There is new rightward midline shift measuring 5 mm. No parenchymal hemorrhage. Mendoza-white matter differentiation is well preserved. No acute infarct. No white matter lesions. CALVARIUM, SKULL BASE, AND SOFT TISSUES: Status post bifrontal dariusz holes. The paranasal sinuses and mastoid air cells are clear. Visualized orbits and globes are intact. IMPRESSION: 1. Status post evacuation of bilateral subdural hematomas with drainage catheters in place. There issmall amount of residual hyperdense collection layering posteriorly. 2. Pneumocephalus measuring 2.1 cm on the left and 1.7 cm on the right with significant mass effect on the adjacent sulci and new rightward midline shift measuring 5 mm. 3. Minimal interval increase in thickness of the parafalcine subdural hematoma, now measuring 5 mm versus previously 4 mm. A critical result message (Panacea) has been communicated via the [employer] system on 07/15/2022 7:41 PM, Message ID [id number]. WSN: [id number] Ordering Physician: Carlos A Santana Dictated By: Trinity Garcia MD Dictated Date/Time: 07/15/22 7:41 pm Reviewed By: Trinity Garcia MD Signed By: Trinity Garcia MD Signed Date/Time: 07/15/22 7:41 pm Transcribed By: JOE Transcribed Date/Time: 07/15/22 7:34 pmBHSPowerscribe MARGO S: TRANSCRIBE Barber Cooper MD S: VERIFY Event Display: Result: Authored Date: [id number] CT Head/Brain W/O Contrast INDICATION: Reason: Other:; Clinical Question(s): Hematoma; Order Comment: TECHNIQUE: Noncontrast head CT using axial technique and reconstructed in axial and coronal planes. Iterative reconstruction techniques are used to optimize dose and image quality. COMPARISON: None. FINDINGS: Boat Canvas Installer view findings, lines and tubes: None. BRAIN AND EXTRA-AXIAL SPACES: There is been significant progression of the bilateral subdural hematomas within I measure at 15 mm on the right compared to 9 mm on previous exam and 13 mm on the left compared to 10 mm on the previous examination. The lateral ventricles appear small in size consistent with significant mass effect. Ibelieve there is some mild effacement of the suprasellar cistern. No significant mass effect noted in the posterior fossa. Posterior fossa extra-axial collection referred to on previous MRI scan not well seen. CALVARIUM, SKULL BASE, AND SOFT TISSUES: No fractures or suspicious bony lesions. The paranasal sinuses and mastoid air cells are clear. Visualized orbits and globes are intact. The extracranial soft tissues are unremarkable. IMPRESSION: Significant increase in bilateral subdural hematomas compared to previous studies with increased mass effect on the lateral ventricles. Likely mild effacement of the suprasellar cistern. No significant mass effect identified within the posterior fossa. A critical result message (Red) has been communicated via the [employer] system on 07/14/2022 10:34 PM, Message ID [id number]. WSN: [id number] Ordering Physician: Carlos A Escobar Dictated By: Barber Cooper MD Dictated Date/Time: 07/14/22 10:34 p Reviewed By: Barber Cooper MD Signed By: Barber Cooper MD Signed Date/Time: 07/14/22 10:34 pm Transcribed By: JOE Transcribed Date/Time: 07/14/22 10:29 pmBHSPowerscribe , MARGO S: TRANSCRIBE Emanuel Larson MD: VERIFY Event Display: Result: Authored Date: [id number] CT Head/Brain W/O Contrast INDICATION: Reason: Other:; Mental status change, slurred speech, word finding difficulty; Clinical Question(s): Other:; worsening head bleed; Order Comment: TECHNIQUE: Noncontrast head CT using axial technique and reconstructed in axial and coronal planes. Iterative reconstruction techniques are used to optimize dose and image quality. CTDIvol Head: 42.48 mGy, DLP Head: 680 mGy*cm. COMPARISON: None. FINDINGS: Boat Canvas Installer view findings, lines and tubes: None. BRAIN AND EXTRA-AXIAL SPACES: Redemonstration of small bilateral frontal subdural hematomas. Right frontal subdural measures up to 0.9 cm in thickness. Left frontal subdural measures up to 1.2 cm in thickness. The right frontal subdural is slightly denser than the left likely indicating it is more recent in age. This is unchanged. No change in size compared to yesterday. Both subdural hematomas demonstrate heterogeneous intermediate density indicating subacute status. There is also a trace left superior tentorial subdural hematoma which currently measures between 0.2and 0.3 cm in thickness on coronal image 43, unchanged. No new focus of intracranial blood. Mild offsetting mass effect without midline shift. Mendoza-white matter differentiation is well preserved. No acute infarct. Negative insular ribbon and hyperdense vessel signs. Ventricles, sulci, and basilar cisterns are normal. No white matter lesions. No subarachnoid hemorrhage. No subdural or epidural collection. CALVARIUM, SKULL BASE, AND SOFT TISSUES: No fractures or suspicious bony lesions. The paranasal sinuses and mastoid air cells are clear. Visualized orbits and globes are intact. The extracranial soft tissues are unremarkable. IMPRESSION: Stable bifrontal subdural hematomas. Stable trace left superior tentorial subdural hematoma. No new focus of intracranial blood. No significant mass effect, midline shift or herniation. Left frontal subdural collection was previously reported as a hygroma however the density of this collection is greater than that of CSF and it is more consistent with a late subacute or chronic subdural hematoma rather than a hygroma. WSN: [id number] Ordering Physician: Johana Nettles Dictated By: Emanuel Larson MD Dictated Date/Time: 07/03/22 10:53 p Reviewed By: Emanuel Larson MD Signed By: Emanuel Larson MD Signed Date/Time: 07/03/22 10:53 pm Transcribed By: JOE Transcribed Date/Time: 07/03/22 10:41 pmBHSPowerscribe , CIS S: TRANSCRIBE Macario Adame MD: VERIFY Event Display: Result: Authored Date: [id number] PROCEDURE: CT Head/Brain W/O Contrast CLINICAL INDICATION: 67 years old Male with Reason: Dementia; Clinical Question(s): Infarction; Order Comment:. COMPARISON: Unenhanced head CT exams of April 28, 2022, 05/18/2022 and 06/04/2022. TECHNIQUE: Unenhanced head CT performed with 5 mm contiguous axial images. Coronal reformations alsoperformed. 1.2 mm axial reconstructions using bone algorithm are also provided. Age-based protocol was used to optimize exposure parameters. CTDIvol Head: 48.30 mGy, DLP Head: 773 mGy*cm. FINDINGS: Brain:No areas of abnormal parenchymal attenuation or space occupying lesions. Extraaxial spaces: Mild cortical cerebral and cerebellar atrophy. No evidence of hydrocephalus. Interval increase in the volume of CSF around the subdural spaces in the frontal regions anterolaterally bilaterally, on the LEFT with CSF attenuation, measuring 1 cm probably unchanged since June 04, 2022 but new since May 18, 2022, on the RIGHT the attenuation at 24 Hounsfield units consistent witha small hemorrhagic component measuring up to 0.7 cm increased since June 04, 2022 and new since May 18, 2022, and now also extending lateral to the RIGHT parietal lobe. No associated midline shift. In addition, there is minimal thin subdural hematoma posteriorly in the falx cerebri extending into the posterior aspect of the LEFT cerebellar tentorium measuring at the most 0.3 cm. Mild degree ofif intracranial arterial calcifications. Visualized orbits: Unremarkable. Paranasal sinuses and mastoids: Paranasal sinuses are clear as visualized except for new fluid with an air-fluid level in the LEFT frontal sinus.. Mastoid air cells are clear bilaterally. Calvarium: No evidence of fracture. IMPRESSION: 1. New very faint posterior left-sided subdural hematoma extending into the LEFT cerebellar tentorium, measuring 0.3 cm. 2. Symmetric anterolateral frontal subdural collections bilaterally, on the RIGHT hemorrhagic and extending into the lateral RIGHT parietal region, probably increased since June 04, 2022, on the LEFT only a hygroma, new since June 04, 2022. No significant brain effacement or midline shift. 3. Mild cortical cerebral and cerebellar atrophy. 4. New acute LEFT maxillary sinusitis. Thank you for allowing me to participate in the care of this patient. A critical result message (Document Only) has been communicated via the [employer] system on 07/02/2022 5:40 PM, Message ID [id number]. WSN: [id number] Ordering Physician: David Johnston Dictated By: Macario Adame MD Dictated Date/Time: 07/02/22 5:40 pm Reviewed By: Macario Adame MD Signed By: Macario Adame MD Signed Date/Time: 07/02/22 5:40 pm Transcribed By: JOE Transcribed Date/Time: 07/02/22 5:[address] Chest WO contrast [facility] , CIS S: TRANSCRIBE Barber Cooper MD S: VERIFY Event Display: Result: Authored Date: [id number] CT Chest W/O Contrast INDICATION: Reason: Other:; PLEURAL MASS ON CT at another facility; Clinical Question(s): Carcinoma;Order Comment: TECHNIQUE: Helical CT scan of the chest without IV contrast, formatted in 3 planes. Weight-based protocol was performed using automatic exposure control. CTDIvol Body: 8.30 mGy, DLP Body: 322 mGy*cm. COMPARISON: None. FINDINGS: Boat Canvas Installer view findings, lines and tubes: None. Trachea and airways: Patent without evidence of tracheal or endobronchial lesion. Lungs and pleura: There is groundglass density seen involving the anterior right lung. No comparisonstudies available. This could represent infectious or inflammatory process. Malignancy is not excluded. The exam was performed without intravenous contrast and findings related to pulmonary embolus arealso not excluded. More focal nodular opacity seen at the inferior right base measuring 2 cm in maximal dimension. This is located on axial image 77 series 201. Small adjacent 5 mm area is also seen inthe more lateral right base axial image 72. No effusion or pneumothorax. Mediastinum and melvin: No mass or hematoma. No mediastinal or hilar lymphadenopathy. No esophageal abnormality. Heart: Heart is normal in size. No pericardial effusion. Aorta: No aortic aneurysm. Pulmonary arteries: Normal caliber. Chest wall soft tissues: No acute abnormality. Diaphragm: Intact. Upper abdomen: Severely atrophic kidneys without evidence of hydronephrosis. Bones: Prominent shoulder joint arthropathy. No evidence of fracture. No findings to indicate metastatic bone lesions. IMPRESSION: Nonspecific groundglass opacity in the anterior right upper lobe may represent infectious or inflammatory process. Malignancy not excluded. Sequela of pulmonary embolus is also not excluded given the peripheral location. Correlate with level of clinical suspicion. More solid appearing nodular opacity in the very inferior right lower lobe. Short interval follow-up in 4-6 weeks suggested in light of acute symptoms. If this persists, PET/CTscan may be appropriate. Severely atrophic bilateral kidneys. No hydronephrosis. WSN: [id number] Ordering Physician: Nimisha Escalera Dictated By: Barber Cooper MD Dictated Date/Time: 06/27/22 6:48 pm Reviewed By: Barber Cooper MD Signed By: Barber Cooper MD Signed Date/Time: 06/27/22 6:48 pm Transcribed By: JOE Transcribed Date/Time: 06/27/22 6:39 pm Portable XR Chest Views [facility] , CIS S: TRANSCRIBE Radha LAWS, Oswaldrim: VERIFY Event Display: Result: Authored Date: [id number] Chest Portable Reason: Tube Placement COMPARISON: 06/04/2022. FINDINGS: LINES AND TUBES: Enteric tube terminates in the left upper quadrant, likely in the stomach. The sidehole is just above the level of the GE junction. LUNGS AND PLEURA: Patient is slightly rotated to the right. No confluent airspace opacity or evidence of pulmonary edema. No pleural effusion. No pneumothorax. HEART, MEDIASTINUM AND MELVIN: Heart is normal in size. Limited evaluation of the hilar regions due to patient rotation. BONES AND SOFT TISSUES: No acute abnormality. IMPRESSION: Endotracheal tube should be advanced by at least 5 cm for proper positioning. A critical result message (Panacea) has been communicated via the [employer] system on 07/15/2022 11:29 PM, Message ID [id number]. WSN: [id number] Ordering Physician: Susan Macias Dictated By: Trinity Garcia MD Dictated Date/Time: 07/15/22 11:29 p Reviewed By: Trinity Garcia MD Signed By: Trinity Garcia MD Signed Date/Time: 07/15/22 11:29 pm Transcribed By: JOE Transcribed Date/Time: 07/15/22 11:28 pm MR Abdomen WO and W contrast IV [facility] , CIS S: TRANSCRIBE Turner Veronica MD: VERIFY Marisela Gonzalez DO P: SIGN Event Display: Result: Authored Date: [id number] MRI Abdomen W+W/O Contrast REASON: Hematuria; Clinical Question(s): Tumor Primary TECHNIQUE: Multiplanar, multisequence pre and post contrast MRI evaluation of the abdomen was performed. 11 cc of Clariscan gadolinium administered intravenously. Note, this examination is performed atno charge given that immediate prior MRI did not successfully image the target area. COMPARISON: MRI abdomen with and without contrast 08/30/2021 at 1:22 AM. Retroperitoneal ultrasound 06/05/2022. CT chest 06/27/2022. FINDINGS: Suboptimal exam due to motion degradation. LOWER THORAX: Trace likely physiologic bilateral pleural fluid without effusion. Round 1.5 cm mildlyT2 hyperintense lesion in the right posterior sulcus, corresponding to the nodular opacity on prior CT (5:12). No pericardial effusion. Mild eventration of the right hemidiaphragm. LIVER: Normal contour and size. Normal parenchymal enhancement. 1.2 cm T2 hyperintense, T1 hypointense lesion in hepatic segment 6 (5:18, 11:54), homogeneously enhancing on arterial phase with persistent hyperenhancement at 2 minutes, compatible with a small benign flash filling hemangioma. Disorganized portal and hepatic veins adjacent to this hemangioma, likely a portovenous shunt, benign. No suspicious lesion. No steatosis. GALLBLADDER: Unchanged distended gallbladder containing layering sludge. No wall thickening or pericholecystic inflammatory changes. BILE DUCTS: No intrahepatic or extrahepatic biliary ductal dilatation. Mild ectatic appearance of the distal common duct (4:19), which still measures normal in caliber at 0.4 cm, likely physiologic or artifactual due to motion. SPLEEN: Normal. PANCREAS: Normal. No pancreatic ductal dilatation. ADRENAL GLANDS: No nodules. KIDNEYS: Markedly atrophic zuni kidneys containing multiple small nonenhancing T2 hyperintense cysts. Indeterminate left upper pole renal lesion on ultrasound corresponds to a 1.3 cm well-circumscribed markedly T2 hypointense, T1 hypointense lesion with a rim of susceptibility artifact on in phase images (5:20, 1001:58). Enhancement pattern of this lesion is indeterminate due to motion degradation of the precontrast T1 sequence, as well as extensive susceptibility artifact, probably due to blood products. No associated restricted diffusion. Partially imaged right lower quadrant transplanted kidney is unremarkable. STOMACH/UPPER GI TRACT: Stomach and visualized abdominal bowel normal in caliber. PERITONEUM AND RETROPERITONEUM: No loculated fluid collection or peritoneal mass. LYMPH NODES: No lymphadenopathy. VESSELS: Abdominal aorta is nonaneurysmal with mild atherosclerotic irregularity. Hepatic, portal and splenic veins patent. Focal filling defect is noted in the IVC, just below the level of the liver, noted on multiple sequences (image 17 series 5, image 16 series 4, image 51 series 11, and image 50 series 12), suspicious for IVC thrombus. This does not appear to be enhancing mass. Ultrasound abdominal Doppler may be helpful for confirmation. ABDOMINAL WALL: Unremarkable. BONES: Hemangioma in L2 vertebral body. No acute abnormality. IMPRESSION: 1. 1.3 cm well-circumscribed lesion in the left kidney upper pole probably represents a hemorrhagic renal cyst, however internal enhancement characteristics are not well evaluated given extensive susceptibility artifact, and as such it is difficult to exclude a hemorrhagic solid lesion. It may be possible to definitively show lack of enhancement with a contrast-enhanced renal protocol CT if cleared by transplant team, alternatively, a short-term follow-up in 3-6 months with ultrasound can be considered to assess for stability. A follow-up MR may not be helpful due to significant motion and bloomingartifact seen in this lesion. 2. Rounded filling defect within the IVC just below the level of the liver is concerning for IVC thrombus. Ultrasound Doppler may be helpful for confirmation. 3. 1.5 cm focus in the right lower lobe posterior sulcus is similar to CT chest 06/27/2022. This is likely a focal atelectasis but indeterminate. Follow-up chest CT in 4-6 weeks as per recommended previously. Note: This is a recalled study done at no additional charge for the patient due to incomplete imaging of the renal lesion of interest. I have personally reviewed the images and I agree with this report. WSN: [id number] Ordering Physician: David Johnston Dictated By: Marisela Gonzalez DO Dictated Date/Time: 07/02/22 10:10 a Reviewed By: Turenr Veronica MD Signed By: Turner Veronica MD Signed Date/Time: 07/02/22 10:15 am Transcribed By: JOE Transcribed Date/Time: 07/01/22 9:01 Fifi , MARGO S: John Preston MD: VERIFY Event Display: Result: Authored Date: [id number] MRI Abdomen W+W/O Contrast CLINICAL INDICATION: Reason: Mass; Clinical Question(s): Tumor Primary; Order Comment: Please see Reference Text for complete list of contraindications spoke to Dr. Rodrigues ( renal ) , he agrees with contrast. Tumor Primary TECHNIQUE: Multiplanar, multisequence pre and post contrast MRI evaluation of the abdomen was performed. 11 cc of Clariscan was administered intravenously. COMPARISON: US retroperitoneum dated June 05, 2022. FINDINGS: LUNG BASES: Very limited images with a small left pleural effusion. LIVER: Limited evaluation at the edge of the field of view without discrete abnormality. GALLBLADDER: Distended gallbladder with layering sludge but no wall thickening or other evidence of acute cholecystitis. BILE DUCTS: No biliary ductal dilatation. SPLEEN: Normal. PANCREAS: Fatty atrophy without definite suspicious abnormality. No pancreatic ductal dilatation. ADRENAL GLANDS: Not well visualized. No suspicious abnormality. KIDNEYS: Normal appearing right lower quadrant transplant kidney. Atrophic zuni kidneys with several small simple cysts. Limited evaluation of the lesion in question as the field of view was tailoredfor evaluation of the transplant kidney and the mid and upper aspects of the zuni kidneys were notincluded in the field of view on most sequences. The lesion in question arises exophytically from the left upper pole and measures up to 1.4 x 1.4 cm (series 2 image 11). It is hypointense on T2 without definite T1 hyperintensity. Enhancement and diffusion restriction cannot be adequately assessed. STOMACH/UPPER GI TRACT: Partially circumferential wall thickening and hyperenhancement of the upper rectum (series 3 image 41, series 12 image 51). Normal caliber large and small bowel loops. PERITONEUM AND RETROPERITONEUM: No loculated fluid collection or peritoneal mass. LYMPH NODES: No lymphadenopathy. VESSELS: Abdominal aorta is nonaneurysmal. Hepatic, portal and splenic veins patent. Visualized inferior vena cava unremarkable. ABDOMINAL WALL: Mild edema in the left gluteus chelsea muscle, which may indicate strain (series 4 image 43). BLADDER: Mildly trabeculated wall with indentation of the bladder base by the prostate. Small nodular density in the low right anterior bladder lumen is most likely post-surgical in nature, located at the level of the RLQ transplant ureteral insertion (series 2 image 21, series 12 image 44). Layering i ntraluminal T1 hyperintense material likely represents blood products. REPRODUCTIVE: Partial image prostate appears at least mildly enlarged with homogeneous moderate T2 hyperintensity throughout much of the anterior aspects of the transition zone (for example series 3 image 42). BONES: Hemangioma in L2. Left perineural cyst at T11-T12. Trace anterolisthesis of L4 on L5. IMPRESSION: 1. Left upper pole zuni renal lesion is not well evaluated as this study was tailored for evaluation of the right lower quadrant transplant. The T2 appearance is suggestive of a hemorrhagic or proteinaceous renal cyst, but this lesion remains indeterminate. Patient is planned to return for further imaging at no additional cost with renal mass protocol focused on the zuni kidneys. 2. Upper rectal wall thickening and enhancement, suspicious for neoplasm. Correlation with colonoscopy/sigmoidoscopy is recommended, if not performed recently. 3. Moderate T2 hyperintensity of the anterior transition zone of the partially imaged prostate, for which correlation with PSA is recommended. Dedicated prostate MRI could also be considered for further evaluation. 4. Layering blood products within the bladder lumen with a small nodular focus in the anterior rightaspect of the bladder most likely representing the surgical implantation of the transplant ureter. Continued follow up with urinalysis is recommended and direct visualization could be considered, if there is concern for underlying bladder neoplasm. 5. Possible mild muscular strain of the left gluteus chelsea muscle. The impression above was relayed to Dr. David Johnston by Dr. John Corea over the phone on 06/30/2022 9:46 AM. WSN: [id number] Ordering Physician: Nimisha Escalera Dictated By: John Corea MD Dictated Date/Time: 06/30/22 9:47 am Reviewed By: John Corea MD Signed By: John Corea MD Signed Date/Time: 06/30/22 9:47 am Transcribed By: JOE Transcribed Date/Time: 06/30/22 9:19 am MR Brain WO contrast Иван Boothe MD: VERIFY Иван Boothe MD: VERIFY Event Display: Result: Authored Date: [id number] MRI Brain W/O Contrast INDICATION: Reason: Seizure Disorder; Clinical Question(s): Tumor Primary; Order Comment: Please seeReference Text for complete list of contraindications Tumor Primary TECHNIQUE: MRI of the brain was performed without contrast utilizing sagittal T1, axial T1, axial T2, coronal T2, coronal FLAIR, axial SWAN, and axial DWI sequences. The tomography technologist reported that the patient was confused and disoriented and moving too much during the study. Postcontrast T1 and axial FLAIR images were not obtained. COMPARISON: CT scan of the head 07/03/2022 FINDINGS: Multiple images are degraded by patient motion which diminishes detail, and interpretationwas made in light of this technical confine. BRAIN and EXTRA-AXIAL SPACES: The axial DWI sequences degraded by motion, but no confluent region ofrestricted diffusion is noted. The axial SWI sequence is nondiagnostic. Bilateral subdural collections overlying the cerebral convexities are again noted. These are relatively hyperintense to CSF on the T1-weighted images. Intermixed regions of T1 bright signal are compatible with subacute blood products. Subacute subdural hemorrhage is also noted along the lateral margins of the posterior cranial fossa bilaterally. Subacute subdural hemorrhage is also noted over the left posterior occipital lobe. Mass effect on the cerebral convexities is similar to the prior CT study. The ventricles are normal in size. EXTRACRANIAL SOFT TISSUES: Degraded by motion. BONES: Degraded by motion. IMPRESSION: Motion degraded MRI examination of the brain. 1. Bilateral subdural hematomas are present over the cerebral convexities with flattening of the underlying cerebral hemispheres. These may represent subacute on chronic or late subacute/early chronic subdural hematomas. 2. Subacute subdural hemorrhage along the lateral margins of the posterior cranial fossa bilaterallyand adjacent to the left occipital lobe. WSN: [id number] Ordering Physician: David Johnston Dictated By: Иван Boothe MD Dictated Date/Time: 07/07/22 8:08 am Reviewed By: Иван Boothe MD Signed By: Иван Boothe MD Signed Date/Time: 07/07/22 8:08 am Transcribed By: JOE Transcribed Date/Time: 07/07/22 7:55 am US Abdomen limited [facility] , CIS S: TRANSCRIBE Macario Adame MD: VERIFY Event Display: Result: Authored Date: [id number] PROCEDURE: US Abdomen Ltd INDICATION: 67 years old Male with Gallbladder distention; Clinical Question(s): Biliary Obstruction; Renal obstruction of transplant kidney; Special Instructions: Liver GB CBD Transplant kidney; OrderComment: 06 27 22 19:14 pm NPO overnight. will do tomorrow morning. SL. COMPARISON: Unenhanced CT chest of yesterday. TECHNIQUE: Grayscale and color Doppler abdominal ultrasound of the RIGHT upper quadrant obtained portably.. FINDINGS: Exam limited due to bowel gas. Liver: Normal in size and contour. Normal echogenicity. No focal lesion is seen. Main portal vein ispatent with normal direction of flow. Gallbladder: Mild to moderately distended and containing homogeneously increased echogenicity material. On recent CT the gallbladder exhibited increase attenuation also. This is Suggestive of vicariousexcretion of contrast or sludge. No evidence of wall thickening. Negative sonographic Killian's sign. Biliary Tree: No intrahepatic very ductal dilatation. Common bile duct obscured. Transplanted RIGHT lower quadrant kidney: 9.2 cm in length. Normal in size and echogenicity. No hydronephrosis or echogenic calculi. No focal lesions. IMPRESSION: 1. Large volume of sludge and mild to moderate gallbladder dilatation without evidence of acute cholecystitis. 2. Bile duct obscured. No intrahepatic periductal dilatation. 3. Unremarkable RIGHT lower quadrant renal transplant. Thank you for allowing me to participate in the care of this patient. WSN: [id number] Ordering Physician: Nimisha Escalera Dictated By: Macario Adame MD Dictated Date/Time: 06/28/22 10:57 p Reviewed By: Macario Adame MD Signed By: Macario Adame MD Signed Date/Time: 06/28/22 10:57 pm Transcribed By: CSB Transcribed Date/Time: 06/28/22 10:49 pm Patient Care team information Care Team PersonnelName: Gini Corea RN Position: S RN Member Role: Primary Care Nurse Name: Joan Mendiola RN Position: S RN Member Role: Primary Care Nurse Name: Zachary Shine RN Position: [facility] RN Member Role: Primary Care Nurse Name: Perla Lepe RN Position: [facility] RN Member Role: Primary Care Nurse Name: Margie Mcpherson RN Position: S RN Member Role: Primary Care Nurse Name: Nia Ellison RN Position: [facility] RN Member Role: Primary Care Nurse Name: Peter Stafford MD Position: [facility] Renal MD Member Role: Lifetime Consulting Physician Address: Address: [address] [place] [address], [address] [facility] [place], [place] [address] [[email or web address] Name: Ming Matthews RN Position: [facility] RN Member Role: Primary Care Nurse Name: Jc Hamm RN Position: [facility] RN Member Role: Primary Care Nurse Name: Katja Brooks MD Position: Reference Physician Member Role: PCP Address: Address: [address], [place] [address] Name: Ruth Mullins Position: S RN Member Role: Primary Care Nurse Name: Zahira Conde RN Position: S RN Member Role: Primary Care Nurse Name: Brittany Miles RN Position: S RN Member Role: Primary Care Nurse Name: Sachin Gambino RN Position: S RN Member Role: Primary Care Nurse Name: Citlali Luna RN Position: S RN Member Role: Primary Care Nurse Name: Aurelia Mena Position: S RN Member Role: Primary Care Nurse Name: Verena Watts RN Position: [facility] RN Member Role: Primary Care Nurse Name: Yuriy Murphy RN Position: [facility] RN Member Role: Primary Care Nurse Name: Edilma Restrepo Position: [facility] RN Member Role: Primary Care Nurse Name: Omayra Riley Position: [facility] ED RN W/OE and Tasks Member Role: Primary Care Nurse Name: Karan Roberto RN Position: [facility] RN Member Role: Primary Care Nurse Name: Clement Curran RN Position: [facility] RN Member Role: Primary Care Nurse Name: Concha Garza RN Position: [facility] RN Member Role: Primary Care Nurse Name: Shereen Andrade RN Position: [facility] RN Member Role: Primary Care Nurse Name: Carlee Killian RN Position: [facility] RN Member Role: Primary Care Nurse Name: Viv Britton RN Position: [facility] RN Member Role: Primary Care Nurse Name: Irasema Velazquez RN Position: [facility] RN Member Role: Primary Care Nurse Name: Alek Corona MD Position: [facility] Renal MD Member Role: Lifetime Consulting Physician Address: Address: [address] [place] [address] [facility] Name: Iman Payne RN Position: [facility] RN Member Role: Primary Care Nurse Name: Tori Harris RN Position: [facility] RN Member Role: Primary Care Nurse Name: Franchesca Kelly RN Position: [facility] RN Member Role: Primary Care Nurse Name: Concha Nobles RN Position: [facility] RN Member Role: Primary Care Nurse Name: Jigna Watson RN Position: [facility] RN Member Role: Primary Care Nurse Name: Briseyda Rodriguez RN Position: [facility] RN Member Role: Primary Care Nurse Name: Telma Murphy RN Position: [facility] RN Member Role: Primary Care Nurse Name: Shelby Green RN Position: [facility] RN Member Role: Primary Care Nurse Name: Reynaldo Agee MD Position: [facility] Renal MD Member Role: Lifetime Consulting Physician Address: Address: [address] [place] [address] [facility] [address] Name: Concha Oliva RN Position: [facility] RN Member Role: Primary Care Nurse Name: Genevieve Khan RN Position: [facility] RN Member Role: Primary Care Nurse Name: Faustino aBy LPN Position: [facility] RN Member Role: Primary Care Nurse Name: Franci Henry RN Position: [facility] Hospital Appraisal Analyst Member Role: Primary Care Nurse Name: Zachary Sevilla RN Position: [facility] RN Luigiv Member Role: Primary Care Nurse Care Team Related PersonsName: LUIS EDUARDOLoraOWEN Name: ESAU HARRISON Address: [address] [address]
--- OUTSIDE RECORDS SUMMARY | 2022-08-12 13:42 | XMS_ITS | Continuity of Care Document ---
:1955 Author Organization [facility] Address Unavailable , Care Team Providers Name Role Phone Todd LAWS, Katja Zhang Primary Care Physician [phone] Encounter [facility] Date(s): 04/10/21 - 05/10/21 [facility] Attending Physician: Ema Plascencia Admitting Physician: Ema Plascencia Referring Physician: Ema Plascencia Allergies, Adverse Reactions, Alerts Substance Reaction Severity Status NKA Active Immunizations Given and Recorded Vaccine Date Status Refusal Reason tetanus/diphtheria/pertussis, acel(Tdap)1 11/14/13 Record ed 1Location History: Katja Brooks MD office Medications allopurinol 100 mg oral tablet 100 mg, 1, tablet, By Mouth, 2 times a day, # 60 tablet, Refills 5, Tot. Refills 5, Maintenance, 07/12/17 7:57:23, Route to Pharmacy Electronically, NCPDP_ID- [id number], [facility] Start Date: 07/12/17 Stop [...] 07/12/17 7:58:44, Route to Pharmacy Electronically, NCPDP_ID- [id number], [facility] Start Date: 07/12/17 Stop Date: 01/08/18 Status: Orderedpantoprazole 20 mg oral delayed release tablet 20 mg, 1, tablet, By Mouth, Daily, # 30 tablet, Refills 5, Tot. Refills 5, Maintenance, 04/25/17 15:43:11, Route to Pharmacy Electronically, NCPDP_ID- [id number], [facility] Start Date: 04/25/17 Stop [...] 1 2 Height 158.80 cm 158.80 cm (08/27/13 3:30 PM) (12/07/11 10:00 AM) Weight 68.5 kg 82.100 kg (08/27/13 3:30 PM) (12/07/11 10:00 AM) Body Mass Index [18.50-24.99] 27.16 32.56 *H* *>HHI* (08/27/13 3:30 PM) (12/07/11 10:00 AM) Sensory deficits None None (08/27/13 3:30 PM) (12/07/11 10:00 AM) Social History Social History Type Response Smoking Status Never smoker entered on: 09/05/15 Sex
--- OUTSIDE RECORDS SUMMARY | 2022-08-12 13:42 | XMS_ITS | Continuity of Care Document ---
:1955 Author Organization [facility] Address [address] [place] [address]- Care Team Providers Name Role Phone Todd LAWS, Katja Zhang Primary Care Physician [phone] En[place] [facility] 10/24/19 - 12/30/19 [facility] [address] [place] [address]- [facility] Attending Physician: Mesfin Rondon MD Admitting Physician: Mesfin Rondon MD Referring Physician: Fartun Guerrero MD Allergies, Adverse Reactions, Alerts Substance Reaction Severity Status NKA Active Immunizations Given and Recorded Vaccine Date Status Refusal Reason tetanus/diphtheria/pertussis, acel(Tdap)1 11/14/13 Record ed 1Location History: Katja Brooks MD office Medications allopurinol 100 mg oral tablet 100 mg, 1, tablet, By Mouth, 2 times a day, # 60 tablet, Refills 5, Tot. Refills 5, Maintenance, 07/12/17 7:57:23, Route to Pharmacy Electronically, NCPDP_ID- [id number], [facility] Start Date: 07/12/17 Stop [...] 07/12/17 7:58:44, Route to Pharmacy Electronically, NCPDP_ID- [id number], [facility] Start Date: 07/12/17 Stop Date: 01/08/18 Status: Orderedpantoprazole 20 mg oral delayed release tablet 20 mg, 1, tablet, By Mouth, Daily, # 30 tablet, Refills 5, Tot. Refills 5, Maintenance, 04/25/17 15:43:11, Route to Pharmacy Electronically, NCPDP_ID- [id number], [facility] Start Date: 04/25/17 Stop [...] Active transplant(Confirmed)1 Renal failure(Confirmed) Active 1campath induction Social History Social History Type Response Smoking Status Never smoker entered on: 09/05/15 Sex
--- OUTSIDE RECORDS SUMMARY | 2022-08-12 13:42 | XMS_ITS | Continuity of Care Document ---
:1955 Author Organization [facility] Address [address] [place] [address]- Care Team Providers Name Role Phone Todd LAWS, Katja Zhang Primary Care Physician Encounter [facility] Date(s): 05/19/22 - 05/24/[address] [address] [[email or web address] Encounter Diagnosis Syncope (Final) - 05/18/22 Discharge Disposition: A-D/C Home Attending Physician: Carlos A Escobar DO Admitting Physician: Sean Wilson MD Referring Physician: Not on Staff, Referring [...] 07/12/17 7:57:23, Route to Pharmacy Electronically, NCPDP_ID- [id number], [facility] Start Date: 07/12/17 Stop [...] Start Date: 07/12/17 Stop Date: 01/08/18 Status: OrderedEnvarsus XR 1 mg oral tablet, extended release 2 tablet = 2 mg, By Mouth, Daily in AM, # 60 tablet, 3 Refills, Maintenance, 05/24/22 12:41:00 EDT, [facility], Partial fill upon patient request if [...] 0 Refills, Maintenance, 05/24/22 12:47:00 EDT, Tablet, [facility], Partial fill upon patient request if the prescription is for a schedule II opioid drug., 160, cm, 05/24/22 11:42:00 EDT,... Start Date: 05/24/22 Status: Orderedloratadine 10 mg oral tablet 10 mg, 1, tablet, By Mouth, Daily, # 30 tablet, Refills 5, Tot. Refills 5, Maintenance, 07/12/17 7:58:44, Route to Pharmacy Electronically, NCPDP_ID- [id number], [facility] Start Date: 07/12/17 Stop Date: 01/08/18 Status: Orderedpantoprazole 20 mg oral delayed release tablet 20 mg, 1, tablet, By Mouth, Daily, # 30 tablet, Refills 5, Tot. 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 REPORT STATUS : FINAL 05/24/2022TEST:Blood Culture, Second Order STATUS:Auth (Verified) BODY SITE: SOURCE:Blood COLLECTED DATE/TIME:05/19/22 7:49 PMBlood Culture, Second Order SPECIMEN DESCRIPTION : BLOOD NO SITE SPECIAL REQUESTS : NONE CULTURE : NO GROWTH 5 DAYS. REPORT STATUS : FINAL 05/24/2022TEST:Blood Culture STATUS:Auth (Verified) BODY SITE: SOURCE:Blood COLLECTED DATE/TIME:05/18/22 6:45 PMBlood Culture SPECIMEN DESCRIPTION : BLOOD RAC SPECIAL REQUESTS : CRITICAL VALUE CALLED AND VERIFIED BY READBACK FOR: [place] [address] BY TECH [id number] 05/19/22 CULTURE : STAPHYLOCOCCUS EPIDERMIDIS Formerly reported as Staph species not Staph aureus. SUSCEPTIBILITY TESTING NOT ROUTINELY PERFORMED ON THIS ISOLATE. Single isolates of Staph. species, not Staph. aureus, Micrococci, Bacil michael species, Diphtheroids, Cutibacterium acnes (formerly Propionibacterium acnes) and Viridans Group Streptococci could be skin contaminants. Multiple isolates of these organisms are more likely to be significant. Staphylococcus epidermidis was identified by multi-plex PCR REPORT STATUS : FINAL 05/20/2022TEST:Blood Culture, Second Order STATUS:Auth (Verified) BODY SITE: SOURCE:Blood COLLECTED DATE/TIME:05/18/22 6:45 PMBlood Culture, Second Order SPECIMEN DESCRIPTION : BLOOD RT HAND SPECIAL REQUESTS : NONE CULTURE : NO GROWTH 5 DAYS. REPORT STATUS : FINAL 2Radiology Reports Exam Date Time Procedure Performing Provider Status 05/22/22 11:47 AM Wrist Comp Min 3 Views Right Diana Cook; Auth (Verified) Notes:(Wrist Comp Min 3 Views Right) Reason For Exam: pain and swelling X 1 day - had fall yesterday;ErythemaRESULT: Wrist Comp Min 3 Views Right Right wrist 4 views dated May 22, 2022. No prior studies are available. HISTORY: Pain. FINDINGS: This examination shows no evidence of fracture or dislocation. Joint spaces are well preserved. No joint effusion is seen. IMPRESSION: Negative examination. Examination 79698. Thank you for allowing me to participate in the care of this patient. WSN: [id number] Ordering Physician: Reina Chew Dictated By: Adriel Edwards MD Dictated Date/Time: 05/22/22 1:35 pm Reviewed By: Adriel Edwards MD Signed By: Adriel Edwards MD Signed Date/Time: 05/22/22 1:35 pm Transcribed By: JOE Transcribed Date/Time: 05/22/22 1:35 pm Exam Date Time Procedure Performing Provider Status 05/18/22 8:07 PM Chest Portable Sarah Beth Henry; Auth (Ve rified) Notes:(Chest Portable) Reason For Exam: Shortness of BreathRESULT: Chest Portable Chest Portable Hx of Present Illness: fall from home, unwitnessed, son called ems, lac to back of head, unknown thinners, kidney tranplant in past, unsure of meds, denies loc, denies any neuro problems, was walking on ems arrival. L rib pain s p fall last week.; Reason: Shortness of Breath; Clinical Question(s): CHF COMPARISON: 04/22/2022. FINDINGS: LINES AND TUBES: None. LUNGS AND PLEURA: Technically limited study due to semiupright positioning and low lung volumes. Difficult to evaluateposterior lower lobes on this exam. Upper lungs are clear. No pleural effusion. No pneumothorax. HEART, MEDIASTINUM AND JORDAN: Heart is normal in size. Normal mediastinal and hilar contour. BONES AND SOFT TISSUES: No acute abnormality. IMPRESSION: Limited evaluation for pneumonia in the posterior lower lobes due to positioning and low lung volumes. Upper lungs are clear. No x-ray evidence for CHF. WSN: [id number] Ordering Physician: Briseyda Elizondo Dictated By: Emanuel Larsno MD Dictated Date/Time: 05/18/22 8:33 pm Reviewed By: Emanuel Larson MD Signed By: Emanuel Larson MD Signed Date/Time: 05/18/22 8:33 pm Transcribed By: JOE Transcribed Date/Time: 05/18/22 8:32 pm Vital Signs Most recent to oldest 1 2 3 [Reference Range]: Height 160 cm 160 cm 160 cm (05/24/22 11:42 AM) (05/24/22 10:29 AM) ( 2 7:33 AM) Weight 63.7 kg (05/19/22 3:24 AM) Oxygen Saturation [94-100 97 % 98 % 99 % %] (05/24/22 11:42 AM) (05/24/22 7:33 AM) (05/24/22 3:37 AM) Pulse Rate [55-90 bpm] 83 bpm 91 bpm 84 bpm (05/24/22 11:42 AM) *H* (05/24/22 3: 37 AM) (05/24/22 7:33 AM) Body Mass Index 24.88 kg/m2 [18.5-24.99 kg/m2] (05/19/22 3:24 AM) Blood Pressure 107/56 mm Hg 147/45 mm Hg 116/65 mm Hg [90-138/55-84 mm Hg] (05/24/22 11:42 AM) *H* ( 3:37 AM) (05/24/22 7:33 AM) Respiratory Rate [16-30 17 br/min 16 br/min 13 br/mi n br/min] (05/24/22 11:42 AM) (05/24/22 9:00 AM) *L* (05/24/22 7:33 A M) Temperature [96.8-100.4 98.8 DegF 98.6 DegF 97.9 Deg F DegF] (05/24/22 11:42 AM) (05/24/22 7:33 AM) (05/24/22 3:37 AM) Mode of Delivery (Oxygen) Room air Nasal cannula Room a ir (05/24/22 11:42 AM) (05/24/22 7:33 AM) (05/24/22 3:37 AM) Blood pressure sites Leg, left Leg, left Leg, left (05/24/22 11:42 AM) (05/24/22 7:33 AM) (05/24/22 3:37 AM) Temperature Route Oral Oral Oral (05/24/22 11:42 AM) (05/24/22 7:33 AM) (05/24/22 3:37 AM) Dry Weight 63.7 kg (05/19/22 3:24 AM) Weight Obtained Via Bed scale (05/19/22 3:24 AM) Social History Social History Type Response Smoking Status Never smoker entered on: 09/05/15 Sex XR Wrist - right GE 3 Views [facility] , CIS S: TRANSCRIBE Adriel Edwards MD: VERIFY Event Display: Result: Authored Date: [id number] Right wrist 4 views dated May 22, 2022. No prior studies are available. HISTORY: Pain. FINDINGS: This examination shows no evidence of fracture or dislocation. Joint spaces are well preserved. No joint effusion is seen. IMPRESSION: Negative examination. Examination [id number]. Thank you for allowing me to participate in the care of this patient. WSN: [id number] Ordering Physician: Reina Chew Dictated By: Adriel Edwards MD Dictated Date/Time: 05/22/22 1:35 pm Reviewed By: Adriel Edwards MD Signed By: Adriel Edwards MD Signed Date/Time: 05/22/22 1:35 pm Transcribed By: JOE Transcribed Date/Time: 05/22/22 1:35 pm Portable XR Chest Views [facility] , CIS S: TRANSCRIBE Emanuel Larson MD: VERIFY Event Display: Result: Authored Date: [id number] Chest Portable Hx of Present Illness: fall from home, unwitnessed, son called ems, lac to back of head, unknown thinners, kidney tranplant in past, unsure of meds, denies loc, denies any neuro problems, was walking on ems arrival. L rib pain s p fall last week.; Reason: Shortness of Breath; Clinical Question(s): CHF COMPARISON: 04/22/2022. FINDINGS: LINES AND TUBES: None. LUNGS AND PLEURA: Technically limited study due to semiupright positioning and low lung volumes. Difficult to evaluateposterior lower lobes on this exam. Upper lungs are clear. No pleural effusion. No pneumothorax. HEART, MEDIASTINUM AND JORDAN: Heart is normal in size. Normal mediastinal and hilar contour. BONES AND SOFT TISSUES: No acute abnormality. IMPRESSION: Limited evaluation for pneumonia in the posterior lower lobes due to positioning and low lung volumes. Upper lungs are clear. No x-ray evidence for CHF. WSN: [id number] Ordering Physician: Briseyda Elizondo Dictated By: Emanuel Larson MD Dictated Date/Time: 05/18/22 8:33 pm Reviewed By: Emanuel Larson MD Signed By: Emanuel Larson MD Signed Date/Time: 05/18/22 8:33 pm Transcribed By: JOE Transcribed Date/Time: 05/18/22 8:32 pm Patient Care team information PersonnelName: Todd LAWS , Katja Zhang Address: Address: [address] [place], [place] [address] [[email or web address]]
--- OUTSIDE RECORDS SUMMARY | 2022-08-12 13:42 | XMS_ITS | Continuity of Care Document ---
:1955 Author Organization [facility] Address [address] [place] [address]- Care Team Providers Name Role Phone Todd LAWS, Katja Zhang Primary Care Physician [place] [facility] [place] [facility] [address] [place] [address]- [facility] Attending Physician: Ema Plascencia Admitting Physician: Admtr, ArNga Referring Physician: Admtr, Ar8 Allergies, Adverse Reactions, [...] 07/12/17 7:57:23, Route to Pharmacy Electronically, NCPDP_ID- [id number], [facility] Start Date: 07/12/17 [...] 07/12/17 7:58:44, Route to Pharmacy Electronically, NCPDP_ID- [id number], [facility] Start Date: 07/12/17 Stop Date: 01/08/18 Status: Orderedpantoprazole 20 mg oral delayed release tablet 20 mg, 1, tablet, By Mouth, Daily, # 30 tablet, Refills 5, Tot. Refills 5, Maintenance, 04/25/17 15:43:11, Route to Pharmacy Electronically, NCPDP_ID- [id number], [facility] Start Date: 04/25/17 [...]
--- OUTSIDE RECORDS SUMMARY | 2022-08-12 13:42 | XMS_ITS | Continuity of Care Document ---
:1955 Author Organization [facility] Address [address] [place] [address]- Care Team Providers Name Role Phone Todd LAWS, Katja Zhang Primary Care Physician [phone] Encounter [facility] ACCT R [id number] Date(s): 06/25/22 - 07/25/22 [facility] [address] [place] [id number]- Attending Physician: Ema Plascencia Admitting Physician: AdmEma dodson Referring Physician: Ema Plascencia Allergies, Adverse Reactions, Alerts No Known Allergies [...] II opioid drug. Start Date: 06/28/22 Status: Orderedaspirin 81 mg oral delayed release tablet 81 mg, 1, tablet, By Mouth, Daily, # 30 tablet, Refills 0, Maintenance, 04/22/22 16:57:00 EDT, Partial fill upon patient request if the prescription is for a schedule II opioid drug. Start Date: 04/22/22 Status: Orderedatomoxetine 100 mg oral capsule 1 capsule = 100 mg, By Mouth, Daily in AM, # 30 capsule, 0 Refills, Maintenance, 06/28/22 17:02:00 EST, Capsule, Partial fill upon patient request if the prescription is for a schedule II opioid drug. Start Date: 06/28/22 Status: OrderedbuPROPion 100 mg/12 hours (SR) oral tablet, extended release 1 tablet = 100 mg, By Mouth, Daily, 0 Refills, Maintenance, 06/28/22 17:02:00 EST, Partial fill uponpatient request if the prescription is for a schedule II opioid drug. Start Date: 06/28/22 Status: OrderedbuPROPion 300 mg/24 hours (XL) oral tablet, extended release 1 tablet = 300 mg, By Mouth, Daily, with 100 mg to equal 400 mg, 0 Refills, Maintenance, 06/28/22 17:02:00 EST, Partial fill upon patient request if the prescription is for a schedule II opioid drug. Start Date: 06/28/22 Status: OrderedEnvarsus XR 1 mg oral tablet, extended release 2 tablet = 2 mg, By Mouth, Daily in AM, # 60 tablet, 3 Refills, Maintenance, 05/24/22 12:41:00 EDT, [facility], Partial fill upon patient request if the prescription is for a schedule II opioid drug., 160, cm, 05/24/22 11:42:00 EDT, Nedra... Start Date: 05/24/22 Stop Date: 09/21/22 Status: Orderedlamotrigine 200 mg oral tablet 1 tablet = 200 mg, By Mouth, Daily, 0 Refills, Maintenance, 06/28/22 17:02:00 EST, Partial fill uponpatient request if the prescription is for a schedule II opioid drug. Start Date: 06/28/22 Status: Orderedlevothyroxine 75 mcg (0.075 mg) oral [...] Maintenance, 07/12/17 7:58:44, Route to Pharmacy Electronically, [facility]- [id number], [facility] Start Date: 07/12/17 Stop Date: 01/08/18 Status: Orderedpantoprazole 20 mg oral delayed release tablet 20 mg, 1, tablet, By Mouth, Daily, # 30 tablet, Refills 5, Tot. Refills 5, Maintenance, 04/25/17 15:43:11, Route to Pharmacy Electronically, NCPDP_ID- [id number], [facility] Start Date: 04/25/17 Stop [...] transplant1 Renal failure Confirmed Active 1campath induction Vital Signs Most recent [...] Care Team PersonnelName: Gini Corea RN Position: [facility] RN Member Role: Primary Care Nurse Name: Joan Mendiola RN Position: S RN Member Role: Primary Care Nurse Name: Perla Lepe RN Position: S RN Member Role: Primary Care Nurse Name: Margie Mcpherson RN Position: S RN Member Role: Primary Care Nurse Name: Nia Ellison RN Position: S RN Member Role: Primary Care Nurse Name: Carter Grider RN Position: [facility] RN Member Role: Primary Care Nurse Name: Peter Stafford MD Position: [facility] Renal MD Member Role: Lifetime Consulting Physician Address: Address: [address] [place] [address], [address] [facility] [place] [address]- Name: Ming Matthews RN Position: [facility] RN Member Role: Primary Care Nurse Name: Jc Hamm RN Position: [facility] RN Member Role: Primary Care Nurse Name: Katja Brooks MD Position: Reference Physician Member Role: PCP Address: Address: [address] [place] [address]- Name: Ruth Mullins Position: [facility] RN Member Role: Primary Care Nurse Name: Zahira Conde RN Position: [facility] RN Member Role: Primary Care Nurse Name: Brittany Miles RN Position: [facility] RN Member Role: Primary Care Nurse Name: Sachin Gambino RN Position: [facility] RN Member Role: Primary Care Nurse Name: Citlali Luna RN Position: [facility] RN Member Role: Primary Care Nurse Name: Aruelia Mena Position: [facility] RN Member Role: Primary Care Nurse Name: Verena Watts RN Position: [facility] RN Member Role: Primary Care Nurse Name: Yuriy Murphy RN Position: [facility] RN Member Role: Primary Care Nurse Name: Edilma Restrepo Position: [facility] RN Member Role: Primary Care Nurse Name: Omayra Riley Position: [facility] ED RN W/OE and Tasks Member Role: Primary Care Nurse Name: Karan oRberto RN Position: [facility] RN Member Role: Primary Care Nurse Name: Clement Curran RN Position: [facility] RN Member Role: Primary Care Nurse Name: Concha Garza RN Position: [facility] RN Member Role: Primary Care Nurse Name: Shereen Andrade RN Position: [facility] RN Member Role: Primary Care Nurse Name: Carlee Killian RN Position: [facility] RN Member Role: Primary Care Nurse Name: Viv Britton RN Position: [facility] RN Member Role: Primary Care Nurse Name: Irasema Velazquez RN Position: [facility] RN Member Role: Primary Care Nurse Name: Alek Corona MD Position: [facility] Renal MD Member Role: Lifetime Consulting Physician Address: Address: [address] [place] [address] [address] [facility] [place] [address]- Name: Iman Payne RN Position: [facility] RN Member Role: Primary Care Nurse Name: Tori Harris RN Position: [facility] RN Member Role: Primary Care Nurse Name: Franchesca Kelly RN Position: [facility] RN Member Role: Primary Care Nurse Name: Concha Nobles RN Position: [facility] RN Member Role: Primary Care Nurse Name: Jigna Watson RN Position: [facility] RN Member Role: Primary Care Nurse Name: Briseyda Rodriguez RN Position: [facility] RN Member Role: Primary Care Nurse Name: Telma Murphy RN Position: [facility] RN Member Role: Primary Care Nurse Name: Shelby Green RN Position: [facility] RN Member Role: Primary Care Nurse Name: Reynaldo Agee MD Position: [facility] Renal MD Member Role: Lifetime Consulting Physician Address: Address: [address] [place] [address] [facility] [place] [address]- Name: Concha Oliva RN Position: [facility] RN Member Role: Primary Care Nurse Name: Genevieve Khan RN Position: [facility] RN Member Role: Primary Care Nurse Name: Franci Henry RN Position: [facility] Hospital Materials Research Engineer Member Role: Primary Care Nurse Name: Zachary Sevilla RN Position: [facility] RN Supv Member Role: Primary Care Nurse Care Team Related PersonsName: OWEN HARRISON Name: SEAU HARRISON Address: [address] [address]
--- OUTSIDE RECORDS SUMMARY | 2022-08-12 13:42 | XMS_ITS | Continuity of Care Document ---
:1955 Author Organization [facility] Address [address] [place] [address]- Care Team Providers Name Role Phone Todd LAWS, Katja Zhang Primary Care Physician [place] [facility] Date[place]s): 06/04/22 - 06/08/[address] [email or web address] Discharge Disposition: A-D/C Home Attending Physician: Trina LAWS, Josué Admitting Physician: Jenni LAWS, Susan Pérez Referring Physician: Not on Staff, Referring MD [...] 07/12/17 7:57:23, Route to Pharmacy Electronically, NCPDP_ID- [id number], [facility] Start Date: 07/12/17 Stop [...] tablet, 3 Refills, Maintenance, 05/24/22 12:41:00 EDT, [facility], Partial fill upon patient request if the prescription is for a schedule II opioid drug., 160, cm, 05/24/22 11:42:00 EDT, .. Start Date: 05/24/22 Stop Date: 09/21/22 Status: Orderedlamotrigine 200 mg oral tablet 1 tablet = 200 mg, By Mouth, 2 times a day, # 60 tablet, 0 Refills, Maintenance, 06/24/17 14:49:02, Tablet Start Date: 06/24/17 Status: Orderedlevothyroxine 0.112 mg oral tablet 1 tablet = 112 mcg, By Mouth, Daily, # 30 tablet, 0 Refills, Maintenance, 05/24/22 12:47:00 EDT, Tablet, [facility] 3, Partial fill upon patient request if the prescription is for a schedule II opioid drug., 160, cm, 05/24/22 11:42:00 EDT,... Start Date: 05/24/22 Status: Orderedloratadine 10 mg oral tablet 10 mg, 1, tablet, By Mouth, Daily, # 30 tablet, Refills 5, Tot. Refills 5, Maintenance, 07/12/17 7:58:44, Route to Pharmacy Electronically, [facility]CPDP_ID- [id number], [facility] Start Date: 07/12/17 Stop Date: 01/08/18 Status: Orderedpantoprazole 20 mg oral delayed release tablet 20 mg, 1, tablet, By Mouth, Daily, # 30 tablet, Refills 5, Tot. Refills 5, Maintenance, 04/25/17 15:43:11, Route to Pharmacy Electronically, NCPDP_ID- [id number], [facility] Start Date: 04/25/17 Stop [...] for Microbiology Reports Name Date Blood Culture 06/04/22 Blood Culture #2 06/04/22 Microbiology Reports TEST:Blood Culture, Second Order STATUS:Unauthenticated BODY SITE: SOURCE:Blood COLLECTED DATE/TIME:06/04/22 3:25 PMBlood Culture, Second Order SPECIMEN DESCRIPTION : BLOOD R SPECIAL REQUESTS : NONE CULTURE : NO GROWTH 4 DAYS REPORT STATUS : PRELIMINARY REPORT TEST:Blood Culture STATUS:Unauthenticated BODY SITE: SOURCE:Blood COLLECTED DATE/TIME:06/04/22 3:02 PMBlood Culture SPECIMEN DESCRIPTION : BLOOD R WRIST SPECIAL REQUESTS : NONE CULTURE : NO GROWTH 4 DAYS REPORT STATUS : PRELIMINARY REPORT Radiology Reports Exam Date Time Procedure Performing Provider Status 06/04/22 3:51 PM Chest Portable Andria Elliott; Auth ([facility] ed) Notes:(Chest Portable) Reason For Exam: Shortness of BreathRESULT: Chest Portable Chest Portable Hx of Present Illness: Weakness, frequent falls and vomiting x 2. Reason: Shortness of Breath; Clinical Question(s): CHF COMPARISON: None. FINDINGS: LINES AND TUBES: None. LUNGS AND PLEURA: Clear lungs. Normal pulmonary vascularity. No pleural effusion. No pneumothorax. HEART, MEDIASTINUM AND JORDAN: Heart is normal in size. Aorta is somewhat tortuous. BONES AND SOFT TISSUES: No acute abnormality. IMPRESSION: No acute abnormality. WSN: [id number] Ordering Physician: Bubba March Dictated By: Rui Rivera MD Dictated Date/Time: 06/04/22 3:57 pm Reviewed By: Rui Rivera MD Signed By: Rui Rivera MD Signed Date/Time: 06/04/22 3:57 pm Transcribed By: JOE Transcribed Date/Time: 06/04/22 3:52 pm Vital Signs Most recent to oldest 1 2 3 [Reference Range]: Height 155 cm 155 cm 155 cm (06/08/22 12:16 PM) (06/08/22 9:10 AM) (06/07/22 3:35 PM) Weight 60.8 kg 59.7 kg (06/04/22 11:00 PM) (06/04/22 10:53 PM) Oxygen Saturation [94-100 94 % 94 % 97 % %] (06/08/22 12:16 PM) (06/08/22 9:10 AM) (06/08/22 3:00 AM) Pulse Rate [55-90 bpm] 90 bpm 94 bpm 84 bpm (06/08/22 12:16 PM) *H* (06/08/22 3: 00 AM) (06/08/22 9:10 AM) Body Mass Index [18.5-24.99 25.31 kg/m2 kg/m2] *H* (06/04/22 11:00 PM) Blood Pressure 93/61 mm Hg 90/48 mm Hg 104/66 mm Hg [90-138/55-84 mm Hg] (06/08/22 12:16 PM) (06/08/22 9:10 AM) ( 3:00 AM) Respiratory Rate [16-30 18 br/min 18 br/min 18 br/mi n br/min] (06/08/22 12:16 PM) (06/08/22 9:10 AM) (06/08/22 8:47 AM) Temperature [96.8-100.4 97.7 DegF 97.8 DegF 97.8 Deg F DegF] (06/08/22 12:16 PM) (06/08/22 9:10 AM) (06/08/22 3:00 AM) Mode of Delivery (Oxygen) Room air Room air Room a ir (06/08/22 12:16 PM) (06/08/22 9:10 AM) (06/08/22 3:00 AM) Blood pressure sites Arm, right Leg, left Arm, right (06/08/22 12:16 PM) (06/08/22 9:10 AM) (06/08/22 3:00 AM) Temperature Route Oral Oral Oral (06/08/22 12:16 PM) (06/08/22 9:10 AM) (06/08/22 3:00 AM) Dry Weight 60.8 kg (06/04/22 11:00 PM) Weight Obtained Via Bed scale (06/04/22 10:53 PM) Social History Social History Type Response Smoking Status Never smoker entered on: 09/05/15 Sex Portable XR Chest Views BHSPowerscribe , CIS S: TRANSCRIBE Rui Rivera MD H: VERIFY Event Display: Result: Authored Date: [id number] Chest Portable Hx of Present Illness: Weakness, frequent falls and vomiting x 2. Reason: Shortness of Breath; Clinical Question(s): CHF COMPARISON: None. FINDINGS: LINES AND TUBES: None. LUNGS AND PLEURA: Clear lungs. Normal pulmonary vascularity. No pleural effusion. No pneumothorax. HEART, MEDIASTINUM AND JORDAN: Heart is normal in size. Aorta is somewhat tortuous. BONES AND SOFT TISSUES: No acute abnormality. IMPRESSION: No acute abnormality. WSN: [id number] Ordering Physician: Bubba Mrach Dictated By: Rui Rivera MD Dictated Date/Time: 06/04/22 3:57 pm Reviewed By: Rui Rivera MD Signed By: Rui Rivera MD Signed Date/Time: 06/04/22 3:57 pm Transcribed By: JOE Transcribed Date/Time: 06/04/22 3:52 pm Patient Care team information PersonnelName: Todd LAWS , Katja Zhang Address: Address: [address] [place] [id number]
--- OUTSIDE RECORDS SUMMARY | 2022-08-12 13:42 | XMS_ITS ---
:1955 Author Care Team Providers Name Role Phone SERGIO HERRERA MD Primary Care Provider [phone] Allergies Code Code System Name Reaction Severity Status Onset NKDA ? Medications Name Status Start Date Stop Date ? ? acetaminophen 500 mg tablet Active ? Not available allopurinol 100 mg tablet Active ? Not av ailable aspirin 81 mg tablet,delayed release Active ? Not available atomoxetine 80 mg capsule Active ? Not av ailable bupropion HCl SR 100 mg tablet,12 hr sustained-release Active ? Not available bupropion HCl XL 300 mg 24 hr tablet, extended release Active ? Not available cholecalciferol (vitamin D3) 50 mcg (2,000 unit) capsule Active ? Not available TAKE 1 CAPSULE BY MOUTH DAILY Envarsus XR 4 mg tablet,extended release Active ? Not available TAKE 1 TABLET BY MOUTH 1 TIME EACH DAY fexofenadine 60 mg tablet Active ? Not av ailable TK 1 T PO QHS PRN lamotrigine 200 mg tablet Active ? Not av ailable TAKE 1 TABLET BY MOUTH EVERY DAY levothyroxine 75 mcg tablet Active ? Not available TAKE 1 TABLET BY MOUTH EVERY MORNING lisinopril 2.5 mg tablet Active ? Not tai ilable loratadine 10 mg tablet Active ? Not avai lable omeprazole 20 mg capsule,delayed release Active ? Not available tamsulosin 0.4 mg capsule Active ? Not av ailable TAKE 1 CAPSULE BY MOUTH EVERY NIGHT AT BEDTIME terazosin 2 mg capsule Active ? Not avail able Problems None recorded. Procedures Date Name Performed by ? ? Kidney Surgery Information not avai lable Results Lab Results None recorded. Past Encounters None recorded. Social History Tobacco Smoking Status Never Smoker Vaccine List None recorded. Plan of Care Reminders Provider Appointments None recorded. ? ? Lab None recorded. ? ? Referral None recorded. ? ? Procedures None recorded. ? ? Surgeries None recorded. ? ? Imaging None recorded. ? ? Vitals Height Blood Pressure 5 ft 2 in 126/74 mm[Hg]
[2022-08-12 13:43] LABS: IDNOW Serial# 55D5AD1C
[2022-08-12 13:44] LABS: Influenza A Negative (Negative); Influenza B2 Negative (Negative)
[2022-08-12 13:46] LABS: Troponin-I High Sensitivity 41.3 ng/L (<3.5-35.0)
[2022-08-12 14:01] LABS: Alanine Aminotransferase 21 U/L (0-40); Albumin Level 4.5 g/dL (3.5-5.0); Alkaline Phosphatase 189 U/L (39-117); Anion Gap 20 (12-20); Aspartate Amino Transferase 32 U/L (5-37); Bilirubin Total 0.5 mg/dL (0.0-1.0); Blood Urea Nitrogen 59 mg/dL (9-16); Calcium 10.2 mg/dL (8.4-10.2); Carbon Dioxide 21 mmol/L (22-29); Chloride 113 mmol/L (96-108); Creatinine Clr Calc Pharmacy 34.3; Estimated Glomerular Filt Rate 34; Glucose Random 55 mg/dL (60-115); Potassium 6.3 mmol/L (3.3-5.1); Sodium 148 mmol/L (135-145)
[2022-08-12] MEDS: Acetaminophen Supp 650 MG SUPP.RECT PR (14:15)
[2022-08-12] MEDS: 0.9 % Sodium Chloride 1,000 ML 999 ML IV ×2 (14:15→17:49)
[2022-08-12] MEDS: Piperacillin Sodium/Tazobactam 3.375 GM in 0.9 % Sodium Chloride 50 ML IV (14:16)
[2022-08-12] MEDS: Dextrose 50 % 25 GM/50 ML SYRINGE IVPUSH ×4 (14:18→22:00)
--- NOTE | 2022-08-12 14:25 | PC.NURSE ---
pt very resistive to care, difficult to draw blood without multiple staff holding.
[2022-08-12 14:39] LABS: Magnesium 2.1 mg/dL (1.6-2.6)
[2022-08-12 15:14] LABS: Reflex Lactate? Lactic Acid Added
[2022-08-12 15:31] LABS: Glucose, Whole Blood 49 mg/dL (60-115)
[2022-08-12 16:06] LABS: ~Lactic Acid-LAB USE ONLY 0.7 mmol/L (0.5-2.0)
[2022-08-12 16:09] LABS: Glucose, Whole Blood 85 mg/dL (60-115)
[2022-08-12] MEDS: Midazolam HCl/PF 2 MG/2 ML VIAL 1 MG IVPUSH ×2 (16:45→17:02)
[2022-08-12] MEDS: Albuterol Sulfate (0.083%) 2.5 MG/3 ML VIAL.NEB 10 MG INHALE (17:17)
[2022-08-12 17:20] LABS: Appearance Urine Clear; Color Urine Yellow; Glucose Urine UA Negative (Negative); Leukocyte Esterase Urine Negative (Negative); Nitrite Urine Negative (Negative); PH >= 9.0 (5.0-9.0); Urine Blood Negative (Negative); Urine Ketones Negative (Negative); Urine Protein Negative (Neg-Trace)
[2022-08-12 17:30] LABS: Fentanyl, urine Not Detected (Not Detect)
[2022-08-12 17:34] LABS: Amphetamine Screen Urine Not Detected (Not Detect); Barbiturates, Urine Not Detected (Not Detect); Benzodiazepines Screen Urine Not Detected (Not Detect); Cannabinoid Screen Urine Not Detected (Not Detect); Opiate Screen Urine Not Detected (Not Detect); Phencyclidine Screen Urine Not Detected (Not Detect)
[2022-08-12] MEDS: LORazepam 2 MG/ML VIAL IM (17:46)
[2022-08-12] MEDS: Calcium Gluconate/NaCl,Iso-Osm 2 GM/100 ML PLAST..BAG IV (17:46)
[2022-08-12 17:53] LABS: Cocaine Screen Urine Not Detected (Not Detect)
--- NOTE | 2022-08-12 17:56 | MHC.EDTECH ---
@[phone] CALL PLACED TO [facility] PT TX LINE @ REQUEST OF DR ART ALEXANDER ANSWERS THEN ASKS FOR DR CORDOVA FOR DIAGNOSIS FOR TX
[2022-08-12] MEDS: Dextrose 10 % 1,000 ML 75 ML IVCONT (18:02)
[2022-08-12 18:03] LABS: Ethanol < 10 mg/dL
[2022-08-12 19:07] LABS: Glucose, Whole Blood 54 mg/dL (60-115)
[2022-08-12 19:07] LABS: Glucose, Whole Blood 173 mg/dL (60-115)
[2022-08-12 19:07] LABS: Glucose, Whole Blood 366 mg/dL (60-115)
--- NOTE | 2022-08-12 19:30 | PHA.MEDREC ---
Pharmacy Consult ? Medication Reconciliation Pharmacy has completed the medication reconciliation.
--- NOTE | 2022-08-12 19:36 | PC.NURSE ---
I took over care of the pt at 1900. At this time, pt was asleep in bed. Respiratory effort normal, skin pink and dry. POC was taken and result was 173. No new orders at this time.
[2022-08-12 19:56] LABS: Glucose, Whole Blood 127 mg/dL (60-115)
[2022-08-12] MEDS: 0.9 % Sodium Chloride 1,000 ML 999 ML IVCONT (20:14)
[2022-08-12 20:36] LABS: Glucose, Whole Blood 98 mg/dL (60-115)
[2022-08-12] MEDS: diphenhydrAMINE HCL 50 MG/ML VIAL IVPUSH (20:54)
[2022-08-12] MEDS: Haloperidol Lactate 5 MG/ML VIAL IM (20:54)
[2022-08-12 21:02] LABS: Anion Gap 14 (12-20); Blood Urea Nitrogen 50 mg/dL (9-16); Calcium 9.2 mg/dL (8.4-10.2); Carbon Dioxide 18 mmol/L (22-29); Chloride 108 mmol/L (96-108); Creatinine Clr Calc Pharmacy 32.1; Estimated Glomerular Filt Rate 32; Glucose Random 659 mg/dL (60-115); Potassium 4.2 mmol/L (3.3-5.1); Sodium 136 mmol/L (135-145)
--- NOTE | 2022-08-12 21:34 | PC.NURSE ---
Addendum entered by Estefania Saba RN 08/12/22 21:49: Laboratory glucose elevated due to D5 infusion. Actual glucose level is in the 50's. Per Dr. Delong and Dr Harris, D5 infusion is resumed. Original Note: Pt POC elevated, Dr Harris aware, ordered to stop D5 infusion. Continuing to monitor POC and adjust according to MD orders.
[2022-08-12 21:48] LABS: Glucose, Whole Blood 55 mg/dL (60-115)
[2022-08-12 21:48] LABS: Glucose, Whole Blood 51 mg/dL (60-115)
[2022-08-12 21:51] LABS: Glucose, Whole Blood 46 mg/dL (60-115)
--- NOTE | 2022-08-12 22:00 | P.HPHOSP_ITS ---
History of Present Illness Date of Service: 08/12/22 Chief Complaint: lethergy? 67-year-old male with past medical history of subdural hematoma, hypertension, hyperparathyroidism, dyslipidemia underlying CKD, recently admitted to [facility] for subdural hematoma s/p Bur holes at [facility] with following records obtained from [facility]: Patient was transferred on 07/15 for identification of encephalopathy and noted subacute/chronic subdural hematomas which required bur holes.? In addition, patient was noted to have hyponatremia and at renal consultation they recommended an adjusted shows of Tacrolimus for known renal transplant.? In addition neurosurgery was comfortable with discharge on 08/03 and patient had a follow-up appointment with them for 08/17/2022.? Neurosurgery recommended at that time to continue tranexamic acid through the PEG tube as well as continuing Keppra. Patient was also noted to have rectal thickening which was evaluated by Gastroenterology with the flexible sigmoidoscopy on 07/28 which was negative for demonstrating a rectal mass.? Patient's hyponatremia was further evaluated by Nephrology and felt to be secondary to ongoing intracranial process but had been annotated as improving.? ( to be secondary to quetiapine, intracranial process, low solute intake) renal recommended to continue dose of Tacrolimus of 3 mg in the morning and 2 mg in the p.m. Was sent to out hospital from [place] with fever and more tremulous. Pt is somnolent and not able to give much answers therefore history is obtained from EMR Head CT was obtianed on pt with showed acute on subacute subdural hematoma. [facility] Radiology was unable to do a comparison of CT scans.? I called Neurosurgery at [facility], we discussed the CT scans, they were able to look at the images, patient's hematoma site were seen on the CT scans are actually improved from there CT scans of August 02. At this time, there is no need to transfer. Other vitals were significant for fever of 103 HR of 117, respiratory rate of 24, blood pressure stable, satting 99% on room air labs on arrival significant for WBC count of 5.7, hemoglobin of 10.8, hematocrit 35.8, lactic acid of 2.9, improved after IV fluids, Sodium of 148, potassium 6.3, creatinine of 1.98 which improved from previous, glucose in the 50s, patient was given IV fluids with improvement in his potassium as well as sodium, patient placed on D10, with p.r.n. D 50s urine negative for acute infection, urine drug screen negative, lamotrigine and Keppra levels pending, viral serology pending Chest CT shows lingular and right lower lobe ground-glass opacities suggestive of developing infiltrate patient started on IV antibiotics and will be admitted for further management Review of Systems Review of Systems: Yes all other systems are reviewed and are negative [facility] Medical History (Updated 08/13/22 @ 07:52 by Zulma Strong MD) Acquired hypothyroidism Chronic kidney disease Dyslipidemia Essential hypertension Secondary hyperparathyroidism Subdural hematoma Family History Father Medical history non-contributory Mother Medical history non-contributory Sister No problems noted. Surgical History History of arteriovenous shunt History of colonoscopy History of renal transplant Social History Household Members: Other Household Members Other:: [facility] Housing: Long Term Unable to assess alcohol history related to: Unknown Patient Tobacco Use Status: Tobacco use Unknown Use of substances other than those prescribed or required for medical reasons: Unknown Advance Directives: No Advance Directives Information Provided: Yes Recently lost weight without trying: Unsure Nutrition Risks: Receiving home tube feeding or CPN Meds Allergies Allergy/AdvReac Type Severity Reaction Status Date / Time No Known Allergies Allergy Unverified 06/26/22 12:45 Active Medications: Current Medications Dextrose (Dextrose 50 % 25 Gm/50 Ml Syringe) 25 gm IVPUSH Q15M PRN PRN Reason: per Hypoglycemia Standing Ord. Last Admin: 08/12/22 15:33 Dose: 25 gm Dextrose (D10) 1,000 mls @ 75 mls/hr IVCONT .[id number] WHITNEY Last Infusion: 08/12/22 21:48 Dose: 75 mls/hr Pharmacy Consult (Consult Rx Perform Med Rec) 1 each MISCELLANE ONCE PRN PRN Reason: Consult order Home Medications Medication Instructions Recorded Confirmed Last Taken Type tamsulosin 0.4 mg capsule 0.4 mg PO BEDTIME 08/12/20 08/12/22 Unknown History amantadine HCl 50 mg/5 mL oral 100 mg PO BID 08/12/22 08/12/22 Unknown History solution atomoxetine 100 mg capsule 1 cap PO QAM 08/12/22 08/12/22 Unknown History bupropion HCl 75 mg tablet 75 mg PO DAILY 08/12/22 08/12/22 Unknown History cholecalciferol (vitamin D3) 25 25 mcg PO DAILY 08/12/22 08/12/22 Unknown History mcg (1,000 unit) tablet cyanocobalamin (vitamin B-12) 1,000 mcg PO DAILY 08/12/22 08/12/22 Unknown History 1,000 mcg tablet (Vitamin B-12) lamotrigine 200 mg tablet 200 mg PO BID 08/12/22 08/12/22 Unknown History lansoprazole 15 mg capsule,delayed 15 mg PO DAILY 08/12/22 08/12/22 Unknown History release levetiracetam 500 mg tablet 500 mg PO BID 08/12/22 08/12/22 Unknown History levothyroxine 75 mcg tablet 75 mcg PO DAILY@0600 08/12/22 08/12/22 Unknown History loratadine 10 mg tablet 10 mg PO DAILY 08/12/22 08/12/22 Unknown History lorazepam 0.5 mg tablet 0.5 mg PO BID PRN Anxiety 08/12/22 08/12/22 Unknown History tacrolimus 1 mg capsule, 2 mg PO BEDTIME 08/12/22 08/12/22 Unknown History immediate-release tacrolimus 1 mg capsule, 3 mg PO DAILY 08/12/22 08/12/22 Unknown History immediate-release tranexamic acid 650 mg tablet 650 mg PO DAILY 08/12/22 08/12/22 Unknown History trazodone 50 mg tablet 50 mg PO BEDTIME PRN Insomnia 08/12/22 08/12/22 Unknown History Physical Exam Vital Signs and Narrative: Vital Signs: Last Vital Signs Temp 100.5 F H 08/12/22 18:31 Pulse 91 08/12/22 20:00 Resp 17 08/12/22 20:00 BP 123/42 L 08/12/22 20:00 Pulse Ox 99 08/12/22 20:00 O2 Del Method 08/12/22 20:00 BMI result Body Mass Index 25.0 Const: Other: somnolent, not responsive to verbal command. grimaces to sternal rub General: no acute distress Eyes: General: appearance normal, both eyes and all related structures Resp: Effort & Inspection: normal respiratory effort Cardio: Rate: regular rate Rhythm: regular rhythm GI: Palpation (GI): Soft to palpation Auscultation: normal bowel sounds Skin: General skin exam: no rashes or lesions noted Extrem: General: Yes normal to inspection and Yes no pedal edema Results Labs CBC and Chem 7: 08/12/22 13:11 08/12/22 20:34 Labs: Laboratory Results - last 24 hr 08/12/22 08/12/22 08/12/22 13:11 13:11 13:11 MCV 87.3 MCH 26.3 L MCHC 30.2 L RDW 17.8 H Plt Count 346 D MPV 9.5 Immature Gran % (Auto) 0.4 Neut % (Auto) 60.0 Lymph % (Auto) 28.4 Josephine % (Auto) 8.0 Eos % (Auto) 2.1 Baso % (Auto) 1.1 Lymph # (Auto) 1.6 Josephine # (Auto) 0.5 Eos # (Auto) 0.1 Baso # (Auto) 0.1 Abs Immat Gran (auto) 0.02 Absolute Neuts (auto) 3.4 Absolute Nucleated RBC 0.000 Nucleated RBC % (auto) 0.0 PT 13.0 INR 1.1 Anion Gap Estim Creat Clear Calc Estimated GFR POC Glucose Random Glucose Lactic Acid 2.9 H* Lactic Acid F/U @ 2Hr Calcium Magnesium Total Bilirubin AST ALT Alkaline Phosphatase Troponin I High Sens Total Protein Albumin Urine Color Urine Appearance Urine pH Ur Specific [employer] Urine Protein Urine Glucose (UA) Urine Ketones Urine Blood Urine Nitrite Ur Leukocyte Esterase Urine Opiates Screen Urine Fentanyl Screen Ur Barbiturates Screen Ur Phencyclidine Scrn Ur Amphetamines Screen U Benzodiazepines Scrn Urine Cocaine Screen U Marijuana (THC) Screen Ethyl Alcohol COVID-19 (JOE) COVID-19 Clin Com Influenza Type A (DODIE) Influenza Type B (DODIE) Influenza A & B Note 08/12/22 08/12/22 08/12/22 13:11 13:11 13:11 MCV MCH MCHC RDW Plt Count MPV Immature Gran % (Auto) Neut % (Auto) Lymph % (Auto) Josephine % (Auto) Eos % (Auto) Baso % (Auto) Lymph # (Auto) Josephine # (Auto) Eos # (Auto) Baso # (Auto) Abs Immat Gran (auto) Absolute Neuts (auto) Absolute Nucleated RBC Nucleated RBC % (auto) PT INR Anion Gap 20 Estim Creat Clear Calc 34.3 Estimated GFR 34 POC Glucose Random Glucose 55 L* Lactic Acid Lactic Acid F/U @ 2Hr Calcium 10.2 D Magnesium 2.1 Total Bilirubin 0.5 AST 32 ALT 21 Alkaline Phosphatase 189 H Troponin I High Sens 41.3 H Total Protein 8.0 Albumin 4.5 Urine Color Urine Appearance Urine pH Ur Specific [employer] Urine Protein Urine Glucose (UA) Urine Ketones Urine Blood Urine Nitrite Ur Leukocyte Esterase Urine Opiates Screen Urine Fentanyl Screen Ur Barbiturates Screen Ur Phencyclidine Scrn Ur Amphetamines Screen U Benzodiazepines Scrn Urine Cocaine Screen U Marijuana (THC) Screen Ethyl Alcohol COVID-19 (JOE) COVID-19 [place] Com Influenza Type A (DODIE) Negative Influenza Type B (DODIE) Negative Influenza A & B Note See Note 08/12/22 08/12/22 08/12/22 13:11 14:09 15:27 MCV MCH MCHC RDW Plt Count MPV Immature Gran % (Auto) Neut % (Auto) Lymph % (Auto) Josephine % (Auto) Eos % (Auto) Baso % (Auto) Lymph # (Auto) Josephine # (Auto) Eos # (Auto) Baso # (Auto) Abs Immat Gran (auto) Absolute Neuts (auto) Absolute Nucleated RBC Nucleated RBC % (auto) PT INR Anion Gap Cancelled Estim Creat Clear Calc Cancelled Estimated GFR Cancelled POC Glucose 49 L* Random Glucose Cancelled Lactic Acid Lactic Acid F/U @ 2Hr Calcium Cancelled Magnesium Cancelled Total Bilirubin Cancelled AST Cancelled ALT Cancelled Alkaline Phosphatase Cancelled Troponin I High Sens Total Protein Cancelled Albumin Cancelled Urine Color Urine Appearance Urine pH Ur Specific [employer] Urine Protein Urine Glucose (UA) Urine Ketones Urine Blood Urine Nitrite Ur Leukocyte Esterase Urine Opiates Screen Urine Fentanyl Screen Ur Barbiturates Screen Ur Phencyclidine Scrn Ur Amphetamines Screen U Benzodiazepines Scrn Urine Cocaine Screen U Marijuana (THC) Screen Ethyl Alcohol COVID-19 (JOE) Negative COVID-19 Clin Com See Note Influenza Type A (DODIE) Influenza Type B (DODIE) Influenza A & B Note 08/12/22 08/12/22 08/12/22 15:36 16:04 16:57 MCV MCH MCHC RDW Plt Count MPV Immature Gran % (Auto) Neut % (Auto) Lymph % (Auto) Josephine % (Auto) Eos % (Auto) Baso % (Auto) Lymph # (Auto) Josephine # (Auto) Eos # (Auto) Baso # (Auto) Abs Immat Gran (auto) Absolute Neuts (auto) Absolute Nucleated RBC Nucleated RBC % (auto) PT INR Anion Gap Estim Creat Clear Calc Estimated GFR POC Glucose 85 Random Glucose Lactic Acid Lactic Acid F/U @ 2Hr 0.7 Calcium Magnesium Total Bilirubin AST ALT Alkaline Phosphatase Troponin I High Sens Total Protein Albumin Urine Color Yellow Urine Appearance Clear Urine pH >= 9.0 Ur Specific [employer] 1.020 Urine Protein Negative Urine Glucose (UA) Negative Urine Ketones Negative Urine Blood Negative Urine Nitrite Negative Ur Leukocyte Esterase Negative Urine Opiates Screen Urine Fentanyl Screen Ur Barbiturates Screen Ur Phencyclidine Scrn Ur Amphetamines Screen U Benzodiazepines Scrn Urine Cocaine Screen U Marijuana (THC) Screen Ethyl Alcohol COVID-19 (JOE) COVID-19 Clin Com Influenza Type A (DODIE) Influenza Type B (DODIE) Influenza A & B Note 08/12/22 08/12/22 08/12/22 16:57 17:31 17:39 MCV MCH MCHC RDW Plt Count MPV Immature Gran % (Auto) Neut % (Auto) Lymph % (Auto) Josephine % (Auto) Eos % (Auto) Baso % (Auto) Lymph # (Auto) Josephine # (Auto) Eos # (Auto) Baso # (Auto) Abs Immat Gran (auto) Absolute Neuts (auto) Absolute Nucleated RBC Nucleated RBC % (auto) PT INR Anion Gap Estim Creat Clear Calc Estimated GFR POC Glucose 54 L* Random Glucose Lactic Acid Lactic Acid F/U @ 2Hr Calcium Magnesium Total Bilirubin AST ALT Alkaline Phosphatase Troponin I High Sens Total Protein Albumin Urine Color Urine Appearance Urine pH Ur Specific [employer] Urine Protein Urine Glucose (UA) Urine Ketones Urine Blood Urine Nitrite Ur Leukocyte Esterase Urine Opiates Screen Not Detected Urine Fentanyl Screen Not Detected Ur Barbiturates Screen Not Detected Ur Phencyclidine Scrn Not Detected Ur Amphetamines Screen Not Detected U Benzodiazepines Scrn Not Detected Urine Cocaine Screen Not Detected U Marijuana (THC) Screen Not Detected Ethyl Alcohol < 10 COVID-19 (JOE) COVID-19 Clin Com Influenza Type A (DODIE) Influenza Type B (DODIE) Influenza A & B Note 08/12/22 08/12/2222 17:51 18:59 19:52 MCV MCH MCHC RDW Plt Count MPV Immature Gran % (Auto) Neut % (Auto) Lymph % (Auto) Josephine % (Auto) Eos % (Auto) Baso % (Auto) Lymph # (Auto) Josephine # (Auto) Eos # (Auto) Baso # (Auto) Abs Immat Gran (auto) Absolute Neuts (auto) Absolute Nucleated RBC Nucleated RBC % (auto) PT INR Anion Gap Estim Creat Clear Calc Estimated GFR POC Glucose 366 H* 173 H 127 H Random Glucose Lactic Acid Lactic Acid F/U @ 2Hr Calcium Magnesium Total Bilirubin AST ALT Alkaline Phosphatase Troponin I High Sens Total Protein Albumin Urine Color Urine Appearance Urine pH Ur Specific [employer] Urine Protein Urine Glucose (UA) Urine Ketones Urine Blood Urine Nitrite Ur Leukocyte Esterase Urine Opiates Screen Urine Fentanyl Screen Ur Barbiturates Screen Ur Phencyclidine Scrn Ur Amphetamines Screen U Benzodiazepines Scrn Urine Cocaine Screen U Marijuana (THC) Screen Ethyl Alcohol COVID-19 (JOE) COVID-19 Clin Com Influenza Type A (DODIE) Influenza Type B (DODIE) Influenza A & B Note 08/12/22 08/12/22 08/12/22 20:31 20:34 21:29 MCV MCH MCHC RDW Plt Count MPV Immature Gran % (Auto) Neut % (Auto) Lymph % (Auto) Josephine % (Auto) Eos % (Auto) Baso % (Auto) Lymph # (Auto) Josephine # (Auto) Eos # (Auto) Baso # (Auto) Abs Immat Gran (auto) Absolute Neuts (auto) Absolute Nucleated RBC Nucleated RBC % (auto) PT INR Anion Gap 14 Estim Creat Clear Calc 32.1 Estimated GFR 32 POC Glucose 98 55 L* Random Glucose 659 H* Lactic Acid Lactic Acid F/U @ 2Hr Calcium 9.2 D Magnesium Total Bilirubin AST ALT Alkaline Phosphatase Troponin I High Sens Total Protein Albumin Urine Color Urine Appearance Urine pH Ur Specific [employer] Urine Protein Urine Glucose (UA) Urine Ketones Urine Blood Urine Nitrite Ur Leukocyte Esterase Urine Opiates Screen Urine Fentanyl Screen Ur Barbiturates Screen Ur Phencyclidine Scrn Ur Amphetamines Screen U Benzodiazepines Scrn Urine Cocaine Screen U Marijuana (THC) Screen Ethyl Alcohol COVID-19 (JOE) COVID-19 Clin Com Influenza Type A (DODIE) Influenza Type B (DODIE) Influenza A & B Note 08/12/22 08/12/22 21:36 21:42 MCV MCH MCHC RDW Plt Count MPV Immature Gran % (Auto) Neut % (Auto) Lymph % (Auto) Josephine % (Auto) Eos % (Auto) Baso % (Auto) Lymph # (Auto) Josephine # (Auto) Eos # (Auto) Baso # (Auto) Abs Immat Gran (auto) Absolute Neuts (auto) Absolute Nucleated RBC Nucleated RBC % (auto) PT INR Anion Gap Estim Creat Clear Calc Estimated GFR POC Glucose 51 L* 46 L* Random Glucose Lactic Acid Lactic Acid F/U @ 2Hr Calcium Magnesium Total Bilirubin AST ALT Alkaline Phosphatase Troponin I High Sens Total Protein Albumin Urine Color Urine Appearance Urine pH Ur Specific [employer] Urine Protein Urine Glucose (UA) Urine Ketones Urine Blood Urine Nitrite Ur Leukocyte Esterase Urine Opiates Screen Urine Fentanyl Screen Ur Barbiturates Screen Ur Phencyclidine Scrn Ur Amphetamines Screen U Benzodiazepines Scrn Urine Cocaine Screen U Marijuana (THC) Screen Ethyl Alcohol COVID-19 (JOE) COVID-19 Clin Com Influenza Type A (DODIE) Influenza Type B (DODIE) Influenza A & B Note Imaging Radiologist's Impressions: Impressions Chest X-Ray 08/12/22 13:35 IMPRESSION: Hypoexpanded lungs without acute process. Head CT 08/12/22 17:00 IMPRESSION: 1. Mixed attenuation left lateral convexity subdural hematoma measuring up to 1.2 cm in thickness consistent with acute to subacute hemorrhage. 2. Small right frontal convexity subdural hematoma measuring 4 mm in thickness, high density suggesting more recent/acute hemorrhage. 3. Mild 3-4 mm rightward midline shift. This critical result was discussed with Dr. Steele at 5:41 PM on 08/12/2022 and it was ascertained that the content and urgency of the report was understood at the time of direct communication. Abdomen/Pelvis CT 08/12/22 19:09 IMPRESSION: Lingular and right lower lobe groundglass opacity suggestive of developing infiltrates. There is a 1.2 cm nodule right CP angle question inflammatory or infectious. Question of right lower lobe mass was raised on previous CT abdomen and pelvis exam 06/26/2022. Recommend follow-up in 6 weeks to 3 months or PET/CT follow-up after resolution of pneumonia. Atrophic bilateral kidneys with normal appearing renal transplant in the pelvis. Significantly enlarged bladder secondary to bladder outlet obstruction from an enlarged prostate gland. There is small posterior wall calcification or radiopaque gravel along the posterior bladder wall. Dependent small radiopaque stones were suspected on the previous CT as well. Distended gallbladder with isodense bowel to liver. Chest CT 08/12/22 19:09 IMPRESSION: Lingular and right lower lobe groundglass opacity suggestive of developing infiltrates. There is a 1.2 cm nodule right CP angle question inflammatory or infectious. Question of right lower lobe mass was raised on previous CT abdomen and pelvis exam 06/26/2022. Recommend follow-up in 6 weeks to 3 months or PET/CT follow-up after resolution of pneumonia. Atrophic bilateral kidneys with normal appearing renal transplant in the pelvis. Significantly enlarged bladder secondary to bladder outlet obstruction from an enlarged prostate gland. There is small posterior wall calcification or radiopaque gravel along the posterior bladder wall. Dependent small radiopaque stones were suspected on the previous CT as well. Distended gallbladder with isodense bowel to liver. Assessment and Plan (1) Sepsis: Status: Acute (2) Hypoglycemia: Status: Acute (3) Subdural hematoma: Status: Acute (4) Hospital acquired PNA: Status: Acute (5) Hyperkalemia: Status: Acute (6) Episode of shaking: Status: Acute (7) Seizure-like activity: Status: Acute Plan 67 yo male with past medical history of subdural hematoma with an extensive stay at [facility] ( see above) admitted to the hospital with acute infection I had an extensive discussion with ED physician, in regards to patient's history of subdural hematoma and his evidence of shaking/ seizure-like activity, this was communicated to nurse surgery as well as neurology department at [facility], who felt that patient shaking and seizure-like episodes are not actual seizures and to continue antiepileptic medications. Patient was also evaluated by ICU given his episodes of shaking and felt the patient is appropriate for floor admission. # sepsis - likely secondary to hospital-acquired pneumonia - will treat with IV antibiotic - follow culture # hospital-acquired pneumonia - evidence of infiltrate on chest CT - has sepsis - will treat with IV antibiotics - follow cultures # hypoglycemia - patient has a history of diabetes, is not on any insulin or antihyperglycemics - will obtain C-peptide and proinsulin level - continue D10 - follow POC q.2 hours # subdural hematoma - per neurosurgery at [facility] findings improving on imaging - continue tranexamic acid - neurosurgery at [facility] was consulted and case was discussed extensively with them, felt pot state is stable and imaging improved from prior and no need to transfer pt # seizures, seizure-like activity as well as episodes of shaking - this was discussed with Neurosurgery as well as Neurology at [facility], patient was also evaluated by our own critical care team - will continue lamotrigine, Keppra, lamotrigine Keppra level pending # hyperkalemia - resolved after Lokelma - follow BMP # history of renal transplant - continue tacrolimus - follow BMP # Mood disorder - will hold sedative at this time - continue lorazepam p.r.n. DVT prophylaxis: SCDs given acute sepsis requiring IV antibiotics patient require minimum 2 nights inpatient hospital stay for further management monitor Time Spent With Patient Time: Total time managing care of this patient today ____ minutes. Quality Stroke Does the patient have a stroke diagnosis?: No VTE Prior VTE?: No VTE Risk Level:: Medical - moderate - high VTE Device Contraindication: N/A - Device Ordered VTE Drug Contraindication: Treatment Not Indicated
--- OUTSIDE RECORDS SUMMARY | 2022-08-12 22:05 | XMS_ITS ---
:1955 Author Care Team Providers Name Role Phone SERGIO HERRERA MD Primary Care Provider [phone] Allergies Code Code System Name Reaction Severity [...]
--- NOTE | 2022-08-12 22:16 | PHA.PROG ---
Admission Date/Time: August 12, 2022 21:57 Indication: RESP INFECTION Weight in k.575 kg Adjusted body weight in K.69 [place] body weight in Kg: Obesity Dosing Indication % IBW: Serum Creatinine - Last 168 Hours 08/12/22 08/12/22 08/12/22 13:11 14:09 20:34 Creatinine 1.98 H Cancelled 2.11 H Estimated CrCl and GFR - Last 168 Hours 08/12/22 08/12/22 08/12/22 13:11 14:09 20:34 Estim Creat Clear Calc 34.3 Cancelled 32.1 Estimated GFR 34 Cancelled 32 Vancomycin Loading Dose: 1500 MG Current Vancomycin Dosing Regimen: 750 MG Q24H Vancomycin Monitoring using AUC goal of 400 - 600 range with trough as surrogate marker: AUC 438, 14.4 Date and Time for next Vancomycin Level to be drawn: 08/14 @2100 Pharmacist Comments on Vancomycin Plan: Vancomycin dosing will take advantage of [employer] as a clinical decision support tool that uses Bayesian modeling to calculate individual patient's pharmacokinetic parameters and forecast the patient's drug concentration time course with the target goal AUC 24 range of 400 - 600 mg/L/hr.
[2022-08-12 23:19] LABS: Glucose, Whole Blood 98 mg/dL (60-115)
[2022-08-12] MEDS: vancomycin HCL 1,500 MG in 0.9 % Sodium Chloride 500 ML 333.33 MG IV (23:19)
[2022-08-12] MEDS: 0.9 % Sodium Chloride Flush 3 ML SYRINGE IVFLUSH (23:24)
[2022-08-13 00:06] LABS: Glucose, Whole Blood 63 mg/dL (60-115)
--- NOTE | 2022-08-13 00:07 | MHC.EDTECH ---
[facility]'s Transfer Line called at 0024 per ,spoke with sissy gave patient demographics asked to speak with provider at this time.
[2022-08-13 00:16] VITALS: TEMP 37.7
--- NOTE | 2022-08-13 00:17 | MHC.EDTECH ---
Patient was repositioned and linen was changed for comfort,rectal temp taken,seizure pads were placed for safety. Rn aware, Md aware of temp
[2022-08-13 00:19] LABS: Glucose, Whole Blood 61 mg/dL (60-115)
--- NOTE | 2022-08-13 00:19 | MHC.EDTECH ---
Received a call back from [facility] at 0019,speaking with at this time.
[2022-08-13 01:12] LABS: Glucose, Whole Blood 82 mg/dL (60-115)
--- NOTE | 2022-08-13 01:16 | W.PM.CCCN ---
History of Present Illness Data of Consult Service Date: 08/13/22 Requesting physician: Zulma Strong Primary Care Provider: Katja Brooks MD HPI Reason for consult: QUESTIONABLE SEIZURES; SUBDURAL HEMATOMA POST IGNACIO HOLE ANGELIA Source of history: ?Patient's chart and ER physician's ? HPI: ?67-year-old patient with underlying history of recent bilateral subdural hematomas post evacuation via ignacio holes at [facility] from where he was transferred to a care home facility.? Has additional history of hypertension, gout, BPH, vitamin-D deficiency, hypothyroidism, GERD, renal transplant and chronic kidney disease, hyperlipidemia, secondary hyperparathyroidism, av shunt, colonoscopy among others. ? Patient presented to the emergency room from [facility] who expressed our concern that the patient may be having a fever and also possible seizures for he had been having shaky movements of the arms and legs but not alter mental status his workup in the ER revealed a temperature of 103 degrees F otherwise normal vital signs.? He was noted to have multiple shaky movements but he would come down with reassurance.? His laboratory workup revealed no white count, H&H of 10.8 and 35.8, sodium 148, potassium of 6.3, chloride 113, carbon dioxide 21, BUN 59, creatinine 1.98 (appears baseline) glucose 55, the patient received total of 2 amps of D50 and subsequently did a recurrent hypoglycemia the patient was placed on D10.? Patient did have a head CT which showed bilateral subdural hematomas which appear to be acute versus subacute, the case had been discussed with the nurse ultrasound specialist a [facility] who stated that the images actually look better than before and that the patient had been having the same type of movement even prior to discharge.? The recommendation was to continue with trans and now ramila acid through the PEG tube as well as continuing with Keppra for seizure prophylaxis and if anything to increase the dose to 1000 mg b.i.d. ? He did have some mild lactic acidosis with a level of 2.9, chest CT revealed lingular and right lower lobe ground-glass opacities suggesting of the bed up infiltrates, 1.2 right CP angle question inflammatory or infectious.? Right lower lobe mass noted on previous CT abdomen pelvis from June of this year which given that the patient was also noted to have rectal thickening which was evaluated by Gastroenterology with the flexible sigmoidoscopy on 07/28 which was negative for demonstrating a rectal mass.? Patient's hyponatremia was further evaluated by Nephrology and felt to be secondary to ongoing intracranial process but had been annotated as improving.? ( to be secondary to quetiapine, intracranial process, low solute intake) renal recommended to continue dose of Tacrolimus of 3 mg in the morning and 2 mg in the p.m. ? Throughout the ER stay the patient received 3 L of fluids, was started on antibiotics; repeat lactic acid normal, as there was a mistake in 1 of the blood draws revealing an elevated blood sugar when the glucometer continued to show sugars below 90, his potassium improve with hydration, he had receive Haldol and Benadryl, he never became hypotensive and has not had actual mental status changes.? Urinalysis was negative, U tox negative, COVID negative. ?We were consulted by the hospitalist given the concern for possible seizures and the fact that he has bilateral subdural hematomas. ? ROS:? Unable to obtain ? Past Medical History:? As above ? Past Surgical History: As above ? Family history:? Noncontributory ? Social History:? Residing at a care home facility otherwise unknown if he ever smoked, drank or used any drugs. ? CODE STATUS: FULL CODE ? Allergies: NKDA ? Home Medications: See Med Rec ? PHYSICAL EXAM: VS: ?123 over 42, 87, 32, 94% room air, 98.5 General:? Alert, no acute distress.? Follows some basic commands when asked to stick his tongue out he did, while having shaking movements of the arms or legs he stated ?help me please? Skin:? Throughout the body no lesions, edema, erythema, clubbing or cyanosis.? No ulcers. HEENT:? Head shows surgical scar on the bilateral temporoparietal areas which are ready healed, patient does appear to be tracking with his eyes. Buccal mucosa is quite dry, Neck is supple without lymphadenopathy. Cardiac:? Clear S1-S2, no murmurs rubs or gallops. Pulmonary:? Overall clear with mono rhonchi at the right base laterally, no wheezes or rales. ? Abdomen:? Flat positive bowel sounds in all 4 quadrants.? Soft, nontender, no rebound or guarding.? G-tube with clean, dry and intact surroundings Musculoskeletal:? Patient is moving all 4 extremities on his own at the major joints of the upper and lower extremities.? No edema, no asymmetry Gait not assessed at this point. Neurologic:? As above, difficult to further assess due to noncompliance. ? Vascular:? 2+ pulses upper and lower extremities distally. ? SIGNIFICANT LABORATORY DATA:? As above ? REVIEW OF IMAGES: Head CT IMPRESSION: 1.? Mixed attenuation left lateral convexity subdural hematoma measuring up to 1.2 cm in thickness consistent with acute to subacute hemorrhage. 2.? Small right frontal convexity subdural hematoma measuring 4 mm in thickness, high density suggesting more recent/acute hemorrhage. 3.? Mild 3-4 mm rightward midline shift. ? Chest, abdomen pelvis CT IMPRESSION: Lingular and right lower lobe groundglass opacity suggestive of developing infiltrates. ? There is a 1.2 cm nodule right CP angle question inflammatory or infectious. Question of right lower lobe mass was raised on previous CT abdomen and pelvis exam 06/26/2022. Recommend follow-up in 6 weeks to 3 months or PET/CT follow-up after resolution of pneumonia. ? Atrophic bilateral kidneys with normal appearing renal transplant in the pelvis. ? Significantly enlarged bladder secondary to bladder outlet obstruction from an enlarged prostate gland. There is small posterior wall calcification or radiopaque gravel along the posterior bladder wall. Dependent small radiopaque stones were suspected on the previous CT as well. Distended gallbladder with isodense bowel to liver. ? Chest x-ray The lungs are hypoexpanded but clear. The heart size and pulmonary vascularity is normal. No gross bony abnormality seen. ? EKG REVIEW: ?To my view,? Sinus tachycardia 114 beats per minute.? There is no ST elevations.? There appears to be some nonspecific anterior ST downgoing and T-wave abnormalities which are also present on EKG from December of this year. ? ASSESSMENT : 1. Facility acquired pneumonia of the right lung 2. Ongoing hypoglycemia likely due to the acute infection 3. Resolved hyperkalemia 4. Chronic kidney disease stage 3 status post kidney transplant 5. Acute on chronic bilateral subdural hematomas (stable and rather improved per Neurosurgery a [facility]) 6. Erratic body movement without alter mental status not likely a seizure , rather suspect a psychological issue 7. Normocytic anemia 8. Resolve lactic acidosis 9. Questionable right lower lobe mass in need of follow-up via PET scan between 6 to 12 weeks (previously noted on 06/26/2022) ? PLAN OF CARE: At this point I do not think the patient is having any seizure activity, in fact the patient is able to follow commands and even talk to me during my exam while performing the ?shaky? movements with his arms and legs.? In addition, this was reported to be a chronic issue by SHERI Aguila?(neurosurgery) from [facility] who mentioned this was present prior to discharge and recommended increasing Keppra to a 1000 b.i.d. if there was any concerns (as noted on the ED MD note). Furthermore that subdural hematomas appear to have improved according to them, certainly with the patient was to have any change in mental status, rescanning his head for the possible progression or worsening of these should be considered. ?Continue with tranexamic acid via the G-tube. Patient needs a 1 to 1 sitter due to behavioral issues and to ensure his safety as he often attempts to get out of bed. Certainly the patient should not receive any aspirin, NSAIDs or chemical DVT prophylaxis. His pneumonia can be treated with renally adjusted doses of Zosyn and vancomycin for broad-spectrum coverage.? Recheck and replete electrolytes. ? The decision of no admitting the patient to the ICU was discussed in detail with the hospitalist Dr. Strong and the ER physician both of whom understand that the patient does not require this level of care at this point. ? Critical care time used for critical evaluation of this patient, diagnosis, treatment and coordination of care, review her records and documentation TOTAL CRITICAL CARE TIME?90 MIN . discussion and coordination with consultants, completely separate from any procedures performed. Patient's care was discussed in detail with Dr. Camilo.? He is aware of all the above as well as the plan of care for this patient. [facility] Past Medical History Medical History Acquired hypothyroidism Chronic kidney disease Dyslipidemia Essential hypertension Secondary hyperparathyroidism Subdural hematoma Family History Family History Father Medical history non-contributory Mother Medical history non-contributory Sister No problems noted. Surgical History Surgical History History of arteriovenous shunt History of colonoscopy History of renal transplant Social History Social History Household Members: Other Household Members Other:: [facility] Housing: [facility] Unable to assess alcohol history related to: Unknown Patient Tobacco Use Status: Tobacco use Unknown Use of substances other than those prescribed or required for medical reasons: Unknown Advance Directives: No Advance Directives Information Provided: Yes Recently lost weight without trying: Unsure Nutrition Risks: Receiving home tube feeding or CPN Meds Allergies Allergy/AdvReac Type Severity Reaction Status Date / Time No Known Allergies Allergy Unverified 06/26/22 12:45 Active Medications: Current Medications Acetaminophen (Acetaminophen Supp 650 Mg Supp.Rect) 650 mg NH Q6H PRN PRN Reason: Pain, Mild (Pain Scale 1-3) Dextrose (Dextrose 50 % 25 Gm/50 Ml Syringe) 25 gm IVPUSH Q15M PRN PRN Reason: per Hypoglycemia Standing Ord. Last Admin: 08/12/22 22:00 Dose: 25 gm Dextrose (D10) 1,000 mls @ 75 mls/hr IVCONT .[id number] [facility] Last Infusion: 08/12/22 21:48 Dose: 75 mls/hr Vancomycin HCl 750 mg/ Sodium (Chloride) 265 mls @ 265 mls/hr IV Q24H [facility] Ondansetron HCl (Ondansetron Hcl 4 Mg/2 Ml Vial) 4 mg IVPUSH Q8H PRN PRN Reason: Nausea and Vomiting Pharmacy Consult (Consult Rx Perform Med Rec) 1 each MISCELLANE ONCE PRN PRN Reason: Consult order Pharmacy Consult (Consult Rx Vancomycin Dosing) 1 each MISCELLANE DAILY PRN PRN Reason: Consult order Sodium Chloride (0.9 % Sodium Chloride Flush 3 Ml Syringe) 3 ml IVFLUSH QSHIFT [facility] Last Admin: 08/12/22 23:24 Dose: 3 ml Home Medications Medication Instructions Recorded Confirmed Last Taken Type tamsulosin 0.4 mg capsule 0.4 mg PO BEDTIME 08/12/20 08/12/22 Unknown History amantadine HCl 50 mg/5 mL oral 100 mg PO BID 08/12/22 08/12/22 Unknown History solution atomoxetine 100 mg capsule 1 cap PO QAM 08/12/22 08/12/22 Unknown History bupropion HCl 75 mg tablet 75 mg PO DAILY 08/12/22 08/12/22 Unknown History cholecalciferol (vitamin D3) 25 25 mcg PO DAILY 08/12/22 08/12/22 Unknown History mcg (1,000 unit) tablet cyanocobalamin (vitamin B-12) 1,000 mcg PO DAILY 08/12/22 08/12/22 Unknown History 1,000 mcg tablet (Vitamin B-12) lamotrigine 200 mg tablet 200 mg PO BID 08/12/22 08/12/22 Unknown History lansoprazole 15 mg capsule,delayed 15 mg PO DAILY 08/12/22 08/12/22 Unknown History release levetiracetam 500 mg tablet 500 mg PO BID 08/12/22 08/12/22 Unknown History levothyroxine 75 mcg tablet 75 mcg PO DAILY@0600 08/12/22 08/12/22 Unknown History loratadine 10 mg tablet 10 mg PO DAILY 08/12/22 08/12/22 Unknown History lorazepam 0.5 mg tablet 0.5 mg PO BID PRN Anxiety 08/12/22 08/12/22 Unknown History tacrolimus 1 mg capsule, 2 mg PO BEDTIME 08/12/22 08/12/22 Unknown History immediate-release tacrolimus 1 mg capsule, 3 mg PO DAILY 08/12/22 08/12/22 Unknown History immediate-release tranexamic acid 650 mg tablet 650 mg PO DAILY 08/12/22 08/12/22 Unknown History trazodone 50 mg tablet 50 mg PO BEDTIME PRN Insomnia 08/12/22 08/12/22 Unknown History Physical Exam Vital Signs: Vital Signs: Last Vital Signs Temp 99.8 F 08/13/22 00:16 Pulse 87 08/12/22 23:12 Resp 32 H 08/12/22 23:12 BP 123/42 L 08/12/22 23:12 Pulse Ox 94 08/12/22 23:12 O2 Del Method 08/12/22 23:12 BMI result Body Mass Index 25.0 Results Labs CBC & Chem 7: 08/12/22 13:11 08/12/22 20:34 Labs: Short CBC 08/12/22 Range/Units 13:11 WBC 5.7 (4.8-10.8) X10*3/uL Hgb 10.8 L (14.0-18.0) g/dl Hct 35.8 L (42.0-52.0) % Plt Count 346 D (160-400) X10*3/uL BMP 08/12/22 08/12/22 08/12/22 13:11 14:09 20:34 Sodium 148 H Cancelled 136 Potassium 6.3 H* Cancelled 4.2 D Chloride 113 H Cancelled 108 Carbon Dioxide 21 L Cancelled 18 L BUN 59 H Cancelled 50 H Creatinine 1.98 H Cancelled 2.11 H Calcium 10.2 D Cancelled 9.2 D Liver Function 08/12/22 08/12/22 Range/Units 13:11 14:09 Total Bilirubin 0.5 Cancelled (0.0-1.0) mg/dL AST 32 Cancelled (5-37) U/L ALT 21 Cancelled (0-40) U/L Alkaline Phosphatase 189 H Cancelled (39-117) U/L Albumin 4.5 Cancelled (3.5-5.0) g/dL Urine 08/12/22 Range/Units 16:57 Urine Color Yellow Urine Appearance Clear Urine pH >= 9.0 (5.0-9.0) Ur Specific [place] 1.020 (1.005-1.025) Urine Protein Negative (Neg-Trace) mg/dL Urine Glucose (UA) Negative (Negative) mg/dL Assessment and Plan Time Spent With Patient Time: Total time managing care of this patient today ____ minutes.
[2022-08-13] MEDS: Dextrose 10 % 1,000 ML 75 ML IVCONT ×2 (05:40→18:45)
[2022-08-13 05:51] VITALS: BP 118/88; PULSE 92; RESP 22; TEMP 37.3; O2SAT 98
[2022-08-13 07:45] LABS: Glucose, Whole Blood 78 mg/dL (60-115)
[2022-08-13 07:57] VITALS: RESP 20; TEMP 36.8
[2022-08-13 08:01] LABS: MANUAL DIFF FLAG NO
[2022-08-13 08:03] LABS: Basophils Absolute Auto 0.1 X10*3/uL (0.0-0.2); Basophils Percent Auto 1.2 % (0-2); Eosinophils Absolute Auto 0.1 X10*3/uL (0.0-0.4); Eosinophils Percent Auto 2.1 % (0-4); Hematocrit 30.1 % (42.0-52.0); Hemoglobin 9.2 g/dl (14.0-18.0); Imm Gran Abs Auto 0.01 X10*3/uL (0.00-0.03); Imm Gran Pct Auto 0.2 % (0.0-0.4); Lymphocytes Absolute Auto 1.1 X10*3/uL (1.2-4.9); Lymphocytes Percent Auto 18.8 % (20-40); Mean Corpuscular HGB Conc 30.6 g/dl (31.0-36.0); Mean Corpuscular Hemoglobin 26.6 pg (27.0-33.0); Mean Platelet Volume 9.7 fL (9.4-12.4); Monocytes Absolute Auto 0.6 X10*3/uL (0.1-1.2); Monocytes Percent Auto 10.5 % (2-11); Neutrophils Absolute Auto 4.1 x10*3/uL (2.0-8.3); Neutrophils Percent Auto 67.2 % (45-73); Platelet Count 275 X10*3/uL (160-400); Red Blood Count 3.46 X10*6/uL (4.60-5.80); Red Cell Distribution Width 17.6 % (11.0-16.0); White Blood Count 6.1 X10*3/uL (4.8-10.8)
[2022-08-13 08:22] LABS: Anion Gap 15 (12-20); Blood Urea Nitrogen 43 mg/dL (9-16); Calcium 9.5 mg/dL (8.4-10.2); Carbon Dioxide 17 mmol/L (22-29); Chloride 116 mmol/L (96-108); Creatinine Clr Calc Pharmacy 40.4; Estimated Glomerular Filt Rate 41; Glucose Random 74 mg/dL (60-115); Potassium 5.3 mmol/L (3.3-5.1); Sodium 143 mmol/L (135-145)
[2022-08-13 08:23] LABS: Glucose, Whole Blood 48 mg/dL (60-115)
[2022-08-13] MEDS: levETIRAcetam 500 MG TABLET PO ×2 (09:01→21:08)
[2022-08-13] MEDS: Sodium Bicarbonate 650 MG TABLET PO ×2 (09:01→21:09)
[2022-08-13] MEDS: lamoTRIgine 100 MG TABLET 200 MG PO ×2 (09:02→21:08)
[2022-08-13] MEDS: Cholecalciferol (Vitamin D3) 25 MCG TABLET PO (09:02)
[2022-08-13] MEDS: LORazepam 0.5 MG TABLET PO ×2 (09:02→21:09)
[2022-08-13] MEDS: Loratadine 10 MG TABLET PO (09:02)
[2022-08-13] MEDS: Cyanocobalamin (Vitamin B-12) 1,000 MCG TABLET 1000 MCG PO (09:02)
[2022-08-13] MEDS: 0.9 % Sodium Chloride Flush 3 ML SYRINGE IVFLUSH ×2 (09:03→23:58)
[2022-08-13] MEDS: Sodium Polystyrene Sulfon/Sorb 15 GM/60 ML ORAL.SUSP G-TUBE (09:06)
[2022-08-13 09:26] VITALS: BMI 25.0
--- NOTE | 2022-08-13 09:29 | HE.PHANOTE ---
RE: lamonte Renal function improved, changed dose to 100mg Q24H with predicted AUC 483mg/L. Level to still be drawn originally as planned on 08/14/22 @2100
--- NOTE | 2022-08-13 09:37 | MHC.CLN ---
RE: CONSULT PT WITH PEG FOR NUTRITION SUPPORT RECOMMEND NEPRO AT MAX GAOL RATE 50ML/HR TO PROVIDE 2160KCALS (30KCALS/KG), 97G PROTEIN (1.3G/KG), 872ML FREE WATER FROM FORMULA START FORMULA AT 10ML/HR AND INCREASE BY 10ML Q 4 HRS UNTIL MAX GOAL IS ACHIEVED AT 50ML/HR MONITOR TOLERANCE, RESIDUALS AND LYTES SEE ALSO FULL CLINICAL NUTRITION ASSESSMENT
[2022-08-13 09:52] LABS: Glucose, Whole Blood 88 mg/dL (60-115)
[2022-08-13 11:26] LABS: Glucose, Whole Blood 82 mg/dL (60-115)
--- NOTE | 2022-08-13 12:56 | PC.NURSE ---
tube feed started at 1300 ,nepro, 10 ml/hr
--- NOTE | 2022-08-13 13:29 | PM.PNNEP ---
Subjective Subjective Date of Service: 08/13/22 Principal diagnosis: Patient seen and examined Physical Exam Vital Signs: Vital Signs: Last Vital Signs Temp 98.3 F 08/13/22 07:57 Pulse 92 08/13/22 05:51 Resp 20 08/13/22 07:57 BP 118/88 08/13/22 05:51 Pulse Ox 98 08/13/22 05:51 O2 Del Method 08/13/22 05:51 BMI result Body Mass Index 25.0 Objective Data Labs CBC & Chem 7: 08/13/22 07:40 08/13/22 07:40 Labs: Laboratory Results - last 24 hr 08/12/22 08/12/22 08/12/22 13:11 13:11 13:11 WBC RBC Hgb Hct MCV MCH MCHC RDW Plt Count MPV Immature Gran % (Auto) Neut % (Auto) Lymph % (Auto) [place] % (Auto) Eos % (Auto) Baso % (Auto) Lymph # (Auto) [place] # (Auto) Eos # (Auto) Baso # (Auto) Abs Immat Gran (auto) Absolute Neuts (auto) Absolute Nucleated RBC Nucleated RBC % (auto) PT 13.0 INR 1.1 Sodium Potassium Chloride Carbon Dioxide Anion Gap BUN Creatinine Estim Creat Clear Calc Estimated GFR POC Glucose Random Glucose Lactic Acid 2.9 H* Lactic Acid F/U @ 2Hr Calcium Magnesium Total Bilirubin AST ALT Alkaline Phosphatase Troponin I High Sens 41.3 H Total Protein Albumin Urine Color Urine Appearance Urine pH Ur Specific [place] Urine Protein Urine Glucose (UA) Urine Ketones Urine Blood Urine Nitrite Ur Leukocyte Esterase Urine Opiates Screen Urine Fentanyl Screen Ur Barbiturates Screen Ur Phencyclidine Scrn Ur Amphetamines Screen U Benzodiazepines Scrn Urine Cocaine Screen U Marijuana (THC) Screen Ethyl Alcohol COVID-19 (JOE) COVID-19 Clin Com Influenza Type A (DODIE) Influenza Type B (DODIE) Influenza A & B Note 08/12/22 08/12/22 08/12/22 13:11 13:11 13:11 WBC RBC Hgb Hct MCV MCH MCHC RDW Plt Count MPV Immature Gran % (Auto) Neut % (Auto) Lymph % (Auto) [place] % (Auto) Eos % (Auto) Baso % (Auto) Lymph # (Auto) [place] # (Auto) Eos # (Auto) Baso # (Auto) Abs Immat Gran (auto) Absolute Neuts (auto) Absolute Nucleated RBC Nucleated RBC % (auto) PT INR Sodium 148 H Potassium 6.3 H* Chloride 113 H Carbon Dioxide 21 L Anion Gap 20 BUN 59 H Creatinine 1.98 H Estim Creat Clear Calc 34.3 Estimated GFR 34 POC Glucose Random Glucose 55 L* Lactic Acid Lactic Acid F/U @ 2Hr Calcium 10.2 D Magnesium 2.1 Total Bilirubin 0.5 AST 32 ALT 21 Alkaline Phosphatase 189 H Troponin I High Sens Total Protein 8.0 Albumin 4.5 Urine Color Urine Appearance Urine pH Ur Specific [place] Urine Protein Urine Glucose (UA) Urine Ketones Urine Blood Urine Nitrite Ur Leukocyte Esterase Urine Opiates Screen Urine Fentanyl Screen Ur Barbiturates Screen Ur Phencyclidine Scrn Ur Amphetamines Screen U Benzodiazepines Scrn Urine Cocaine Screen U Marijuana (THC) Screen Ethyl Alcohol COVID-19 (JOE) Negative COVID-19 Clin Com See Note Influenza Type A (DODIE) Negative Influenza Type B (DODIE) Negative Influenza A & B Note See Note 08/12/22 08/12/22 08/12/22 14:09 15:27 15:28 WBC RBC Hgb Hct MCV MCH MCHC RDW Plt Count MPV Immature Gran % (Auto) Neut % (Auto) Lymph % (Auto) [place] % (Auto) Eos % (Auto) Baso % (Auto) Lymph # (Auto) [place] # (Auto) Eos # (Auto) Baso # (Auto) Abs Immat Gran (auto) Absolute Neuts (auto) Absolute Nucleated RBC Nucleated RBC % (auto) PT INR Sodium Cancelled Potassium Cancelled Chloride Cancelled Carbon Dioxide Cancelled Anion Gap Cancelled BUN Cancelled Creatinine Cancelled Estim Creat Clear Calc Cancelled Estimated GFR Cancelled POC Glucose 49 L* 48 L* Random Glucose Cancelled Lactic Acid Lactic Acid F/U @ 2Hr Calcium Cancelled Magnesium Cancelled Total Bilirubin Cancelled AST Cancelled ALT Cancelled Alkaline Phosphatase Cancelled Troponin I High Sens Total Protein Cancelled Albumin Cancelled Urine Color Urine Appearance Urine pH Ur Specific [place] Urine Protein Urine Glucose (UA) Urine Ketones Urine Blood Urine Nitrite Ur Leukocyte Esterase Urine Opiates Screen Urine Fentanyl Screen Ur Barbiturates Screen Ur Phencyclidine Scrn Ur Amphetamines Screen U Benzodiazepines Scrn Urine Cocaine Screen U Marijuana (THC) Screen Ethyl Alcohol COVID-19 (JOE) COVID-19 Clin Com Influenza Type A (DODIE) Influenza Type B (DODIE) Influenza A & B Note 08/12/22 08/12/22 08/12/22 15:36 16:04 16:57 WBC RBC Hgb Hct MCV MCH MCHC RDW Plt Count MPV Immature Gran % (Auto) Neut % (Auto) Lymph % (Auto) [place] % (Auto) Eos % (Auto) Baso % (Auto) Lymph # (Auto) [place] # (Auto) Eos # (Auto) Baso # (Auto) Abs Immat Gran (auto) Absolute Neuts (auto) Absolute Nucleated RBC Nucleated RBC % (auto) PT INR Sodium Potassium Chloride Carbon Dioxide Anion Gap BUN Creatinine Estim Creat Clear Calc Estimated GFR POC Glucose 85 Random Glucose Lactic Acid Lactic Acid F/U @ 2Hr 0.7 Calcium Magnesium Total Bilirubin AST ALT Alkaline Phosphatase Troponin I High Sens Total Protein Albumin Urine Color Yellow Urine Appearance Clear Urine pH >= 9.0 Ur Specific [place] 1.020 Urine Protein Negative Urine Glucose (UA) Negative Urine Ketones Negative Urine Blood Negative Urine Nitrite Negative Ur Leukocyte Esterase Negative Urine Opiates Screen Urine Fentanyl Screen Ur Barbiturates Screen Ur Phencyclidine Scrn Ur Amphetamines Screen U Benzodiazepines Scrn Urine Cocaine Screen U Marijuana (THC) Screen Ethyl Alcohol COVID-19 (JOE) COVID-19 Clin Com Influenza Type A (DODIE) Influenza Type B (DODIE) Influenza A & B Note 08/12/22 08/12/22 08/12/22 16:57 17:31 17:39 WBC RBC Hgb Hct MCV MCH MCHC RDW Plt Count MPV Immature Gran % (Auto) Neut % (Auto) Lymph % (Auto) [place] % (Auto) Eos % (Auto) Baso % (Auto) Lymph # (Auto) [place] # (Auto) Eos # (Auto) Baso # (Auto) Abs Immat Gran (auto) Absolute Neuts (auto) Absolute Nucleated RBC Nucleated RBC % (auto) PT INR Sodium Potassium Chloride Carbon Dioxide Anion Gap BUN Creatinine Estim Creat Clear Calc Estimated GFR POC Glucose 54 L* Random Glucose Lactic Acid Lactic Acid F/U @ 2Hr Calcium Magnesium Total Bilirubin AST ALT Alkaline Phosphatase Troponin I High Sens Total Protein Albumin Urine Color Urine Appearance Urine pH Ur Specific [place] Urine Protein Urine Glucose (UA) Urine Ketones Urine Blood Urine Nitrite Ur Leukocyte Esterase Urine Opiates Screen Not Detected Urine Fentanyl Screen Not Detected Ur Barbiturates Screen Not Detected Ur Phencyclidine Scrn Not Detected Ur Amphetamines Screen Not Detected U Benzodiazepines Scrn Not Detected Urine Cocaine Screen Not Detected U Marijuana (THC) Screen Not Detected Ethyl Alcohol < 10 COVID-19 (JOE) COVID-19 Clin Com Influenza Type A (DODIE) Influenza Type B (DODIE) Influenza A & B Note 08/12/22 08/12/22 08/12/22 17:51 18:59 19:52 WBC RBC Hgb Hct MCV MCH MCHC RDW Plt Count MPV Immature Gran % (Auto) Neut % (Auto) Lymph % (Auto) [place] % (Auto) Eos % (Auto) Baso % (Auto) Lymph # (Auto) [place] # (Auto) Eos # (Auto) Baso # (Auto) Abs Immat Gran (auto) Absolute Neuts (auto) Absolute Nucleated RBC Nucleated RBC % (auto) PT INR Sodium Potassium Chloride Carbon Dioxide Anion Gap BUN Creatinine Estim Creat Clear Calc Estimated GFR POC Glucose 366 H* 173 H 127 H Random Glucose Lactic Acid Lactic Acid F/U @ 2Hr Calcium Magnesium Total Bilirubin AST ALT Alkaline Phosphatase Troponin I High Sens Total Protein Albumin Urine Color Urine Appearance Urine pH Ur Specific [place] Urine Protein Urine Glucose (UA) Urine Ketones Urine Blood Urine Nitrite Ur Leukocyte Esterase Urine Opiates Screen Urine Fentanyl Screen Ur Barbiturates Screen Ur Phencyclidine Scrn Ur Amphetamines Screen U Benzodiazepines Scrn Urine Cocaine Screen U Marijuana (THC) Screen Ethyl Alcohol COVID-19 (JOE) COVID-19 Clin Com Influenza Type A (DODIE) Influenza Type B (DODIE) Influenza A & B Note 08/12/22 08/12/22 08/12/22 20:31 20:34 21:29 WBC RBC Hgb Hct MCV MCH MCHC RDW Plt Count MPV Immature Gran % (Auto) Neut % (Auto) Lymph % (Auto) [place] % (Auto) Eos % (Auto) Baso % (Auto) Lymph # (Auto) [place] # (Auto) Eos # (Auto) Baso # (Auto) Abs Immat Gran (auto) Absolute Neuts (auto) Absolute Nucleated RBC Nucleated RBC % (auto) PT INR Sodium 136 Potassium 4.2 D Chloride 108 Carbon Dioxide 18 L Anion Gap 14 BUN 50 H Creatinine 2.11 H Estim Creat Clear Calc 32.1 Estimated GFR 32 POC Glucose 98 55 L* Random Glucose 659 H* Lactic Acid Lactic Acid F/U @ 2Hr Calcium 9.2 D Magnesium Total Bilirubin AST ALT Alkaline Phosphatase Troponin I High Sens Total Protein Albumin Urine Color Urine Appearance Urine pH Ur Specific [place] Urine Protein Urine Glucose (UA) Urine Ketones Urine Blood Urine Nitrite Ur Leukocyte Esterase Urine Opiates Screen Urine Fentanyl Screen Ur Barbiturates Screen Ur Phencyclidine Scrn Ur Amphetamines Screen U Benzodiazepines Scrn Urine Cocaine Screen U Marijuana (THC) Screen Ethyl Alcohol COVID-19 (JOE) COVID-19 Clin Com Influenza Type A (DODIE) Influenza Type B (DODIE) Influenza A & B Note 08/12/22 08/12/22 08/12/22 21:36 21:42 23:09 WBC RBC Hgb Hct MCV MCH MCHC RDW Plt Count MPV Immature Gran % (Auto) Neut % (Auto) Lymph % (Auto) [place] % (Auto) Eos % (Auto) Baso % (Auto) Lymph # (Auto) [place] # (Auto) Eos # (Auto) Baso # (Auto) Abs Immat Gran (auto) Absolute Neuts (auto) Absolute Nucleated RBC Nucleated RBC % (auto) PT INR Sodium Potassium Chloride Carbon Dioxide Anion Gap BUN Creatinine Estim Creat Clear Calc Estimated GFR POC Glucose 51 L* 46 L* 98 Random Glucose Lactic Acid Lactic Acid F/U @ 2Hr Calcium Magnesium Total Bilirubin AST ALT Alkaline Phosphatase Troponin I High Sens Total Protein Albumin Urine Color Urine Appearance Urine pH Ur Specific [place] Urine Protein Urine Glucose (UA) Urine Ketones Urine Blood Urine Nitrite Ur Leukocyte Esterase Urine Opiates Screen Urine Fentanyl Screen Ur Barbiturates Screen Ur Phencyclidine Scrn Ur Amphetamines Screen U Benzodiazepines Scrn Urine Cocaine Screen U Marijuana (THC) Screen Ethyl Alcohol COVID-19 (JOE) COVID-19 Clin Com Influenza Type A (DODIE) Influenza Type B (DODIE) Influenza A & B Note 08/13/22 08/13/22 08/13/22 00:00 00:09 01:06 WBC RBC Hgb Hct MCV MCH MCHC RDW Plt Count MPV Immature Gran % (Auto) Neut % (Auto) Lymph % (Auto) [place] % (Auto) Eos % (Auto) Baso % (Auto) Lymph # (Auto) [place] # (Auto) Eos # (Auto) Baso # (Auto) Abs Immat Gran (auto) Absolute Neuts (auto) Absolute Nucleated RBC Nucleated RBC % (auto) PT INR Sodium Potassium Chloride Carbon Dioxide Anion Gap BUN Creatinine Estim Creat Clear Calc Estimated GFR POC Glucose 63 61 82 Random Glucose Lactic Acid Lactic Acid F/U @ 2Hr Calcium Magnesium Total Bilirubin AST ALT Alkaline Phosphatase Troponin I High Sens Total Protein Albumin Urine Color Urine Appearance Urine pH Ur Specific [place] Urine Protein Urine Glucose (UA) Urine Ketones Urine Blood Urine Nitrite Ur Leukocyte Esterase Urine Opiates Screen Urine Fentanyl Screen Ur Barbiturates Screen Ur Phencyclidine Scrn Ur Amphetamines Screen U Benzodiazepines Scrn Urine Cocaine Screen U Marijuana (THC) Screen Ethyl Alcohol COVID-19 (JOE) COVID-19 Clin Com Influenza Type A (DODIE) Influenza Type B (DODIE) Influenza A & B Note 08/13/22 08/13/22 08/13/22 07:29 07:40 07:40 WBC 6.1 RBC 3.46 L Hgb 9.2 L Hct 30.1 L MCV 87.0 MCH 26.6 L MCHC 30.6 L RDW 17.6 H Plt Count 275 MPV 9.7 Immature Gran % (Auto) 0.2 Neut % (Auto) 67.2 Lymph % (Auto) 18.8 L [place] % (Auto) 10.5 Eos % (Auto) 2.1 Baso % (Auto) 1.2 Lymph # (Auto) 1.1 L [place] # (Auto) 0.6 Eos # (Auto) 0.1 Baso # (Auto) 0.1 Abs Immat Gran (auto) 0.01 Absolute Neuts (auto) 4.1 Absolute Nucleated RBC 0.000 Nucleated RBC % (auto) 0.0 PT INR Sodium 143 Potassium 5.3 H D Chloride 116 H Carbon Dioxide 17 L Anion Gap 15 BUN 43 H Creatinine 1.68 H Estim Creat Clear Calc 40.4 Estimated GFR 41 POC Glucose 78 Random Glucose 74 D Lactic Acid Lactic Acid F/U @ 2Hr Calcium 9.5 Magnesium Total Bilirubin AST ALT Alkaline Phosphatase Troponin I High Sens Total Protein Albumin Urine Color Urine Appearance Urine pH Ur Specific [place] Urine Protein Urine Glucose (UA) Urine Ketones Urine Blood Urine Nitrite Ur Leukocyte Esterase Urine Opiates Screen Urine Fentanyl Screen Ur Barbiturates Screen Ur Phencyclidine Scrn Ur Amphetamines Screen U Benzodiazepines Scrn Urine Cocaine Screen U Marijuana (THC) Screen Ethyl Alcohol COVID-19 (JOE) COVID-19 Clin Com Influenza Type A (DODIE) Influenza Type B (DODIE) Influenza A & B Note 08/13/22 08/13/22 09:48 11:16 WBC RBC Hgb Hct MCV MCH MCHC RDW Plt Count MPV Immature Gran % (Auto) Neut % (Auto) Lymph % (Auto) [place] % (Auto) Eos % (Auto) Baso % (Auto) Lymph # (Auto) [place] # (Auto) Eos # (Auto) Baso # (Auto) Abs Immat Gran (auto) Absolute Neuts (auto) Absolute Nucleated RBC Nucleated RBC % (auto) PT INR Sodium Potassium Chloride Carbon Dioxide Anion Gap BUN Creatinine Estim Creat Clear Calc Estimated GFR POC Glucose 88 82 Random Glucose Lactic Acid Lactic Acid F/U @ 2Hr Calcium Magnesium Total Bilirubin AST ALT Alkaline Phosphatase Troponin I High Sens Total Protein Albumin Urine Color Urine Appearance Urine pH Ur Specific [place] Urine Protein Urine Glucose (UA) Urine Ketones Urine Blood Urine Nitrite Ur Leukocyte Esterase Urine Opiates Screen Urine Fentanyl Screen Ur Barbiturates Screen Ur Phencyclidine Scrn Ur Amphetamines Screen U Benzodiazepines Scrn Urine Cocaine Screen U Marijuana (THC) Screen Ethyl Alcohol COVID-19 (JOE) COVID-19 Clin Com Influenza Type A (DODIE) Influenza Type B (DODIE) Influenza A & B Note Microbiology Microbiology Results: Microbiology 08/12/22 14:09 Blood - Venous Blood Culture - Preliminary Prelim: GPC Gram Stain only 08/12/22 14:03 Blood - Venous Blood Culture - Final Procedures Date of Service Date of Service: 08/13/22 Assessment & Plan Assessment and plan (1) CKD (chronic kidney disease) stage 3, GFR 30-59 ml/min: Status: Acute (2) Hyperkalemia: Status: Acute (3) -donor kidney transplant: Status: Acute Plan kidney function at baseline known CKD DD KT in 2017 no h/o rejection ESRD due to HTN REC continue tacrolimus follow tacrolimus level sodium zirconium follow kidney function and electrolytes Time Spent With Patient Time: Total time managing care of this patient today ____ minutes. Progress Note: Quality Stroke Does the patient have a stroke diagnosis?: No
--- NOTE | 2022-08-13 14:15 | HO.PM.IMPN ---
Subjective Subjective Date of Service: 08/13/22 Interval History: the patient was seen and evaluated this morning Laying in bed, looks comfortable overall but gets restless and start abnormal movement upon talking to Denies any fever, chills or shortness of breath Required Haldol overnight for agitation in ED Review of Systems Review of Systems: Yes all other systems are reviewed and are negative Physical Exam Vital Signs: Vital Signs: Last Vital Signs Temp 98.3 F 08/13/22 07:57 Pulse 92 08/13/22 05:51 Resp 20 08/13/22 07:57 BP 118/88 08/13/22 05:51 Pulse Ox 98 08/13/22 05:51 O2 Del Method 08/13/22 05:51 BMI result Body Mass Index 25.0 Const: Other: Constitutional : Awake, interactive, not in distress Neck : Normal inspection, Supple Cardiovascular : RRR, no JVP, no lower extremity edema Respiratory : good bilateral air entry, no crackles, wheezes or rhonchi Gastrointestinal: soft, lax, Normal bowel sounds, Non tender Skin : Warm, Dry Neurological : Alert & difficult to assess orientation, No focal deficit , unclear words and difficult to follow commands Objective Data Active Medications Acetaminophen (Acetaminophen Supp 650 Mg Supp.Rect) 650 mg [place] Q6H PRN PRN Reason: Pain, Mild (Pain Scale 1-3) Cyanocobalamin (Cyanocobalamin (Vitamin B-12) 1,000 Mcg Tablet) 1,000 mcg PO DAILY [facility] Last Admin: 08/13/22 09:02 Dose: 1,000 mcg Documented By: DAVID Dextrose (Dextrose 50 % 25 Gm/50 Ml Syringe) 25 gm IVPUSH Q15M PRN PRN Reason: per Hypoglycemia Standing Ord. Last Admin: 08/12/22 22:00 Dose: 25 gm Documented By: GRICELDA Dextrose (D10) 1,000 mls @ 75 mls/hr IVCONT .[id number] [facility] Last Admin: 08/13/22 08:29 Dose: Not Given Documented By: DAVID Non-Admin Reason: IV Running Vancomycin HCl 1,000 mg/ (Sodium Chloride) 270 mls @ 270 mls/hr IV Q24H [facility] Lamotrigine (Lamotrigine 100 Mg Tablet) 200 mg PO BID [facility] Last Admin: 08/13/22 09:02 Dose: 200 mg Documented By: DAVID Levetiracetam (Levetiracetam 500 Mg Tablet) 500 mg PO BID [facility] Last Admin: 08/13/22 09:01 Dose: 500 mg Documented By: DAVID Levothyroxine Sodium (Levothyroxine Sodium 75 Mcg Tablet) 75 mcg PO DAILY@0600 [facility] Loratadine (Loratadine 10 Mg Tablet) 10 mg PO DAILY [facility] Last Admin: 08/13/22 09:02 Dose: 10 mg Documented By: DAVID Lorazepam (Lorazepam 0.5 Mg Tablet) 0.5 mg PO BID PRN PRN Reason: Anxiety Last Admin: 08/13/22 09:02 Dose: 0.5 mg Documented By: DAVID Non-Formulary Medication (Tranexamic Acid) 650 mg PO DAILY [facility] Omeprazole (Omeprazole 20 Mg Capsule.Dr) 20 mg PO DAILY@0630 [facility] Ondansetron HCl (Ondansetron Hcl 4 Mg/2 Ml Vial) 4 mg IVPUSH Q8H PRN PRN Reason: Nausea and Vomiting Pharmacy Consult (Consult Rx Perform Med Rec) 1 each MISCELLANE ONCE PRN PRN Reason: Consult order Pharmacy Consult (Consult Rx Vancomycin Dosing) 1 each MISCELLANE DAILY PRN PRN Reason: Consult order Sodium Bicarbonate (Sodium Bicarbonate 650 Mg Tablet) 650 mg PO BID [facility] Last Admin: 08/13/22 09:01 Dose: 650 mg Documented By: DAVID Sodium Chloride (0.9 % Sodium Chloride Flush 3 Ml Syringe) [facility] Admin: 08/13/22 09:03 Dose: 3 ml Documented By: DAVID Tacrolimus (Tacrolimus 1 Mg Capsule) 2 mg PO BEDTIME [facility] Tacrolimus (Tacrolimus 1 Mg Capsule) 3 mg PO DAILY [facility] Last Admin: 08/13/22 09:15 Dose: Not Given Documented By: DAVID Non-Admin Reason: not available Tamsulosin HCl (Tamsulosin Hcl 0.4 Mg Capsule) 0.8 mg PO BEDTIME [facility] Trazodone HCl (Trazodone Hcl 50 Mg Tablet) 50 mg PO BEDTIME PRN PRN Reason: Insomnia Vitamin D (Cholecalciferol (Vitamin D3) 25 Mcg Tablet) 25 mcg PO DAILY [facility] Last Admin: 08/13/22 09:02 Dose: 25 mcg Documented By: DAVID Labs CBC & Chem 7: 08/13/22 07:40 08/13/22 07:40 Labs: Laboratory Results - last 24 hr 08/12/22 08/12/22 08/12/22 13:11 14:09 15:27 MCV MCH MCHC RDW Plt Count MPV Immature Gran % (Auto) Neut % (Auto) Lymph % (Auto) [place] % (Auto) Eos % (Auto) Baso % (Auto) Lymph # (Auto) [place] # (Auto) Eos # (Auto) Baso # (Auto) Abs Immat Gran (auto) Absolute Neuts (auto) Absolute Nucleated RBC Nucleated RBC % (auto) Anion Gap Cancelled Estim Creat Clear Calc Cancelled Estimated GFR Cancelled POC Glucose 49 L* Random Glucose Cancelled Lactic Acid F/U @ 2Hr Calcium Cancelled Magnesium 2.1 Cancelled Total Bilirubin Cancelled AST Cancelled ALT Cancelled Alkaline Phosphatase Cancelled Total Protein Cancelled Albumin Cancelled Urine Color Urine Appearance Urine pH Ur Specific [place] Urine Protein Urine Glucose (UA) Urine Ketones Urine Blood Urine Nitrite Ur Leukocyte Esterase Urine Opiates Screen Urine Fentanyl Screen Ur Barbiturates Screen Ur Phencyclidine Scrn Ur Amphetamines Screen U Benzodiazepines Scrn Urine Cocaine Screen U Marijuana (THC) Screen Ethyl Alcohol 08/12/22 08/12/22 08/12/22 15:28 15:36 16:04 MCV MCH MCHC RDW Plt Count MPV Immature Gran % (Auto) Neut % (Auto) Lymph % (Auto) [place] % (Auto) Eos % (Auto) Baso % (Auto) Lymph # (Auto) [place] # (Auto) Eos # (Auto) Baso # (Auto) Abs Immat Gran (auto) Absolute Neuts (auto) Absolute Nucleated RBC Nucleated RBC % (auto) Anion Gap Estim Creat Clear Calc Estimated GFR POC Glucose 48 L* 85 Random Glucose Lactic Acid F/U @ 2Hr 0.7 Calcium Magnesium Total Bilirubin AST ALT Alkaline Phosphatase Total Protein Albumin Urine Color Urine Appearance Urine pH Ur Specific [place] Urine Protein Urine Glucose (UA) Urine Ketones Urine Blood Urine Nitrite Ur Leukocyte Esterase Urine Opiates Screen Urine Fentanyl Screen Ur Barbiturates Screen Ur Phencyclidine Scrn Ur Amphetamines Screen U Benzodiazepines Scrn Urine Cocaine Screen U Marijuana (THC) Screen Ethyl Alcohol 08/12/22 08/12/22 08/12/22 16:57 16:57 17:31 MCV MCH MCHC RDW Plt Count MPV Immature Gran % (Auto) Neut % (Auto) Lymph % (Auto) [place] % (Auto) Eos % (Auto) Baso % (Auto) Lymph # (Auto) [place] # (Auto) Eos # (Auto) Baso # (Auto) Abs Immat Gran (auto) Absolute Neuts (auto) Absolute Nucleated RBC Nucleated RBC % (auto) Anion Gap Estim Creat Clear Calc Estimated GFR POC Glucose 54 L* Random Glucose Lactic Acid F/U @ 2Hr Calcium Magnesium Total Bilirubin AST ALT Alkaline Phosphatase Total Protein Albumin Urine Color Yellow Urine Appearance Clear Urine pH >= 9.0 Ur Specific [place] 1.020 Urine Protein Negative Urine Glucose (UA) Negative Urine Ketones Negative Urine Blood Negative Urine Nitrite Negative Ur Leukocyte Esterase Negative Urine Opiates Screen Not Detected Urine Fentanyl Screen Not Detected Ur Barbiturates Screen Not Detected Ur Phencyclidine Scrn Not Detected Ur Amphetamines Screen Not Detected U Benzodiazepines Scrn Not Detected Urine Cocaine Screen Not Detected U Marijuana (THC) Screen Not Detected Ethyl Alcohol 08/12/22 08/12/22 08/12/22 17:39 17:51 18:59 MCV MCH MCHC RDW Plt Count MPV Immature Gran % (Auto) Neut % (Auto) Lymph % (Auto) [place] % (Auto) Eos % (Auto) Baso % (Auto) Lymph # (Auto) [place] # (Auto) Eos # (Auto) Baso # (Auto) Abs Immat Gran (auto) Absolute Neuts (auto) Absolute Nucleated RBC Nucleated RBC % (auto) Anion Gap Estim Creat Clear Calc Estimated GFR POC Glucose 366 H* 173 H Random Glucose Lactic Acid F/U @ 2Hr Calcium Magnesium Total Bilirubin AST ALT Alkaline Phosphatase Total Protein Albumin Urine Color Urine Appearance Urine pH Ur Specific [place] Urine Protein Urine Glucose (UA) Urine Ketones Urine Blood Urine Nitrite Ur Leukocyte Esterase Urine Opiates Screen Urine Fentanyl Screen Ur Barbiturates Screen Ur Phencyclidine Scrn Ur Amphetamines Screen U Benzodiazepines Scrn Urine Cocaine Screen U Marijuana (THC) Screen Ethyl Alcohol < 10 08/12/22 08/12/22 08/12/22 19:52 20:31 20:34 MCV MCH MCHC RDW Plt Count MPV Immature Gran % (Auto) Neut % (Auto) Lymph % (Auto) [place] % (Auto) Eos % (Auto) Baso % (Auto) Lymph # (Auto) [place] # (Auto) Eos # (Auto) Baso # (Auto) Abs Immat Gran (auto) Absolute Neuts (auto) Absolute Nucleated RBC Nucleated RBC % (auto) Anion Gap 14 Estim Creat Clear Calc 32.1 Estimated GFR 32 POC Glucose 127 H 98 Random Glucose 659 H* Lactic Acid F/U @ 2Hr Calcium 9.2 D Magnesium Total Bilirubin AST ALT Alkaline Phosphatase Total Protein Albumin Urine Color Urine Appearance Urine pH Ur Specific [place] Urine Protein Urine Glucose (UA) Urine Ketones Urine Blood Urine Nitrite Ur Leukocyte Esterase Urine Opiates Screen Urine Fentanyl Screen Ur Barbiturates Screen Ur Phencyclidine Scrn Ur Amphetamines Screen U Benzodiazepines Scrn Urine Cocaine Screen U Marijuana (THC) Screen Ethyl Alcohol 08/12/22 08/12/22 08/12/22 21:29 21:36 21:42 MCV MCH MCHC RDW Plt Count MPV Immature Gran % (Auto) Neut % (Auto) Lymph % (Auto) [place] % (Auto) Eos % (Auto) Baso % (Auto) Lymph # (Auto) [place] # (Auto) Eos # (Auto) Baso # (Auto) Abs Immat Gran (auto) Absolute Neuts (auto) Absolute Nucleated RBC Nucleated RBC % (auto) Anion Gap Estim Creat Clear Calc Estimated GFR POC Glucose 55 L* 51 L* 46 L* Random Glucose Lactic Acid F/U @ 2Hr Calcium Magnesium Total Bilirubin AST ALT Alkaline Phosphatase Total Protein Albumin Urine Color Urine Appearance Urine pH Ur Specific [place] Urine Protein Urine Glucose (UA) Urine Ketones Urine Blood Urine Nitrite Ur Leukocyte Esterase Urine Opiates Screen Urine Fentanyl Screen Ur Barbiturates Screen Ur Phencyclidine Scrn Ur Amphetamines Screen U Benzodiazepines Scrn Urine Cocaine Screen U Marijuana (THC) Screen Ethyl Alcohol 08/12/22 08/13/22 08/13/22 23:09 00:00 00:09 MCV MCH MCHC RDW Plt Count MPV Immature Gran % (Auto) Neut % (Auto) Lymph % (Auto) [place] % (Auto) Eos % (Auto) Baso % (Auto) Lymph # (Auto) [place] # (Auto) Eos # (Auto) Baso # (Auto) Abs Immat Gran (auto) Absolute Neuts (auto) Absolute Nucleated RBC Nucleated RBC % (auto) Anion Gap Estim Creat Clear Calc Estimated GFR POC Glucose 98 63 61 Random Glucose Lactic Acid F/U @ 2Hr Calcium Magnesium Total Bilirubin AST ALT Alkaline Phosphatase Total Protein Albumin Urine Color Urine Appearance Urine pH Ur Specific [place] Urine Protein Urine Glucose (UA) Urine Ketones Urine Blood Urine Nitrite Ur Leukocyte Esterase Urine Opiates Screen Urine Fentanyl Screen Ur Barbiturates Screen Ur Phencyclidine Scrn Ur Amphetamines Screen U Benzodiazepines Scrn Urine Cocaine Screen U Marijuana (THC) Screen Ethyl Alcohol 08/13/22 08/13/22 08/13/22 01:06 07:29 07:40 MCV 87.0 MCH 26.6 L MCHC 30.6 L RDW 17.6 H Plt Count 275 MPV 9.7 Immature Gran % (Auto) 0.2 Neut % (Auto) 67.2 Lymph % (Auto) 18.8 L [place] % (Auto) 10.5 Eos % (Auto) 2.1 Baso % (Auto) 1.2 Lymph # (Auto) 1.1 L [place] # (Auto) 0.6 Eos # (Auto) 0.1 Baso # (Auto) 0.1 Abs Immat Gran (auto) 0.01 Absolute Neuts (auto) 4.1 Absolute Nucleated RBC 0.000 Nucleated RBC % (auto) 0.0 Anion Gap Estim Creat Clear Calc Estimated GFR POC Glucose 82 78 Random Glucose Lactic Acid F/U @ 2Hr Calcium Magnesium Total Bilirubin AST ALT Alkaline Phosphatase Total Protein Albumin Urine Color Urine Appearance Urine pH Ur Specific [place] Urine Protein Urine Glucose (UA) Urine Ketones Urine Blood Urine Nitrite Ur Leukocyte Esterase Urine Opiates Screen Urine Fentanyl Screen Ur Barbiturates Screen Ur Phencyclidine Scrn Ur Amphetamines Screen U Benzodiazepines Scrn Urine Cocaine Screen U Marijuana (THC) Screen Ethyl Alcohol 08/13/22 08/13/22 08/13/22 07:40 09:48 11:16 MCV MCH MCHC RDW Plt Count MPV Immature Gran % (Auto) Neut % (Auto) Lymph % (Auto) [place] % (Auto) Eos % (Auto) Baso % (Auto) Lymph # (Auto) [place] # (Auto) Eos # (Auto) Baso # (Auto) Abs Immat Gran (auto) Absolute Neuts (auto) Absolute Nucleated RBC Nucleated RBC % (auto) Anion Gap 15 Estim Creat Clear Calc 40.4 Estimated GFR 41 POC Glucose 88 82 Random Glucose 74 D Lactic Acid F/U @ 2Hr Calcium 9.5 Magnesium Total Bilirubin AST ALT Alkaline Phosphatase Total Protein Albumin Urine Color Urine Appearance Urine pH Ur Specific [place] Urine Protein Urine Glucose (UA) Urine Ketones Urine Blood Urine Nitrite Ur Leukocyte Esterase Urine Opiates Screen Urine Fentanyl Screen Ur Barbiturates Screen Ur Phencyclidine Scrn Ur Amphetamines Screen U Benzodiazepines Scrn Urine Cocaine Screen U Marijuana (THC) Screen Ethyl Alcohol Microbiology Microbiology Results: Microbiology 08/12/22 14:09 Blood Culture - Preliminary Blood - Venous Prelim: GPC Gram Stain only 08/12/22 14:03 Blood Culture - Final Blood - Venous Assessment and Plan (1) Hyperkalemia: Status: Acute (2) Seizure-like activity: Status: Acute (3) Sepsis: Status: Acute (4) Hospital acquired PNA: Status: Acute Plan 67 yo male with past medical history of subdural hematoma with an extensive stay at [facility] ( see above) admitted to the hospital with acute infection I had an extensive discussion with ED physician, in regards to patient's history of subdural hematoma and his evidence of shaking/ seizure-like activity, this was communicated to nurse surgery as well as neurology department at [facility], who felt that patient shaking and seizure-like episodes are not actual seizures and to continue antiepileptic medications. Patient was also evaluated by ICU given his episodes of shaking and felt the patient is appropriate for floor admission. # sepsis secondary to hospital-acquired pneumonia evidence of infiltrate on chest CT Sepsis resolved Pending final cultures Continue with IV antibiotics # hypoglycemia - patient has a history of diabetes, is not on any insulin or antihyperglycemics Pending C-peptide and proinsulin level Likely a result of not having a meal for prolonged period of time continue D10 for today, to DC once start tube feed Nutrition team to start tube feed Mealtime POC # subdural hematoma Recent admission to [facility] with improvement, E reached out and per neurosurgery at [facility] findings improving on imaging continue tranexamic acid and Keppra # seizures, seizure-like activity as well as episodes of shaking Having recurrent episodes of shaking behavior, he is alert it during the episodes I witnessed, does not look like seizure activity continue lamotrigine, Keppra, lamotrigine Keppra level pending Use benzos for any acute episode of seizure # hyperkalemia resolved after Lokelma follow BMP # history of renal transplant continue tacrolimus Nephrology input appreciated follow BMP # Mood disorder will hold sedative at this time continue lorazepam p.r.n. DVT prophylaxis: SCDs given acute sepsis requiring IV antibiotics patient require overnight inpatient hospital stay for further management monitor pending final cultures Time Spent With Patient Time: Total time managing care of this patient today ____ minutes. Quality Stroke Does the patient have a stroke diagnosis?: No VTE Prior VTE?: No VTE Risk Level:: Medical - moderate - high VTE Device Contraindication: N/A - Device Ordered VTE Drug Contraindication: Treatment Not Indicated
--- NOTE | 2022-08-13 14:31 | MHC.CM.PN ---
NO ANSWER ON [phone] OR [phone] AND NO ABILITY TO LEAVE A VOICEMAIL PATIENT IS IN FROM [facility]. NO HCP RECEIVED. REFERRAL PLACED TO INQUIRE OF STATUS (LTC OR STR) AND CAN PATIENT RETURN THIS WEEKEND
--- NOTE | 2022-08-13 14:41 | MHC.CM.PN ---
Addendum entered by Stephanie Saunders RN 08/13/22 14:43: HCP RECEIVED AND NO CONTACT NUMBER FOR EITHER AGENT IS LISTED COPY PLACED IN CHART AND ONE UPLOADED INTO [facility] Original Note: CALL TO [facility] AT [phone] COPY OF HCP REQUESTED. YEE WILL FAX TO THE UNIT FAX NUMBER [phone] GIVEN
[2022-08-13 15:57] VITALS: BP 131/93; PULSE 101; RESP 20; TEMP 37.2; O2SAT 98
[2022-08-13 16:44] LABS: Glucose, Whole Blood 77 mg/dL (60-115)
[2022-08-13 20:00] VITALS: BP 125/75; PULSE 113; RESP 20; TEMP 36.9; O2SAT 97
[2022-08-13] MEDS: traZODone HCL 50 MG TABLET PO (21:08)
[2022-08-13 21:21] LABS: Glucose, Whole Blood 84 mg/dL (60-115)
[2022-08-13] MEDS: Tacrolimus 1 MG CAPSULE 2 MG PO (21:25)
[2022-08-13] MEDS: vancomycin HCL 1,000 MG in 0.9 % Sodium Chloride 250 ML 270 MG IV (23:58)
[2022-08-14 03:38] VITALS: BP 133/74; PULSE 94; RESP 18; TEMP 36.6; O2SAT 99
[2022-08-14 05:48] LABS: Hematocrit 30.9 % (42.0-52.0); Hemoglobin 9.6 g/dl (14.0-18.0); Mean Corpuscular HGB Conc 31.1 g/dl (31.0-36.0); Mean Corpuscular Hemoglobin 26.5 pg (27.0-33.0); Mean Corpuscular Volume 85.4 fL (80.0-98.0); Mean Platelet Volume 9.5 fL (9.4-12.4); Platelet Count 285 X10*3/uL (160-400); Red Blood Count 3.62 X10*6/uL (4.60-5.80); Red Cell Distribution Width 17.2 % (11.0-16.0); White Blood Count 5.2 X10*3/uL (4.8-10.8)
[2022-08-14 06:22] LABS: Anion Gap 15 (12-20); Blood Urea Nitrogen 29 mg/dL (9-16); Calcium 9.4 mg/dL (8.4-10.2); Carbon Dioxide 19 mmol/L (22-29); Chloride 109 mmol/L (96-108); Creatinine Clr Calc Pharmacy 44.1; Estimated Glomerular Filt Rate 45; Glucose Random 110 mg/dL (60-115); Potassium 3.6 mmol/L (3.3-5.1); Sodium 139 mmol/L (135-145)
[2022-08-14] MEDS: Levothyroxine Sodium 75 MCG TABLET PO (06:25)
[2022-08-14 07:19] VITALS: PULSE 103; RESP 18; TEMP 36.4; O2SAT 95
--- NOTE | 2022-08-14 07:44 | PC.NURSE ---
2100; tube feed Nepro increased to 30 mls/hr, no residual. patient tolerated well 0100; tube feed Nepro increased to 40 mls/hr, no residual. water flush given. patient tolerated well. 0500; tube feed Nepro increased to max rate of 50 mls/hr with no residual. patient tolerating well.
[2022-08-14 07:57] LABS: Glucose, Whole Blood 97 mg/dL (60-115)
[2022-08-14] MEDS: Dextrose 10 % 1,000 ML 75 ML IVCONT (08:29)
[2022-08-14] MEDS: 0.9 % Sodium Chloride Flush 3 ML SYRINGE IVFLUSH ×3 (08:30→20:33)
[2022-08-14] MEDS: cefTRIAXone sodium 1 GM in 0.9 % Sodium Chloride 50 ML IV (08:30)
[2022-08-14] MEDS: Azithromycin 500 MG in 0.9 % Sodium Chloride 250 ML 125 MG IV (09:19)
[2022-08-14] MEDS: Cholecalciferol (Vitamin D3) 25 MCG TABLET PO (09:24)
[2022-08-14] MEDS: levETIRAcetam Oral Soln 500 MG/5 ML PO ×2 (09:24→20:32)
[2022-08-14] MEDS: lamoTRIgine 100 MG TABLET 200 MG PO ×2 (09:24→20:32)
[2022-08-14] MEDS: LORazepam 0.5 MG TABLET PO ×2 (09:24→20:32)
[2022-08-14] MEDS: Sodium Bicarbonate 650 MG TABLET PO ×2 (09:24→20:32)
[2022-08-14] MEDS: Loratadine 10 MG TABLET PO (09:24)
[2022-08-14] MEDS: Cyanocobalamin (Vitamin B-12) 1,000 MCG TABLET 1000 MCG PO (09:24)
--- NOTE | 2022-08-14 11:03 | PM.PNNEP ---
Subjective Subjective Date of Service: 08/14/22 Principal diagnosis: Patient seen and examined Interval history: seen and examined discussed with medical attending not able to give history Physical Exam Vital Signs: Vital Signs: Last Vital Signs Temp 97.6 F 08/14/22 07:19 Pulse 103 H 08/14/22 07:19 Resp 18 08/14/22 07:19 BP 133/74 08/14/22 03:38 Pulse Ox 95 08/14/22 07:19 O2 Del Method 08/14/22 07:19 BMI result Body Mass Index 25.0 Const: General: no acute distress HEENT: Head: Yes normocephalic Neck: Neck: Yes supple Resp: Auscultation: clear to auscultation bilaterally Cardio: Heart sounds: S1 normal heart sound present and S2 normal heart sound present GI: Palpation (GI): Soft to palpation and nontender Extrem: General: Yes no pedal edema Objective Data Labs CBC & Chem 7: 08/14/22 05:33 08/14/22 05:33 Labs: Laboratory Results - last 24 hr 08/13/22 08/13/22 08/13/22 11:16 16:37 21:11 WBC RBC Hgb Hct MCV MCH MCHC RDW Plt Count MPV Absolute Nucleated RBC Nucleated RBC % (auto) Sodium Potassium Chloride Carbon Dioxide Anion Gap BUN Creatinine Estim Creat Clear Calc Estimated GFR POC Glucose 82 77 84 Random Glucose Calcium 08/14/22 08/14/22 08/14/22 05:33 05:33 05:33 WBC 5.2 RBC 3.62 L Hgb 9.6 L Hct 30.9 L MCV 85.4 MCH 26.5 L MCHC 31.1 RDW 17.2 H Plt Count 285 MPV 9.5 Absolute Nucleated RBC 0.000 Nucleated RBC % (auto) 0.0 Sodium 139 Potassium 3.6 D Chloride 109 H Carbon Dioxide 19 L Anion Gap 15 BUN 29 H Creatinine Cancelled 1.54 H Estim Creat Clear Calc Cancelled 44.1 Estimated GFR Cancelled 45 POC Glucose Random Glucose 110 Calcium 9.4 08/14/22 07:27 WBC RBC Hgb Hct MCV MCH MCHC RDW Plt Count MPV Absolute Nucleated RBC Nucleated RBC % (auto) Sodium Potassium Chloride Carbon Dioxide Anion Gap BUN Creatinine Estim Creat Clear Calc Estimated GFR POC Glucose 97 Random Glucose Calcium Microbiology Microbiology Results: Microbiology 08/12/22 14:09 Blood - Venous Blood Culture - Preliminary Enterococcus/Streptococcus sp 08/12/22 14:09 Blood - Venous Blood Culture - Preliminary No growth after 24 hours. 08/12/22 13:11 Blood - Venous Blood Culture - Preliminary No growth after 24 hours. 08/12/22 14:03 Blood - Venous Blood Culture - Final Procedures Date of Service Date of Service: 08/14/22 Assessment & Plan Assessment and plan (1) CKD (chronic kidney disease) stage 3, GFR 30-59 ml/min: Status: Acute (2) Hyperkalemia: Status: Acute (3) -donor kidney transplant: Status: Acute Plan kidney function better than baseline known CKD DD KT in 2017 no h/o rejection ESRD due to HTN REC continue tacrolimus follow tacrolimus level follow kidney function and electrolytes Time Spent With Patient Time: Total time managing care of this patient today ____ minutes. Progress Note: Quality Stroke Does the patient have a stroke diagnosis?: No
--- NOTE | 2022-08-14 11:24 | HO.PM.IMPN ---
Subjective Subjective Date of Service: 08/14/22 Interval History: the patient was seen and evaluated this morning Laying in bed, looks comfortable but not following commands gets restless and keeps moving around with no clear purpose unclear speech Review of Systems Review of Systems: Yes Unobtainable due to mental condition Physical Exam Vital Signs: Vital Signs: Last Vital Signs Temp 97.6 F 08/14/22 07:19 Pulse 103 H 08/14/22 07:19 Resp 18 08/14/22 07:19 BP 133/74 08/14/22 03:38 Pulse Ox 95 08/14/22 07:19 O2 Del Method 08/14/22 07:19 BMI result Body Mass Index 25.0 Const: Other: Constitutional : Awake, interactive, not in distress Neck : Normal inspection, Supple Cardiovascular : RRR, no JVP, no lower extremity edema Respiratory : good bilateral air entry, no crackles, wheezes or rhonchi Gastrointestinal: soft, lax, Normal bowel sounds, Non tender Skin : Warm, Dry Neurological : Alert & difficult to assess orientation, No focal deficit , unclear speech and difficult to follow commands Objective Data Active Medications Acetaminophen (Acetaminophen Supp 650 Mg Supp.Rect) 650 mg [place] Q6H PRN PRN Reason: Pain, Mild (Pain Scale 1-3) Cyanocobalamin (Cyanocobalamin (Vitamin B-12) 1,000 Mcg Tablet) 1,000 mcg PO DAILY [facility] Last Admin: 08/14/22 09:24 Dose: 1,000 mcg Documented By: KATE Dextrose (Dextrose 50 % 25 Gm/50 Ml Syringe) 25 gm IVPUSH Q15M PRN PRN Reason: per Hypoglycemia Standing Ord. Last Admin: 08/12/22 22:00 Dose: 25 gm Documented By: GRICELDA Azithromycin 500 mg/ Sodium (Chloride) 250 mls @ 125 mls/hr IV Q24H [facility] Last Admin: 08/14/22 09:19 Dose: 125 mls/hr Documented By: KATE Ceftriaxone Sodium 1 gm/ (Sodium Chloride) 50 mls @ 100 mls/hr IV Q24H [facility] Last Infusion: 08/14/22 09:00 Dose: 0 mls/hr Documented By: KATE Lamotrigine (Lamotrigine 100 Mg Tablet) 200 mg PO BID [facility] Last Admin: 08/14/22 09:24 Dose: 200 mg Documented By: KATE Levetiracetam (Levetiracetam Oral Soln 500 Mg/5 Ml) 500 mg PO BID [facility] Last Admin: 08/14/22 09:24 Dose: 500 mg Documented By: KATE Levothyroxine Sodium (Levothyroxine Sodium 75 Mcg Tablet) 75 mcg PO DAILY@0600 [facility] Last Admin: 08/14/22 06:25 Dose: 75 mcg Documented By: EVELIO Loratadine (Loratadine 10 Mg Tablet) 10 mg PO DAILY [facility] Last Admin: 08/14/22 09:24 Dose: 10 mg Documented By: KATE Lorazepam (Lorazepam 0.5 Mg Tablet) 0.5 mg PO BID PRN PRN Reason: Anxiety Last Admin: 08/14/22 09:24 Dose: 0.5 mg Documented By: KAET Non-Formulary Medication ( Tacrolimus Oral Suspension 0.5 Mg/Ml (2 Mg)) 2 mg PO BEDTIME [facility] Non-Formulary Medication ( Tacrolimus Oral Suspension 0.5 Mg/Ml (3 Mg)) 3 mg PO DAILY [facility] Omeprazole (Omeprazole 20 Mg/10 Ml Susp.Recon) 20 mg PO DAILY@0630 [facility] Last Admin: 08/14/22 06:54 Dose: 20 mg Documented By: EVELIO Comments: verified with pharmacy, ok to administer Ondansetron HCl (Ondansetron Hcl 4 Mg/2 Ml Vial) 4 mg IVPUSH Q8H PRN PRN Reason: Nausea and Vomiting Pharmacy Consult (Consult Rx Perform Med Rec) 1 each MISCELLANE ONCE PRN PRN Reason: Consult order Pharmacy Consult (Consult Rx Vancomycin Dosing) 1 each MISCELLANE DAILY PRN PRN Reason: Consult order Sodium Bicarbonate (Sodium Bicarbonate 650 Mg Tablet) 650 mg PO BID [facility] Last Admin: 08/14/22 09:24 Dose: 650 mg Documented By: KATE Sodium Chloride (0.9 % Sodium Chloride Flush 3 Ml Syringe) 3 ml IVFLUSH QSHIFT [facility] Last Admin: 08/14/22 08:30 Dose: 3 ml Documented By: KATE Tamsulosin HCl (Tamsulosin Hcl 0.4 Mg Capsule) 0.8 mg PO BEDTIME [facility] Last Admin: 08/13/22 21:24 Dose: Not Given Documented By: EVELIO Non-Admin Reason: unable to crush; spoke with pharm Tranexamic Acid (Tranexamic Acid 650 Mg Tablet) 650 mg PO DAILY [facility] Trazodone HCl (Trazodone Hcl 50 Mg Tablet) 50 mg PO BEDTIME PRN PRN Reason: Insomnia Last Admin: 08/13/22 21:08 Dose: 50 mg Documented By: EVELIO Vitamin D (Cholecalciferol (Vitamin D3) 25 Mcg Tablet) 25 mcg PO DAILY [facility] Last Admin: 08/14/22 09:24 Dose: 25 mcg Documented By: KATE Labs CBC & Chem 7: 08/14/22 05:33 08/14/22 05:33 Labs: Laboratory Results - last 24 hr 08/13/22 08/13/22 08/13/22 11:16 16:37 21:11 MCV MCH MCHC RDW Plt Count MPV Absolute Nucleated RBC Nucleated RBC % (auto) Anion Gap Estim Creat Clear Calc Estimated GFR POC Glucose 82 77 84 Random Glucose Calcium 08/14/22 08/14/22 08/14/22 05:33 05:33 05:33 MCV 85.4 MCH 26.5 L MCHC 31.1 RDW 17.2 H Plt Count 285 MPV 9.5 Absolute Nucleated RBC 0.000 Nucleated RBC % (auto) 0.0 Anion Gap 15 Estim Creat Clear Calc Cancelled 44.1 Estimated GFR Cancelled 45 POC Glucose Random Glucose 110 Calcium 9.4 08/14/22 07:27 MCV MCH MCHC RDW Plt Count MPV Absolute Nucleated RBC Nucleated RBC % (auto) Anion Gap Estim Creat Clear Calc Estimated GFR POC Glucose 97 Random Glucose Calcium Microbiology Microbiology Results: Microbiology 08/12/22 14:09 Blood Culture - Preliminary Blood - Venous Enterococcus/Streptococcus sp 08/12/22 14:09 Blood Culture - Preliminary Blood - Venous No growth after 24 hours. 08/12/22 13:11 Blood Culture - Preliminary Blood - Venous No growth after 24 hours. 08/12/22 14:03 Blood Culture - Final Blood - Venous Assessment and Plan (1) CKD (chronic kidney disease) stage 3, GFR 30-59 ml/min: Status: Acute (2) Seizure-like activity: Status: Acute (3) Encephalopathy: Status: Acute (4) Sepsis: Status: Acute (5) Pneumonia: Status: Acute Plan 67 yo male with past medical history of subdural hematoma with an extensive stay at [facility] ( see above) admitted to the hospital with acute infection I had an extensive discussion with ED physician, in regards to patient's history of subdural hematoma and his evidence of shaking/ seizure-like activity, this was communicated to nurse surgery as well as neurology department at [facility], who felt that patient shaking and seizure-like episodes are not actual seizures and to continue antiepileptic medications. Patient was also evaluated by ICU given his episodes of shaking and felt the patient is appropriate for floor admission. # sepsis secondary to hospital-acquired pneumonia evidence of infiltrate on chest CT Sepsis resolved Pending final cultures Continue with IV antibiotics # Positive blood culture 1 set out of 3 growing Enterococcus\Strep , rest are negative could be contaminant but will cover with Vancomycin\Ceftriaxone until final results follow trough # Hx Type 2 DM w hypoglycemia not on any insulin or antihyperglycemics Pending C-peptide and proinsulin level check HbA1c Likely a result of not having a meal for prolonged period of time DC D10 Continue tube feed Mealtime POC # subdural hematoma Recent admission to [facility] with improvement, E reached out and per neurosurgery at [facility] findings improving on imaging continue tranexamic acid and Keppra # seizures, seizure-like activity as well as episodes of shaking Having recurrent episodes of shaking behavior, he is alert it during the episodes I witnessed, does not look like seizure activity continue lamotrigine, Keppra, lamotrigine Keppra level pending Use benzos for any acute episode of seizure # hyperkalemia resolved after Lokelma follow BMP # history of renal transplant continue tacrolimus Nephrology input appreciated follow BMP # Mood disorder will hold sedative at this time continue lorazepam p.r.n. DVT prophylaxis: SCDs given acute sepsis requiring IV antibiotics patient require overnight inpatient hospital stay for further management monitor pending final cultures Time Spent With Patient Time: Total time managing care of this patient today ____ minutes. Quality Stroke Does the patient have a stroke diagnosis?: No VTE Prior VTE?: No VTE Risk Level:: Medical - moderate - high VTE Device Contraindication: N/A - Device Ordered VTE Drug Contraindication: Treatment Not Indicated
[2022-08-14 11:30] LABS: Glucose, Whole Blood 79 mg/dL (60-115)
[2022-08-14 12:02] LABS: Estimated Average Glucose 71 mg/dL; Hemoglobin A1c % 4.1 %
--- NOTE | 2022-08-14 14:16 | PC.NURSE ---
Pharmacy notified of some of pts medications unable to crush, will address
[2022-08-14 15:36] VITALS: BP 117/75; PULSE 95; RESP 18; TEMP 36.1; O2SAT 99
[2022-08-14 15:50] LABS: Tacrolimus Prograf 1.8 mcg/L
[2022-08-14 15:59] LABS: Glucose, Whole Blood 83 mg/dL (60-115)
[2022-08-14 20:27] VITALS: BP 134/76; PULSE 92; RESP 20; TEMP 37.2; O2SAT 98
[2022-08-14] MEDS: traZODone HCL 50 MG TABLET PO (20:32)
[2022-08-14] MEDS: Tamsulosin HCL 0.4 MG CAPSULE 0.8 MG PO (20:32)
[2022-08-14 20:52] LABS: Glucose, Whole Blood 89 mg/dL (60-115)
[2022-08-14 21:58] LABS: Vancomycin Random 16.6 mcg/mL (15-20)
[2022-08-14] MEDS: vancomycin HCL 750 MG in 0.9 % Sodium Chloride 250 ML 265 MG IV (22:23)
[2022-08-15 04:00] VITALS: BP 121/59; PULSE 90; RESP 20; TEMP 36.3; O2SAT 97
[2022-08-15] MEDS: Levothyroxine Sodium 75 MCG TABLET PO (05:46)
--- NOTE | 2022-08-15 05:56 | PC.NURSE ---
pt bladder scanned at 0030 for 363 ml, straight cath'd at 0045 for 350 ml. Bladder scanned again at 0530 for 181 ml.
[2022-08-15 06:09] LABS: C Peptide 6.49 ng/mL (0.80-3.85)
[2022-08-15] MEDS: Loratadine 10 MG TABLET PO (07:10)
[2022-08-15] MEDS: levETIRAcetam Oral Soln 500 MG/5 ML PO ×2 (07:10→21:03)
[2022-08-15] MEDS: Tranexamic Acid 650 MG TABLET PO (07:10)
[2022-08-15] MEDS: Cyanocobalamin (Vitamin B-12) 1,000 MCG TABLET 1000 MCG PO (07:10)
[2022-08-15] MEDS: lamoTRIgine 100 MG TABLET 200 MG PO ×2 (07:10→21:03)
[2022-08-15] MEDS: Sodium Bicarbonate 650 MG TABLET PO ×2 (07:11→21:03)
[2022-08-15] MEDS: 0.9 % Sodium Chloride Flush 3 ML SYRINGE IVFLUSH ×3 (07:11→22:25)
[2022-08-15] MEDS: Cholecalciferol (Vitamin D3) 25 MCG TABLET PO (07:11)
[2022-08-15] MEDS: cefTRIAXone sodium 1 GM in 0.9 % Sodium Chloride 50 ML IV (07:11)
[2022-08-15 07:19] LABS: Creatinine Clr Calc Pharmacy 39.7; Estimated Glomerular Filt Rate 40
[2022-08-15 07:23] LABS: Anion Gap 16 (12-20); Blood Urea Nitrogen 40 mg/dL (9-16); Calcium 9.3 mg/dL (8.4-10.2); Carbon Dioxide 18 mmol/L (22-29); Chloride 113 mmol/L (96-108); Creatinine Clr Calc Pharmacy 40.1; Estimated Glomerular Filt Rate 41; Glucose Random 122 mg/dL (60-115); Potassium 3.5 mmol/L (3.3-5.1); Sodium 143 mmol/L (135-145)
[2022-08-15 07:39] VITALS: BP 94/53; PULSE 95; RESP 18; TEMP 36.4; O2SAT 93
[2022-08-15 08:09] LABS: Glucose, Whole Blood 118 mg/dL (60-115)
[2022-08-15] MEDS: LORazepam 0.5 MG TABLET PO ×2 (09:56→21:03)
--- NOTE | 2022-08-15 10:48 | PM.PNNEP ---
Subjective Subjective Date of Service: 08/15/22 Principal diagnosis: Patient seen and examined Interval history: seen and examined still tremulous Physical Exam Vital Signs: Vital Signs: Last Vital Signs Temp 97.6 F 08/15/22 07:39 Pulse 95 08/15/22 07:39 Resp 18 08/15/22 07:39 BP 94/53 L 08/15/22 07:39 Pulse Ox 93 08/15/22 07:39 O2 Del Method 08/15/22 07:39 BMI result Body Mass Index 25.0 Const: General: no acute distress HEENT: Head: Yes normocephalic Neck: Neck: Yes supple Resp: Auscultation: clear to auscultation bilaterally Cardio: Heart sounds: S1 normal heart sound present and S2 normal heart sound present GI: Palpation (GI): Soft to palpation and nontender Extrem: General: Yes no pedal edema Objective Data Labs CBC & Chem 7: 08/14/22 05:33 08/15/22 05:52 Labs: Laboratory Results - last 24 hr 08/12/22 08/13/22 08/14/22 22:34 16:25 05:33 Sodium Potassium Chloride Carbon Dioxide Anion Gap BUN Creatinine Estim Creat Clear Calc Estimated GFR POC Glucose Random Glucose Estimat Average Glucose 71 Hemoglobin A1c % 4.1 C-Peptide 6.49 H Calcium Random Vancomycin Tacrolimus 1.8 L 08/14/22 08/14/22 08/14/22 11:13 15:41 20:33 Sodium Potassium Chloride Carbon Dioxide Anion Gap BUN Creatinine Estim Creat Clear Calc Estimated GFR POC Glucose 79 83 89 Random Glucose Estimat Average Glucose Hemoglobin A1c % C-Peptide Calcium Random Vancomycin Tacrolimus 08/14/22 08/15/22 08/15/22 21:15 05:52 05:52 Sodium 143 Potassium 3.5 Chloride 113 H Carbon Dioxide 18 L Anion Gap 16 BUN 40 H Creatinine 1.69 H 1.71 H Estim Creat Clear Calc 40.1 39.7 Estimated GFR 41 40 POC Glucose Random Glucose 122 H D Estimat Average Glucose Hemoglobin A1c % C-Peptide Calcium 9.3 Random Vancomycin 16.6 Tacrolimus 08/15/22 07:36 Sodium Potassium Chloride Carbon Dioxide Anion Gap BUN Creatinine Estim Creat Clear Calc Estimated GFR POC Glucose 118 H Random Glucose Estimat Average Glucose Hemoglobin A1c % C-Peptide Calcium Random Vancomycin Tacrolimus Microbiology Microbiology Results: Microbiology 08/12/22 14:09 Blood - Venous Blood Culture - Final Enterococcus faecalis 08/12/22 14:09 Blood - Venous Blood Culture - Preliminary No growth after 48 hours. 08/12/22 13:11 Blood - Venous Blood Culture - Preliminary No growth after 48 hours. 08/12/22 14:03 Blood - Venous Blood Culture - Final Procedures Date of Service Date of Service: 08/15/22 Assessment & Plan Assessment and plan (1) CKD (chronic kidney disease) stage 3, GFR 30-59 ml/min: Status: Acute (2) Hyperkalemia: Status: Acute (3) -donor kidney transplant: Status: Acute Plan kidney function better than baseline known CKD DD KT in 2017 no h/o rejection ESRD due to HTN low tacrolimus level REC continue tacrolimus repeat tacrolimus level (ensure it is a trough level) goal tacrolimus level 5-8 follow kidney function and electrolytes Time Spent With Patient Time: Total time managing care of this patient today ____ minutes. Progress Note: Quality Stroke Does the patient have a stroke diagnosis?: No
[2022-08-15 11:16] LABS: Glucose, Whole Blood 109 mg/dL (60-115)
--- NOTE | 2022-08-15 12:09 | HO.PM.IMPN ---
Subjective Subjective Date of Service: 08/15/22 Interval History: the patient was seen and evaluated this morning Laying in bed, looks comfortable and sound sleep Improved restlessness and altered mentation with trazodone unclear speech Review of Systems Review of Systems: Yes Unobtainable due to mental status Physical Exam Vital Signs: Vital Signs: Last Vital Signs Temp 97.6 F 08/15/22 07:39 Pulse 95 08/15/22 07:39 Resp 18 08/15/22 07:39 BP 94/53 L 08/15/22 07:39 Pulse Ox 93 08/15/22 07:39 O2 Del Method 08/15/22 07:39 BMI result Body Mass Index 25.0 Const: Other: Constitutional : Awake with stimulation, not in distress Neck : Normal inspection, Supple Cardiovascular : RRR, no JVP, no lower extremity edema Respiratory : good bilateral air entry, no crackles, wheezes or rhonchi Gastrointestinal: soft, lax, Normal bowel sounds, Non tender Skin : Warm, Dry Neurological : Alert & difficult to assess orientation, No focal deficit , move all extremities, unclear speech and difficult to follow commands Objective Data Active Medications Acetaminophen (Acetaminophen Supp 650 Mg Supp.Rect) 650 mg [place] Q6H PRN PRN Reason: Pain, Mild (Pain Scale 1-3) Cyanocobalamin (Cyanocobalamin (Vitamin B-12) 1,000 Mcg Tablet) 1,000 mcg PO DAILY [facility] Last Admin: 08/15/22 07:10 Dose: 1,000 mcg Documented By: DAVID Dextrose (Dextrose 50 % 25 Gm/50 Ml Syringe) 25 gm IVPUSH Q15M PRN PRN Reason: per Hypoglycemia Standing Ord. Last Admin: 08/12/22 22:00 Dose: 25 gm Documented By: GRICELDA Ceftriaxone Sodium 1 gm/ (Sodium Chloride) 50 mls @ 100 mls/hr IV Q24H [facility] Last Infusion: 08/15/22 07:42 Dose: 0 mls/hr Documented By: DAVID Vancomycin HCl 750 mg/ Sodium (Chloride) 265 mls @ 265 mls/hr IV Q24H [facility] Last Infusion: 08/14/22 23:38 Dose: 0 mls/hr Documented By: SHAMEKA Lamotrigine (Lamotrigine 100 Mg Tablet) 200 mg PO BID [facility] Last Admin: 08/15/22 07:10 Dose: 200 mg Documented By: DAVID Levetiracetam (Levetiracetam Oral Soln 500 Mg/5 Ml) 500 mg PO BID [facility] Last Admin: 08/15/22 07:10 Dose: 500 mg Documented By: DAVID Levothyroxine Sodium (Levothyroxine Sodium 75 Mcg Tablet) 75 mcg PO DAILY@0600 [facility] Last Admin: 08/15/22 05:46 Dose: 75 mcg Documented By: SHAMEKA Loratadine (Loratadine 10 Mg Tablet) 10 mg PO DAILY [facility] Last Admin: 08/15/22 07:10 Dose: 10 mg Documented By: DAVID Lorazepam (Lorazepam 0.5 Mg Tablet) 0.5 mg PO BID PRN PRN Reason: Anxiety Last Admin: 08/15/22 09:56 Dose: 0.5 mg Documented By: DAVID Non-Formulary Medication ( Tacrolimus Oral Suspension 0.5 Mg/Ml (2 Mg)) 2 mg PO BEDTIME [facility] Last Admin: 08/14/22 20:46 Dose: 2 mg Documented By: SHAMEKA Non-Formulary Medication ( Tacrolimus Oral Suspension 0.5 Mg/Ml (3 Mg)) 3 mg PO DAILY [facility] Last Admin: 08/15/22 09:56 Dose: 3 mg Documented By: DAVID Omeprazole (Omeprazole 20 Mg/10 Ml Susp.Recon) 20 mg PO DAILY@0630 [facility] Last Admin: 08/15/22 05:46 Dose: 20 mg Documented By: SHAMEKA Ondansetron HCl (Ondansetron Hcl 4 Mg/2 Ml Vial) 4 mg IVPUSH Q8H PRN PRN Reason: Nausea and Vomiting Pharmacy Consult (Consult Rx Perform Med Rec) 1 each MISCELLANE ONCE PRN PRN Reason: Consult order Pharmacy Consult (Consult Rx Vancomycin Dosing) 1 each MISCELLANE DAILY PRN PRN Reason: Consult order Sodium Bicarbonate (Sodium Bicarbonate 650 Mg Tablet) 650 mg PO BID [facility] Last Admin: 08/15/22 07:11 Dose: 650 mg Documented By: DAVID Sodium Chloride (0.9 % Sodium Chloride Flush 3 Ml Syringe) 3 ml IVFLUSH QSHIFT [facility] Last Admin: 08/15/22 07:11 Dose: 3 ml Documented By: DAVID Tamsulosin HCl (Tamsulosin Hcl 0.4 Mg Capsule) 0.8 mg PO BEDTIME [facility] Last Admin: 08/14/22 20:32 Dose: 0.8 mg Documented By: SHAMEKA Tranexamic Acid (Tranexamic Acid 650 Mg Tablet) 650 mg PO DAILY [facility] Last Admin: 08/15/22 07:10 Dose: 650 mg Documented By: DAVID Trazodone HCl (Trazodone Hcl 50 Mg Tablet) 50 mg PO BEDTIME PRN PRN Reason: Insomnia Last Admin: 08/14/22 20:32 Dose: 50 mg Documented By: SHAMEKA Vitamin D (Cholecalciferol (Vitamin D3) 25 Mcg Tablet) 25 mcg PO DAILY [facility] Last Admin: 08/15/22 07:11 Dose: 25 mcg Documented By: DAVID Labs CBC & Chem 7: 08/14/22 05:33 08/15/22 05:52 Labs: Laboratory Results - last 24 hr 08/12/22 08/13/22 08/14/22 22:34 16:25 15:41 Anion Gap Estim Creat Clear Calc Estimated GFR POC Glucose 83 Random Glucose C-Peptide 6.49 H Calcium Random Vancomycin Tacrolimus 1.8 L 08/14/22 08/14/22 08/15/22 20:33 21:15 05:52 Anion Gap 16 Estim Creat Clear Calc 40.1 Estimated GFR 41 POC Glucose 89 Random Glucose 122 H D C-Peptide Calcium 9.3 Random Vancomycin 16.6 Tacrolimus 08/15/22 08/15/22 08/15/22 05:52 07:36 11:05 Anion Gap Estim Creat Clear Calc 39.7 Estimated GFR 40 POC Glucose 118 H 109 Random Glucose C-Peptide Calcium Random Vancomycin Tacrolimus Microbiology Microbiology Results: Microbiology 08/12/22 14:09 Blood Culture - Final Blood - Venous Enterococcus faecalis 08/12/22 14:09 Blood Culture - Preliminary Blood - Venous No growth after 48 hours. 08/12/22 13:11 Blood Culture - Preliminary Blood - Venous No growth after 48 hours. Assessment and Plan (1) Seizure-like activity: Status: Acute (2) Sepsis: Status: Acute (3) Bacteremia due to Enterococcus: Status: Acute Plan 67 yo male with past medical history of subdural hematoma with an extensive stay at [facility] ( see above) admitted to the hospital with acute infection I had an extensive discussion with ED physician, in regards to patient's history of subdural hematoma and his evidence of shaking/ seizure-like activity, this was communicated to nurse surgery as well as neurology department at [facility], who felt that patient shaking and seizure-like episodes are not actual seizures and to continue antiepileptic medications. Patient was also evaluated by ICU given his episodes of shaking and felt the patient is appropriate for floor admission. # sepsis secondary to hospital-acquired pneumonia # Enterococcus bacteremia evidence of infiltrate on chest CT 1 set out of 3 growing Enterococcus Repeat blood cultures Continue with Vancomycin follow trough ID consult # Hx Type 2 DM w hypoglycemia not on any insulin or antihyperglycemics, no more incidents since admission Likely a result of not having a meal for prolonged period of time, sepsis, hyper insulin secretion, autoimmune, oral hypoglycemic agents Elevated C-peptide of 6.5 (normal up to 4) and pending proinsulin level, Check beta hydroxybutyrate, antibody to insulin HbA1c of 4.1 Continue tube feed Mealtime POC # subdural hematoma Recent admission to [facility] with improvement, E reached out and per neurosurgery at [facility] findings improving on imaging continue tranexamic acid and Keppra # seizures, seizure-like activity , metabolic encephalopathy Having recurrent episodes of shaking behavior, he is alert it during the episodes I witnessed, does not look like seizure activity continue lamotrigine, Keppra, lamotrigine Keppra level pending Use benzos for any acute episode of seizure # hyperkalemia resolved after Lokelma follow BMP # history of renal transplant continue tacrolimus Low tacrolimus level of 1.8 Nephrology input appreciated follow BMP # Mood disorder will hold sedative at this time continue lorazepam p.r.n. DVT prophylaxis: SCDs given acute sepsis requiring IV antibiotics patient require overnight inpatient hospital stay for further management monitor pending repeated blood cultures and ID consult Time Spent With Patient Time: Total time managing care of this patient today ____ minutes. Quality Stroke Does the patient have a stroke diagnosis?: No VTE Prior VTE?: No VTE Risk Level:: Medical - moderate - high VTE Device Contraindication: N/A - Device Ordered VTE Drug Contraindication: Treatment Not Indicated
--- NOTE | 2022-08-15 12:22 | HE.PHANOTE ---
VANCO DOSING BASED ON SCR OF 1.69 DOSE CONTINUED AT 750 Q 24. NEXT TROUGH AT 08/16 @ 2100
[2022-08-15 15:51] VITALS: BP 100/53; PULSE 85; RESP 20; TEMP 36.7; O2SAT 97
[2022-08-15 16:03] LABS: Glucose, Whole Blood 105 mg/dL (60-115)
[2022-08-15 20:00] VITALS: BP 110/56; PULSE 85; RESP 20; TEMP 37; O2SAT 96
[2022-08-15 20:33] LABS: Glucose, Whole Blood 96 mg/dL (60-115)
[2022-08-15] MEDS: Tamsulosin HCL 0.4 MG CAPSULE 0.8 MG PO (21:03)
[2022-08-15] MEDS: traZODone HCL 50 MG TABLET PO (21:03)
[2022-08-15] MEDS: vancomycin HCL 750 MG in 0.9 % Sodium Chloride 250 ML 265 MG IV (22:25)
[2022-08-16 03:26] VITALS: BP 97/55; PULSE 77; RESP 17; TEMP 36.6; O2SAT 97
[2022-08-16] MEDS: Levothyroxine Sodium 75 MCG TABLET PO (05:40)
--- NOTE | 2022-08-16 06:53 | PC.NURSE ---
harrington was removed 08/14 around 2 pm, pt has been unable to void on his own, he was straight cath'd 2x since then, around 0030 pt was bladder scanned for [address] Strong notified and ordered harrington catheter to be placed. Harrington put in at 0100.
[2022-08-16 06:54] LABS: Creatinine Clr Calc Pharmacy 47.5; Estimated Glomerular Filt Rate 49
[2022-08-16] MEDS: cefTRIAXone sodium 1 GM in 0.9 % Sodium Chloride 50 ML IV (07:16)
[2022-08-16] MEDS: Tranexamic Acid 650 MG TABLET PO (07:17)
[2022-08-16] MEDS: lamoTRIgine 100 MG TABLET 200 MG PO ×2 (07:17→21:06)
[2022-08-16] MEDS: Loratadine 10 MG TABLET PO (07:17)
[2022-08-16] MEDS: Cholecalciferol (Vitamin D3) 25 MCG TABLET PO (07:17)
[2022-08-16] MEDS: Sodium Bicarbonate 650 MG TABLET PO ×2 (07:17→21:06)
[2022-08-16] MEDS: levETIRAcetam Oral Soln 500 MG/5 ML PO ×2 (07:17→21:06)
[2022-08-16] MEDS: Cyanocobalamin (Vitamin B-12) 1,000 MCG TABLET 1000 MCG PO (07:17)
[2022-08-16] MEDS: 0.9 % Sodium Chloride Flush 3 ML SYRINGE IVFLUSH ×3 (07:18→21:06)
[2022-08-16] MEDS: LORazepam 0.5 MG TABLET PO (07:25)
[2022-08-16 07:32] LABS: Glucose, Whole Blood 100 mg/dL (60-115)
[2022-08-16 07:46] VITALS: BP 129/71; PULSE 77; RESP 17; TEMP 37.1; O2SAT 99
--- NOTE | 2022-08-16 08:00 | CA_ITS ---
Transthoracic Echocardiogram Patient (Last, First, Middle): Blaine Kendrick G Gender: Male Date of : 1955 Age: 67 Procedure Date: 08/16/2022 Procedure Type: Transthoracic Echocardiogram Location: S3E Height: 170.18 cm Weight: 72.58 kg BSA: 1.84 m2 Heart Rate: 91 bpm BP: 129 / 71 mmHg Credit Correspondence Clerk: WALKER Referring MD: Daniel Hall MD Purchasing Agent: Geovany White MD Symptoms: Bacteremia, R O infective endocarditis Study Quality: Technically Difficult narrow rib spaces ECG Rhythm: Sinus Conclusions: - 1. Vegetation cannot be entirely ruled out on this study 2. Normal LV systolic function with LVEF of 65-70% 3. Poor visualization of cardiac valves with cardiac valvular Doppler within normal limits Findings Left Ventricle Normal left ventricular size, thickness, and systolic function. The visually estimated ejection fraction is between 65-70%. Regional wall motion abnormalities can not be excluded due to suboptimal endocardial definition. Spectral Doppler is indicative of a normal filling pattern. Right Ventricle Normal right ventricular cavity size and systolic function. Atria The left atrium is normal in size. Interatrial shunt cannot be excluded. The right atrium was not well visualized. Aortic Valve The aortic valve was not well visualized. There is no aortic valve stenosis. There is no aortic valve regurgitation. Mitral Valve The mitral valve was not well visualized. There is mild anterior mitral leaflet thickening. There is no mitral valve regurgitation. There is no mitral valve stenosis. Pulmonic Valve The pulmonic valve was not well visualized. Tricuspid Valve The tricuspid valve was not well visualized. Tricuspid regurgitation envelope is inadequate for calculation of right ventricular systolic pressure. Normal right atrial pressure. Great Vessels The aorta was not well visualized. The pulmonary artery was not well visualized. Venous The inferior vena cava is normal in size. Pericardium/Pleural The pericardium was not well visualized. Prior Study Comparison No prior study available for comparison. Recommendations, Care & Conclusions Consider a KENJI if clinically appropriate. Measurements 2D Linear Measurements IVSd: 1.12 0.6-0.9/0.6-1.0 cm LVIDd: 4.35 3.9-5.3/4.2-5.9 cm LVIDd Index: 2.36 2.4-3.2/2.2-3.1 cm/m2 LVIDs: 2.75 2.0-3.6 cm LVPWd: 0.91 0.7-1.1 cm LA Diam: 3.50 2.7-3.8/3.0-4.0 cm LAIDs Index: 1.90 1.5-2.3 cm/m2 LV Mass: 184.60 67-162/88-224 g LV Mass Index: 100.33 43-95/49-115 g/m2 LVOT Diam: 2.00 3.0+(-)1.3 cm 2D Systolic Function EF 4C: 57.80 >55% EF 2C: 74.10 >55% EF BiP: 67.20 >55% Mitral Valve MV Pk E: 0.69 MV PK A: 0.44 MV Decel Time: 154.00 E/A: 1.60 E'Lateral: 12.20 E'Medial: 9.46 E/E' Med: 7.30 E/E' Lat: 5.60 PHT: 45.00 MVA PHT: 4.89 Decel [place]: 4.45 Aortic Valve AoV Pk Gentry: 1.37 AoV Pk Grad: 8.00 BRUCE: 2.68 LVOT LVOT Pk Gentry: 1.25 LVOT Mn Gentry: 0.80 LVOT VTI: 0.22 LVOT Pk Grad: 6.00 LVOT Mn Grad: 3.00 LVOT Diam: 2.00 LVOT Area: 3.14 Diastolic Function MV Pk E: 0.69 MV Pk A: 0.44 E/A: 1.60 E'Medial: 9.46 E/E' Med: 7.30 E' Laterial: 12.20 E/E' Lat: 5.60 Right Ventricle TAPSE (mm): 17.30 TVS' Gentry: 15.70 Tricuspid Valve RA Press: 3.00 Great Vessels Aorta Sinus of Valsalva: 2.70 2.0-3.5 cm Pulmonary Valve PV Pk Gentry: 0.90 Peak PV Grad: 3.00 Updated in Other Vendor System with Status of Final Geovany White MD electronically signed on 08/16/2022 1:30:01 PM with status of Final
[2022-08-16 11:31] LABS: Glucose, Whole Blood 112 mg/dL (60-115)
--- NOTE | 2022-08-16 11:31 | HO.PM.IMPN ---
Subjective Subjective Date of Service: 08/16/22 Interval History: the patient was seen and evaluated this morning Laying in bed, looks comfortable and responding well to questions Less restlessness and agitated Still unclear speech but overall much better than before Review of Systems Review of Systems: Yes all other systems are reviewed and are negative Physical Exam Vital Signs: Vital Signs: Last Vital Signs Temp 98.8 F 08/16/22 07:46 Pulse 77 08/16/22 07:46 Resp 17 08/16/22 07:46 BP 129/71 08/16/22 07:46 Pulse Ox 99 08/16/22 07:46 O2 Del Method 08/16/22 07:46 BMI result Body Mass Index 25.0 Const: Other: Constitutional : Awake with stimulation, not in distress Neck : Normal inspection, Supple Cardiovascular : RRR, no JVP, no lower extremity edema Respiratory : good bilateral air entry, no crackles, wheezes or rhonchi Gastrointestinal: soft, lax, Normal bowel sounds, Non tender Skin : Warm, Dry Neurological : Alert & difficult to assess orientation, No focal deficit , move all extremities, unclear speech Objective Data Active Medications Acetaminophen (Acetaminophen Supp 650 Mg Supp.Rect) 650 mg ME Q6H PRN PRN Reason: Pain, Mild (Pain Scale 1-3) Cyanocobalamin (Cyanocobalamin (Vitamin B-12) 1,000 Mcg Tablet) 1,000 mcg PO DAILY [facility] Last Admin: 08/16/22 07:17 Dose: 1,000 mcg Documented By: DAVID Dextrose (Dextrose 50 % 25 Gm/50 Ml Syringe) 25 gm IVPUSH Q15M PRN PRN Reason: per Hypoglycemia Standing Ord. Last Admin: 08/12/22 22:00 Dose: 25 gm Documented By: GRICELDA Ceftriaxone Sodium 1 gm/ (Sodium Chloride) 50 mls @ 100 mls/hr IV Q24H [facility] Last Infusion: 08/16/22 07:50 Dose: 0 mls/hr Documented By: DAVID Vancomycin HCl 750 mg/ Sodium (Chloride) 265 mls @ 265 mls/hr IV Q24H [facility] Last Infusion: 08/15/22 23:32 Dose: 0 mls/hr Documented By: SHAMEKA Lamotrigine (Lamotrigine 100 Mg Tablet) 200 mg PO BID [facility] Last Admin: 08/16/22 07:17 Dose: 200 mg Documented By: DAVID Levetiracetam (Levetiracetam Oral Soln 500 Mg/5 Ml) 500 mg PO BID [facility] Last Admin: 08/16/22 07:17 Dose: 500 mg Documented By: DAVID Levothyroxine Sodium (Levothyroxine Sodium 75 Mcg Tablet) 75 mcg PO DAILY@0600 [facility] Last Admin: 08/16/22 05:40 Dose: 75 mcg Documented By: SHAMEKA Loratadine (Loratadine 10 Mg Tablet) 10 mg PO DAILY [facility] Last Admin: 08/16/22 07:17 Dose: 10 mg Documented By: DAVID Lorazepam (Lorazepam 0.5 Mg Tablet) 0.5 mg PO BID PRN PRN Reason: Anxiety Last Admin: 08/16/22 07:25 Dose: 0.5 mg Documented By: DAVID Non-Formulary Medication ( Tacrolimus Oral Suspension 0.5 Mg/Ml (2 Mg)) 2 mg PO BEDTIME [facility] Last Admin: 08/15/22 21:03 Dose: 2 mg Documented By: SHAMEKA Non-Formulary Medication ( Tacrolimus Oral Suspension 0.5 Mg/Ml (3 Mg)) 3 mg PO DAILY [facility] Last Admin: 08/16/22 10:45 Dose: 3 mg Documented By: DAVID Omeprazole (Omeprazole 20 Mg/10 Ml Susp.Recon) 20 mg PO DAILY@0630 [facility] Last Admin: 08/16/22 05:41 Dose: 20 mg Documented By: SHAMEKA Ondansetron HCl (Ondansetron Hcl 4 Mg/2 Ml Vial) 4 mg IVPUSH Q8H PRN PRN Reason: Nausea and Vomiting Pharmacy Consult (Consult Rx Perform Med Rec) 1 each MISCELLANE ONCE PRN PRN Reason: Consult order Pharmacy Consult (Consult Rx Vancomycin Dosing) 1 each MISCELLANE DAILY PRN PRN Reason: Consult order Sodium Bicarbonate (Sodium Bicarbonate 650 Mg Tablet) 650 mg PO BID [facility] Last Admin: 08/16/22 07:17 Dose: 650 mg Documented By: DAVID Sodium Chloride (0.9 % Sodium Chloride Flush 3 Ml Syringe) 3 ml IVFLUSH QSHIFT [facility] Last Admin: 08/16/22 07:18 Dose: 3 ml Documented By: DAVID Tamsulosin HCl (Tamsulosin Hcl 0.4 Mg Capsule) 0.8 mg PO BEDTIME [facility] Last Admin: 08/15/22 21:03 Dose: 0.8 mg Documented By: SHAMEKA Tranexamic Acid (Tranexamic Acid 650 Mg Tablet) 650 mg PO DAILY [facility] Last Admin: 08/16/22 07:17 Dose: 650 mg Documented By: DAVID Trazodone HCl (Trazodone Hcl 50 Mg Tablet) 50 mg PO BEDTIME PRN PRN Reason: Insomnia Last Admin: 08/15/22 21:03 Dose: 50 mg Documented By: SHAMEKA Vitamin D (Cholecalciferol (Vitamin D3) 25 Mcg Tablet) 25 mcg PO DAILY [facility] Last Admin: 08/16/22 07:17 Dose: 25 mcg Documented By: DAVID Labs CBC & Chem 7: 08/14/22 05:33 08/16/22 05:52 Labs: Laboratory Results - last 24 hr 08/15/22 08/15/22 08/16/22 15:54 20:23 05:52 Estim Creat Clear Calc 47.5 Estimated GFR 49 POC Glucose 105 96 08/16/22 07:19 Estim Creat Clear Calc Estimated GFR POC Glucose 100 Microbiology Microbiology Results: Microbiology 08/14/22 15:29 Blood Culture - Preliminary Blood - Venous No growth after 24 hours. 08/14/22 15:29 Blood Culture - Preliminary Blood - Venous No growth after 24 hours. 08/12/22 14:09 Blood Culture - Final Blood - Venous Enterococcus faecalis Assessment and Plan (1) Bacteremia due to Enterococcus: Status: Acute (2) Episode of shaking: Status: Acute (3) Seizure-like activity: Status: Acute (4) Sepsis: Status: Acute (5) Hypoglycemia: Status: Acute Plan 67 yo male with past medical history of subdural hematoma with an extensive stay at [facility] ( see above) admitted to the hospital with acute infection I had an extensive discussion with ED physician, in regards to patient's history of subdural hematoma and his evidence of shaking/ seizure-like activity, this was communicated to nurse surgery as well as neurology department at [facility], who felt that patient shaking and seizure-like episodes are not actual seizures and to continue antiepileptic medications. Patient was also evaluated by ICU given his episodes of shaking and felt the patient is appropriate for floor admission. # sepsis secondary to hospital-acquired pneumonia # Enterococcus bacteremia evidence of infiltrate on chest CT 1 set out of 3 growing Enterococcus Pending Repeat blood cultures Continue with Vancomycin follow trough ID consult # Hx Type 2 DM w hypoglycemia not on any insulin or antihyperglycemics, no more incidents since admission Likely a result of not having a meal for prolonged period of time, sepsis, hyper insulin secretion, autoimmune, oral hypoglycemic agents Elevated C-peptide of 6.5 (normal up to 4) and pending proinsulin level, Check beta hydroxybutyrate, antibody to insulin HbA1c of 4.1 Continue tube feed Mealtime POC # Asaf nodule Ct reported 1.2 cm nodule right CP angle question inflammatory or infectious. Question of right lower lobe mass was raised on previous CT, abdomen and pelvis exam 06/26/2022. Recommend follow-up in 6 weeks to 3 months or PET/CT follow-up after resolution of pneumonia. # subdural hematoma Recent admission to [facility] with improvement, E reached out and per neurosurgery at [facility] findings improving on imaging continue tranexamic acid and Keppra # seizures, seizure-like activity , metabolic encephalopathy Having recurrent episodes of shaking behavior, he is alert it during the episodes I witnessed, does not look like seizure activity continue lamotrigine, Keppra, lamotrigine Keppra level pending Use benzos for any acute episode of seizure # hyperkalemia resolved after Lokelma follow BMP # history of renal transplant continue tacrolimus Low tacrolimus level of 1.8 Nephrology input appreciated follow BMP # Mood disorder will hold sedative at this time continue lorazepam p.r.n. DVT prophylaxis: SCDs given acute sepsis requiring IV antibiotics patient require overnight inpatient hospital stay for further management monitor pending repeated blood cultures and ID consult Time Spent With Patient Time: Total time managing care of this patient today ____ minutes. Quality Stroke Does the patient have a stroke diagnosis?: No VTE Prior VTE?: No VTE Risk Level:: Medical - moderate - high VTE Device Contraindication: N/A - Device Ordered VTE Drug Contraindication: Treatment Not Indicated
--- NOTE | 2022-08-16 11:37 | PM.PNNEP ---
Subjective Subjective Date of Service: 08/16/22 Principal diagnosis: Patient seen and examined Interval history: seen and examined more alert complains of constipation and feeling thirsty Physical Exam Vital Signs: Vital Signs: Last Vital Signs Temp 98.8 F 08/16/22 07:46 Pulse 77 08/16/22 07:46 Resp 17 08/16/22 07:46 BP 129/71 08/16/22 07:46 Pulse Ox 99 08/16/22 07:46 O2 Del Method 08/16/22 07:46 BMI result Body Mass Index 25.0 Const: General: no acute distress HEENT: Head: Yes normocephalic Neck: Neck: Yes supple Resp: Auscultation: clear to auscultation bilaterally Cardio: Heart sounds: S1 normal heart sound present and S2 normal heart sound present GI: Palpation (GI): Soft to palpation and nontender Extrem: General: Yes no pedal edema Objective Data Labs CBC & Chem 7: 08/14/22 05:33 08/16/22 05:52 Labs: Laboratory Results - last 24 hr 08/15/22 08/15/22 08/16/22 15:54 20:23 05:52 Creatinine 1.43 H Estim Creat Clear Calc 47.5 Estimated GFR 49 POC Glucose 105 96 08/16/22 08/16/22 07:19 11:19 Creatinine Estim Creat Clear Calc Estimated GFR POC Glucose 100 112 Microbiology Microbiology Results: Microbiology 08/14/22 15:29 Blood - Venous Blood Culture - Preliminary No growth after 24 hours. 08/14/22 15:29 Blood - Venous Blood Culture - Preliminary No growth after 24 hours. 08/12/22 14:09 Blood - Venous Blood Culture - Final Enterococcus faecalis 08/12/22 14:09 Blood - Venous Blood Culture - Preliminary No growth after 48 hours. 08/12/22 13:11 Blood - Venous Blood Culture - Preliminary No growth after 48 hours. 08/12/22 14:03 Blood - Venous Blood Culture - Final Procedures Date of Service Date of Service: 08/16/22 Assessment & Plan Assessment and plan (1) CKD (chronic kidney disease) stage 3, GFR 30-59 ml/min: Status: Acute (2) Hyperkalemia: Status: Acute (3) -donor kidney transplant: Status: Acute Plan kidney function better than known baseline known CKD DD KT in 2017 no h/o rejection ESRD due to HTN low tacrolimus level REC continue tacrolimus repeat tacrolimus level (ensure it is a trough level) goal tacrolimus level 5-8 follow kidney function and electrolytes Time Spent With Patient Time: Total time managing care of this patient today ____ minutes. Progress Note: Quality Stroke Does the patient have a stroke diagnosis?: No
--- NOTE | 2022-08-16 13:32 | MHC.CM.PN ---
NO PLAN FOR DC TODAY [facility] UPDATED [facility]. AWAITING REPEAT CULTURES
[2022-08-16 15:21] VITALS: BP 104/58; PULSE 73; RESP 18; TEMP 36.2; O2SAT 96
--- NOTE | 2022-08-16 15:25 | MHC.CLN ---
F/U PEG FOR NUTRITION SUPPORT REVIEWED LABS PT TOLERATING NEPRO AT MAX GAOL RATE 50ML/HR WITH 240ML Q 6 HRS FREE WATER FLUSHES PROVIDES 2160KCALS (30KCALS/KG), 97G PROTEIN (1.3G/KG), 1832ML TOTAL FREE WATER FROM FORMULA AND FLUSHES (25ML/KG) MONITOR TOLERANCE, RESIDUALS AND LYTES
[2022-08-16 16:22] LABS: Glucose, Whole Blood 111 mg/dL (60-115)
[2022-08-16 17:13] LABS: Levetiracetam Keppra 17.7 mcg/mL (6.0-46.0)
[2022-08-16 19:08] VITALS: BP 115/60; PULSE 83; RESP 16; TEMP 36.3; O2SAT 98
[2022-08-16 19:32] LABS: Glucose, Whole Blood 109 mg/dL (60-115)
[2022-08-16 21:26] LABS: Vancomycin Random 11.7 mcg/mL (15-20)
--- NOTE | 2022-08-16 22:08 | HE.PHANOTE ---
Vancomcyin Dosing Addendum Vancomycin trough 11.7, predicted auc of 414 with 750 mg q24h dosing. Increasing dose to 1000 mg q24h for predicted auc of 547. creatinine trending down ( yesterday 1.69 and today 1.43). next trough 08/17/22@2100.
[2022-08-16] MEDS: vancomycin HCL 1,000 MG in 0.9 % Sodium Chloride 250 ML 270 MG IV (23:02)
[2022-08-17 03:48] VITALS: BP 124/59; PULSE 64; RESP 18; TEMP 36.2; O2SAT 99
[2022-08-17] MEDS: Levothyroxine Sodium 75 MCG TABLET PO (05:34)
[2022-08-17 06:54] LABS: Creatinine Clr Calc Pharmacy 63.4; Estimated Glomerular Filt Rate > 60
[2022-08-17 07:29] VITALS: BP 109/59; PULSE 67; RESP 18; TEMP 36.3; O2SAT 98
[2022-08-17 09:03] LABS: Glucose, Whole Blood 96 mg/dL (60-115)
[2022-08-17] MEDS: cefTRIAXone sodium 1 GM in 0.9 % Sodium Chloride 50 ML IV (09:16)
[2022-08-17] MEDS: 0.9 % Sodium Chloride Flush 3 ML SYRINGE IVFLUSH (09:16)
[2022-08-17] MEDS: Tranexamic Acid 650 MG TABLET PO (09:17)
[2022-08-17] MEDS: Loratadine 10 MG TABLET PO (09:17)
[2022-08-17] MEDS: Cyanocobalamin (Vitamin B-12) 1,000 MCG TABLET 1000 MCG PO (09:17)
[2022-08-17] MEDS: Sodium Bicarbonate 650 MG TABLET PO (09:17)
[2022-08-17] MEDS: lamoTRIgine 100 MG TABLET 200 MG PO (09:17)
[2022-08-17] MEDS: levETIRAcetam Oral Soln 500 MG/5 ML PO (09:17)
[2022-08-17] MEDS: Cholecalciferol (Vitamin D3) 25 MCG TABLET PO (09:17)
--- NOTE | 2022-08-17 11:16 | PM.DS ---
DS: Providers Provider Date of Service: 08/17/22 Date of admission: 08/12/22 21:57 Primary care physician: Katja Brooks MD Consults: 08/13/22 07:24 Consult to Critical Care Routine Consulting Provider: Mustapha Camilo Reason for consultation: Seizure? Has provider been notified: Yes 08/13/22 08:38 Consult to Nephrology Routine Consulting Provider: Reynaldo Agee Reason for consultation: CKD, Hyperkalemia, Met. Acidosis for your kind eval 08/14/22 14:38 Consult to Infectious Diseases Routine Consulting Provider: Anabela Joy Reason for consultation: +ve set of blood cultures DS: Diagnosis Discharge Diagnosis (1) Bacteremia due to Enterococcus: Status: Acute (2) Episode of shaking: Status: Acute (3) Seizure-like activity: Status: Acute (4) Sepsis: Status: Acute (5) Hypoglycemia: Status: Acute (6) CKD (chronic kidney disease) stage 3, GFR 30-59 ml/min: Status: Acute (7) Hyperkalemia: Status: Acute (8) -donor kidney transplant: Status: Acute (9) Encephalopathy: Status: Acute DS: Summary Hospital Course Hospital Course: Admission note HPI ?67-year-old male with past medical history of? subdural hematoma, hypertension, hyperparathyroidism, dyslipidemia? underlying CKD, recently admitted to [facility] for subdural hematoma? [facility]: Patient was transferred on 07/15 for identification of encephalopathy and noted subacute/chronic subdural hematomas which required bur holes.? In addition, patient was noted to have hyponatremia and at renal consultation they recommended an adjusted shows of Tacrolimus for known renal transplant.? In addition neurosurgery was comfortable with discharge on 08/03 and patient had a follow-up appointment with them for 08/17/2022.? Neurosurgery recommended at that time to continue tranexamic acid through the PEG tube as well as continuing Keppra. Patient was also noted to have rectal thickening which was evaluated by Gastroenterology with the flexible sigmoidoscopy on 07/28 which was negative for demonstrating a rectal mass.? Patient's hyponatremia was further evaluated by Nephrology and felt to be secondary to ongoing intracranial process but had been annotated as improving.? ( to be secondary to quetiapine, intracranial process, low solute intake) renal recommended to continue dose of Tacrolimus of 3 mg in the morning and 2 mg in the p.m. Was sent to out hospital [place] with fever and more tremulous. Pt is somnolent and not able to give much answers therefore history is obtained from EMR Head CT was obtianed on pt with showed acute on subacute subdural hematoma. [facility] Radiology was unable to do a comparison of CT scans.? I called Neurosurgery at [facility], we discussed the CT scans, they were able to look at the images, patient's hematoma site were seen on the CT scans are actually improved from there CT scans of August 02. At this time, there is no need to transfer. ?patient was given IV fluids with improvement in his potassium as well as sodium, patient placed on D10, with p.r.n. D 50s ?urine negative for? acute infection, urine drug screen negative, lamotrigine and Keppra levels pending, viral serology pending Chest CT shows lingular and right lower lobe ground-glass opacities suggestive of developing infiltrate ?patient started on IV antibiotics and will be admitted for further management Hospital course The patient was admitted for evaluation of sepsis secondary to hospital-acquired pneumonia. Started on IV antibiotic as the CT scan showed an evidence of infiltrate. Blood cultures grew [address] scan of the abdomen and pelvis were negative for any acute findings. Echo could not rule out completely evidence of vegetation but repeated blood cultures came back negative. Evaluated by Infectious Disease specialist who recommended 2 weeks of antibiotics. Patient could not get an PICC line for advanced CKD in history of kidney transplant who was followed by Nephrology team who did not feel comfortable placing a PICC line in his only arm that might be needed for dialysis in the future. Id suggested Zyvox for total of 2 weeks of antibiotics. Patient still needed having more days of antibiotics. He was noted to have hypoglycemia at time of presentation. Believed to be a result of not eating, sepsis at time of presentation. Blood work was sent showing elevated C-peptide but the blood work was done while the patient on D10 which is expected as ideally C-peptide is check during hypoglycemia event. Rest of blood work including proinsulin, hydroxybutyrate and antibody to insulin still pending. No further hypoglycemia events were noted after starting diet with feeding tube. Noted to have lung nodules of 1.2 cm on the right chest. Recommendation to follow up in 6 weeks to 3 months or to do a PET scan after pneumonia resolves. Patient was in metabolic encephalopathy at time of presentation likely as a result of the infection with episodes of shaking and altered mentation. Improve with lamotrigine, Keppra and as needed Ativan. Continue Zyvox for 11 more days to finish total of 2 weeks of antibiotics Start sodium bicarbonate twice daily Hold atomoxetine while on Zyvox To follow-up outpatient with [facility] near surgery Time Spent with Patient Time attestation: Total time managing care of this patient today ____ minutes. Discharge coordination time: Greater than 30 minutes Quality: Safe Use of Opioids Does Pt have an Active Cancer Diagnosis on the Problem List?: No Quality: Stroke Does the patient have a stroke diagnosis?: No Physical Exam Vital Signs: Vital Signs: Last Vital Signs Temp 97.4 F 08/17/22 07:29 Pulse 67 08/17/22 07:29 Resp 18 08/17/22 07:29 BP 109/59 L 08/17/22 07:29 Pulse Ox 98 08/17/22 07:29 O2 Del Method 08/17/22 07:29 BMI result Body Mass Index 25.0 Const: Other: Constitutional : Awake , interactive, not in distress Neck : Normal inspection, Supple Cardiovascular : RRR, no JVP, no lower extremity edema Respiratory : good bilateral air entry, no crackles, wheezes or rhonchi Gastrointestinal: soft, lax, Normal bowel sounds, Non tender, G-tube in place with no surrounding erythema Skin : Warm, Dry Neurological : Alert & oriented to self and place, No focal deficit , move all extremities, speech is much clearer than before DS: Data Data Completed and Pending Labs on day of discharge: Laboratory Results - last 24 hr 08/12/22 08/16/22 08/16/22 14:09 11:19 16:16 Creatinine Estim Creat Clear Calc Estimated GFR POC Glucose 112 111 Random Vancomycin Levetiracetam 17.7 08/16/22 08/16/22 08/17/22 19:25 20:58 05:48 Creatinine 1.07 Estim Creat Clear Calc 63.4 Estimated GFR > 60 POC Glucose 109 Random Vancomycin 11.7 L Levetiracetam 08/17/22 07:26 Creatinine Estim Creat Clear Calc Estimated GFR POC Glucose 96 Random Vancomycin Levetiracetam Preliminary micro results at discharge 08/14/22 15:29 Blood Culture - Preliminary Blood - Venous No growth after 48 hours. 08/14/22 15:29 Blood Culture - Preliminary Blood - Venous No growth after 48 hours. 08/12/22 14:09 Blood Culture - Preliminary Blood - Venous No growth after 48 hours. 08/12/22 13:11 Blood Culture - Preliminary Blood - Venous No growth after [address] scan - abdomen: Radiologist's impression: ITS Impressions Chest X-Ray 08/12/22 13:35 IMPRESSION: Hypoexpanded lungs without acute process. Head CT 08/12/22 17:00 IMPRESSION: 1. Mixed attenuation left lateral convexity subdural hematoma measuring up to 1.2 cm in thickness consistent with acute to subacute hemorrhage. 2. Small right frontal convexity subdural hematoma measuring 4 mm in thickness, high density suggesting more recent/acute hemorrhage. 3. Mild 3-4 mm rightward midline shift. This critical result was discussed with Dr. Steele at 5:41 PM on 08/12/2022 and it was ascertained that the content and urgency of the report was understood at the time of direct communication. Abdomen/Pelvis CT 08/12/22 19:09 IMPRESSION: Lingular and right lower lobe groundglass opacity suggestive of developing infiltrates. There is a 1.2 cm nodule right CP angle question inflammatory or infectious. Question of right lower lobe mass was raised on previous CT abdomen and pelvis exam 06/26/2022. Recommend follow-up in 6 weeks to 3 months or PET/CT follow-up after resolution of pneumonia. Atrophic bilateral kidneys with normal appearing renal transplant in the pelvis. Significantly enlarged bladder secondary to bladder outlet obstruction from an enlarged prostate gland. There is small posterior wall calcification or radiopaque gravel along the posterior bladder wall. Dependent small radiopaque stones were suspected on the previous CT as well. Distended gallbladder with isodense bowel to liver. Chest CT 08/12/22 19:09 IMPRESSION: Lingular and right lower lobe groundglass opacity suggestive of developing infiltrates. There is a 1.2 cm nodule right CP angle question inflammatory or infectious. Question of right lower lobe mass was raised on previous CT abdomen and pelvis exam 06/26/2022. Recommend follow-up in 6 weeks to 3 months or PET/CT follow-up after resolution of pneumonia. Atrophic bilateral kidneys with normal appearing renal transplant in the pelvis. Significantly enlarged bladder secondary to bladder outlet obstruction from an enlarged prostate gland. There is small posterior wall calcification or radiopaque gravel along the posterior bladder wall. Dependent small radiopaque stones were suspected on the previous CT as well. Distended gallbladder with isodense bowel to liver. Discharge Plan Discharge Anticipated Discharge Date/Time: 08/17/22 11:06 Patient Disposition: Xfer SNF Discharge Diagnosis: Sepsis due to pneumonia Enterococcus bacteremia Toxic Metabolic encephalopathy Referrals: [facility] [Outside] - 1 Week Katja Brooks MD [Primary Care Provider] - 1 Week Discharge Medications: New sodium bicarbonate 650 mg Tablet 650 mg feeding tube BID Qty: 60 0RF linezolid 600 mg tablet 600 mg feeding tube Q12H 11 Days Qty: 22 0RF Continued allopurinol 100 mg tablet 100 mg PO DAILY Qty: 90 0RF amantadine HCl 50 mg/5 mL Solution 100 mg PO BID trazodone 50 mg Tablet 50 mg PO BEDTIME PRN (Reason: Insomnia) levetiracetam 500 mg Tablet 500 mg PO BID cyanocobalamin (vitamin B-12) [Vitamin B-12] 1,000 mcg Tablet 1,000 mcg PO DAILY lorazepam 0.5 mg Tablet 0.5 mg PO BID PRN (Reason: Anxiety) bupropion HCl 75 mg Tablet 75 mg PO DAILY lansoprazole 15 mg Capsule,Delayed Release(Dr/Ec) 15 mg PO DAILY tacrolimus 1 mg Capsule 2 mg PO BEDTIME tacrolimus 1 mg Capsule 3 mg PO DAILY loratadine 10 mg Tablet 10 mg PO DAILY cholecalciferol (vitamin D3) 25 mcg (1,000 unit) Tablet 25 mcg PO DAILY tranexamic acid 650 mg Tablet 650 mg PO DAILY lamotrigine 200 mg tablet 200 mg PO BID Rx Instructions: Temporary prescription will be sent for 1 month, patient will be seeing a new psychiatrist levothyroxine 75 mcg tablet 75 mcg PO DAILY@0600 tamsulosin 0.4 mg capsule 0.4 mg PO BEDTIME Held atomoxetine 100 mg capsule 1 cap PO QAM Hold Instructions: Hold while on Zyvox Discharge Orders: Discharge Order (Routine); Ordered 08/17/22 Ordered By: Daniel Hall Diet: Advance to usual diet Activity on Discharge: As tolerated Stand Alone Forms: Patient Portal Discharge page Care Plan Goals: Read below Health Concerns: Read below Plan of Treatment: Read below Assessment: You were admitted to the hospital for evaluation of altered mentation. Found to have an evidence of pneumonia requiring IV antibiotic treatment with good response over the course of hospital stay. Blood cultures grew bacteria called Enterococcus that was treated with IV vancomycin. Evaluated by Infectious Disease specialist who recommended to finish total 2 weeks of antibiotics. Continue Zyvox for 11 more days to finish total of 2 weeks of antibiotics Start sodium bicarbonate twice daily Hold atomoxetine while on Zyvox To follow-up outpatient with [facility]
[2022-08-17 11:27] LABS: Glucose, Whole Blood 102 mg/dL (60-115)
--- NOTE | 2022-08-17 11:30 | PM.PNNEP ---
Subjective Subjective Date of Service: 08/17/22 Principal diagnosis: Patient seen and examined Interval history: seen and examined more alert no complains discussed with medical attending Physical Exam Vital Signs: Vital Signs: Last Vital Signs Temp 97.4 F 08/17/22 07:29 Pulse 67 08/17/22 07:29 Resp 18 08/17/22 07:29 BP 109/59 L 08/17/22 07:29 Pulse Ox 98 08/17/22 07:29 O2 Del Method 08/17/22 07:29 BMI result Body Mass Index 25.0 Const: General: no acute distress HEENT: Head: Yes normocephalic Neck: Neck: Yes supple Resp: Auscultation: clear to auscultation bilaterally Cardio: Heart sounds: S1 normal heart sound present and S2 normal heart sound present GI: Palpation (GI): Soft to palpation and nontender Extrem: General: Yes no pedal edema Objective Data Labs CBC & Chem 7: 08/14/22 05:33 08/17/22 05:48 Labs: Laboratory Results - last 24 hr 08/12/22 08/16/22 08/16/22 14:09 11:19 16:16 Creatinine Estim Creat Clear Calc Estimated GFR POC Glucose 112 111 Random Vancomycin Levetiracetam 17.7 08/16/22 08/16/22 08/17/22 19:25 20:58 05:48 Creatinine 1.07 Estim Creat Clear Calc 63.4 Estimated GFR > 60 POC Glucose 109 Random Vancomycin 11.7 L Levetiracetam 08/17/22 08/17/22 07:26 11:16 Creatinine Estim Creat Clear Calc Estimated GFR POC Glucose 96 102 Random Vancomycin Levetiracetam Microbiology Microbiology Results: Microbiology 08/14/22 15:29 Blood - Venous Blood Culture - Preliminary No growth after 48 hours. 08/14/22 15:29 Blood - Venous Blood Culture - Preliminary No growth after 48 hours. 08/12/22 14:09 Blood - Venous Blood Culture - Final Enterococcus faecalis 08/12/22 14:09 Blood - Venous Blood Culture - Preliminary No growth after 48 hours. 08/12/22 13:11 Blood - Venous Blood Culture - Preliminary No growth after 48 hours. 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 Progress Note: Quality Stroke Does the patient have a stroke diagnosis?: No
[2022-08-17] MEDS: Linezolid 600 MG TABLET PO (12:45)
[2022-08-17 13:13] LABS: COVID-19 Test Negative (Negative); IDNOW Serial# 16C4AD1C
--- NOTE | 2022-08-17 13:23 | MHC.CM.PN ---
PLAN IS RETURN TO [facility] TODAY FOR 4 PM REQUEST TO [facility]. RN AWARE OF PLAN. IMM 08/16 IN CHART
--- NOTE | 2022-08-17 14:15 | W.PM.IDCN ---
History of Present Illness Data of Consult Service Date: 08/17/22 Requesting physician: Daniel Hall Primary Care Provider: Katja Brooks MD HPI Reason for consult: enterococcus/bacteremia He presents to hospital with weakness and fatigue. He has enterococcus bacteremia. He has only one blood culture positive. Review of Systems Review of Systems: Yes all other systems are reviewed and are negative PMFSH Past Medical History Medical History Acquired hypothyroidism Chronic kidney disease Dyslipidemia Essential hypertension Secondary hyperparathyroidism Subdural hematoma Family History Family History Father Medical history non-contributory Mother Medical history non-contributory Sister No problems noted. Family history: reviewed and not pertinent Surgical History Surgical History History of arteriovenous shunt History of colonoscopy History of renal transplant Social History Social History Household Members: Other Household Members Other:: residential Housing: Snf Unable to assess alcohol history related to: Unknown Patient Tobacco Use Status: Tobacco use Unknown Use of substances other than those prescribed or required for medical reasons: Unknown Currently Displaying Signs/Symptoms of Drug Intoxication Withdrawal: No Advance Directives: No Advance Directives Information Provided: Yes Recently lost weight without trying: Unsure Nutrition Risks: Receiving home tube feeding or CPN Meds Allergies Allergy/AdvReac Type Severity Reaction Status Date / Time No Known Allergies Allergy Unverified 06/26/22 12:45 Active Medications: Current Medications Acetaminophen (Acetaminophen Supp 650 Mg Supp.Rect) 650 mg MN Q6H PRN PRN Reason: Pain, Mild (Pain Scale 1-3) Cyanocobalamin (Cyanocobalamin (Vitamin B-12) 1,000 Mcg Tablet) 1,000 mcg PO DAILY [facility] Last Admin: 08/17/22 09:17 Dose: 1,000 mcg Dextrose (Dextrose 50 % 25 Gm/50 Ml Syringe) 25 gm IVPUSH Q15M PRN PRN Reason: per Hypoglycemia Standing Ord. Last Admin: 08/12/22 22:00 Dose: 25 gm Lamotrigine (Lamotrigine 100 Mg Tablet) 200 mg PO BID [facility] Last Admin: 08/17/22 09:17 Dose: 200 mg Levetiracetam (Levetiracetam Oral Soln 500 Mg/5 Ml) 500 mg PO BID [facility] Last Admin: 08/17/22 09:17 Dose: 500 mg Levothyroxine Sodium (Levothyroxine Sodium 75 Mcg Tablet) 75 mcg PO DAILY@0600 [facility] Last Admin: 08/17/22 05:34 Dose: 75 mcg Linezolid (Linezolid 600 Mg Tablet) 600 mg PO BID [facility] Last Admin: 08/17/22 12:45 Dose: 600 mg Loratadine (Loratadine 10 Mg Tablet) 10 mg PO DAILY [facility] Last Admin: 08/17/22 09:17 Dose: 10 mg Lorazepam (Lorazepam 0.5 Mg Tablet) 0.5 mg PO BID PRN PRN Reason: Anxiety Last Admin: 08/16/22 07:25 Dose: 0.5 mg Non-Formulary Medication ( Tacrolimus Oral Suspension 0.5 Mg/Ml (2 Mg)) 2 mg PO BEDTIME [facility] Last Admin: 08/16/22 21:06 Dose: 2 mg Non-Formulary Medication ( Tacrolimus Oral Suspension 0.5 Mg/Ml (3 Mg)) 3 mg PO DAILY [facility] Last Admin: 08/17/22 10:30 Dose: 3 mg Omeprazole (Omeprazole 20 Mg/10 Ml Susp.Recon) 20 mg PO DAILY@0630 [facility] Last Admin: 08/17/22 05:50 Dose: 20 mg Ondansetron HCl (Ondansetron Hcl 4 Mg/2 Ml Vial) 4 mg IVPUSH Q8H PRN PRN Reason: Nausea and Vomiting Pharmacy Consult (Consult Rx Perform Med Rec) 1 each MISCELLANE ONCE PRN PRN Reason: Consult order Sodium Bicarbonate (Sodium Bicarbonate 650 Mg Tablet) 650 mg PO BID [facility] Last Admin: 08/17/22 09:17 Dose: 650 mg Sodium Chloride (0.9 % Sodium Chloride Flush 3 Ml Syringe) 3 ml IVFLUSH QSHIFT [facility] Last Admin: 08/17/22 09:16 Dose: 3 ml Tamsulosin HCl (Tamsulosin Hcl 0.4 Mg Capsule) 0.8 mg PO BEDTIME [facility] Last Admin: 08/16/22 21:30 Dose: Not Given Tranexamic Acid (Tranexamic Acid 650 Mg Tablet) 650 mg PO DAILY [facility] Last Admin: 08/17/22 09:17 Dose: 650 mg Trazodone HCl (Trazodone Hcl 50 Mg Tablet) 50 mg PO BEDTIME PRN PRN Reason: Insomnia Last Admin: 08/15/22 21:03 Dose: 50 mg Vitamin D (Cholecalciferol (Vitamin D3) 25 Mcg Tablet) 25 mcg PO DAILY [facility] Last Admin: 08/17/22 09:17 Dose: 25 mcg Home Medications Medication Instructions Recorded Confirmed Last Taken Type tamsulosin 0.4 mg capsule 0.4 mg PO BEDTIME 08/12/20 08/12/22 Unknown History amantadine HCl 50 mg/5 mL oral 100 mg PO BID 08/12/22 08/12/22 Unknown History solution atomoxetine 100 mg capsule 1 cap PO QAM 08/12/22 08/12/22 Unknown History bupropion HCl 75 mg tablet 75 mg PO DAILY 08/12/22 08/12/22 Unknown History cholecalciferol (vitamin D3) 25 25 mcg PO DAILY 08/12/22 08/12/22 Unknown History mcg (1,000 unit) tablet cyanocobalamin (vitamin B-12) 1,000 mcg PO DAILY 08/12/22 08/12/22 Unknown History 1,000 mcg tablet (Vitamin B-12) lamotrigine 200 mg tablet 200 mg PO BID 08/12/22 08/12/22 Unknown History lansoprazole 15 mg capsule,delayed 15 mg PO DAILY 08/12/22 08/12/22 Unknown History release levetiracetam 500 mg tablet 500 mg PO BID 08/12/22 08/12/22 Unknown History levothyroxine 75 mcg tablet 75 mcg PO DAILY@0600 08/12/22 08/12/22 Unknown History loratadine 10 mg tablet 10 mg PO DAILY 08/12/22 08/12/22 Unknown History lorazepam 0.5 mg tablet 0.5 mg PO BID PRN Anxiety 08/12/22 08/12/22 Unknown History tacrolimus 1 mg capsule, 2 mg PO BEDTIME 08/12/22 08/12/22 Unknown History immediate-release tacrolimus 1 mg capsule, 3 mg PO DAILY 08/12/22 08/12/22 Unknown History immediate-release tranexamic acid 650 mg tablet 650 mg PO DAILY 08/12/22 08/12/22 Unknown History trazodone 50 mg tablet 50 mg PO BEDTIME PRN Insomnia 08/12/22 08/12/22 Unknown History Physical Exam Vital Signs: Vital Signs: Last Vital Signs Temp 97.4 F 08/17/22 07:29 Pulse 67 08/17/22 07:29 Resp 18 08/17/22 07:29 BP 109/59 L 08/17/22 07:29 Pulse Ox 98 08/17/22 07:29 O2 Del Method 08/17/22 07:29 BMI result Body Mass Index 25.0 Const: General: cooperative HEENT: Head: Yes normal to inspection Face and sinus: Yes normal facial exam Mouth: Normal oral and palatal mucosa present Teeth and gingiva: dentition normal Eyes: General: appearance normal, both eyes and all related structures Pupils: Equal, round and reactive pupils present Resp: Effort & Inspection: normal respiratory effort Cardio: Rate: regular rate Rhythm: regular rhythm GI: Other: feeding tube Palpation (GI): Soft to palpation and nontender : General: Yes no CVA tenderness Back/Spine/Pelvis: Back: no CVA tenderness Skin: General skin exam: no rashes or lesions noted Neuro: General: moves all extremities Cranial nerves: Yes Equal, round and reactive pupils present Extrem: General: Yes normal to inspection Psych: Appearance: grossly normal Results Labs CBC & Chem 7: 08/14/22 05:33 08/17/22 05:48 Labs: BMP 08/17/22 05:48 Creatinine 1.07 Microbiology Microbiology Results: Microbiology 08/14/22 15:29 Blood - Venous Blood Culture - Preliminary No growth after 48 hours. 08/14/22 15:29 Blood - Venous Blood Culture - Preliminary No growth after 48 hours. 08/12/22 14:09 Blood - Venous Blood Culture - Final Enterococcus faecalis 08/12/22 14:09 Blood - Venous Blood Culture - Preliminary No growth after 48 hours. 08/12/22 13:11 Blood - Venous Blood Culture - Preliminary No growth after 48 hours. 08/12/22 14:03 Blood - Venous Blood Culture - Final Assessment and Plan (1) Bacteremia due to Enterococcus: Status: Acute He has one culture only positive enterococcus (2) Sepsis: Status: Acute He has enterococcus and probable urinary source. He has resolution in symptoms Plan Would continue crushed NGT linezolid for fourteen days total. Time Spent With Patient Time: Total time managing care of this patient today ____ minutes.
--- NOTE | 2022-08-17 15:06 | CONS_ITS ---
DATE OF SERVICE: 08/13/2022 HISTORY OF PRESENT ILLNESS: This is a 67-year-old patient who has a history of chronic kidney disease and donor kidney transplant back in 2017, who was admitted to the hospital with lethargy and found to have an elevated serum creatinine. In summary, the patient returned to consultation, unable to give any history and most of the history is obtained from reviewing medical record. Apparently, the patient was recently admitted to [facility] for subdural hematoma, underwent ignacio hole at [facility]. The [facility] with fever and being more tremulous. CT scan of the head was obtained and did not show any acute subdural hematoma. PAST MEDICAL HISTORY: Remarkable for chronic kidney disease stage III, hypertension, gout, anxiety, depression, anemia, dyslipidemia. PAST SURGICAL HISTORY: Notable for arteriovenous shunt placement and donor transplant. MEDICATION: As an outpatient include tamsulosin, bupropion, cholecalciferol, lansoprazole, levothyroxine, loratadine, tacrolimus, trazodone. ALLERGIES: HE IS NOT ALLERGIC TO MEDICATIONS. SOCIAL HISTORY: Does not smoke. FAMILY HISTORY: Negative for kidney disease. REVIEW OF SYSTEMS: 10-point review of systems is negative except for pertinent in history of present illness. PHYSICAL EXAMINATION: VITAL SIGNS: The blood pressure is 123/42, heart rate 87, respiratory rate 22, temperature 98.3. CONSTITUTIONAL: Looks his stated age. No acute distress. NEUROLOGIC: Confused. HEENT: Head is atraumatic, normocephalic. NECK: Supple. LUNGS: Good air entry bilaterally. CARDIOVASCULAR: S1, S2. No rubs. ABDOMEN: Soft, obese, nontender. EXTREMITIES: Peripheral edema. LABORATORY DATA: Showed sodium 143, potassium 5.3, chloride 116, CO2 17, BUN 43, creatinine 1.68. White count 6.1, hemoglobin 9.2, platelet count 275. IMPRESSION: 1. Chronic kidney disease stage III. 2. Hyperkalemia. 3. History of donor kidney transplant. 4. History of subdural hematoma. This is a patient with chronic kidney disease stage III with a baseline serum creatinine around 2 mg/dL who has a history of donor kidney transplant back in 2016. The patient does not have any history of rejection and cause of end-stage kidney disease is hypertensive nephrosclerosis. Currently his kidney function appears to be at baseline. He does have elevated serum potassium. I would treat his high potassium with sodium zirconium and we will continue his immunosuppressive regimen, which consists of tacrolimus 3 mg in the morning and 2 mg at bedtime and we will follow tacrolimus level as well. We will continue to follow closely his kidney function and electrolytes. Michelle Nolan MD GF/MODL / [id number]
[2022-08-17 16:49] LABS: Lamotrigine Lamictal 5.6 mcg/mL (4.0-18.0)
[2022-08-17 16:50] LABS: Glucose, Whole Blood 76 mg/dL (60-115)
[2022-08-19 04:03] LABS: Beta-Hydroxybutyrate 0.06 mmol/L
[2022-08-21 00:29] LABS: Proinsulin <4.0 pmol/L (< OR = 18.8)
[2022-08-21 21:54] LABS: Insulin Auto Antibody <0.4 U/mL (<0.4)
== END 2022-08-17 17:00 | disposition skilled nursing facility (03) | DRG 871 ==
LOC: HO.ED 22:01 → HO.EDOVER 22:03 → HO.S3 08-13 04:58
PROVIDERS: Student in an Organized Health Care Education/Training Program; Admitting Provider Internal Medicine; Emergency Provider Emergency Medicine; PCP Internal Medicine; Visit Provider Student in an Organized Health Care Education/Training Program
DX: A41.9 Sepsis, unspecified organism (principal); G93.41 Metabolic encephalopathy; J18.9 Pneumonia, unspecified organism; D84.821 Immunodeficiency due to drugs; T86.12 Kidney transplant failure; N25.81 Secondary hyperparathyroidism of renal origin; E03.9 Hypothyroidism, unspecified; E16.2 Hypoglycemia, unspecified; E87.5 Hyperkalemia; F39 Unspecified mood [affective] disorder; I12.9 Hypertensive chronic kidney disease with stage 1 through stage 4 chronic kidney disease, or unspecified chronic kidney disease; B95.2 Enterococcus as the cause of diseases classified elsewhere; R91.1 Solitary pulmonary nodule; D63.1 Anemia in chronic kidney disease; N18.30 Chronic kidney disease, stage 3 unspecified; E78.5 Hyperlipidemia, unspecified; Z20.822 Contact with and (suspected) exposure to COVID-19; Z79.621 Long term (current) use of calcineurin inhibitor; Z79.890 Hormone replacement therapy; Z79.899 Other long term (current) drug therapy
CPT/HCPCS: 36415; 70450; 71045; 71250; 74176; 80048; 80053; 80175; 80177; 80197; 80202; 80307; 81003; 82010; 82077; 82565; 82947; 83036; 83605; 83735; 84206; 84484; 84681; 85025; 85027; 85610; 86337; 87040; 87077; 87186; 87205; 87502; 87635; 93005; 93306; 94640; 96361; 96365; 96366; 96367; 96372; 96375; 96376; 99285; C1758; J0456; J0610; J0696; J1200; J2060; J2250; J2543; J3370